=== PATIENT | male | born 1945 | race Caucasian/White ===

== ENCOUNTER 2018-01-07 17:10 | Emergency (ER) | payer MEDICARE, OTHER ==
--- NOTE | 2018-01-07 17:50 | ED ---
General Adult HPI - General Chief complaint: Recheck/Abnormal Lab/Rx Stated complaint: WANTS BP CHECKED Time Seen by Provider: 01/07/18 17:21 Source: patient, RN notes reviewed, old records reviewed Mode of arrival: ambulatory Limitations: no limitations - History of Present Illness Initial comments: 72-year-old male presents for evaluation of low blood pressure. Patient does have history of high blood pressure and is on medication. He was evaluated for shoulder osteoarthritis at outside clinic where he receives injections. They did note his blood pressure was low and told him to present to the emergency department for evaluation. Patient has no complaints. No chest pain or shortness of breath. No abdominal pain. No vomiting or diarrhea. No recent change in his medications. No fever or chills. Patient previously had significant lower extremity edema and was treated with diuretics he states is currently significantly improved. - Related Data Home Medications Medication Instructions Recorded Confirmed Aspirin EC [Ecotrin Low Dose] 81 mg PO DAILY 01/07/18 01/07/18 Atorvastatin [Lipitor] 40 mg PO HS 01/07/18 01/07/18 Budesonide/Formoterol Fumarate 2 puff INHALATION RT-BID 01/07/18 01/07/18 [Symbicort 160-4.5 Mcg Inhaler] Bumetanide [Bumex] 1 mg PO BID 01/07/18 01/07/18 Ferrous Sulfate [Feosol] 325 mg PO BID 01/07/18 01/07/18 Furosemide [Lasix] 30 mg PO BID 01/07/18 01/07/18 HYDROcodone/APAP 10-325MG [[place] 1 tab PO Q4HR PRN 01/07/18 01/07/18 10-325] Lisinopril [Zestril] 10 mg PO DAILY 01/07/18 01/07/18 Metoprolol Succinate (ER) [Toprol 25 mg PO DAILY 01/07/18 01/07/18 Xl] Multivitamins, Thera [Multivitamin 1 tab PO DAILY 01/07/18 01/07/18 (formulary)] Nitroglycerin Sl Tabs [Nitrostat] 0.4 mg SUBLINGUAL Q5M PRN 01/07/18 01/07/18 Potassium Chloride ER [K-Dur 10] 10 meq PO BID 01/07/18 01/07/18 Terazosin [Hytrin] 5 mg PO DAILY 01/07/18 01/07/18 tiZANidine [Zanaflex] 4 mg PO Q8HR PRN 01/07/18 01/07/18 Allergies Allergy/AdvReac Type Severity Reaction Status Date / Time No Known Allergies Allergy Verified 01/07/18 17:17 Review of Systems ROS Statement: Those systems with pertinent positive or pertinent negative responses have been documented in the HPI. ROS Other: All systems not noted in ROS Statement are negative. Past Medical History Past Medical History: Heart Failure, COPD, Hyperlipidemia, Hypertension, Myocardial Infarction ([place]) Additional Past Medical History / Comment(s): 2 stents cardiac History of Any Multi-Drug Resistant Organisms: None Reported Past Surgical History: Appendectomy, Heart Catheterization With Stent, Joint Replacement Additional Past Surgical History / Comment(s): hip replacement Past Psychological History: No Psychological Hx Reported Smoking Status: Never smoker Past Alcohol Use History: None Reported Past Drug Use History: None Reported General Exam Limitations: no limitations General appearance: alert, in no apparent distress Head exam: Present: atraumatic, normocephalic Eye exam: Present: normal appearance, PERRL, EOMI ENT exam: Present: normal exam Neck exam: Present: normal inspection. Absent: tenderness, meningismus Respiratory exam: Present: normal lung sounds bilaterally. Absent: respiratory distress, wheezes, rales Cardiovascular Exam: Present: regular rate, normal rhythm GI/Abdominal exam: Present: soft. Absent: distended, tenderness, guarding Extremities exam: Present: pedal edema Back exam: Present: normal inspection, full ROM Neurological exam: Present: alert, oriented X3, CN II-XII intact. Absent: motor sensory deficit Psychiatric exam: Present: normal affect, normal mood Skin exam: Present: warm, dry, intact. Absent: cyanosis, diaphoretic Course Vital Signs 01/07/18 01/07/18 01/07/18 17:12 18:25 18:52 Temperature 73 F L 98.2 F Pulse Rate 70 78 Pulse Rate [ 73 Sitting] Pulse Rate [ 85 Standing] Pulse Rate [ 62 Supine] Respiratory 18 16 Rate Blood Pressure 111/56 Blood Pressure 133/63 [Sitting] Blood Pressure 117/57 [Standing] Blood Pressure 122/58 [Supine] O2 Sat by Pulse 95 Oximetry EKG Findings - EKG Comments: EKG Findings:: EKG: Sinus rhythm with first-degree AV block and occasional PVC low-voltage prolonged QT at 481, ventricular rate is 78, NM interval 260, QRS duration 96. Medical Decision Making - Medical Decision Making 72 year old male presenting with hypotension found at outside clinic. Patient is asymptomatic. Vital signs are stable orthostatic pressures are unremarkable and patient is asymptomatic. EKG is nonischemic. Workup including CBC, CMP troponin and UA was unremarkable. Chest x-ray is negative for acute findings. Patient is reassessed, he is resting comfortably. He is asymptomatic. Blood pressure is stable. He will be discharged home with outpatient follow-up. He will monitor his blood pressure at home. - Lab Data Result diagrams: 01/07/18 17:43 01/07/18 17:43 Lab Results 01/07/18 01/07/18 01/07/18 Range/Units 17:43 17:43 17:43 WBC 6.4 (3.8-10.6) k/uL RBC 4.16 L (4.30-5.90) m/uL Hgb 13.5 (13.0-17.5) gm/dL Hct 40.4 (39.0-53.0) % MCV 97.1 (80.0-100.0) fL MCH 32.4 (25.0-35.0) pg MCHC 33.4 (31.0-37.0) g/dL RDW 14.8 (11.5-15.5) % Plt Count 222 (150-450) k/uL Neutrophils % 62 % Lymphocytes % 24 % Monocytes % 8 % Eosinophils % 3 % Basophils % 1 % Neutrophils # 3.9 (1.3-7.7) k/uL Lymphocytes # 1.5 (1.0-4.8) k/uL Monocytes # 0.5 (0-1.0) k/uL Eosinophils # 0.2 (0-0.7) k/uL Basophils # 0.0 (0-0.2) k/uL PT (9.0-12.0) sec INR (<1.2) APTT (22.0-30.0) sec Sodium 143 (137-145) mmol/L Potassium 3.9 (3.5-5.1) mmol/L Chloride 106 (98-107) mmol/L Carbon Dioxide 24 (22-30) mmol/L Anion Gap 13 mmol/L BUN 19 (9-20) mg/dL Creatinine 0.90 (0.66-1.25) mg/dL Est GFR (CKD-EPI)AfAm >90 (>60 ml/min/1.73 sqM) Est GFR (CKD-EPI)NonAf 86 (>60 ml/min/1.73 sqM) Glucose 96 (74-99) mg/dL Plasma Lactic Acid Mario (0.7-2.0) mmol/L Calcium 9.3 (8.4-10.2) mg/dL Total Bilirubin 0.6 (0.2-1.3) mg/dL AST 22 (17-59) U/L ALT 38 (21-72) U/L Alkaline Phosphatase 105 (38-126) U/L Total Creatine Kinase 58 (55-170) U/L CK-MB (CK-2) 1.5 (0.0-2.4) ng/mL CK-MB (CK-2) Rel Index 2.6 Troponin I <0.012 (0.000-0.034) ng/mL Total Protein 6.1 L (6.3-8.2) g/dL Albumin 3.8 (3.5-5.0) g/dL Urine Color Urine Appearance (Clear) Urine pH (5.0-8.0) Ur Specific [place] (1.001-1.035) Urine Protein (Negative) Urine Glucose (UA) (Negative) Urine Ketones (Negative) Urine Blood (Negative) Urine Nitrite (Negative) Urine Bilirubin (Negative) Urine Urobilinogen (<2.0) mg/dL Ur Leukocyte Esterase (Negative) 01/07/18 01/07/18 01/07/18 Range/Units 17:43 17:43 17:45 WBC (3.8-10.6) k/uL RBC (4.30-5.90) m/uL Hgb (13.0-17.5) gm/dL Hct (39.0-53.0) % MCV (80.0-100.0) fL MCH (25.0-35.0) pg MCHC (31.0-37.0) g/dL RDW (11.5-15.5) % Plt Count (150-450) k/uL Neutrophils % % Lymphocytes % % Monocytes % % Eosinophils % % Basophils % % Neutrophils # (1.3-7.7) k/uL Lymphocytes # (1.0-4.8) k/uL Monocytes # (0-1.0) k/uL Eosinophils # (0-0.7) k/uL Basophils # (0-0.2) k/uL PT 10.9 (9.0-12.0) sec INR 1.1 (<1.2) APTT 37.3 H (22.0-30.0) sec Sodium (137-145) mmol/L Potassium (3.5-5.1) mmol/L Chloride (98-107) mmol/L Carbon Dioxide (22-30) mmol/L Anion Gap mmol/L BUN (9-20) mg/dL Creatinine (0.66-1.25) mg/dL Est GFR (CKD-EPI)AfAm (>60 ml/min/1.73 sqM) Est GFR (CKD-EPI)NonAf (>60 ml/min/1.73 sqM) Glucose (74-99) mg/dL Plasma Lactic Acid Mario 0.8 (0.7-2.0) mmol/L Calcium (8.4-10.2) mg/dL Total Bilirubin (0.2-1.3) mg/dL AST (17-59) U/L ALT (21-72) U/L Alkaline Phosphatase (38-126) U/L Total Creatine Kinase (55-170) U/L CK-MB (CK-2) (0.0-2.4) ng/mL CK-MB (CK-2) Rel Index Troponin I (0.000-0.034) ng/mL Total Protein (6.3-8.2) g/dL Albumin (3.5-5.0) g/dL Urine Color Yellow Urine Appearance Clear (Clear) Urine pH 5.0 (5.0-8.0) Ur Specific [place] 1.014 (1.001-1.035) Urine Protein Negative (Negative) Urine Glucose (UA) Negative (Negative) Urine Ketones Negative (Negative) Urine Blood Negative (Negative) Urine Nitrite Negative (Negative) Urine Bilirubin Negative (Negative) Urine Urobilinogen <2.0 (<2.0) mg/dL Ur Leukocyte Esterase Negative (Negative) Disposition Clinical Impression: Hypotension Disposition: HOME SELF-CARE Condition: Good Instructions: Hypotension (ED) Is patient prescribed a controlled substance at d/c from ED?: No Referrals: Ever Marquis MD [Primary Care Provider] - 1-2 days Time of Disposition: 18:54
[2018-01-07 17:55] LABS: Appearance,Urine Clear (Clear); Bilirubin,Urine Negative (Negative); Blood,Urine Negative (Negative); Color,Urine Yellow; Glucose,Urine (UA) Negative (Negative); Ketones,Urine Negative (Negative); Leukocyte Esterase,Urine Negative (Negative); Nitrite,Urine Negative (Negative); Protein,Urine Negative (Negative); Specific Gravity,Urine 1.014 (1.001-1.035); Urobilinogen,Urine <2.0 mg/dL (<2.0)
[2018-01-07 17:56] LABS: Basophils % (A) 1 %; Eosinophils # (A) 0.2 k/uL (0-0.7); Eosinophils % (A) 3 %; HCT 40.4 % (39.0-53.0); HGB 13.5 gm/dL (13.0-17.5); Lymphocytes # (A) 1.5 k/uL (1.0-4.8); Lymphocytes % (A) 24 %; MCH 32.4 pg (25.0-35.0); MCHC 33.4 g/dL (31.0-37.0); MCV 97.1 fL (80.0-100.0); Mean Platelet Volume 7.4; Monocytes # (A) 0.5 k/uL (0-1.0); Monocytes % (A) 8 %; Neutrophils # (A) 3.9 k/uL (1.3-7.7); Neutrophils % (A) 62 %; Platelet Count 222 k/uL (150-450); RBC 4.16 m/uL (4.30-5.90); RDW 14.8 % (11.5-15.5); WBC 6.4 k/uL (3.8-10.6)
[2018-01-07 18:04] LABS: INR 1.1 (<1.2); Partial Thromboplastin Time 37.3 sec (22.0-30.0); Prothrombin Time 10.9 sec (9.0-12.0)
[2018-01-07 18:10] LABS: ALT 38 U/L (21-72); AST 22 U/L (17-59); Albumin 3.8 g/dL (3.5-5.0); Alkaline Phosphatase 105 U/L (38-126); Anion Gap 13 mmol/L; Blood Urea Nitrogen 19 mg/dL (9-20); Calcium 9.3 mg/dL (8.4-10.2); Carbon Dioxide 24 mmol/L (22-30); Chloride 106 mmol/L (98-107); Glucose 96 mg/dL (74-99); Potassium 3.9 mmol/L (3.5-5.1); Sodium 143 mmol/L (137-145); Total Bilirubin 0.6 mg/dL (0.2-1.3); Total Protein 6.1 g/dL (6.3-8.2)
--- NOTE | 2018-01-07 18:13 | XR ---
EXAMINATION TYPE: XR chest 2V DATE OF EXAM: 01/07/2018 COMPARISON: 05/10/2012 HISTORY: Syncope TECHNIQUE: Frontal and lateral views of the chest are obtained. FINDINGS: There is no heart failure nor confluent pneumonic infiltrate. Costophrenic angles are desire r. There are chest leads. IMPRESSION: No active cardiopulmonary disease. Normal heart. Calcified granuloma noted at the left p ulmonary hilum. No change.
[2018-01-07 18:19] LABS: Creatine Kinase 58 U/L (55-170)
[2018-01-07 18:31] LABS: Creatine Kinase MB 1.5 ng/mL (0.0-2.4); Troponin I <0.012 ng/mL (0.000-0.034)
[2018-01-07 18:52] VITALS: RESP 16; TEMP 98.2
[2018-01-07 19:03] VITALS: BP 105/62; PULSE 70
== END 2018-01-07 19:02 | disposition home or self-care (01) ==
LOC: EC 17:10
DX: I95.9 Hypotension, unspecified (principal); I11.0 Hypertensive heart disease with heart failure; I50.9 Heart failure, unspecified; I25.2 Old myocardial infarction; E78.5 Hyperlipidemia, unspecified; J44.9 Chronic obstructive pulmonary disease, unspecified; Z95.5 Presence of coronary angioplasty implant and graft; Z96.649 Presence of unspecified artificial hip joint; Z98.890 Other specified postprocedural states; Z79.51 Long term (current) use of inhaled steroids; Z79.82 Long term (current) use of aspirin; Z79.899 Other long term (current) drug therapy
CPT/HCPCS: 36415; 71046; 80053; 81003; 82550; 82553; 83605; 84484; 85025; 85610; 85730; 93005; 99284

== ENCOUNTER 2018-03-26 21:21 | Observation (INO) | payer MEDICARE, OTHER ==
--- NOTE | 2018-03-26 23:59 | XR ---
EXAM: XR Chest, 2 Views CLINICAL HISTORY: Difficulty breathing TECHNIQUE: Frontal and lateral views of the chest. COMPARISON: Chest x-ray dated 01/08/2008 FINDINGS: Lungs: Diffuse airspace opacities which may represent mild pulmonary vascular congestion versus inflammatory or infectious process. Pleural space: Unremarkable. No pneumothorax. Heart: Enlargement of the cardiomediastinal silhouette. Mediastinum: See above. Bones/joints: Unremarkable. IMPRESSION: Diffuse airspace opacities which may represent mild pulmonary vascular congestion versus inflammatory or infectious process.
[2018-03-27 01:03] LABS: Basophils % (A) 1 %; Eosinophils # (A) 0.1 k/uL (0-0.7); Eosinophils % (A) 2 %; HCT 42.2 % (39.0-53.0); HGB 13.4 gm/dL (13.0-17.5); Lymphocytes # (A) 1.8 k/uL (1.0-4.8); Lymphocytes % (A) 28 %; MCH 32.3 pg (25.0-35.0); MCHC 31.8 g/dL (31.0-37.0); MCV 101.6 fL (80.0-100.0); Macrocytosis Slight; Mean Platelet Volume 7.1; Monocytes # (A) 0.6 k/uL (0-1.0); Monocytes % (A) 8 %; Neutrophils # (A) 3.9 k/uL (1.3-7.7); Neutrophils % (A) 59 %; Platelet Count 236 k/uL (150-450); RBC 4.15 m/uL (4.30-5.90); WBC 6.6 k/uL (3.8-10.6)
[2018-03-27 01:09] LABS: INR 1.2 (<1.2); Partial Thromboplastin Time 38.7 sec (22.0-30.0); Prothrombin Time 11.4 sec (9.0-12.0)
[2018-03-27 01:12] LABS: Calcium 9.2 mg/dL (8.4-10.2); Potassium 4.1 mmol/L (3.5-5.1); Total Bilirubin 1.1 mg/dL (0.2-1.3); Total Protein 6.5 g/dL (6.3-8.2)
[2018-03-27 01:24] LABS: Creatine Kinase 113 U/L (55-170)
[2018-03-27 01:37] LABS: Troponin I <0.012 ng/mL (0.000-0.034)
[2018-03-27] MEDS ORDERED: NALOXONE 0.4 MG/ML 1 ML VIAL IV PRN (01:53)
[2018-03-27] MEDS ORDERED: FUROSEMIDE 10 MG/ML 4 ML VIAL IV STA (01:54)
[2018-03-27] MEDS ORDERED: BACLOFEN 10 MG TAB PO PRN (01:54)
--- NOTE | 2018-03-27 02:16 | ED ---
Extremity Problem HPI - General Chief complaint: Extremity Problem,Nontraumatic Stated complaint: water retention Time Seen by Provider: 03/26/18 22:03 Source: patient Mode of arrival: wheelchair Limitations: no limitations - History of Present Illness Initial comments: 73-year-old male patient presents to the emergency department today for evaluation of generalized swelling, shortness of breath, and dizziness. Patient states that over the last few days he has had an increase in swelling in his arms and legs. Patient states he becomes short of breath with any type of activity. Patient denies any cough or congestion. States he does feel some mild chest tightness. Patient states he did see his primary care physician yesterday and was started on Bumex 2 mg twice daily, states that he has not had an increase in his urinary output and has not helped the swelling at all. Patient denies any recent rash, fever, chills, abdominal pain, nausea, vomiting , diarrhea, constipation, numbness, tingling, dizziness, weakness, hematuria, dysuria, urinary urgency, urinary frequency, headache, visual changes, or any other complaints. - Related Data Home Medications Medication Instructions Recorded Confirmed Aspirin EC [Ecotrin Low Dose] 81 mg PO DAILY 01/07/18 03/26/18 Atorvastatin [Lipitor] 40 mg PO HS 01/07/18 03/26/18 Budesonide/Formoterol Fumarate 2 puff INHALATION RT-BID 01/07/18 03/26/18 [Symbicort 160-4.5 Mcg Inhaler] Bumetanide [Bumex] 1 mg PO BID 01/07/18 03/26/18 Ferrous Sulfate [Feosol] 325 mg PO BID 01/07/18 03/26/18 Lisinopril [Zestril] 10 mg PO DAILY 01/07/18 03/26/18 Metoprolol Succinate (ER) [Toprol 25 mg PO DAILY 01/07/18 03/26/18 Xl] Potassium Chloride ER [K-Dur 10] 10 meq PO BID 01/07/18 03/26/18 Terazosin [Hytrin] 5 mg PO DAILY 01/07/18 03/26/18 Baclofen [Lioresal] 20 mg PO TID PRN 03/26/18 03/26/18 Cholecalciferol (Vitamin D3) 2,000 unit PO DAILY 03/26/18 03/26/18 [Vitamin D3] Finasteride [Proscar] 5 mg PO DAILY 03/26/18 03/26/18 Allergies Allergy/AdvReac Type Severity Reaction Status Date / Time No Known Allergies Allergy Verified 03/26/18 22:30 Review of Systems ROS Statement: Those systems with pertinent positive or pertinent negative responses have been documented in the HPI. ROS Other: All systems not noted in ROS Statement are negative. Past Medical History Past Medical History: Heart Failure, COPD, Hyperlipidemia, Hypertension, Myocardial Infarction ([place]) Additional Past Medical History / Comment(s): 2 stents cardiac History of Any Multi-Drug Resistant Organisms: None Reported Past Surgical History: Appendectomy, Heart Catheterization With Stent, Joint Replacement Additional Past Surgical History / Comment(s): hip replacement Past Psychological History: No Psychological Hx Reported Smoking Status: Never smoker Past Alcohol Use History: None Reported Past Drug Use History: None Reported General Exam Limitations: no limitations General appearance: alert, in no apparent distress, other (This is a well- developed, well-nourished adult male patient in no acute distress. Vital signs upon presentation are temperature 98.2F, pulse 90, respirations 18, blood pressure 97/58, pulse ox 98% on room air.) Eye exam: Present: normal appearance, PERRL, EOMI. Absent: scleral icterus, conjunctival injection, periorbital swelling ENT exam: Present: normal exam, normal oropharynx, mucous membranes moist Respiratory exam: Present: normal lung sounds bilaterally. Absent: respiratory distress, wheezes, rales, rhonchi, stridor Cardiovascular Exam: Present: regular rate, normal rhythm, normal heart sounds. Absent: systolic murmur, diastolic murmur, rubs, gallop, clicks GI/Abdominal exam: Present: soft, normal bowel sounds. Absent: distended, tenderness, guarding, rebound, rigid Extremities exam: Present: full ROM, normal capillary refill, other (Patient has 2+ pitting edema to bilateral arms, lower legs, and feet.). Absent: normal inspection, tenderness, pedal edema, joint swelling, calf tenderness Neurological exam: Present: alert, oriented X3, CN II-XII intact Psychiatric exam: Present: normal affect, normal mood Skin exam: Present: warm, dry, intact, normal color. Absent: rash Course Vital Signs 03/26/18 03/26/18 21:39 23:41 Temperature 98.2 F Pulse Rate 90 71 Respiratory 18 16 Rate Blood Pressure 97/58 125/55 O2 Sat by Pulse 98 99 Oximetry Medical Decision Making - Medical Decision Making 73-year-old male patient presented to the emergency department today for evaluation of swelling to his bilateral arms and legs. Patient does have history of CHF and states that his primary care physician did start him on 2 mg of Bumex twice daily but has not been helping. Patient is also reporting shortness breath with activity. Physical examination did reveal 2+ pitting edema to both arms and legs. Labs reviewed and are relatively unremarkable, BNP was 300. Chest x-ray did show some mild pulmonary vascular congestion. Did discuss findings and results with the patient, patient will be admitted for diuresis. Return parameters were discussed in detail. He verbalizes understanding and agrees with this plan. - Lab Data Result diagrams: 03/27/18 00:35 03/27/18 00:35 Lab Results 03/27/18 03/27/18 03/27/18 Range/Units 00:35 00:35 00:35 WBC 6.6 (3.8-10.6) k/uL RBC 4.15 L (4.30-5.90) m/uL Hgb 13.4 (13.0-17.5) gm/dL Hct 42.2 (39.0-53.0) % MCV 101.6 H (80.0-100.0) fL MCH 32.3 (25.0-35.0) pg MCHC 31.8 (31.0-37.0) g/dL RDW 15.0 (11.5-15.5) % Plt Count 236 (150-450) k/uL Neutrophils % 59 % Lymphocytes % 28 % Monocytes % 8 % Eosinophils % 2 % Basophils % 1 % Neutrophils # 3.9 (1.3-7.7) k/uL Lymphocytes # 1.8 (1.0-4.8) k/uL Monocytes # 0.6 (0-1.0) k/uL Eosinophils # 0.1 (0-0.7) k/uL Basophils # 0.0 (0-0.2) k/uL Macrocytosis Slight PT 11.4 (9.0-12.0) sec INR 1.2 H (<1.2) APTT 38.7 H (22.0-30.0) sec Sodium 140 (137-145) mmol/L Potassium 4.1 (3.5-5.1) mmol/L Chloride 104 (98-107) mmol/L Carbon Dioxide 24 (22-30) mmol/L Anion Gap 12 mmol/L BUN 19 (9-20) mg/dL Creatinine 1.10 (0.66-1.25) mg/dL Est GFR (CKD-EPI)AfAm 78 (>60 ml/min/1.73 sqM) Est GFR (CKD-EPI)NonAf 67 (>60 ml/min/1.73 sqM) Glucose 86 (74-99) mg/dL Calcium 9.2 (8.4-10.2) mg/dL Total Bilirubin 1.1 (0.2-1.3) mg/dL AST 30 (17-59) U/L ALT 45 (21-72) U/L Alkaline Phosphatase 106 (38-126) U/L Total Creatine Kinase (55-170) U/L CK-MB (CK-2) (0.0-2.4) ng/mL CK-MB (CK-2) Rel Index Troponin I (0.000-0.034) ng/mL NT-Pro-B Natriuret Pep pg/mL Total Protein 6.5 (6.3-8.2) g/dL Albumin 4.0 (3.5-5.0) g/dL 03/27/18 03/27/18 Range/Units 00:35 00:35 WBC (3.8-10.6) k/uL RBC (4.30-5.90) m/uL Hgb (13.0-17.5) gm/dL Hct (39.0-53.0) % MCV (80.0-100.0) fL MCH (25.0-35.0) pg MCHC (31.0-37.0) g/dL RDW (11.5-15.5) % Plt Count (150-450) k/uL Neutrophils % % Lymphocytes % % Monocytes % % Eosinophils % % Basophils % % Neutrophils # (1.3-7.7) k/uL Lymphocytes # (1.0-4.8) k/uL Monocytes # (0-1.0) k/uL Eosinophils # (0-0.7) k/uL Basophils # (0-0.2) k/uL Macrocytosis PT (9.0-12.0) sec INR (<1.2) APTT (22.0-30.0) sec Sodium (137-145) mmol/L Potassium (3.5-5.1) mmol/L Chloride (98-107) mmol/L Carbon Dioxide (22-30) mmol/L Anion Gap mmol/L BUN (9-20) mg/dL Creatinine (0.66-1.25) mg/dL Est GFR (CKD-EPI)AfAm (>60 ml/min/1.73 sqM) Est GFR (CKD-EPI)NonAf (>60 ml/min/1.73 sqM) Glucose (74-99) mg/dL Calcium (8.4-10.2) mg/dL Total Bilirubin (0.2-1.3) mg/dL AST (17-59) U/L ALT (21-72) U/L Alkaline Phosphatase (38-126) U/L Total Creatine Kinase 113 (55-170) U/L CK-MB (CK-2) 2.0 (0.0-2.4) ng/mL CK-MB (CK-2) Rel Index 1.8 Troponin I <0.012 (0.000-0.034) ng/mL NT-Pro-B Natriuret Pep 310 pg/mL Total Protein (6.3-8.2) g/dL Albumin (3.5-5.0) g/dL - EKG Data -: EKG Interpreted by Mt EKG Comments: EKG obtained at 2231 shows sinus rhythm with first-degree AV block. Ventricular rate is 65, MI interval 244, QRS duration 92, QT 442, QTc 459. No evidence of ST elevation or depression. - Radiology Data Radiology results: report reviewed, image reviewed 2 views of the chest are obtained. Report was reviewed in its entirety. Impression by Dr. Carrillo shows diffuse airspace opacities which may represent mild pulmonary vascular congestion versus inflammatory infectious process. Disposition Clinical Impression: Edema, Dyspnea Disposition: ADMITTED IP TO THIS [facility] Condition: Serious Referrals: Ever Marquis MD [Primary Care Provider] - 1-2 days Decision to Admit Reason: Admit from EC Decision Date: 03/27/18 Decision Time: 02:16
[2018-03-27 04:35] VITALS: BMI 32.1
[2018-03-27 07:23] LABS: Creatine Kinase 96 U/L (55-170)
[2018-03-27 07:36] LABS: Creatine Kinase MB 1.9 ng/mL (0.0-2.4); Troponin I <0.012 ng/mL (0.000-0.034)
[2018-03-27] MEDS: SYMBICORT 160-4.5 MCG INHALER INHALATION SCH ×2 (08:09→21:00)
[2018-03-27] MEDS: FERROUS SULFATE 325 MG TAB PO SCH ×2 (08:37→19:48)
[2018-03-27] MEDS: LISINOPRIL 10 MG TAB PO SCH (08:37)
[2018-03-27] MEDS: CHOLECALCIFEROL 1,000 UNIT TAB PO SCH (08:37)
[2018-03-27] MEDS: DOXAZOSIN 4 MG TAB PO SCH (08:37)
[2018-03-27] MEDS: ASPIRIN 81 MG PO SCH (08:37)
[2018-03-27] MEDS: METOPROLOL SUCCINATE (ER) 25 MG TAB.ER.24H PO SCH (08:37)
[2018-03-27] MEDS: FUROSEMIDE 10 MG/ML 4 ML VIAL IV SCH ×2 (08:38→19:48)
[2018-03-27] MEDS: BUMETANIDE 1 MG TAB PO SCH ×2 (08:38→20:09)
[2018-03-27] MEDS: FINASTERIDE 5 MG TAB PO SCH (08:38)
[2018-03-27] MEDS: POTASSIUM CHLORIDE ER 10 MEQ TAB.ER.PRT PO SCH ×2 (08:39→19:48)
[2018-03-27] MEDS: HYDROcodone/APAP 10-325MG 1 EACH TAB PO PRN ×3 (11:25→19:47)
[2018-03-27 12:27] LABS: Creatine Kinase 90 U/L (55-170)
[2018-03-27 12:39] LABS: Creatine Kinase MB 1.5 ng/mL (0.0-2.4); Troponin I <0.012 ng/mL (0.000-0.034)
[2018-03-27] MEDS ORDERED: ATORVASTATIN 40 MG TAB PO SCH (21:00)
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
[2018-03-28] MEDS: HYDROcodone/APAP 10-325MG 1 EACH TAB PO PRN ×2 (05:04→09:49)
[2018-03-28] MEDS: SYMBICORT 160-4.5 MCG INHALER INHALATION SCH (07:18)
[2018-03-28 07:22] LABS: Anion Gap 7 mmol/L; Blood Urea Nitrogen 19 mg/dL (9-20); Carbon Dioxide 27 mmol/L (22-30); Chloride 106 mmol/L (98-107); Glucose 86 mg/dL (74-99); Potassium 3.9 mmol/L (3.5-5.1); Sodium 140 mmol/L (137-145)
--- NOTE | 2018-03-28 07:45 | XR ---
EXAMINATION TYPE: XR chest 2V DATE OF EXAM: 03/28/2018 COMPARISON: March 26, 2018 HISTORY: Shortness of breath TECHNIQUE: Frontal and lateral views of the chest are obtained. FINDINGS: Scattered senescent parenchymal changes noted. Hyperinflation compatible with COPD. No evidence for infiltrate. No evidence for atelectasis. Heart size is stable. Mediastinal structures are stable and grossly unremarkable. No evidence for hilar prominence. Degenerative changes dorsal spine. IMPRESSION: 1. No evidence for acute pulmonary disease.
[2018-03-28] MEDS ORDERED: BUMETANIDE 0.25 MG/ML 10 ML VIAL IV SCH (08:00)
[2018-03-28] MEDS ORDERED: ENOXAPARIN 40 MG/0.4 ML SYRINGE SQ SCH (09:00)
[2018-03-28] MEDS: FINASTERIDE 5 MG TAB PO SCH (09:49)
[2018-03-28] MEDS: POTASSIUM CHLORIDE ER 10 MEQ TAB.ER.PRT PO SCH (09:50)
[2018-03-28] MEDS: METOPROLOL SUCCINATE (ER) 25 MG TAB.ER.24H PO SCH (09:50)
[2018-03-28] MEDS: DOXAZOSIN 4 MG TAB PO SCH (09:51)
[2018-03-28] MEDS: CHOLECALCIFEROL 1,000 UNIT TAB PO SCH (09:51)
[2018-03-28] MEDS: FERROUS SULFATE 325 MG TAB PO SCH (09:51)
[2018-03-28] MEDS: ASPIRIN 81 MG PO SCH (09:51)
[2018-03-28] MEDS: LISINOPRIL 10 MG TAB PO SCH (10:02)
--- NOTE | 2018-03-28 11:59 | ECHOF ---
Referral Reason:chf MEASUREMENTS -------- HEIGHT: 188.0 cm WEIGHT: 113.4 kg BP: 104/66 RVIDd: 3.5 cm (< 3.3) IVSd: 1.5 cm (0.6 - 1.1) LVIDd: 4.4 cm (3.9 - 5.3) LVPWd: 1.4 cm (0.6 - 1.1) IVSs: 2.1 cm LVIDs: 3.4 cm LVPWs: 1.9 cm LA Diam: 3.0 cm (2.7 - 3.8) Ao Diam: 3.5 cm (2.0 - 3.7) AV Cusp: 2.4 cm (1.5 - 2.6) MV EXCURSION: 17.332 mm (> 18.000) MV EF SLOPE: 162 mm/s (70 - 150) EPSS: 0.6 cm MV E Dimitris: 0.54 m/s MV DecT: 143 ms MV A Dimitris: 0.68 m/s MV E/A Ratio: 0.79 RAP: 5.00 mmHg RVSP: 20.18 mmHg FINDINGS -------- Sinus rhythm. This was a technically difficult study with suboptimal views. The left ventricular size is normal. There is moderate concentric left ventricular hypertrophy. O verall left ventricular systolic function is normal with, an EF between 55 - 60 %. The right ventricle is mildly enlarged. The left atrial size is normal. The right atrium is normal in size. 3 ml of Lumason was utilized for enhancement of images. There is mild aortic valve sclerosis. Mild mitral annular calcification present. Mild mitral regurgitation is present. Mild tricuspid regurgitation present. Right ventricular systolic pressure is normal at < 35 mmHg. There is no evidence of pulmonary hypertension. The pulmonic valve was not well visualized. There is no pulmonic regurgitation present. The aortic root size is normal. IVC Not well visulized. There is no pericardial effusion. CONCLUSIONS -------- 1. Sinus rhythm. 2. This was a technically difficult study with suboptimal views. 3. The left ventricular size is normal. 4. There is moderate concentric left ventricular hypertrophy. 5. Overall left ventricular systolic function is normal with, an EF between 55 - 60 %. 6. The right ventricle is mildly enlarged. 7. The left atrial size is normal. 8. 3 ml of Lumason was utilized for enhancement of images. 9. There is mild aortic valve sclerosis. 10. Mild mitral annular calcification present. 11. Mild mitral regurgitation is present. 12. Mild tricuspid regurgitation present. 13. Right ventricular systolic pressure is normal at < 35 mmHg. 14. The pulmonic valve was not well visualized. 15. There is no pulmonic regurgitation present. 16. The aortic root size is normal. 17. IVC Not well visulized. 18. There is no pericardial effusion. REDUCTION FURNACE OPERATOR HELPER: Clau Hendrickson RDCS
--- NOTE | 2018-03-28 13:08 | P.CRDCN ---
History of Present Illness History of present illness: Mr. Thompson is a pleasant 73-year-old male past medical history significant for hypertension, dyslipidemia, coronary artery disease angioplasty of RCA 2009 with ischemic cardiomyopathy EF 45% and COPD. He follows with Dr. Boss in the office. We have been asked to see him in consultation for lower extremity swelling. He states this has been going on since Sunday and getting progressively worse. The swelling in his legs started first and then he started noticing swelling in his hands as well. His breathing has also been getting progressively worse with exertion. He saw his PCP yesterday and was told to increase his bumex to 2 mg BID and did that for 24s without any change in his breathing, swelling or urination frequency so he came to ED for evaluation. He denies chest pain, dizziness, palpitations, nausea, vomiting or diaphoresis. He received one dose of IV lasix in the ED and then has been getting IV bumex thereafter. He states he has been urinating frequently and is starting to feel much better since when he first came in. He denies PND or orthopnea. EKG reveals first-degree AV block with heart rate is 65. No acute ST or T wave abnormalities noted. Chest x-ray performed on admission reveals mild pulmonary vascular congestion, repeat today is normal. Laboratory data reviewed, proBNP 310, creatinine 0.95, cardiac enzymes negative 3, hemoglobin 13.4, platelets 236, sodium 140, potassium 3.9. Current cardiac medications include aspirin 81 mg daily, atorvastatin 40 mg daily, Bumex 1.5 mg twice a day, lisinopril 10 mg daily and Toprol 25 mg daily. He also takes Terazol 7, [place], Proscar, ferrous sulfate, Symbicort and baclofen. Recent stress test in the office 01/2018 negative for reversible ischemia. Review of Systems At the time of my exam: CONSTITUTIONAL: Denies fever. Denies chills. EYES: Denies blurred vision. Denies vision changes. Denies eye pain. EARS, NOSE, MOUTH & THROAT: Denies headache. Denies sore throat. Denies ear pain. CARDIOVASCULAR: Denies chest pain. Denies shortness of breath. Denies orthopnea. Denies PND. Denies palpitations. Complains of lower extremity edema , improving. RESPIRATORY: Denies cough. GASTROINTESTINAL: Denies abdominal pain. Denies diarrhea. Denies constipation. Denies nausea. Denies vomiting. MUSCULOSKELETAL: Denies myalgias. INTEGUMENTARY: Denies pruitis. Denies rash. NEUROLOGIC: Denies numbness. Denies tingling. Denies weakness. PSYCHIATRIC: Denies anxiety. Denies depression. ENDOCRINE: Denies fatigue. Denies weight change. Denies polydipsia. Denies polyurina. GENITOURINARY: Denies burning, hematuria or urgency with micturation. HEMATOLOGIC: Denies history of anemia. Denies bleeding. Past Medical History Past Medical History: Heart Failure, COPD, Hyperlipidemia, Hypertension, Myocardial Infarction ([place]) Additional Past Medical History / Comment(s): 2 stents cardiac Last Myocardial Infarction Date:: 2010 History of Any Multi-Drug Resistant Organisms: None Reported Past Surgical History: Appendectomy, Heart Catheterization With Stent, Joint Replacement Additional Past Surgical History / Comment(s): hip replacement Date of Last Stent Placement:: 2010 Past Psychological History: No Psychological Hx Reported Smoking Status: Never smoker Past Alcohol Use History: None Reported Past Drug Use History: None Reported Medications and Allergies Home Medications Medication Instructions Recorded Confirmed Type Aspirin EC [Ecotrin Low Dose] 81 mg PO DAILY 01/07/18 03/26/18 History Atorvastatin [Lipitor] 40 mg PO HS 01/07/18 03/26/18 History Budesonide/Formoterol Fumarate 2 puff INHALATION RT-BID 01/07/18 03/26/18 History [Symbicort 160-4.5 Mcg Inhaler] Bumetanide [Bumex] 1 mg PO BID 01/07/18 03/26/18 History Ferrous Sulfate [Feosol] 325 mg PO BID 01/07/18 03/26/18 History Lisinopril [Zestril] 10 mg PO DAILY 01/07/18 03/26/18 History Metoprolol Succinate (ER) [Toprol 25 mg PO DAILY 01/07/18 03/26/18 History Xl] Potassium Chloride ER [K-Dur 10] 10 meq PO BID 01/07/18 03/26/18 History Terazosin [Hytrin] 5 mg PO DAILY 01/07/18 03/26/18 History Baclofen [Lioresal] 20 mg PO TID PRN 03/26/18 03/26/18 History Cholecalciferol (Vitamin D3) 2,000 unit PO DAILY 03/26/18 03/26/18 History [Vitamin D3] Finasteride [Proscar] 5 mg PO DAILY 03/26/18 03/26/18 History HYDROcodone/APAP 10-325MG [[place] 1 tab PO Q4HR PRN 03/27/18 03/27/18 History 10-325] Allergies Allergy/AdvReac Type Severity Reaction Status Date / Time No Known Allergies Allergy Verified 03/26/18 22:30 Physical Exam Vitals: Vital Signs Temp Pulse Resp BP Pulse Ox 03/28/18 03:20 63 16 03/28/18 03:19 98.2 F 63 16 104/66 93 L 03/27/18 23:49 98.3 F 70 18 85/52 93 L 03/27/18 23:47 70 18 03/27/18 20:00 83 18 03/27/18 19:50 98.5 F 72 18 94/55 94 L 03/27/18 15:49 99.0 F 75 18 90/52 94 L Intake and Output 03/27/18 03/28/18 03/28/18 22:59 06:59 14:59 Intake Total 200 Output Total 150 200 Balance 50 -200 Intake: Oral 200 Output: Urine 200 Urine/Stool Mix 150 Other: Voiding Method Urinal Urinal # Voids 1 1 Blood pressure 121/68 heart rate 88 afebrile GENERAL: This is a 73-year-old male in no apparent distress at the time of my examination. HEENT: Head is atraumatic, normocephalic. Pupils are equal, round. Sclerae anicteric. Conjunctivae are clear. Mucous membranes of the mouth are moist. Neck is supple. There is no jugular venous distention. No carotid bruit is heard. LUNGS: Clear to auscultation no wheezes, rales or rhonchi. No chest wall tenderness is noted on palpation or with deep breathing. HEART: Regular rate and rhythm without murmurs, rubs or gallops. S1 and S2 heard. ABDOMEN: Soft, nontender. Bowel sounds are heard. No organomegaly noted. EXTREMITIES: 1+ b/l lower extremity pitting edema with eriythma and discoloration and no calf tenderness noted. VASCULAR: Radial and dorsalis pedis pulses palpated, no evidence of clubbing. NEUROLOGIC: Patient is awake, alert and oriented x3. Results 03/27/18 00:35 03/28/18 06:07 Cardiac Enzymes 03/27/18 Range/Units 11:46 CK-MB (CK-2) 1.5 (0.0-2.4) ng/mL Troponin I <0.012 (0.000-0.034) ng/mL Comprehensive Metabolic Panel 03/28/18 Range/Units 06:07 Sodium 140 (137-145) mmol/L Potassium 3.9 (3.5-5.1) mmol/L Chloride 106 (98-107) mmol/L Carbon Dioxide 27 (22-30) mmol/L BUN 19 (9-20) mg/dL Creatinine 0.95 (0.66-1.25) mg/dL Glucose 86 (74-99) mg/dL Calcium 9.0 (8.4-10.2) mg/dL Current Medications Generic Name Dose Route Start Last Admin Trade Name Freq PRN Reason Stop Dose Admin Hydrocodone Bitart/Acetaminophen 1 each 03/27/18 10:49 03/28/18 05:04 [place] 10 PO 1 each Q4HR PRN Administration Pain Aspirin 81 mg 03/27/18 09:00 03/27/18 08:37 Aspirin PO 81 mg DAILY EM Administration Atorvastatin Calcium 40 mg 03/27/18 21:00 03/27/18 19:48 Lipitor PO 40 mg HS EM Administration Baclofen 20 mg 03/27/18 01:54 03/27/18 08:37 Lioresal PO 20 mg TID PRN Administration Muscle Spasm Budesonide/Formoterol Fumarate 2 puff 03/27/18 08:00 03/28/18 07:18 Symbicort 160-4.5 Mcg Inhaler INHALATION 2 puff RT-BID EM Administration Bumetanide 0.5 mg 03/28/18 08:00 Bumex IV Q12H [facility] Cholecalciferol 2,000 unit 03/27/18 09:00 03/27/18 08:37 Vitamin D3 PO 2,000 unit DAILY EM Administration Doxazosin Mesylate 4 mg 03/27/18 09:00 03/27/18 08:37 Cardura PO 4 mg DAILY EM Administration Enoxaparin Sodium 40 mg 03/28/18 09:00 Lovenox SQ DAILY [facility] Ferrous Sulfate 325 mg 03/27/18 09:00 03/27/18 19:48 Feosol PO 325 mg BID EM Administration Finasteride 5 mg 03/27/18 09:00 03/27/18 08:38 Proscar PO 5 mg DAILY EM Administration Lisinopril 10 mg 03/27/18 09:00 03/27/18 08:37 Zestril PO 10 mg DAILY EM Administration Metoprolol Succinate 25 mg 03/27/18 09:00 03/27/18 08:37 Toprol Xl PO 25 mg DAILY EM Administration Naloxone HCl 0.2 mg 03/27/18 01:53 Narcan IV Q2M PRN Opioid Reversal Potassium Chloride 10 meq 03/27/18 09:00 03/27/18 19:48 K-Dur 10 PO 10 meq BID EM Administration Intake and Output 03/27/18 03/28/18 03/28/18 22:59 06:59 14:59 Intake Total 200 Output Total 150 200 Balance 50 -200 Intake: Oral 200 Output: Urine 200 Urine/Stool Mix 150 Other: Voiding Method Urinal Urinal # Voids 1 1 03/27/18 00:35 03/28/18 06:07 Assessment and Plan Assessment: ASSESSMENT Acute exacerbation of chronic systolic dysfunction, improved EF on recent echo obtained. EF 45% COPD Hypertension Dyslipidemia History of coronary artery disease s/p angioplasty of RCA 2009 PLAN Continue with diuresis with IV bumex and po lasix. Check electrolytes and kidney function in the morning. Document intake and output accurately qshift and obtain daily weights. Suspect he can go home in the next 24 hours as he is already feeling much better. Thank you kindly for this consultation. Nurse Practitioner note has been reviewed, I agree with a documented findings and plan of care. Patient was seen and examined.
[2018-03-28 16:51] VITALS: BP 98/66; PULSE 82; RESP 18; TEMP 98.6
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
== END 2018-03-28 17:35 | disposition home or self-care (01) ==
LOC: EC 21:21 → 3OBS 03-27 02:10
PROVIDERS: ADMIT Hospitalist; ATTEND Hospitalist
DX: I11.0 Hypertensive heart disease with heart failure (principal); I50.33 Acute on chronic diastolic (congestive) heart failure; I25.10 Atherosclerotic heart disease of native coronary artery without angina pectoris; Z95.5 Presence of coronary angioplasty implant and graft; E66.9 Obesity, unspecified; Z68.32 Body mass index [BMI] 32.0-32.9, adult; J44.9 Chronic obstructive pulmonary disease, unspecified; E78.5 Hyperlipidemia, unspecified; N40.0 Benign prostatic hyperplasia without lower urinary tract symptoms; M16.0 Bilateral primary osteoarthritis of hip; M62.838 Other muscle spasm; G89.29 Other chronic pain; M54.2 Cervicalgia; Z96.649 Presence of unspecified artificial hip joint; Z79.899 Other long term (current) drug therapy; Z79.82 Long term (current) use of aspirin; Z79.51 Long term (current) use of inhaled steroids; I25.2 Old myocardial infarction
CPT/HCPCS: 36415; 71046; 80048; 80053; 82550; 82553; 83880; 84484; 85025; 85610; 85730; 93005; 93306; 94640; 96372; 96374; 96375; 96376; 99284

== ENCOUNTER 2018-04-07 09:32 | Observation (INO) | payer MEDICARE, OTHER ==
[2018-04-07] MEDS ORDERED: MORPHINE SULFATE 2 MG/ML SYRINGE IVP STA (10:00)
[2018-04-07] MEDS ORDERED: KETOROLAC 60 MG/2 ML VIAL IVP STA (10:00)
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
[2018-04-07 10:47] LABS: Basophils % (A) 0 %; Eosinophils # (A) 0.2 k/uL (0-0.7); Eosinophils % (A) 3 %; HCT 37.2 % (39.0-53.0); HGB 12.3 gm/dL (13.0-17.5); Lymphocytes # (A) 1.4 k/uL (1.0-4.8); Lymphocytes % (A) 23 %; MCH 32.6 pg (25.0-35.0); MCHC 33.2 g/dL (31.0-37.0); MCV 98.3 fL (80.0-100.0); Mean Platelet Volume 7.6; Monocytes # (A) 0.5 k/uL (0-1.0); Monocytes % (A) 9 %; Neutrophils # (A) 3.7 k/uL (1.3-7.7); Neutrophils % (A) 62 %; Platelet Count 218 k/uL (150-450); RBC 3.78 m/uL (4.30-5.90); RDW 14.8 % (11.5-15.5)
[2018-04-07 10:54] LABS: ALT 33 U/L (21-72); AST 21 U/L (17-59); Albumin 3.4 g/dL (3.5-5.0); Alkaline Phosphatase 85 U/L (38-126); Anion Gap 7 mmol/L; Blood Urea Nitrogen 17 mg/dL (9-20); Calcium 9.2 mg/dL (8.4-10.2); Carbon Dioxide 27 mmol/L (22-30); Chloride 110 mmol/L (98-107); Glucose 105 mg/dL (74-99); Potassium 3.5 mmol/L (3.5-5.1); Sodium 144 mmol/L (137-145); Total Bilirubin 0.5 mg/dL (0.2-1.3); Total Protein 5.7 g/dL (6.3-8.2)
[2018-04-07 11:09] LABS: Creatine Kinase 60 U/L (55-170)
--- NOTE | 2018-04-07 11:12 | XR ---
EXAMINATION TYPE: XR chest 2V DATE OF EXAM: 04/07/2018 HISTORY: difficulty breathing. REFERENCE: Previous study dated 03/28/2018. FINDINGS: The lungs are overinflated. The heart is mildly enlarged. The lungs are clear. Pleural spac es are clear. IMPRESSION: 1. COPD. 2. MILD CARDIOMEGALY.
[2018-04-07 11:22] LABS: Creatine Kinase MB 1.4 ng/mL (0.0-2.4); Troponin I <0.012 ng/mL (0.000-0.034)
[2018-04-07 11:23] LABS: INR 1.1 (<1.2)
[2018-04-07 11:38] LABS: D-Dimer 3.74 mg/L FEU (<0.60)
--- NOTE | 2018-04-07 12:27 | CT ---
EXAMINATION TYPE: CT chest angio for PE DATE OF EXAM: 04/07/2018 COMPARISON: None HISTORY: pain CT DLP: 682 mGycm Automated exposure control for dose reduction was used. CONTRAST: CT Chest for pulmonary embolism performed with with IV Contrast, patient injected with 100 mL of Isov ue 370. FINDINGS: There is a calcified granuloma in the posterior basal segment of the left lower lobe. There is dependent atelectasis within the dependent portions of the lungs. There is a mild groundglass op[place] throughout the lungs. This may be due to ongoing alveolitis. Chest x-ray from earlier today did not demonstrate congestive heart failure. There is no significant axillary, mediastinal or hilar adenopathy. There is no evidence of pulmonary embolus. The aorta is normal in caliber without evidence of dissection. The heart is mildly enlarged. There is no pleural or pericardial fluid. Visualized portions of the upper abdomen are unremarkable. There is minor hypertrophic spondylosis within the spine.. IMPRESSION: 1. THIS EXAMINATION IS NEGATIVE FOR PULMONARY EMBOLUS. 2. CARDIOMEGALY. 3. MILD, DIFFUSE GROUNDGLASS OPACITY MAY REPRESENT ONGOING ALVEOLITIS. LESS LIKELY WOULD BE CONGESTIV E HEART FAILURE.
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
--- NOTE | 2018-04-07 15:55 | CT ---
EXAMINATION TYPE: CT cervical spine wo con DATE OF EXAM: 04/07/2018 COMPARISON: NONE HISTORY: pain CT DLP: 546.7 mGycm. Automated Exposure Control for Dose Reduction was Utilized. TECHNIQUE: CT scan of the cervical spine is obtained without contrast, axial images are obtained, sa gittal and coronal reformatted images are also reviewed. FINDINGS: Cervical spine is visualized in its entirety from C1 through upper thoracic levels, demonst rates straightened alignment without evidence of acute fracture or dislocation. Prevertebral soft ti ssue appears within normal limits. The C1-C2 articulation shows moderately advanced asymmetric left- sided narrowing seen best on coronal images with moderate spurring. Vertebral body heights are maintained. Moderate to advanced disc space narrowing C3-C4, C6-C7, and C7 -T1 levels is present. There is moderate to advanced spurring C6-C7 level seen. No large posterior di sc herniations are seen on sagittal images. Review of axial images shows multilevel uncovertebral facet degenerative changes bilaterally contribu ting to multilevel neural foraminal narrowing most prominent right C2-C3, and left C4-C5 levels. There is a small sized thyroid with large 3.0 cm right thyroid nodule axial image 76. Small blebs pos terior right lung apex are identified. IMPRESSION: 1. Straightening of cervical spine with multilevel degenerative changes seen as detailed above. 2. Suspicious 3.0 cm right thyroid nodule, dedicated thyroid ultrasound is advised to further evaluat e and characterize.
[2018-04-07] MEDS ORDERED: HYDROcodone/APAP 10-325MG 1 EACH TAB PO PRN (16:24)
[2018-04-07] MEDS ORDERED: BACLOFEN 10 MG TAB PO PRN (16:24)
[2018-04-07 17:13] VITALS: BMI 31.8
[2018-04-07] MEDS: SYMBICORT 160-4.5 MCG INHALER INHALATION SCH (20:17)
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
[2018-04-07] MEDS: KETOROLAC 30 MG/ML 1 ML VIAL IVP SCH (21:05)
[2018-04-07] MEDS: ATORVASTATIN 40 MG TAB PO SCH (21:06)
[2018-04-07] MEDS: FERROUS SULFATE 325 MG TAB PO SCH (21:06)
[2018-04-07] MEDS: traZODone HCL 50 MG TAB PO SCH (21:06)
[2018-04-07] MEDS: POTASSIUM CHLORIDE ER 10 MEQ TAB.ER.PRT PO SCH (21:06)
[2018-04-07] MEDS: BUMETANIDE 1 MG TAB PO SCH (21:15)
[2018-04-08] MEDS: KETOROLAC 30 MG/ML 1 ML VIAL IVP SCH ×4 (04:35→17:56)
[2018-04-08] MEDS: SYMBICORT 160-4.5 MCG INHALER INHALATION SCH ×2 (08:53→19:24)
[2018-04-08] MEDS: CHOLECALCIFEROL 1,000 UNIT TAB PO SCH (09:07)
[2018-04-08] MEDS: LISINOPRIL 10 MG TAB PO SCH (09:07)
[2018-04-08] MEDS: POTASSIUM CHLORIDE ER 10 MEQ TAB.ER.PRT PO SCH ×2 (09:07→21:33)
[2018-04-08] MEDS: ASPIRIN 81 MG PO SCH (09:08)
[2018-04-08] MEDS: FERROUS SULFATE 325 MG TAB PO SCH ×2 (09:08→21:33)
--- NOTE | 2018-04-08 11:50 | US ---
EXAMINATION TYPE: US carotid duplex BILAT DATE OF EXAM: 04/08/2018 COMPARISON: NONE CLINICAL HISTORY: Patient with TIA symptoms.. left neck swelling EXAM MEASUREMENTS: RIGHT: Peak Systolic Velocity (PSV) cm/sec ----- Right CCA: 52.9 ----- Right ICA: 84.9 ----- Right ECA: 50.3 ICA/CCA ratio: 1.6 RIGHT: End Diastole cm/sec ----- Right CCA: 18.8 ----- Right ICA: 28.4 ----- Right ECA: 14.0 LEFT: Peak Systolic Velocity (PSV) cm/sec ----- Left CCA: 71.1 ----- Left ICA: 82.8 ----- Left ECA: 75.4 ICA/CCA ratio: 1.2 LEFT: End Diastole cm/sec ----- Left CCA: 18.8 ----- Left ICA: 26.2 ----- Left ECA: 13.8 VERTEBRALS (direction of flow): Right Vertebral: Antegrade Left Vertebral: Antegrade Rhythm: Normal IMPRESSION: Mild homogeneous plaque seen with no significant stenosis Criteria for Assigning % of Stenosis / Diameter reduction (Estimation based on the indirect measurements of the internal carotid artery velocities (ICA PSV). 1. Normal (no stenosis)=ICA PSV < 125 cm/s: ratio < 2.0: ICA EDV<40 cm/s. 2. Less than 50% stenosis=ICA PSV < 125 cm/s: ratio < 2.0: ICA EDV<40 cm/s. 3. 50 to 69% stenosis=ICA PSV of 125 to 230 cm/s: ration 2.0 ? 4.0: ICA EDV 40-100 cm/s. 4. Greater than 70% stenosis to near occlusion= ICA PSV > 230 cm/s: ratio > 4.0: ICA EDV > 100 cm/s. 5. Near occlusion= ICA PSV velocities may be low or undetectable: variable ratio and ICA EDV. 6. Total occlusion=unable to detect flow.
[2018-04-08] MEDS: FINASTERIDE 5 MG TAB PO SCH (12:47)
[2018-04-08] MEDS: METOPROLOL SUCCINATE (ER) 25 MG TAB.ER.24H PO SCH (12:47)
[2018-04-08] MEDS: BUMETANIDE 1 MG TAB PO SCH ×2 (12:47→22:09)
[2018-04-08] MEDS: DOXAZOSIN 4 MG TAB PO SCH (12:47)
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
--- NOTE | 2018-04-08 20:02 | MR ---
EXAMINATION TYPE: MR brain wo con DATE OF EXAM: 04/08/2018 COMPARISON: None HISTORY: Facial numbness Standard multiplanar, multisequence MRI departmental protocol Multiplanar, multisequence images of the brain were acquired. Diffusion weighted imaging was performe d. FINDINGS: There is some cerebral cortical atrophy. There is no mass effect nor midline shift. There i s no sign of intracranial hemorrhage. Brainstem is intact. There is thinning of the corpus callosum. There are numerous foci of abnormal increased signal in the periventricular white matter and more not iceable in the occipital lobes. These measure up to 8 mm. Total number is approximately 20. There is no evidence of a cortical infarct. IMPRESSION: Cerebral atrophy. Periventricular white matter signal changes are nonspecific. I would consider both demyelinating disease and chronic small vessel ischemia.
[2018-04-08] MEDS: ATORVASTATIN 40 MG TAB PO SCH (21:33)
[2018-04-08] MEDS: traZODone HCL 50 MG TAB PO SCH (21:33)
[2018-04-08 23:57] VITALS: RESP 16
[2018-04-09] MEDS: KETOROLAC 30 MG/ML 1 ML VIAL IVP SCH ×3 (03:36→12:18)
--- NOTE | 2018-04-09 06:24 | PN ---
PROGRESS NOTE DATE OF SERVICE: 04/08/18. PRESENTING COMPLAINT: Neck pain. INTERVAL HISTORY: This patient was seen by me yesterday afternoon on 04/08/18 with multitude of symptoms. The patient's CT scan of the cervical spine is showing arthritis. Seen by Orthopedics. Neurological workup is in place. Otherwise, patient tolerating a diet. Comfortable, lying in bed. REVIEW OF SYSTEMS: Done for constitutional, cardiovascular, GI, pulmonary, musculoskeletal; relevant findings as above. CURRENT MEDICATIONS: Reviewed. PHYSICAL EXAMINATION: On examination: Temperature 98.4, pulse 54, respiration 16, blood pressure 101/64, pulse ox 95 percent on room air. GENERAL APPEARANCE: Lying in bed, awake. EYES: Pupils equal. Conjunctivae normal. HEENT: External appearance of nose and ears normal. Oral cavity normal. NECK: JVD not raised. Mass not palpable. RESPIRATORY: Effort normal. Lungs, decreased breath sounds. CARDIOVASCULAR: 1st and 2nd sounds normal. No edema. ABDOMEN: Soft, nontender. Liver and spleen not palpable. PSYCHIATRY: Alert and oriented x3. Mood and affect slightly anxious. INVESTIGATIONS: No blood work from today. MRI of the brain showing some atrophic changes. Carotid Doppler did not show any significant stenosis. ASSESSMENT: 1. Acute on chronic cervical spine, pain from cervical spine osteoarthritis, from radiculopathy, being followed by Orthopedics. 2. Benign prostatic hypertrophy. 3. Essential hypertension. 4. Hyperlipidemia. 5. Chronic obstructive pulmonary disease in a nonsmoker. 6. Primary osteoarthritis of the hips. 7. Obesity; BMI 32.1. 8. Coronary artery disease with stent in 2010. 9. Hypertensive heart disease. 10.Chronic congestive heart failure from diastolic dysfunction. Ejection fraction 55- 60 percent from underlying coronary artery disease. PLAN: Continue medication and treatment plan. Await further input from Neurology. Orthopedics will follow the patient as an outpatient. Otherwise, patient appears to be rather stable. MMODL / IJN: [id number] /
[2018-04-09] MEDS: SYMBICORT 160-4.5 MCG INHALER INHALATION SCH (07:52)
[2018-04-09] MEDS: CHOLECALCIFEROL 1,000 UNIT TAB PO SCH (08:05)
[2018-04-09] MEDS: FERROUS SULFATE 325 MG TAB PO SCH (08:05)
[2018-04-09] MEDS: BUMETANIDE 1 MG TAB PO SCH (08:05)
[2018-04-09] MEDS: ASPIRIN 81 MG PO SCH (08:05)
[2018-04-09] MEDS: POTASSIUM CHLORIDE ER 10 MEQ TAB.ER.PRT PO SCH (08:05)
[2018-04-09] MEDS: LISINOPRIL 10 MG TAB PO SCH (08:05)
[2018-04-09] MEDS: METOPROLOL SUCCINATE (ER) 25 MG TAB.ER.24H PO SCH (08:05)
[2018-04-09] MEDS: DOXAZOSIN 4 MG TAB PO SCH (08:05)
[2018-04-09] MEDS: FINASTERIDE 5 MG TAB PO SCH (08:06)
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
[2018-04-09 12:07] VITALS: BP 123/65; PULSE 78; TEMP 98.2
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
--- NOTE | 2018-04-09 16:18 | PCN ---
PROCEDURE NOTE PREOP DIAGNOSIS: Abscess with cellulitis left lower extremity. OPERATION: I and D of the abscess left lower extremity. The patient has history of bee sting a week ago. He developed marked swelling and redness with fluctuation of the anterior aspect of the lower leg. Left leg was prepped and draped usual sterile manner. 1% lidocaine plain infiltrated. About 2 cm incision was made at the anterior aspect of the left lower leg and deep into skin and fat. There was a large amount of pus was drained. We took the deep culture wound was irrigated with saline. Dressing applied with Silvadene cream on the lower leg because of cellulitis and the patient tolerated the procedure well. MMODL / IJN: [id number] /
--- NOTE | 2018-04-10 08:25 | DS ---
DISCHARGE SUMMARY DATE OF ADMISSION: April 07, 2018. DATE OF DISCHARGE: April 09, 2018 FINAL DIAGNOSES: 1. Acute on chronic cervical spine pain from osteoarthritis and radiculopathy, POA. 2. Possible transient ischemic attack. 3. Benign prostatic hypertrophy. 4. Essential hypertension. 5. Hyperlipidemia. 6. Chronic obstructive pulmonary disease in a nonsmoker. 7. Primary osteoarthritis of the hips. 8. Obesity; BMI 32.1. 9. Coronary artery disease with stent in 2010. 10.Hypertensive heart disease. 11.Chronic congestive heart failure from diastolic dysfunction. Ejection fraction 55- 60 percent, underlying coronary artery disease. HOSPITAL COURSE: This patient presented with multitude of symptoms including pain in the neck, which is acute on chronic, following accident earlier in the year. The patient did have a cervical spine CT. Seen by Dr. Leonard Wadsworth who follows the patient as an outpatient. The patient also had a chest CT negative for PE. Carotid Doppler did not show any critical stenosis. MRI of the brain showed some chronic changes including atrophy. The patient was seen by Dr. Rosa Elena Lora from neurology who felt the patient may have had some TIA as patient had some numbness on the left side of the face. The patient also has some swelling in lower extremity, which probably venous insufficient that was settled down. Care was discussed in detail with the patient. The patient renal function is normal. ProBNP is only 666. Chest CTA otherwise unremarkable. CONSULTATION: Dr. Rosa Elena Lora from neurology, Dr. Makenna Aguirre from vascular, Dr. Wadsworth from Orthopedics and Dr. Haider from Pulmonary. EXAMINATION: Temperature 98.2, pulse 78, respirations 16, blood pressure 120/65, lungs are clear. Mild edema. Psych AO x3. DISCHARGE MEDICATIONS: 1. Lipitor 40 mg q.h.s. 2. Symbicort 160/4.5, 2 puffs b.i.d. 3. Bumex 1 mg p.o. b.i.d. 4. Iron 325 p.o. b.i.d. 5. Zestril 10 mg p.o. daily. 6. Toprol-XL 25 mg a day. 7. Potassium 10 mEq p.o. b.i.d. 8. Terazosin 5 mg p.o. daily. 9. Baclofen 20 mg p.o. t.i.d. p.r.n. 10.Vitamin D3 2000 units p.o. daily. 11.Proscar 5 mg p.o. daily. 12.Grassflat 10 1 tab q.4h p.r.n. 13.Trazodone 50 mg q.h.s. 14.Aspirin 81 mg p.o. b.i.d. FOLLOW UP: Dr. Brijesh Marquis in [facility] in 3 days, Dr. Dong Dillon on April 23, 2018. The patient already has an appointment to follow up with his vaccinator. Care was discussed with him. MMODL / IJN: [id number] /
== END 2018-04-09 15:25 | disposition home or self-care (01) ==
LOC: EC 09:32 → 3OBS 13:02
PROVIDERS: ADMIT Hospitalist; ATTEND Hospitalist
DX: M47.22 Other spondylosis with radiculopathy, cervical region (principal); N40.0 Benign prostatic hyperplasia without lower urinary tract symptoms; E78.5 Hyperlipidemia, unspecified; J44.9 Chronic obstructive pulmonary disease, unspecified; M16.0 Bilateral primary osteoarthritis of hip; Z68.32 Body mass index [BMI] 32.0-32.9, adult; E66.9 Obesity, unspecified; I25.10 Atherosclerotic heart disease of native coronary artery without angina pectoris; Z95.5 Presence of coronary angioplasty implant and graft; I50.32 Chronic diastolic (congestive) heart failure; I11.0 Hypertensive heart disease with heart failure; R20.0 Anesthesia of skin; M79.89 Other specified soft tissue disorders; G89.29 Other chronic pain; Z79.82 Long term (current) use of aspirin; Z79.51 Long term (current) use of inhaled steroids; Z79.899 Other long term (current) drug therapy; I25.2 Old myocardial infarction; Z96.641 Presence of right artificial hip joint; Z87.891 Personal history of nicotine dependence; M50.10 Cervical disc disorder with radiculopathy, unspecified cervical region; M46.92 Unspecified inflammatory spondylopathy, cervical region; Z87.828 Personal history of other (healed) physical injury and trauma; I73.9 Peripheral vascular disease, unspecified; I89.0 Lymphedema, not elsewhere classified
CPT/HCPCS: 99285 ×2; 96374 ×2; 96375 ×2; 96376 ×3; 36415; 94640 ×3; 95819; 93005; 85379; 83880; 80053; 82550; 82553; 83735; 84484; 85025; 85610; 85730; 87040; 71046; 93880; 72125; 71275; 70551; G0378 ×3; S0138 ×2; J1885 ×4; J2270; Q9967

== ENCOUNTER 2018-05-10 09:52 | Day surgery (SDC) | payer MEDICARE, OTHER ==
[2018-05-10 10:28] VITALS: TEMP 98.2
--- NOTE | 2018-05-10 11:14 | US ---
ULTRASOUND GUIDED FNA THYROID BIOPSY: CLINICAL HISTORY: Right thyroid nodule FINDINGS: The procedure was explained to the patient. The risks, complications, benefits and alternatives were discussed and any questions were answered. Informed consent was obtained. Patient was placed supin e on the ultrasound table and prepped and draped in the usual sterile fashion. Utilizing a 25 gauge needle, five passes were made into the requested right thyroid nodule. Patient was stable throughout the procedure. Pathology is pending. All elements of maximal barrier technique were utilized. IMPRESSION: 1. Successful ultrasound guided FNA thyroid biopsy.
[2018-05-10 11:44] VITALS: BP 134/69; PULSE 68; RESP 16
== END 2018-05-10 11:20 | disposition home or self-care (01) ==
LOC: RADPROMAIN 09:52
PROVIDERS: ATTEND Family Medicine
DX: E04.1 Nontoxic single thyroid nodule (principal)
CPT/HCPCS: 10022; 36415; 76942; 84443; 88173; 88305

== ENCOUNTER → 2018-05-10 | Outpatient (CLI) | payer MEDICARE, OTHER | LOC: RADFLMAIN 11:19 | PROVIDERS: ATTEND Otolaryngology Plastic Surgery within the Head & Neck | DX: E04.1 Nontoxic single thyroid nodule (principal); R13.12 Dysphagia, oropharyngeal phase | CPT/HCPCS: 36415; 84443 ==

== ENCOUNTER 2019-03-13 12:58 | Observation (INO) | payer MEDICARE, OTHER ==
--- NOTE | 2019-03-13 13:53 | ED ---
General Adult HPI - General Chief complaint: Shortness of Breath Stated complaint: SOB Time Seen by Provider: 03/13/19 13:28 Source: patient Mode of arrival: ambulatory Limitations: no limitations - History of Present Illness Initial comments: Dictation was produced using Fleksy dictation software. please excuse any grammatical, word or spelling errors. Chief Complaint: 74-year-old male past but quit history of heart regular, COPD and dyslipidemia and myocardial infarction presents with shortness of breath 3 weeks. History of Present Illness: 74-year-old male who presents today with shortness of breath 3 weeks. He reports that his symptoms have been persistent. He states that today he was tired of being short of breath prompted him to come to the emergency department. Patient denies any cough. He has been trying to use his breathing treatments to try to help his symptoms however feels like it's not helping. Patient does complain of some orthopnea and has been requiring multiple pillows behind his back in order to sleep comfortably at night. Denies any chest pain. He states that his symptoms are especially worse with exertion. The ROS documented in this emergency department record has been reviewed and confirmed by me. Those systems with pertinent positive or negative responses have been documented in the HPI. All other systems are other negative and/or noncontributory. PHYSICAL EXAM: General Impression: Alert and oriented x3, mild respiratory distress HEENT: Normocephalic atraumatic, extra-ocular movements intact, pupils equal and reactive to light bilaterally, mucous membranes moist. Cardiovascular: Heart regular rate and rhythm, S1&S2 audible, no murmurs, rubs or gallops Chest: Faint bilateral lower posterior lung crackles Abdomen: Bowel sounds present, abdomen soft, non-tender, non-distended, no organomegaly Musculoskeletal: Pulses present and equal in all extremities, no peripheral edema Motor: no focal deficits noted Neurological: CN II-XII grossly intact, no focal motor or sensory deficits noted Skin: Intact with no visualized rashes Psych: Normal affect and mood ED course: 74-year-old male presents with chief complaint shortness of breath. It is a little comorbidities that could be a possible etiology for his shortness of breath. Vital signs upon arrival shows respiratory 26, rest of vital signs within acceptable limits. Laboratory evaluation obtained. CBC unremarkable. D-dimer is 1.10. Metabolic panel is otherwise unremarkable. Enzymes negative. Prematurity peptide is negative. Chest x-ray shows increased peribronchial cuffing which may represent reactive airway disease or COPD. Given elevated d-dimer CT angios the chest was obtained showing his of pulmonary embolus. Furthermore there is all just chronic findings. No acute processes noted. Patient given breathing treatment with slight improvement of the symptoms. Patient lives at home alone and does not feel comfortable being discharged given his degree of shortness of breath. Patient ambulated at bedside and became very short winded. Believe patient would benefit from inpatient observation admission with auscultation to pulmonology. EKG interpretation: Ventricular rate 75, sinus rhythm,. Interval to 70, QS 90, QTC 473. No MA prolongation, no QTC prolongation, no ST or T-wave changes noted. EKG compared to a 04/18/2018 showing no changes. Overall, this EKG is unremarkable - Related Data Home Medications Medication Instructions Recorded Confirmed Atorvastatin [Lipitor] 40 mg PO HS 01/07/18 03/13/19 Bumetanide [BUMEX] 2 mg PO BID 01/07/18 03/13/19 Ferrous Sulfate [Iron (65 MG 325 mg PO BID 01/07/18 03/13/19 Elemental)] Lisinopril [Zestril] 10 mg PO DAILY 01/07/18 03/13/19 Metoprolol Succinate (ER) [Toprol 25 mg PO DAILY 01/07/18 03/13/19 XL] Potassium Chloride ER [K-Dur 10] 10 meq PO BID 01/07/18 03/13/19 Terazosin [Hytrin] 5 mg PO DAILY 01/07/18 03/13/19 Cholecalciferol (Vitamin D3) 2,000 unit PO DAILY 03/26/18 03/13/19 [Vitamin D3] Finasteride [Proscar] 5 mg PO DAILY 03/26/18 03/13/19 HYDROcodone/APAP 10-325MG [[place] 1 tab PO Q4HR PRN 03/27/18 03/13/19 10-325] Aspirin EC [Ecotrin Low Dose] 81 mg PO DAILY 05/03/18 03/13/19 Menthol [Biofreeze] 1 applic TOPICAL DAILY PRN 03/13/19 03/13/19 Allergies Allergy/AdvReac Type Severity Reaction Status Date / Time No Known Allergies Allergy Verified 03/13/19 13:24 Review of Systems ROS Statement: Those systems with pertinent positive or pertinent negative responses have been documented in the HPI. ROS Other: All systems not noted in ROS Statement are negative. Past Medical History Past Medical History: Heart Failure, COPD, Hyperlipidemia, Hypertension, Myocardial Infarction ([place]) Additional Past Medical History / Comment(s): 2 stents cardiac Last Myocardial Infarction Date:: 2010 History of Any Multi-Drug Resistant Organisms: None Reported Past Surgical History: Appendectomy, Heart Catheterization With Stent, Joint Replacement Additional Past Surgical History / Comment(s): hip replacement Date of Last Stent Placement:: 2010 Past Psychological History: No Psychological Hx Reported Smoking Status: Never smoker Past Alcohol Use History: None Reported Past Drug Use History: None Reported General Exam Limitations: no limitations Course Vital Signs 03/13/19 03/13/19 03/13/19 13:16 14:13 15:44 Temperature 97.9 F Pulse Rate 85 61 Respiratory 26 H 14 13 Rate Blood Pressure 116/69 120/65 O2 Sat by Pulse 97 98 Oximetry 03/13/19 16:27 Temperature Pulse Rate 62 Respiratory Rate Blood Pressure O2 Sat by Pulse Oximetry Medical Decision Making - Lab Data Result diagrams: 03/13/19 13:50 03/13/19 13:50 Lab Results 03/13/19 03/13/19 03/13/19 Range/Units 13:50 13:50 13:50 WBC 8.1 (3.8-10.6) k/uL RBC 4.11 L (4.30-5.90) m/uL Hgb 14.0 (13.0-17.5) gm/dL Hct 40.9 (39.0-53.0) % MCV 99.7 (80.0-100.0) fL MCH 34.1 (25.0-35.0) pg MCHC 34.2 (31.0-37.0) g/dL RDW 16.4 H (11.5-15.5) % Plt Count 264 (150-450) k/uL Neutrophils % 67 % Lymphocytes % 21 % Monocytes % 8 % Eosinophils % 2 % Basophils % 0 % Neutrophils # 5.4 (1.3-7.7) k/uL Lymphocytes # 1.7 (1.0-4.8) k/uL Monocytes # 0.6 (0-1.0) k/uL Eosinophils # 0.1 (0-0.7) k/uL Basophils # 0.0 (0-0.2) k/uL Anisocytosis Slight Macrocytosis Slight PT 10.9 (9.0-12.0) sec INR 1.0 (<1.2) APTT 40.4 H (22.0-30.0) sec D-Dimer 1.10 H (<0.60) mg/L FEU Sodium 138 (137-145) mmol/L Potassium 4.0 (3.5-5.1) mmol/L Chloride 103 (98-107) mmol/L Carbon Dioxide 27 (22-30) mmol/L Anion Gap 8 mmol/L BUN 14 (9-20) mg/dL Creatinine 0.90 (0.66-1.25) mg/dL Est GFR (CKD-EPI)AfAm >90 (>60 ml/min/1.73 sqM) Est GFR (CKD-EPI)NonAf 85 (>60 ml/min/1.73 sqM) Glucose 90 (74-99) mg/dL Calcium 9.6 (8.4-10.2) mg/dL Magnesium 2.2 (1.6-2.3) mg/dL Total Bilirubin 1.0 (0.2-1.3) mg/dL AST 29 (17-59) U/L ALT 32 (21-72) U/L Alkaline Phosphatase 132 H (38-126) U/L Troponin I (0.000-0.034) ng/mL NT-Pro-B Natriuret Pep pg/mL Total Protein 6.8 (6.3-8.2) g/dL Albumin 4.1 (3.5-5.0) g/dL 03/13/19 03/13/19 Range/Units 13:50 13:50 WBC (3.8-10.6) k/uL RBC (4.30-5.90) m/uL Hgb (13.0-17.5) gm/dL Hct (39.0-53.0) % MCV (80.0-100.0) fL MCH (25.0-35.0) pg MCHC (31.0-37.0) g/dL RDW (11.5-15.5) % Plt Count (150-450) k/uL Neutrophils % % Lymphocytes % % Monocytes % % Eosinophils % % Basophils % % Neutrophils # (1.3-7.7) k/uL Lymphocytes # (1.0-4.8) k/uL Monocytes # (0-1.0) k/uL Eosinophils # (0-0.7) k/uL Basophils # (0-0.2) k/uL Anisocytosis Macrocytosis PT (9.0-12.0) sec INR (<1.2) APTT (22.0-30.0) sec D-Dimer (<0.60) mg/L FEU Sodium (137-145) mmol/L Potassium (3.5-5.1) mmol/L Chloride (98-107) mmol/L Carbon Dioxide (22-30) mmol/L Anion Gap mmol/L BUN (9-20) mg/dL Creatinine (0.66-1.25) mg/dL Est GFR (CKD-EPI)AfAm (>60 ml/min/1.73 sqM) Est GFR (CKD-EPI)NonAf (>60 ml/min/1.73 sqM) Glucose (74-99) mg/dL Calcium (8.4-10.2) mg/dL Magnesium (1.6-2.3) mg/dL Total Bilirubin (0.2-1.3) mg/dL AST (17-59) U/L ALT (21-72) U/L Alkaline Phosphatase (38-126) U/L Troponin I <0.012 (0.000-0.034) ng/mL NT-Pro-B Natriuret Pep 804 pg/mL Total Protein (6.3-8.2) g/dL Albumin (3.5-5.0) g/dL Disposition Clinical Impression: Dyspnea Disposition: ADMITTED IP TO THIS HOSP Condition: Fair Referrals: Ever Marquis MD [Primary Care Provider] - 1-2 days Decision Time: 16:41
[2019-03-13 14:08] LABS: Anisocytosis Slight; Basophils % (A) 0 %; Eosinophils # (A) 0.1 k/uL (0-0.7); Eosinophils % (A) 2 %; HCT 40.9 % (39.0-53.0); Lymphocytes # (A) 1.7 k/uL (1.0-4.8); Lymphocytes % (A) 21 %; MCH 34.1 pg (25.0-35.0); MCHC 34.2 g/dL (31.0-37.0); MCV 99.7 fL (80.0-100.0); Macrocytosis Slight; Mean Platelet Volume 7.6; Monocytes # (A) 0.6 k/uL (0-1.0); Monocytes % (A) 8 %; Neutrophils # (A) 5.4 k/uL (1.3-7.7); Neutrophils % (A) 67 %; Platelet Count 264 k/uL (150-450); RBC 4.11 m/uL (4.30-5.90); RDW 16.4 % (11.5-15.5); WBC 8.1 k/uL (3.8-10.6)
--- NOTE | 2019-03-13 14:12 | XR ---
EXAMINATION TYPE: XR chest 2V DATE OF EXAM: 03/13/2019 COMPARISON: 04/07/2018 HISTORY: Shortness of breath for 3 weeks. History of COPD and hypertension. TECHNIQUE: Frontal and lateral views of the chest are obtained. FINDINGS: There is an enlarged cardiomediastinal silhouette. Slightly increased peribronchial cuffin g which appear somewhat chronic. Underlying COPD is seen with pulmonary hyperinflation and biapical l ucency with flattening of diaphragms on the lateral view. Cardiomediastinal silhouette is enlarged bu t stable. Diffuse osseous demineralization and mild degenerative changes of the spine. Calcified gran ulomas on the hilum. IMPRESSION: Increased peribronchial cuffing, acute on chronic. This may represent reactive or infect ious airway disease in this patient with COPD.
[2019-03-13 14:17] LABS: ALT 32 U/L (21-72); AST 29 U/L (17-59); African American GFR (CKD) >90 (>60 ml/min/1.73 sqM); Albumin 4.1 g/dL (3.5-5.0); Alkaline Phosphatase 132 U/L (38-126); Anion Gap 8 mmol/L; Blood Urea Nitrogen 14 mg/dL (9-20); Calcium 9.6 mg/dL (8.4-10.2); Carbon Dioxide 27 mmol/L (22-30); Chloride 103 mmol/L (98-107); Glucose 90 mg/dL (74-99); Magnesium 2.2 mg/dL (1.6-2.3); Sodium 138 mmol/L (137-145); Total Protein 6.8 g/dL (6.3-8.2)
[2019-03-13] MEDS ORDERED: DEXAMETHASONE 4 MG TAB PO STA (14:17)
[2019-03-13] MEDS ORDERED: IPRATROPIUM 0.5 MG/2.5 ML NEBU INHALATION STA (14:17)
[2019-03-13] MEDS ORDERED: ALBUTEROL NEBULIZED 2.5 MG/3 ML INHALATION STA ×2 (14:17)
[2019-03-13 14:18] LABS: Partial Thromboplastin Time 40.4 sec (22.0-30.0); Prothrombin Time 10.9 sec (9.0-12.0)
[2019-03-13 14:27] LABS: D-Dimer 1.1 mg/L FEU (<0.60)
--- NOTE | 2019-03-13 16:33 | CT ---
EXAMINATION TYPE: CT angio chest DATE OF EXAM: 03/13/2019 4:21 PM COMPARISON: 04/07/2018 HISTORY: Difficulty breathing CT DLP: 548.7 mGycm Automated exposure control for dose reduction was used. CONTRAST: CTA scan of the thorax is performed with IV Contrast, patient injected with 100 mL of Isovue 370, pul monary embolism protocol. . FINDINGS: LUNGS: Redemonstration of small noncalcified nodule in the posterior lateral left lower lobe measurin g 0.7 cm on image 112 additional calcified granuloma is seen inferiorly. Lungs are grossly clear, the re is no concerning parenchymal mass or nodule identified. There is no pleural effusion or pneumoth orax seen. The tracheobronchial tree is patent. MEDIASTINUM: There is satisfactory enhancement of the pulmonary artery and its branches, there is no CT evidence for pulmonary embolism. There are no greater than 1 cm hilar or mediastinal lymph nodes. No pericardial effusion is seen. OTHER: Heterogeneous right thyroid lobe appearing similar when compared to 04/07/2018. If further eval uation is required, dedicated thyroid ultrasound may be obtained. Visualized upper abdomen appears gr ossly unremarkable. Osseous structures are grossly intact. IMPRESSION: NO EVIDENCE OF PULMONARY EMBOLISM.
[2019-03-13] MEDS ORDERED: IPRATROPIUM-ALBUTEROL 3 ML NEB INHALATION PRN (16:53)
[2019-03-13] MEDS ORDERED: HYDROcodone/APAP 10-325MG 1 EACH TAB PO ONE (16:55)
[2019-03-13] MEDS ORDERED: NALOXONE 0.4 MG/ML 1 ML VIAL IV PRN (17:51)
[2019-03-13] MEDS ORDERED: predniSONE 20 MG TAB PO SCH (18:00)
--- NOTE | 2019-03-13 18:02 | P.HPIM ---
History of Present Illness H&P Date: 03/13/19 Chief Complaint: sob 74 y/o male presenting to the ER because of worsening sob that has been ongoing for the past 1 week. He states that he has to sleep on 5 pillows in order to get comfortable. No chest pain. He has minimal cough. He tried some nebulizer treatment at home but it didn't work for him. He denied any fevers or chills, no sick contacts. No phlegm production. He denied having similar issues in the past. He is an ex-smoker, quit 30 years ago. He has history of [place] in 2010 and had 2 stents placed at that time. Review of Systems Complete review of system performed, pertinent positives and negatives as listed in HPI Past Medical History Past Medical History: Heart Failure, COPD, Hyperlipidemia, Hypertension, Myocardial Infarction ([place]) Additional Past Medical History / Comment(s): 2 stents cardiac Last Myocardial Infarction Date:: 2010 History of Any Multi-Drug Resistant Organisms: None Reported Past Surgical History: Appendectomy, Heart Catheterization With Stent, Joint Replacement Additional Past Surgical History / Comment(s): hip replacement Date of Last Stent Placement:: 2010 Past Psychological History: No Psychological Hx Reported Smoking Status: Never smoker Past Alcohol Use History: None Reported Past Drug Use History: None Reported Medications and Allergies Home Medications Medication Instructions Recorded Confirmed Type Atorvastatin [Lipitor] 40 mg PO HS 01/07/18 03/13/19 History Bumetanide [BUMEX] 2 mg PO BID 01/07/18 03/13/19 History Ferrous Sulfate [Iron (65 MG 325 mg PO BID 01/07/18 03/13/19 History Elemental)] Lisinopril [Zestril] 10 mg PO DAILY 01/07/18 03/13/19 History Metoprolol Succinate (ER) [Toprol 25 mg PO DAILY 01/07/18 03/13/19 History XL] Potassium Chloride ER [K-Dur 10] 10 meq PO BID 01/07/18 03/13/19 History Terazosin [Hytrin] 5 mg PO DAILY 01/07/18 03/13/19 History Cholecalciferol (Vitamin D3) 2,000 unit PO DAILY 03/26/18 03/13/19 History [Vitamin D3] Finasteride [Proscar] 5 mg PO DAILY 03/26/18 03/13/19 History HYDROcodone/APAP 10-325MG [[place] 1 tab PO Q4HR PRN 03/27/18 03/13/19 History 10-325] Aspirin EC [Ecotrin Low Dose] 81 mg PO DAILY 05/03/18 03/13/19 History Menthol [Biofreeze] 1 applic TOPICAL DAILY PRN 03/13/19 03/13/19 History Allergies Allergy/AdvReac Type Severity Reaction Status Date / Time No Known Allergies Allergy Verified 03/13/19 13:24 Physical Exam Vitals: Vital Signs Temp Pulse Resp BP Pulse Ox 03/13/19 17:00 62 15 130/63 98 03/13/19 16:59 62 03/13/19 16:47 62 03/13/19 16:27 62 03/13/19 16:00 64 14 120/65 98 03/13/19 15:44 61 13 120/65 98 03/13/19 15:06 61 19 98 03/13/19 14:13 14 03/13/19 13:16 97.9 F 85 26 H 116/69 97 Intake and Output 03/13/19 03/13/19 03/13/19 06:59 14:59 22:59 Other: Weight 116.12 kg Constitutional: No acute distress, conversant, pleasant Eyes:Anicteric sclerae, moist conjunctiva, no lid-lag, PERRLA, ENMT: Oropharynx clear, no erythema, exudates Neck: Supple, FROM, no masses, or JVD, No carotid bruits, No thyromegaly Lungs: Clear to auscultation, Clear to percussion, Normal respiratory effort, no accessory muscle use Cardiovascular: Heart regular in rate and rhythm, No murmurs, gallops, or rubs, 2+ peripheral edema Abdominal: Soft, Nontender, no guarding, rebound or rigidity, Normoactive bowel sounds, No hepatomegaly, No splenomegaly, No palpable mass Skin: Normal temperature, tone, texture, turgor, no induration, No subcutaneous nodules, No rash, lesions, No ulcers Extremities: No digital cyanosis, No clubbing, Pedal pulses intact and symmetrical, Radial pulses intact and symmetrical, No calf tenderness Psychiatric: Alert and oriented to person, place and time, appropriate affect, intact judgement Neuro: Muscles Strength 5/5 in all 4 extremities, Sensation to light touch grossly present throughout, Cranial nerves II-XII grossly intact, no focal sensory deficits Results CBC & Chem 7: 03/13/19 13:50 03/13/19 13:50 Labs: Abnormal Lab Results - Last 24 Hours (Table) 03/13/19 03/13/19 03/13/19 Range/Units 13:50 13:50 13:50 RBC 4.11 L (4.30-5.90) m/uL RDW 16.4 H (11.5-15.5) % APTT 40.4 H (22.0-30.0) sec D-Dimer 1.10 H (<0.60) mg/L FEU Alkaline Phosphatase 132 H (38-126) U/L Assessment and Plan Plan: Shortness of breath Rule out congestive heart failure, patient is not aware of any history of such Check pro BNP Check echo Bumex 1 mg IV twice a day Follow I's and O's Follow daily weights Chronic COPD Hyperlipidemia, Hypertension CAD status post stenting All stable Resume meds Patient is admitted to observation Full code Disposition likely home
[2019-03-13 18:18] VITALS: RESP 18
[2019-03-13 18:27] VITALS: BMI 32.3
[2019-03-13] MEDS: POTASSIUM CHLORIDE ER 10 MEQ TAB.ER.PRT PO SCH (20:26)
[2019-03-13] MEDS: HYDROcodone/APAP 10-325MG 1 EACH TAB PO PRN (20:27)
[2019-03-13] MEDS: BUMETANIDE 0.25 MG/ML 4 ML VIAL IVP SCH (20:27)
[2019-03-13] MEDS: FERROUS SULFATE 325 MG TAB PO SCH ×2 (20:27→20:32)
[2019-03-13] MEDS ORDERED: BUMETANIDE 1 MG TAB PO SCH (21:00)
[2019-03-13] MEDS ORDERED: ATORVASTATIN 40 MG TAB PO SCH (21:00)
[2019-03-14] MEDS: HYDROcodone/APAP 10-325MG 1 EACH TAB PO PRN (06:06)
[2019-03-14 07:39] VITALS: BP 110/55; PULSE 67; TEMP 97.7
[2019-03-14 07:58] LABS: Basophils % (A) 0 %; Eosinophils # (A) 0.1 k/uL (0-0.7); Eosinophils % (A) 1 %; HGB 13.6 gm/dL (13.0-17.5); Lymphocytes # (A) 1.1 k/uL (1.0-4.8); Lymphocytes % (A) 11 %; MCH 33.4 pg (25.0-35.0); Macrocytosis Slight; Mean Platelet Volume 7.4; Monocytes # (A) 0.6 k/uL (0-1.0); Monocytes % (A) 6 %; Neutrophils # (A) 7.9 k/uL (1.3-7.7); Neutrophils % (A) 82 %; Platelet Count 268 k/uL (150-450); RBC 4.06 m/uL (4.30-5.90); RDW 14.8 % (11.5-15.5); WBC 9.7 k/uL (3.8-10.6)
[2019-03-14 08:12] LABS: Albumin 3.9 g/dL (3.5-5.0); Calcium 9.6 mg/dL (8.4-10.2); Magnesium 2.3 mg/dL (1.6-2.3); Phosphorus 4.3 mg/dL (2.5-4.5); Potassium 4.5 mmol/L (3.5-5.1); Total Bilirubin 0.7 mg/dL (0.2-1.3); Total Protein 6.7 g/dL (6.3-8.2)
[2019-03-14] MEDS: FERROUS SULFATE 325 MG TAB PO SCH (09:00)
[2019-03-14] MEDS ORDERED: DOXAZOSIN 4 MG TAB PO SCH (09:00)
[2019-03-14] MEDS: POTASSIUM CHLORIDE ER 10 MEQ TAB.ER.PRT PO SCH (09:00)
[2019-03-14] MEDS ORDERED: LISINOPRIL 10 MG TAB PO SCH (09:00)
[2019-03-14] MEDS ORDERED: FINASTERIDE 5 MG TAB PO SCH (09:00)
[2019-03-14] MEDS ORDERED: METOPROLOL SUCCINATE (ER) 25 MG TAB.ER.24H PO SCH (09:00)
[2019-03-14] MEDS ORDERED: ASPIRIN 81 MG PO SCH (09:00)
[2019-03-14] MEDS: BUMETANIDE 0.25 MG/ML 4 ML VIAL IVP SCH (09:01)
--- NOTE | 2019-03-14 10:54 | ECHOF ---
Referral Reason:sob r/o chf MEASUREMENTS -------- HEIGHT: 188.0 cm WEIGHT: 108.4 kg BP: 120/60 RVIDd: 3.8 cm (< 3.3) IVSd: 1.4 cm (0.6 - 1.1) LVIDd: 5.2 cm (3.9 - 5.3) LVPWd: 1.4 cm (0.6 - 1.1) IVSs: 1.9 cm LVIDs: 4.1 cm LVPWs: 1.9 cm LAESV Index (A-L): 25.93 ml/m Ao Diam: 3.4 cm (2.0 - 3.7) AV Cusp: 1.8 cm (1.5 - 2.6) LA Diam: 3.3 cm (2.7 - 3.8) EPSS: 0.6 cm MV E Dimitris: 0.77 m/s MV DecT: 231 ms MV A Dimitris: 0.99 m/s MV E/A Ratio: 0.78 MV EF SLOPE: 110.39 mm/s (70 - 150) MV EXCURSION: 2.37 cm (> 18.000) FINDINGS -------- Sinus rhythm with extra systolic beats. This was a technically difficult study with suboptimal views. The left ventricular size is normal. There is moderate concentric left ventricular hypertrophy. O verall left ventricular systolic function is low-normal with, an EF between 50 - 55 %. The diastoli c filling pattern is normal for the age of the patient. The right ventricle is moderately enlarged. Left atrium is normal size by volume. The right atrial size is normal. Lumason used Interatrial and interventricular septum intact. The aortic valve was not well visualized. There is no evidence of aortic regurgitation. There is no evidence of aortic stenosis. Mild mitral regurgitation is present. Trace tricuspid regurgitation present. There is no evidence of pulmonary hypertension. The pulmonic valve was not well visualized. There is no pulmonic regurgitation present. The aortic root size is normal. IVC not well visualized Echo free space may represent effusion or a pericardial fat pad. There is no pericardial effusion. CONCLUSIONS -------- 1. Sinus rhythm with extra systolic beats. 2. This was a technically difficult study with suboptimal views. 3. The left ventricular size is normal. 4. There is moderate concentric left ventricular hypertrophy. 5. Overall left ventricular systolic function is low-normal with, an EF between 50 - 55 %. 6. The diastolic filling pattern is normal for the age of the patient. 7. The right ventricle is moderately enlarged. 8. Left atrium is normal size by volume. 9. The right atrial size is normal. 10. Lumason used 11. Interatrial and interventricular septum intact. 12. The aortic valve was not well visualized. 13. There is no evidence of aortic regurgitation. 14. There is no evidence of aortic stenosis. 15. Mild mitral regurgitation is present. 16. Trace tricuspid regurgitation present. 17. There is no evidence of pulmonary hypertension. 18. The pulmonic valve was not well visualized. 19. There is no pulmonic regurgitation present. 20. The aortic root size is normal. 21. IVC not well visualized 22. Echo free space may represent effusion or a pericardial fat pad. 23. There is no pericardial effusion. AIRPORT CLERK: Magdalene Machuca RDCS
--- NOTE | 2019-03-14 11:18 | P.DS ---
Providers Date of admission: 03/13/19 16:53 Expected date of discharge: 03/14/19 Attending physician: Consuelo Kwon DO Consults: 03/13/19 16:53 Consult Physician Routine Consulting Provider: Aicha Haider Consult Reason/Comments: dyspnea Do you want consulting provider notified?: Yes Primary care physician: Ever [facility] Course: 74 y/o male presenting to the ER because of worsening sob that has been ongoing for the past 1 week. He states that he has to sleep on 5 pillows in order to get comfortable. No chest pain. He has minimal cough. He tried some nebulizer treatment at home but it didn't work for him. He denied any fevers or chills, no sick contacts. No phlegm production. He denied having similar issues in the past. He is an ex-smoker, quit 30 years ago. He has history of [place] in 2010 and had 2 stents placed at that time. patient was admitted to the hospital. Fluid overload suspected. He had 2+ pitting edema in his legs which according to him is chronic. BNP was not significantly elevated. Troponin was negative. On admission he had computed tomography scan of the chest which ruled out PE. Patient was essentially diuresed with Bumex and successfully lost a total of 8 Kgs during the hospitalization. He feels significantly better today, sob resolved. He had an echocardiogram which showed low normal EF at 50-55%. Diastolic function was normal. Upon discharge lisinopril will be increased from 10 mg to 40 mg daily. Diuretics will be switched to Lasix 40 mg twice a day with instructions to increase to 80 mg twice a day if there wasn't a good response to the 40. He'll be discharged home in stable condition. Discharge diagnoses: Acute systolic CHF Shortness of breath secondary to above Mild COPD, stable CAD stable Hypertension, Patient Condition at Discharge: Fair Plan - Discharge Summary Discharge Rx Participant: No New Discharge Prescriptions: New Furosemide [Lasix] 40 mg PO BID 60 Days #120 tablet Lisinopril 40 mg PO DAILY 30 Days #30 tab Continue Terazosin [Hytrin] 5 mg PO DAILY Potassium Chloride ER [K-Dur 10] 10 meq PO BID Metoprolol Succinate (ER) [Toprol XL] 25 mg PO DAILY Ferrous Sulfate [Iron (65 MG Elemental)] 325 mg PO BID Atorvastatin [Lipitor] 40 mg PO HS Finasteride [Proscar] 5 mg PO DAILY Cholecalciferol (Vitamin D3) [Vitamin D3] 2,000 unit PO DAILY HYDROcodone/APAP 10-325MG [[place] 10-325] 1 tab PO Q4HR PRN PRN Reason: Pain Aspirin EC [Ecotrin Low Dose] 81 mg PO DAILY Menthol [Biofreeze] 1 applic TOPICAL DAILY PRN PRN Reason: Pain Discontinued Lisinopril [Zestril] 10 mg PO DAILY Bumetanide [BUMEX] 2 mg PO BID Discharge Medication List Atorvastatin [Lipitor] 40 mg PO HS 01/07/18 [History] Ferrous Sulfate [Iron (65 MG Elemental)] 325 mg PO BID 01/07/18 [History] Metoprolol Succinate (ER) [Toprol XL] 25 mg PO DAILY 01/07/18 [History] Potassium Chloride ER [K-Dur 10] 10 meq PO BID 01/07/18 [History] Terazosin [Hytrin] 5 mg PO DAILY 01/07/18 [History] Cholecalciferol (Vitamin D3) [Vitamin D3] 2,000 unit PO DAILY 03/26/18 [History] Finasteride [Proscar] 5 mg PO DAILY 03/26/18 [History] HYDROcodone/APAP 10-325MG [[place] 10-325] 1 tab PO Q4HR PRN 03/27/18 [History] Aspirin EC [Ecotrin Low Dose] 81 mg PO DAILY 05/03/18 [History] Menthol [Biofreeze] 1 applic TOPICAL DAILY PRN 03/13/19 [History] Furosemide [Lasix] 40 mg PO BID 60 Days #120 tablet 03/14/19 [Rx] Lisinopril 40 mg PO DAILY 30 Days #30 tab 03/14/19 [Rx] Follow up Appointment(s)/Referral(s): Ever Marquis MD [Primary Care Provider] - 1-2 days
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
== END 2019-03-14 12:15 | disposition home or self-care (01) ==
LOC: EC 12:58 → 1SOBS 16:53
PROVIDERS: ADMIT Internal Medicine; ATTEND Internal Medicine
DX: I11.0 Hypertensive heart disease with heart failure (principal); I50.23 Acute on chronic systolic (congestive) heart failure; I44.0 Atrioventricular block, first degree; E78.5 Hyperlipidemia, unspecified; I25.10 Atherosclerotic heart disease of native coronary artery without angina pectoris; J44.9 Chronic obstructive pulmonary disease, unspecified; N40.0 Benign prostatic hyperplasia without lower urinary tract symptoms; E66.9 Obesity, unspecified; Z68.30 Body mass index [BMI] 30.0-30.9, adult; I25.2 Old myocardial infarction; Z87.891 Personal history of nicotine dependence; Z96.649 Presence of unspecified artificial hip joint; Z95.5 Presence of coronary angioplasty implant and graft; Z90.49 Acquired absence of other specified parts of digestive tract; Z79.82 Long term (current) use of aspirin; Z79.899 Other long term (current) drug therapy
CPT/HCPCS: 96376; 96374; 99285; 36415; 94640 ×2; 93005; 85379; 83880; 80053 ×2; 83735 ×2; 84100; 84484; 85025 ×2; 85610; 85730; 71046; 71275; G0378 ×2; C8929; J8540; S0138; Q9950; Q9967; 93306

== ENCOUNTER 2019-03-29 22:49 | Inpatient (IN) | payer MEDICARE, OTHER ==
[2019-03-29] MEDS ORDERED: IPRATROPIUM-ALBUTEROL 3 ML NEB INHALATION STA (23:35)
[2019-03-29] MEDS ORDERED: FUROSEMIDE 10 MG/ML 4 ML VIAL IV STA (23:35)
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
[2019-03-30 00:29] LABS: Anisocytosis Slight; Appearance,Urine Clear (Clear); Basophils # (A) 0.1 k/uL (0-0.2); Basophils % (A) 0 %; Bilirubin,Urine Negative (Negative); Blood,Urine Negative (Negative); Color,Urine Yellow; Eosinophils # (A) 0.4 k/uL (0-0.7); Eosinophils % (A) 2 %; Glucose,Urine (UA) Negative (Negative); HCT 41.8 % (39.0-53.0); Ketones,Urine Negative (Negative); Leukocyte Esterase,Urine Negative (Negative); Lymphocytes # (A) 1.7 k/uL (1.0-4.8); Lymphocytes % (A) 10 %; MCH 33.7 pg (25.0-35.0); MCHC 33.5 g/dL (31.0-37.0); MCV 100.5 fL (80.0-100.0); Macrocytosis Slight; Mean Platelet Volume 7.3; Monocytes # (A) 0.9 k/uL (0-1.0); Monocytes % (A) 5 %; Neutrophils # (A) 13.9 k/uL (1.3-7.7); Neutrophils % (A) 81 %; Nitrite,Urine Negative (Negative); PH, Urine 6.5 (5.0-8.0); Platelet Count 236 k/uL (150-450); Protein,Urine Negative (Negative); RBC 4.16 m/uL (4.30-5.90); RDW 16.3 % (11.5-15.5); Specific Gravity,Urine 1.015 (1.001-1.035); WBC 17.1 k/uL (3.8-10.6)
[2019-03-30] MEDS ORDERED: HYDROcodone/APAP 10-325MG 1 EACH TAB PO ONE (00:30)
[2019-03-30 00:37] LABS: Albumin 3.7 g/dL (3.5-5.0); Calcium 9.3 mg/dL (8.4-10.2); INR 0.9 (<1.2); Magnesium 2.2 mg/dL (1.6-2.3); Potassium 4.4 mmol/L (3.5-5.1); Prothrombin Time 10.1 sec (9.0-12.0); Total Bilirubin 0.5 mg/dL (0.2-1.3); Total Protein 6.2 g/dL (6.3-8.2)
--- NOTE | 2019-03-30 00:43 | XR ---
EXAM: XR Chest, 2 Views CLINICAL HISTORY: ITS.REASON XR Reason: difficulty breathing TECHNIQUE: Frontal and lateral views of the chest. COMPARISON: Chest radiographs dated 03/13/2019. FINDINGS: Lungs: Hyperexpanded lungs compatible with COPD. Pleural space: Unremarkable. No pneumothorax. Heart: Cardiomegaly. Mediastinum: Unremarkable. Bones/joints: Unremarkable. IMPRESSION: 1. No acute cardiopulmonary abnormality. 2. Hyperexpanded lungs compatible with COPD.
[2019-03-30] MEDS ORDERED: HYDROmorphone 1 MG/ML 1 ML SYRINGE IVP STA (00:44)
[2019-03-30] MEDS ORDERED: cefTRIAXone IN SWFI 1,000 MG/10 ML SYRINGE IVP STA (00:55)
[2019-03-30] MEDS ORDERED: NON FORMULARY DRUG (Menthol [Biofreeze] 1 APPLIC) TOPICAL PRN (01:03)
[2019-03-30] MEDS ORDERED: VANCOMYCIN IV PER PHARMACY 1 EACH MISC MISCELLANE PRN (01:04)
[2019-03-30] MEDS ORDERED: HYDROmorphone 1 MG/ML 1 ML SYRINGE IVP PRN (01:05)
[2019-03-30] MEDS: FUROSEMIDE 10 MG/ML 4 ML VIAL IV SCH ×3 (03:13→16:26)
[2019-03-30] MEDS: VANCOMYCIN 1,750 MG in SODIUM CHLORIDE 0.9% 500 ML 500 ML IVPB SCH ×2 (03:40→16:26)
[2019-03-30] MEDS: ATORVASTATIN 40 MG TAB PO SCH (07:41)
[2019-03-30] MEDS: DOXAZOSIN 4 MG TAB PO SCH (07:41)
[2019-03-30] MEDS: METOPROLOL SUCCINATE (ER) 25 MG TAB.ER.24H PO SCH (07:41)
[2019-03-30] MEDS: ASPIRIN 81 MG PO SCH (07:41)
[2019-03-30] MEDS: HEPARIN SODIUM,PORCINE 5,000 UNIT/ML 1 ML VIAL SQ SCH ×2 (07:42→16:26)
[2019-03-30] MEDS: HYDROcodone/APAP 10-325MG 1 EACH TAB PO PRN ×4 (07:42→19:57)
[2019-03-30] MEDS: MULTIVITAMINS, THERA 1 EACH TAB PO SCH (07:42)
[2019-03-30] MEDS: LISINOPRIL 20 MG TAB PO SCH (07:42)
[2019-03-30] MEDS: FERROUS SULFATE 325 MG TAB PO SCH ×2 (07:42→19:54)
[2019-03-30] MEDS: POTASSIUM CHLORIDE ER 10 MEQ TAB.ER.PRT PO SCH ×2 (07:46→19:54)
[2019-03-30] MEDS: FINASTERIDE 5 MG TAB PO SCH (07:47)
[2019-03-30] MEDS: PIPERACILLIN-TAZOBACTAM 3.375 GM in SODIUM CHLORIDE 0.9% 100 ML IVPB SCH ×2 (07:48→19:16)
[2019-03-30] MEDS ORDERED: FUROSEMIDE 40 MG TAB PO SCH (09:00)
[2019-03-30 13:56] VITALS: BMI 31.4
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
[2019-03-31] MEDS: CLINDAMYCIN 300 MG in DEXTROSE 5% IN WATER 50 ML IVPB SCH ×10 (00:07→23:26)
[2019-03-31] MEDS: HEPARIN SODIUM,PORCINE 5,000 UNIT/ML 1 ML VIAL SQ SCH ×3 (00:08→15:57)
[2019-03-31] MEDS: BACITRACIN 500 UNIT/GM OINT 28.4 GM TUBE TOPICAL SCH ×2 (00:08→08:36)
[2019-03-31] MEDS: HYDROcodone/APAP 10-325MG 1 EACH TAB PO PRN ×5 (00:37→19:01)
[2019-03-31] MEDS: PIPERACILLIN-TAZOBACTAM 3.375 GM in SODIUM CHLORIDE 0.9% 100 ML IVPB SCH ×4 (00:38→23:26)
[2019-03-31] MEDS: VANCOMYCIN 1,750 MG in SODIUM CHLORIDE 0.9% 500 ML 500 ML IVPB SCH ×2 (06:08→15:57)
[2019-03-31 08:32] LABS: Calcium 8.6 mg/dL (8.4-10.2)
[2019-03-31 08:33] LABS: Potassium 4.4 mmol/L (3.5-5.1)
[2019-03-31] MEDS: ASPIRIN 81 MG PO SCH (08:34)
[2019-03-31] MEDS: MULTIVITAMINS, THERA 1 EACH TAB PO SCH (08:34)
[2019-03-31] MEDS: FINASTERIDE 5 MG TAB PO SCH (08:35)
[2019-03-31] MEDS: LISINOPRIL 20 MG TAB PO SCH (08:35)
[2019-03-31] MEDS: FERROUS SULFATE 325 MG TAB PO SCH ×2 (08:35→20:32)
[2019-03-31] MEDS: DOXAZOSIN 4 MG TAB PO SCH (08:35)
[2019-03-31] MEDS: POTASSIUM CHLORIDE ER 10 MEQ TAB.ER.PRT PO SCH ×2 (08:35→20:32)
[2019-03-31] MEDS: METOPROLOL SUCCINATE (ER) 25 MG TAB.ER.24H PO SCH (08:35)
[2019-03-31] MEDS: ATORVASTATIN 40 MG TAB PO SCH (08:35)
--- NOTE | 2019-03-31 08:45 | US ---
EXAMINATION TYPE: US venous doppler duplex UE DATE OF EXAM: 03/31/2019 COMPARISON: NONE CLINICAL HISTORY: Rule out DVT. SIDE PERFORMED: Bilateral Grayscale, color doppler, spectral doppler imaging performed of the deep veins of the upper extremiti es. There is normal flow, compressibility and vascular waveforms. Right Arm: Negative for DVT Left Arm: Negative for DVT Unable to scan radial and ulnar v's bilaterally due to bandaging. IMPRESSION: No sonographic evidence of deep venous thrombosis within the visualized upper extremities however the radial and ulnar veins bilaterally were unable to be scanned due to overlying dressings and are therefore not evaluated.
[2019-03-31] MEDS: IPRATROPIUM-ALBUTEROL 3 ML NEB INHALATION SCH ×3 (11:38→20:03)
--- NOTE | 2019-03-31 16:08 | P.PN ---
Progress Note - Text Progress Note Date: 03/31/19 Chief Complaint: Swelling of the legs Interval history: This is a pleasant 74-year-old patient follows with Dr. Piedad Marquis. Chronic stable medical conditions include BPH, hypertension, hyperlipidemia, COPD, primary osteoarthritis of the hips, coronary artery disease with stent, hypertensive heart disease and congestive heart failure from gastric dysfunction EF 55-60%. Patient presents with some swelling of the right arm. He also case bumping ears arm and has developed redness in the right arm going on for about 2 days. No fever no chills. Patient also gets short of breath on lying down he has to sit up and sleep. Otherwise appetite is fair. Denies any chest pain or palpitation. Patient admitted with cellulitis of the upper extremity from local trauma and CHF exacerbation Today-has dressing over the upper extremities. Breathing a bit better. Did receive IV Lasix previously. Review of systems: Was done for constitutional, cardiovascular, GI, pulmonary. relevant finding as above Active Medications Hydrocodone Bitart/Acetaminophen ([place] 10) 1 each PO Q4HR PRN PRN Reason: Pain Last Admin: 03/31/19 13:37 Dose: 1 each Documented by: Albuterol/Ipratropium (Duoneb 0.5 Mg-3 Mg/3 Ml Soln) 3 ml INHALATION RT-QID [facility] Last Admin: 03/31/19 15:39 Dose: 3 ml Documented by: Aspirin (Aspirin) 81 mg PO DAILY [facility] Last Admin: 03/31/19 08:34 Dose: 81 mg Documented by: Atorvastatin Calcium (Lipitor) 40 mg PO DAILY [facility] Last Admin: 03/31/19 08:35 Dose: 40 mg Documented by: Bacitracin (Bacitracin Oint) 1 applic TOPICAL BID [facility] Last Admin: 03/31/19 08:36 Dose: 1 applic Documented by: Doxazosin Mesylate (Cardura) 4 mg PO DAILY [facility] Last Admin: 03/31/19 08:35 Dose: 4 mg Documented by: Ferrous Sulfate (Feosol) 325 mg PO BID [facility] Last Admin: 03/31/19 08:35 Dose: Not Given Documented by: Finasteride (Proscar) 5 mg PO DAILY [facility] Last Admin: 03/31/19 08:35 Dose: 5 mg Documented by: Heparin Sodium (Porcine) (Heparin) 5,000 unit SQ Q8HR [facility] Last Admin: 03/31/19 08:35 Dose: 5,000 unit Documented by: Hydromorphone HCl (Dilaudid) 1 mg IVP Q3HR PRN PRN Reason: Pain Last Admin: 03/30/19 03:40 Dose: 1 mg Documented by: Piperacillin Sod/Tazobactam (Sod 3.375 gm/ Sodium Chloride) 100 mls @ 200 mls/hr IVPB Q8HR [facility] Last Admin: 03/31/19 08:36 Dose: 200 mls/hr Documented by: Vancomycin HCl 1,750 mg/ (Sodium Chloride) 500 mls @ 167 mls/hr IVPB Q12H [facility] Last Admin: 03/31/19 06:08 Dose: 167 mls/hr Documented by: Clindamycin Phosphate 300 mg/ (Dextrose/Water) 52 mls @ 50 mls/hr IVPB Q6H [facility] Last Admin: 03/31/19 11:38 Dose: 50 mls/hr Documented by: Lisinopril (Zestril) 40 mg PO DAILY [facility] Last Admin: 03/31/19 08:35 Dose: 40 mg Documented by: Metoprolol Succinate (Toprol Xl) 25 mg PO DAILY [facility] Last Admin: 03/31/19 08:35 Dose: 25 mg Documented by: Miscellaneous Information (Vancomycin Trough Due) 0 each MISCELLANE DIRECTED ONE Stop: 04/01/19 15:01 Multivitamins (Theragran) 1 each PO DAILY [facility] Last Admin: 03/31/19 08:34 Dose: 1 each Documented by: Potassium Chloride (K-Dur 10) 10 meq PO BID [facility] Last Admin: 03/31/19 08:35 Dose: 10 meq Documented by: Physical examination: VITAL SIGNS: 98.1, 86, 20, 133/78, 96% room air GENERAL: Sitting up in the bed, comfortable EYES: Pupils equal. Conjunctiva normal. HEENT: External appearance of nose and ears normal, oral cavity grossly normal. NECK: JVD unable to assess, mass not palpable. HEART: First and second heart sounds are normal; edema present. LUNGS: Respiratory rate increased, diminished breath sounds. ABDOMEN: Soft, nontender, liver spleen not palpable, no masses palpable. PSYCH: Alert and oriented x3; mood and affect normal. NEUROLOGICAL: Cranial nerves grossly intact; no facial asymmetry, power and sensation grossly intact. LYMPHATICS: No lymph nodes palpable in the axilla and neck DERMATOLOGICAL: Right dominant dressing with Kerlix INVESTIGATIONS, reviewed in the clinical context: Bun 25 creatinine 1.0 Admitting testing: White count 17.1, hemoglobin 14, potassium 4.4, creatinine 1.13 Chest x-ray film personally reviewed by me-no obvious evidence of pulmonary edema EKG tracing personally reviewed by me shows-sinus rhythm some PVCs first degree AV block Assessment: -Acute cellulitis of both upper extremities. More so on right upper extremity secondary to local bruising in a patient whose skin is very fragile leading to cellulitis -Possible acute on chronic congestive heart exacerbation from diastolic dysfunction EF 55-60% -Suspect bilateral lower extremity venous insufficiency -Family osteoarthritis -BPH -Essential hypertension -Hyperlipidemia -COPD in a nonsmoker -Coronary artery disease with stent in 2010 -Hypertensive heart disease Plan: Continue with IV clindamycin and topical treatment. We'll switch to Silvadene cream. Other medications to continue. Care was discussed with the patient.
[2019-03-31] MEDS: FUROSEMIDE 40 MG TAB PO SCH (16:29)
[2019-04-01] MEDS: PIPERACILLIN-TAZOBACTAM 3.375 GM in SODIUM CHLORIDE 0.9% 100 ML IVPB SCH ×4 (00:55→23:33)
[2019-04-01] MEDS: CLINDAMYCIN 300 MG in DEXTROSE 5% IN WATER 50 ML IVPB SCH ×8 (04:57→22:48)
[2019-04-01 08:30] LABS: African American GFR (CKD) >90 (>60 ml/min/1.73 sqM)
[2019-04-01] MEDS: IPRATROPIUM-ALBUTEROL 3 ML NEB INHALATION SCH ×4 (08:40→20:37)
[2019-04-01] MEDS: MULTIVITAMINS, THERA 1 EACH TAB PO SCH (09:00)
[2019-04-01] MEDS: FINASTERIDE 5 MG TAB PO SCH (09:00)
[2019-04-01] MEDS: FUROSEMIDE 40 MG TAB PO SCH ×2 (09:00→15:15)
[2019-04-01] MEDS: LISINOPRIL 20 MG TAB PO SCH (09:00)
[2019-04-01] MEDS: POTASSIUM CHLORIDE ER 10 MEQ TAB.ER.PRT PO SCH ×2 (09:00→19:39)
[2019-04-01] MEDS: ATORVASTATIN 40 MG TAB PO SCH (09:00)
[2019-04-01] MEDS: HYDROcodone/APAP 10-325MG 1 EACH TAB PO PRN ×2 (09:01→15:13)
[2019-04-01] MEDS: METOPROLOL SUCCINATE (ER) 25 MG TAB.ER.24H PO SCH (09:01)
[2019-04-01] MEDS: FERROUS SULFATE 325 MG TAB PO SCH ×2 (09:01→19:40)
[2019-04-01] MEDS: DOXAZOSIN 4 MG TAB PO SCH (09:01)
[2019-04-01] MEDS: ENOXAPARIN 40 MG/0.4 ML SYRINGE SQ SCH (09:02)
[2019-04-01] MEDS: ASPIRIN 81 MG PO SCH (09:02)
[2019-04-01] MEDS ORDERED: VANCOMYCIN TROUGH DUE 1 EACH MISC MISCELLANE ONE (15:00)
--- NOTE | 2019-04-01 23:30 | P.PN ---
Progress Note - Text Progress Note Date: 04/01/19 Chief Complaint: Swelling of the legs Interval history: This is a pleasant 74-year-old patient follows with Dr. Piedad Marquis. Chronic stable medical conditions include BPH, hypertension, hyperlipidemia, COPD, primary osteoarthritis of the hips, coronary artery disease with stent, hypertensive heart disease and congestive heart failure from gastric dysfunction EF 55-60%. Patient presents with some swelling of the right arm. He also case bumping ears arm and has developed redness in the right arm going on for about 2 days. No fever no chills. Patient also gets short of breath on lying down he has to sit up and sleep. Otherwise appetite is fair. Denies any chest pain or palpitation. Patient admitted with cellulitis of the upper extremity from local trauma and CHF exacerbation Today-continues to get topical treatment of the upper extremity. Also got a strep is lower extremity. Breathing is bit better. Still redness in the office. Swelling present. Patient has not been keeping his arm elevated. Review of systems: Was done for constitutional, cardiovascular, GI, pulmonary. relevant finding as above Active Medications Hydrocodone Bitart/Acetaminophen ([place] 10) 1 each PO Q4HR PRN PRN Reason: Pain Last Admin: 04/01/19 15:13 Dose: 1 each Documented by: Albuterol/Ipratropium (Duoneb 0.5 Mg-3 Mg/3 Ml Soln) 3 ml INHALATION RT-QID [facility] Last Admin: 04/01/19 20:37 Dose: 3 ml Documented by: Aspirin (Aspirin) 81 mg PO DAILY [facility] Last Admin: 04/01/19 09:02 Dose: 81 mg Documented by: Atorvastatin Calcium (Lipitor) 40 mg PO DAILY [facility] Last Admin: 04/01/19 09:00 Dose: 40 mg Documented by: Doxazosin Mesylate (Cardura) 4 mg PO DAILY [facility] Last Admin: 04/01/19 09:01 Dose: 4 mg Documented by: Enoxaparin Sodium (Lovenox) 40 mg SQ DAILY [facility] Last Admin: 04/01/19 09:02 Dose: 40 mg Documented by: Ferrous Sulfate (Feosol) 325 mg PO BID [facility] Last Admin: 04/01/19 19:40 Dose: Not Given Documented by: Finasteride (Proscar) 5 mg PO DAILY [facility] Last Admin: 04/01/19 09:00 Dose: 5 mg Documented by: Furosemide (Lasix) 40 mg PO BID@0900,1600 [facility] Last Admin: 04/01/19 15:15 Dose: 40 mg Documented by: Piperacillin Sod/Tazobactam (Sod 3.375 gm/ Sodium Chloride) 100 mls @ 200 mls/hr IVPB Q8HR [facility] Last Admin: 04/01/19 15:14 Dose: 200 mls/hr Documented by: Clindamycin Phosphate 300 mg/ (Dextrose/Water) 52 mls @ 50 mls/hr IVPB Q6H [facility] Last Admin: 04/01/19 22:48 Dose: 50 mls/hr Documented by: Lisinopril (Zestril) 40 mg PO DAILY [facility] Last Admin: 04/01/19 09:00 Dose: 40 mg Documented by: Metoprolol Succinate (Toprol Xl) 25 mg PO DAILY [facility] Last Admin: 04/01/19 09:01 Dose: 25 mg Documented by: Multivitamins (Theragran) 1 each PO DAILY [facility] Last Admin: 04/01/19 09:00 Dose: 1 each Documented by: Potassium Chloride (K-Dur 10) 10 meq PO BID [facility] Last Admin: 04/01/19 19:39 Dose: 10 meq Documented by: Silver Sulfadiazine (Silvadene Cream) 1 applic TOPICAL BID [facility] Last Admin: 04/01/19 22:48 Dose: 1 applic Documented by: Physical examination: VITAL SIGNS: 98, 81, 16, 118 by a 73, 96% room air GENERAL: Sitting up in the bed, comfortable EYES: Pupils equal. Conjunctiva normal. HEENT: External appearance of nose and ears normal, oral cavity grossly normal. NECK: JVD unable to assess, mass not palpable. HEART: First and second heart sounds are normal; edema present. LUNGS: Respiratory rate increased, diminished breath sounds. ABDOMEN: Soft, nontender, liver spleen not palpable, no masses palpable. PSYCH: Alert and oriented x3; mood and affect normal. NEUROLOGICAL: Cranial nerves grossly intact; no facial asymmetry, power and sensation grossly intact. LYMPHATICS: No lymph nodes palpable in the axilla and neck DERMATOLOGICAL: Right arm dressing with Kerlix, swelling still present INVESTIGATIONS, reviewed in the clinical context: Creatinine 0.82 Admitting testing: White count 17.1, hemoglobin 14, potassium 4.4, creatinine 1.13 Chest x-ray film personally reviewed by me-no obvious evidence of pulmonary edema EKG tracing personally reviewed by me shows-sinus rhythm some PVCs first degree AV block Assessment: -Acute cellulitis of both upper extremities. More so on right upper extremity secondary to local bruising in a patient whose skin is very fragile leading to cellulitis -Possible acute on chronic congestive heart exacerbation from diastolic dysfunction EF 55-60% -Suspect bilateral lower extremity venous insufficiency -Family osteoarthritis -BPH -Essential hypertension -Hyperlipidemia -COPD in a nonsmoker -Coronary artery disease with stent in 2010 -Hypertensive heart disease Plan: Reinforced to the nurse about using a wedge and try to keep both arms above the level of the heart. Continue with antibiotics topical cream.
[2019-04-02] MEDS: HYDROcodone/APAP 10-325MG 1 EACH TAB PO PRN ×4 (00:35→14:31)
[2019-04-02] MEDS: CLINDAMYCIN 300 MG in DEXTROSE 5% IN WATER 50 ML IVPB SCH ×8 (04:40→22:57)
[2019-04-02] MEDS: IPRATROPIUM-ALBUTEROL 3 ML NEB INHALATION SCH ×4 (07:31→20:32)
[2019-04-02] MEDS: PIPERACILLIN-TAZOBACTAM 3.375 GM in SODIUM CHLORIDE 0.9% 100 ML IVPB SCH ×2 (08:10→17:11)
[2019-04-02] MEDS: FINASTERIDE 5 MG TAB PO SCH (08:13)
[2019-04-02] MEDS: LISINOPRIL 20 MG TAB PO SCH (08:13)
[2019-04-02] MEDS: ENOXAPARIN 40 MG/0.4 ML SYRINGE SQ SCH (08:13)
[2019-04-02] MEDS: MULTIVITAMINS, THERA 1 EACH TAB PO SCH (08:13)
[2019-04-02] MEDS: POTASSIUM CHLORIDE ER 10 MEQ TAB.ER.PRT PO SCH ×2 (08:14→20:53)
[2019-04-02] MEDS: DOXAZOSIN 4 MG TAB PO SCH (08:14)
[2019-04-02] MEDS: ASPIRIN 81 MG PO SCH (08:14)
[2019-04-02] MEDS: FUROSEMIDE 40 MG TAB PO SCH ×2 (08:14→17:11)
[2019-04-02] MEDS: ATORVASTATIN 40 MG TAB PO SCH (08:14)
[2019-04-02] MEDS: FERROUS SULFATE 325 MG TAB PO SCH ×2 (08:14→20:53)
[2019-04-02] MEDS: METOPROLOL SUCCINATE (ER) 25 MG TAB.ER.24H PO SCH (08:14)
[2019-04-02 08:31] LABS: African American GFR (CKD) >90 (>60 ml/min/1.73 sqM)
[2019-04-02 14:05] VITALS: RESP 16
--- NOTE | 2019-04-02 20:46 | P.PN ---
Progress Note - Text Progress Note Date: 04/02/19 Chief Complaint: Swelling of the legs Interval history: This is a pleasant 74-year-old patient follows with Dr. Piedad Marquis. Chronic stable medical conditions include BPH, hypertension, hyperlipidemia, COPD, primary osteoarthritis of the hips, coronary artery disease with stent, hypertensive heart disease and congestive heart failure from gastric dysfunction EF 55-60%. Patient presents with some swelling of the right arm. He also case bumping ears arm and has developed redness in the right arm going on for about 2 days. No fever no chills. Patient also gets short of breath on lying down he has to sit up and sleep. Otherwise appetite is fair. Denies any chest pain or palpitation. Patient admitted with cellulitis of the upper extremity from local trauma and CHF exacerbation Today-redness swelling of the upper extremity much improved. Getting Silvadene with Kerlix and Norman wrap. Lower extremity edema is also going down. Overall feeling much better Review of systems: Was done for constitutional, cardiovascular, GI, pulmonary. relevant finding as above Active Medications Hydrocodone Bitart/Acetaminophen ([place] 10) 1 each PO Q4HR PRN PRN Reason: Pain Last Admin: 04/02/19 14:31 Dose: 1 each Documented by: Albuterol/Ipratropium (Duoneb 0.5 Mg-3 Mg/3 Ml Soln) 3 ml INHALATION RT-QID [facility] Last Admin: 04/02/19 20:32 Dose: Not Given Documented by: Aspirin (Aspirin) 81 mg PO DAILY [facility] Last Admin: 04/02/19 08:14 Dose: 81 mg Documented by: Atorvastatin Calcium (Lipitor) 40 mg PO DAILY [facility] Last Admin: 04/02/19 08:14 Dose: 40 mg Documented by: Doxazosin Mesylate (Cardura) 4 mg PO DAILY [facility] Last Admin: 04/02/19 08:14 Dose: 4 mg Documented by: Enoxaparin Sodium (Lovenox) 40 mg SQ DAILY [facility] Last Admin: 04/02/19 08:13 Dose: 40 mg Documented by: Ferrous Sulfate (Feosol) 325 mg PO BID [facility] Last Admin: 04/02/19 08:14 Dose: 325 mg Documented by: Finasteride (Proscar) 5 mg PO DAILY [facility] Last Admin: 04/02/19 08:13 Dose: 5 mg Documented by: Furosemide (Lasix) 40 mg PO BID@0900,1600 [facility] Last Admin: 04/02/19 17:11 Dose: 40 mg Documented by: Piperacillin Sod/Tazobactam (Sod 3.375 gm/ Sodium Chloride) 100 mls @ 200 mls/hr IVPB Q8HR [facility] Last Admin: 04/02/19 17:11 Dose: 200 mls/hr Documented by: Clindamycin Phosphate 300 mg/ (Dextrose/Water) 52 mls @ 50 mls/hr IVPB Q6H [facility] Last Admin: 04/02/19 17:30 Dose: 50 mls/hr Documented by: Lisinopril (Zestril) 40 mg PO DAILY [facility] Last Admin: 04/02/19 08:13 Dose: 40 mg Documented by: Metoprolol Succinate (Toprol Xl) 25 mg PO DAILY [facility] Last Admin: 04/02/19 08:14 Dose: 25 mg Documented by: Multivitamins (Theragran) 1 each PO DAILY [facility] Last Admin: 04/02/19 08:13 Dose: 1 each Documented by: Potassium Chloride (K-Dur 10) 10 meq PO BID [facility] Last Admin: 04/02/19 08:14 Dose: 10 meq Documented by: Silver Sulfadiazine (Silvadene Cream) 1 applic TOPICAL BID [facility] Physical examination: VITAL SIGNS: 97.5, 83, 16, 108/62, 97% room air GENERAL: Propped up in bed, comfortable EYES: Pupils equal. Conjunctiva normal. HEENT: External appearance of nose and ears normal, oral cavity grossly normal. NECK: JVD unable to assess, mass not palpable. HEART: First and second heart sounds are normal; edema present. LUNGS: Respiratory rate increased, diminished breath sounds. ABDOMEN: Soft, nontender, liver spleen not palpable, no masses palpable. PSYCH: Alert and oriented x3; mood and affect normal. DERMATOLOGICAL: Swelling and redness of the right upper extremity, much improved, dressing over the left arm INVESTIGATIONS, reviewed in the clinical context: Creatinine 0.82 Admitting testing: White count 17.1, hemoglobin 14, potassium 4.4, creatinine 1.13 Chest x-ray film personally reviewed by me-no obvious evidence of pulmonary edema EKG tracing personally reviewed by me shows-sinus rhythm some PVCs first degree AV block Assessment: -Acute cellulitis of both upper extremities. More so on right upper extremity secondary to local bruising in a patient whose skin is very fragile leading to cellulitis, improving -Possible acute on chronic congestive heart exacerbation from diastolic dysfunction EF 55-60% -Suspect bilateral lower extremity venous insufficiency -Family osteoarthritis -BPH -Essential hypertension -Hyperlipidemia -COPD in a nonsmoker -Coronary artery disease with stent in 2010 -Hypertensive heart disease Plan: ID was consulted. Await their input. Clinically patient looking much better. Care was discussed with the patient. Hopefully DC'd 24 hours
[2019-04-02] MEDS ORDERED: SILVER sulfADIAZINE Cream 400 GM 1 APPLIC APPLIC TOPICAL SCH (21:00)
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
[2019-04-03 05:51] VITALS: BP 120/71; TEMP 96.9
[2019-04-03 08:14] LABS: African American GFR (CKD) >90 (>60 ml/min/1.73 sqM)
[2019-04-03] MEDS ORDERED: AMOXIC-POT CLAV 875-125MG 1 EACH TAB PO SCH (09:00)
[2019-04-03] MEDS: IPRATROPIUM-ALBUTEROL 3 ML NEB INHALATION SCH ×2 (09:28→12:43)
[2019-04-03] MEDS: FINASTERIDE 5 MG TAB PO SCH (09:33)
[2019-04-03] MEDS: DOXAZOSIN 4 MG TAB PO SCH (09:33)
[2019-04-03] MEDS: LISINOPRIL 20 MG TAB PO SCH (09:33)
[2019-04-03] MEDS: MULTIVITAMINS, THERA 1 EACH TAB PO SCH (09:33)
[2019-04-03] MEDS: ATORVASTATIN 40 MG TAB PO SCH (09:33)
[2019-04-03] MEDS: FUROSEMIDE 40 MG TAB PO SCH (09:33)
[2019-04-03] MEDS: ASPIRIN 81 MG PO SCH (09:33)
[2019-04-03] MEDS: METOPROLOL SUCCINATE (ER) 25 MG TAB.ER.24H PO SCH (09:33)
[2019-04-03] MEDS: POTASSIUM CHLORIDE ER 10 MEQ TAB.ER.PRT PO SCH (09:33)
[2019-04-03] MEDS: FERROUS SULFATE 325 MG TAB PO SCH (09:33)
[2019-04-03] MEDS: ENOXAPARIN 40 MG/0.4 ML SYRINGE SQ SCH (09:34)
[2019-04-03 09:38] VITALS: PULSE 78
--- NOTE | 2019-04-05 22:38 | P.DS ---
Providers Date of admission: 03/30/19 01:05 Expected date of discharge: 04/03/19 Attending physician: Alan Bahena Consults: 04/01/19 23:30 Consult Physician Routine Consulting Provider: Jony Rivera Consult Reason/Comments: Cellulitis Do you want consulting provider notified?: Yes Primary care physician: Ever Marquis [place] [facility] Course: Hospital course: This is a pleasant 74-year-old patient follows with Dr. Piedad Marquis. Chronic stable medical conditions include BPH, hypertension, hyperlipidemia, COPD, primary osteoarthritis of the hips, coronary artery disease with stent, hypertensive heart disease and congestive heart failure from gastric dysfunction EF 55-60%. Patient presents with some swelling of the right arm. He also case bumping ears arm and has developed redness in the right arm going on for about 2 days. No fever no chills. Patient also gets short of breath on lying down he has to sit up and sleep. Otherwise appetite is fair. Denies any chest pain or palpitation. Patient admitted with cellulitis of the upper extremity from local trauma and CHF exacerbation Patient responded well to IV Lasix. Also was given IV Zosyn and Silvadene cream with Kerlix and Norman wrap. Responded really well. Swelling and redness greatly improved. Seen with Dr. Rivera. Care was discussed with patient and questions answered. Consultation: Dr. Rivera from [place] Physical examination: VITAL SIGNS: 96.9, 87, 16, 120 was 71, 94% room air GENERAL: Sitting up in bed, comfortable EYES: Pupils equal. Conjunctiva normal. HEENT: External appearance of nose and ears normal, oral cavity grossly normal. NECK: JVD unable to assess, mass not palpable. HEART: First and second heart sounds are normal; edema decreased LUNGS: Respiratory rate increased, diminished breath sounds. ABDOMEN: Soft, nontender, liver spleen not palpable, no masses palpable. PSYCH: Alert and oriented x3; mood and affect normal. DERMATOLOGICAL: Swelling and redness of the right upper extremity, nearly resolved, dressing over the left arm INVESTIGATIONS, reviewed in the clinical context: Creatinine 0.82 Admitting testing: White count 17.1, hemoglobin 14, potassium 4.4, creatinine 1.13 Chest x-ray film personally reviewed by me-no obvious evidence of pulmonary edema EKG tracing personally reviewed by me shows-sinus rhythm some PVCs first degree AV block Assessment: -Acute severe cellulitis of both upper extremities. More so on right upper extremity secondary to local bruising in a patient whose skin is very fragile leading to cellulitis, improving -Possible acute on chronic congestive heart exacerbation from diastolic dysfunction EF 55-60% -Suspect bilateral lower extremity venous insufficiency -Family osteoarthritis -BPH -Essential hypertension -Hyperlipidemia -COPD in a nonsmoker -Coronary artery disease with stent in 2010 -Hypertensive heart disease Disposition: Home Patient Condition at Discharge: Stable Plan - Discharge Summary Discharge Rx Participant: No New Discharge Prescriptions: New Amoxic-Pot Clav 875-125Mg [Augmentin 875-125] 1 tab PO Q12HR #14 tablet Continue Terazosin [Hytrin] 5 mg PO DAILY Potassium Chloride ER [K-Dur 10] 10 meq PO BID Metoprolol Succinate (ER) [Toprol XL] 25 mg PO DAILY Ferrous Sulfate [Iron (65 MG Elemental)] 325 mg PO BID Atorvastatin [Lipitor] 40 mg PO DAILY Finasteride [Proscar] 5 mg PO DAILY HYDROcodone/APAP 10-325MG [[place] 10-325] 1 tab PO Q4HR PRN PRN Reason: Pain Aspirin EC [Ecotrin Low Dose] 81 mg PO DAILY Menthol [Biofreeze] 1 applic TOPICAL DAILY PRN PRN Reason: Pain Furosemide [Lasix] 40 mg PO BID 60 Days #120 tablet Lisinopril 40 mg PO DAILY 30 Days #30 tab Multivitamins, Thera [Multivitamin (formulary)] 1 tab PO DAILY Discharge Medication List Atorvastatin [Lipitor] 40 mg PO DAILY 01/07/18 [History] Ferrous Sulfate [Iron (65 MG Elemental)] 325 mg PO BID 01/07/18 [History] Metoprolol Succinate (ER) [Toprol XL] 25 mg PO DAILY 01/07/18 [History] Potassium Chloride ER [K-Dur 10] 10 meq PO BID 01/07/18 [History] Terazosin [Hytrin] 5 mg PO DAILY 01/07/18 [History] Finasteride [Proscar] 5 mg PO DAILY 03/26/18 [History] HYDROcodone/APAP 10-325MG [[place] 10-325] 1 tab PO Q4HR PRN 03/27/18 [History] Aspirin EC [Ecotrin Low Dose] 81 mg PO DAILY 05/03/18 [History] Menthol [Biofreeze] 1 applic TOPICAL DAILY PRN 03/13/19 [History] Furosemide [Lasix] 40 mg PO BID 60 Days #120 tablet 03/14/19 [Rx] Lisinopril 40 mg PO DAILY 30 Days #30 tab 03/14/19 [Rx] Multivitamins, Thera [Multivitamin (formulary)] 1 tab PO DAILY 03/29/19 [History] Amoxic-Pot Clav 875-125Mg [Augmentin 875-125] 1 tab PO Q12HR #14 tablet 04/02/19 [Rx] Follow up Appointment(s)/Referral(s): Jony Marquis MD [STAFF PHYSICIAN] - 04/07/19 1:30 pm [facility], [NON-STAFF] - Discharge Disposition: HOME WITH HOME HEALTH SERVICES
== END 2019-04-03 13:29 | disposition home health service (06) | DRG 602 ==
LOC: EC 22:49 → 4MS4W 03-30 01:05
PROVIDERS: ADMIT Hospitalist; ATTEND Hospitalist
PROC: 05HC33Z Insertion of Infusion Device into Left Basilic Vein, Percutaneous Approach (ICD-10-PCS; principal; 2019-04-01 08:30)
DX: L03.113 Cellulitis of right upper limb (principal); I50.33 Acute on chronic diastolic (congestive) heart failure; J44.1 Chronic obstructive pulmonary disease with (acute) exacerbation; L97.919 Non-pressure chronic ulcer of unspecified part of right lower leg with unspecified severity; L97.929 Non-pressure chronic ulcer of unspecified part of left lower leg with unspecified severity; L03.114 Cellulitis of left upper limb; I11.0 Hypertensive heart disease with heart failure; I87.2 Venous insufficiency (chronic) (peripheral); E66.9 Obesity, unspecified; E78.5 Hyperlipidemia, unspecified; I25.10 Atherosclerotic heart disease of native coronary artery without angina pectoris; I25.2 Old myocardial infarction; M16.0 Bilateral primary osteoarthritis of hip; N40.0 Benign prostatic hyperplasia without lower urinary tract symptoms; M54.10 Radiculopathy, site unspecified; Z79.82 Long term (current) use of aspirin; Z79.899 Other long term (current) drug therapy; Z96.649 Presence of unspecified artificial hip joint; Z95.5 Presence of coronary angioplasty implant and graft; Z87.891 Personal history of nicotine dependence; Z90.49 Acquired absence of other specified parts of digestive tract; Z68.31 Body mass index [BMI] 31.0-31.9, adult; Z82.49 Family history of ischemic heart disease and other diseases of the circulatory system
CPT/HCPCS: 36410; 36415; 71046; 76937; 80048; 80053; 81003; 82550; 82565; 83735; 83880; 84484; 85025; 85610; 85730; 87040; 93005; 93970; 94640; 96374; 96375; 99285

== ENCOUNTER 2019-06-26 15:43 | Emergency (ER) | payer MEDICARE, OTHER ==
[2019-06-26] MEDS ORDERED: CEPHALEXIN 500MG STARTER PACK 4 CAP BTL PO STA (16:46)
[2019-06-26] MEDS ORDERED: CEPHALEXIN 500 MG CAP PO STA (16:46)
--- NOTE | 2019-06-26 17:04 | XR ---
EXAMINATION TYPE: XR ribs LT w pa chest xray DATE OF EXAM: 06/26/2019 COMPARISON: Chest x-ray 03/30/2019 HISTORY: Pain TECHNIQUE: 5 views FINDINGS: There is no heart failure nor confluent pneumonic infiltrate. Costophrenic angles are clear . There is no sign of pneumothorax. There is fracture left lateral seventh rib that is probably old. There is apparent old fracture posterior left fourth rib at the costovertebral junction. IMPRESSION: Old left-sided rib fractures. No acute fracture seen. No active cardiopulmonary disease. Old granulomatous disease.
--- NOTE | 2019-06-26 17:05 | XR ---
EXAMINATION TYPE: XR humerus LT DATE OF EXAM: 06/26/2019 COMPARISON: None HISTORY: Pain after fall TECHNIQUE: 5 views FINDINGS: There is some spurring at the radiohumeral joint. The glenohumeral joint is intact. I see n o fracture nor dislocation. IMPRESSION: No acute abnormality of the left humerus. No fracture seen.
--- NOTE | 2019-06-26 17:07 | XR ---
EXAMINATION TYPE: XR hand complete LT DATE OF EXAM: 06/26/2019 COMPARISON: NONE HISTORY: Pain TECHNIQUE: 3 views FINDINGS: There is some narrowing at the third MP joint. There is narrowing and spurring at the first carpometacarpal joint. There is some spurring at the DIP joints. I see no fracture nor dislocation. There is spurring at the IP joint of the thumb. IMPRESSION: Hypertrophic osteoarthritis. No fracture seen.
--- NOTE | 2019-06-26 17:08 | XR ---
EXAMINATION TYPE: XR wrist complete LT DATE OF EXAM: 06/26/2019 COMPARISON: NONE HISTORY: Pain TECHNIQUE: 4 views FINDINGS: There is narrowing and spurring at the first carpometacarpal joint. The scaphoid appears in tact on the scaphoid view. The radiocarpal joint is intact. IMPRESSION: No acute abnormality of the left wrist.
--- NOTE | 2019-06-26 17:10 | XR ---
EXAMINATION TYPE: XR forearm LT DATE OF EXAM: 06/26/2019 COMPARISON: NONE HISTORY: Pain TECHNIQUE: 2 views FINDINGS: Elbow joint and wrist joint appear intact. I see no fracture nor dislocation. There is kelsea r osteoarthritis at the elbow joint. IMPRESSION: No acute abnormality of the left forearm. No fracture seen.
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
[2019-06-26 18:18] VITALS: BP 94/62; PULSE 72; RESP 16; TEMP 97.8
== END 2019-06-26 18:10 | disposition home or self-care (01) ==
LOC: EC 15:43
DX: S51.812A Laceration without foreign body of left forearm, initial encounter (principal); I11.0 Hypertensive heart disease with heart failure; I50.30 Unspecified diastolic (congestive) heart failure; E78.5 Hyperlipidemia, unspecified; I25.2 Old myocardial infarction; J44.9 Chronic obstructive pulmonary disease, unspecified; E66.9 Obesity, unspecified; Z68.32 Body mass index [BMI] 32.0-32.9, adult; Z79.82 Long term (current) use of aspirin; Z79.899 Other long term (current) drug therapy; Z87.891 Personal history of nicotine dependence; Z95.5 Presence of coronary angioplasty implant and graft; Z96.649 Presence of unspecified artificial hip joint; W01.0XXA Fall on same level from slipping, tripping and stumbling without subsequent striking against object, initial encounter; Y93.01 Activity, walking, marching and hiking
CPT/HCPCS: 99284

== ENCOUNTER → 2019-07-16 | Outpatient (CLI) | payer MEDICARE, OTHER ==
--- NOTE | 2019-07-16 17:42 | CT ---
EXAMINATION TYPE: CT chest wo con DATE OF EXAM: 07/16/2019 COMPARISON: 03/13/2019 HISTORY: COPD, pain from prior left rib injury CT DLP: 843.3 mGycm, Automated exposure control for dose reduction was used. CONTRAST: Performed injected with 0 mL of Isovue 300. TECHNIQUE: Axial images were obtained at 5 mm thick sections. Reconstructed images are reviewed on [employer] computer in the coronal plane. FINDINGS: Thyroid is heterogenous. Additional evaluation with ultrasound is recommended. There are 2 small nodules within the posterior lateral left lung base. First measures 0.5 cm, series 4 image 45 cm 0.6 cm, series 4 image 47. These were present previously and appears stable. No enlarged mediastinal or hilar adenopathy is evident. The ascending aorta diameter at the level o f the main pulmonary artery is 3.7 cm. The main pulmonary artery diameter at the bifurcation is 2.7 cm. Left infrahilar calcified lymphadenopathy is present. Limited CT sections are obtained through the upper abdomen. Abdomen is essentially unremarkable. IMPRESSIONS: 1. Enlarged heterogenous thyroid. Additional evaluation with ultrasound can be performed. 2. Stable small nodules posterior lateral left lung base. Follow-up CT chest in 6 months is recommend ed. 3. No suspicious acute changes within the thorax.
== END | disposition home or self-care (01) ==
LOC: RADCTMAIN 15:01
PROVIDERS: ATTEND Family Medicine
DX: R91.8 Other nonspecific abnormal finding of lung field (principal); J44.1 Chronic obstructive pulmonary disease with (acute) exacerbation
CPT/HCPCS: 71250

== ENCOUNTER → 2020-03-12 | Outpatient (CLI) | payer MEDICARE ==
--- NOTE | 2020-03-12 16:05 | FL ---
EXAMINATION TYPE: FL barium swallow DATE OF EXAM: 03/12/2020 CLINICAL HISTORY: Sensation of food getting stuck in back of throat. TECHNIQUE: A double contrast esophagram is performed utilizing air and barium. A total of 1 minutes 32 seconds of fluoroscopic time was utilized during procedure. COMPARISON: None FINDINGS: There is a small midline posterior Zenker's diverticulum which fills with and retained oral contrast. The esophagus shows dysmotility with tertiary and retropulsive peristalsis. Overall normal esophageal emptying into the stomach. No evidence of hiatal hernia. There is narrowing at the GE ju nction. No significant gastroesophageal reflux was seen during real time performance of this study. IMPRESSION: 1. Small Zenker's diverticulum. 2. Esophageal dysmotility. 3. Narrowed GE junction.
== END | disposition home or self-care (01) ==
LOC: RADFLMAIN 12:55
PROVIDERS: ATTEND Otolaryngology Plastic Surgery within the Head & Neck
DX: K22.5 Diverticulum of esophagus, acquired (principal); K22.4 Dyskinesia of esophagus; K22.8 Other specified diseases of esophagus
CPT/HCPCS: 74220

== ENCOUNTER 2020-04-25 23:38 | Inpatient (IN) | payer MEDICARE ==
[2020-04-26] MEDS ORDERED: MORPHINE SULFATE 4 MG/ML SYRINGE IVP STA (00:17)
[2020-04-26] MEDS ORDERED: LIDOCAINE 5% PATCH TOPICAL STA (00:17)
[2020-04-26] MEDS ORDERED: KETOROLAC 15 MG/ML 1 ML VIAL IM STA (00:17)
[2020-04-26] MEDS ORDERED: MORPHINE SULFATE 4 MG/ML SYRINGE IM STA (00:23)
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
--- NOTE | 2020-04-26 01:10 | XR ---
EXAMINATION TYPE: XR ribs RT w pa chest xray DATE OF EXAM: 04/26/2020 COMPARISON: 06/26/2019 HISTORY: Right-sided rib pain TECHNIQUE: 5 views FINDINGS: Heart is enlarged. There is fractures of the posterior lateral right fourth and fifth and s ixth and seventh ribs. There is minimal pleural thickening on the right lateral chest wall. I see no pneumothorax. There is no pleural effusion. There are no hilar masses. IMPRESSION: Numerous right lateral rib fractures are new compared to old exam. Cardiomegaly.
[2020-04-26] MEDS ORDERED: BACITRACIN OINT 1 EACH PACKET TOPICAL ONE (01:24)
[2020-04-26] MEDS ORDERED: NALOXONE 0.4 MG/ML 1 ML VIAL IV PRN (01:50)
[2020-04-26 02:13] LABS: Basophils % (A) 0 %; Eosinophils # (A) 0.2 k/uL (0-0.7); Eosinophils % (A) 1 %; HCT 37.6 % (39.0-53.0); HGB 12.6 gm/dL (13.0-17.5); Lymphocytes % (A) 7 %; MCH 33.7 pg (25.0-35.0); MCHC 33.6 g/dL (31.0-37.0); MCV 100.4 fL (80.0-100.0); Macrocytosis Slight; Mean Platelet Volume 7.1; Monocytes # (A) 1.1 k/uL (0-1.0); Monocytes % (A) 8 %; Neutrophils # (A) 11.5 k/uL (1.3-7.7); Neutrophils % (A) 83 %; Platelet Count 203 k/uL (150-450); RBC 3.75 m/uL (4.30-5.90); WBC 13.9 k/uL (3.8-10.6)
[2020-04-26 02:22] LABS: Partial Thromboplastin Time 26.8 sec (22.0-30.0); Prothrombin Time 10.1 sec (9.0-12.0)
[2020-04-26 02:24] LABS: Albumin 3.6 g/dL (3.5-5.0); Calcium 8.9 mg/dL (8.4-10.2); Potassium 4.4 mmol/L (3.5-5.1); Total Bilirubin 0.6 mg/dL (0.2-1.3); Total Protein 6.1 g/dL (6.3-8.2)
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
[2020-04-26] MEDS: MORPHINE SULFATE 4 MG/ML SYRINGE IV PRN ×5 (03:39→22:01)
[2020-04-26 04:18] LABS: Glucose,Whole Blood 121 mg/dL (75-99)
[2020-04-26] MEDS ORDERED: IPRATROPIUM-ALBUTEROL 3 ML NEB INHALATION PRN (09:20)
[2020-04-26] MEDS ORDERED: oxyCODONE-APAP 7.5-325MG 1 EACH TAB PO PRN (10:20)
[2020-04-26] MEDS: HEPARIN SODIUM,PORCINE 5,000 UNIT/ML 1 ML VIAL SQ SCH ×2 (10:23→17:56)
[2020-04-26 11:03] LABS: HCT 36.3 % (39.0-53.0); HGB 11.9 gm/dL (13.0-17.5); MCH 32.7 pg (25.0-35.0); MCHC 32.7 g/dL (31.0-37.0); MCV 99.9 fL (80.0-100.0); Macrocytosis Slight; Mean Platelet Volume 7.3; Platelet Count 197 k/uL (150-450); RBC 3.63 m/uL (4.30-5.90); RDW 14.5 % (11.5-15.5); WBC 9.1 k/uL (3.8-10.6)
[2020-04-26 11:10] LABS: Calcium 8.8 mg/dL (8.4-10.2); Potassium 5.3 mmol/L (3.5-5.1)
[2020-04-26] MEDS ORDERED: ALBUTEROL HFA INHALER INHALATION PRN (13:14)
[2020-04-26] MEDS: LIDOCAINE 5% PATCH TOPICAL SCH (13:24)
[2020-04-26] MEDS: IPRATROPIUM-ALBUTEROL 3 ML NEB INHALATION SCH ×3 (13:45→19:58)
--- NOTE | 2020-04-26 14:08 | P.PN ---
Subjective Progress Note Date: 04/26/20 Principal diagnosis: fall Patient is a 75-year-old male with coronary artery disease status post multiple stents, COPD, diastolic CHF, hypertension, and dyslipidemia who presented to the emergency department after a fall with right sided chest discomfort. The ER he underwent an extensive evaluation. Rib x-rays demonstrated posterior lateral ribs 4, 5, 6, 7 fracture on the right without associated pneumothorax. He was satting 98% on room air. Initial laboratory analysis showed a white blood cell count of 13.9, hemoglobin 12.6, sodium 135, BUN 38, creatinine 1.32, ALT 53. Surgery was contacted who recommended admission to the ICU secondary to need for high dose opiate medications for rib fractures. She was subsequently admitted to our service to the ICU. Patient seen and examined at bedside. He continues to complain of right sided mid axial pain and scapular pain worse with movement and deep breathing. He denies any true shortness of breath. No nausea or vomiting. He denies any other areas of pain. General: Ill appearing, distress secondary to pain, appears at stated age Derm: warm, dry Head: atraumatic, normocephalic, symmetric Eyes: EOMI, no lid lag, anicteric sclera Mouth: no lip lesion, mucus membranes dry Cardiovascular: S1S2 reg, no murmur, positive posterior tibial pulse bilateral, Lungs: Decreased breath sounds bilateral, no rhonchi, no rales , no accessory muscle use Abdominal: soft, nontender to palpation, no guarding, no appreciable organomegaly Ext: no gross muscle atrophy, no edema, no contractures Neuro: CN II-XI grossly intact, no focal neuro deficits Psych: Alert, oriented, appropriate affect Rib fracture right ribs 4 through 5 and -Pain control morphine -Adequate oral medications of [place] and Percocet for breakthrough pain -Await trauma recommendations -Incentive spirometer -Up and out of bed today Hyperkalemia -Suspect secondary to spironolactone, potassium, and lisinopril -Resume Lasix -Recheck in a.m. COPD without exacerbation -Continue with short and long-acting bronchodilators -When necessary albuterol Hypertension -Spironolactone and lisinopril on hold secondary to hyperkalemia -Resume Hytrin, metoprolol, Lasix -Follow blood pressures Dyslipidemia -Lipitor Coronary artery disease -History of multiple stents Chronic diastolic congestive heart failure -Spironolactone and lisinopril on hold secondary to hyperkalemia -Resume her Lasix, metoprolol -Strict Is and O's, daily weight SOPHIA, resolved Leukocytosis, reactive, resolved DVT prophylaxis: SCDs Discussed with: Patient, nursing Anticipated discharge: in AM Anticipated discharge place: home A total of 35 minutes was spent on the care of this complex patient more than 50% of the time was spent in counseling and care coordination. Objective - Vital Signs Vital signs: Vital Signs Temp 97.9 F 04/26/20 08:00 Pulse 56 L 04/26/20 12:00 Resp 17 04/26/20 12:00 BP 127/67 04/26/20 12:00 Pulse Ox 98 04/26/20 09:00 Intake & Output 04/25/20 04/26/20 04/26/20 18:59 06:59 18:59 Intake Total 20 240 Output Total 0 450 Balance 20 -210 Weight 90 kg Intake: Amount of Fluid Infused ( 20 ml) Oral 240 Output: Urine 0 450 Other: Voiding Method Urinal Urinal - Labs CBC & Chem 7: 04/26/20 10:40 04/26/20 10:40 Labs: Abnormal Lab Results - Last 24 Hours (Table) 04/26/20 04/26/20 04/26/20 Range/Units 01:32 01:32 03:58 WBC 13.9 H (3.8-10.6) k/uL RBC 3.75 L (4.30-5.90) m/uL Hgb 12.6 L (13.0-17.5) gm/dL Hct 37.6 L (39.0-53.0) % MCV 100.4 H (80.0-100.0) fL Neutrophils # 11.5 H (1.3-7.7) k/uL Monocytes # 1.1 H (0-1.0) k/uL Sodium 135 L (137-145) mmol/L Potassium (3.5-5.1) mmol/L BUN 38 H (9-20) mg/dL Creatinine 1.32 H (0.66-1.25) mg/dL Glucose 118 H (74-99) mg/dL POC Glucose (mg/dL) 121 H (75-99) mg/dL ALT 53 H (4-49) U/L Total Protein 6.1 L (6.3-8.2) g/dL 04/26/20 04/26/20 Range/Units 10:40 10:40 WBC (3.8-10.6) k/uL RBC 3.63 L (4.30-5.90) m/uL Hgb 11.9 L (13.0-17.5) gm/dL Hct 36.3 L (39.0-53.0) % MCV (80.0-100.0) fL Neutrophils # (1.3-7.7) k/uL Monocytes # (0-1.0) k/uL Sodium 136 L (137-145) mmol/L Potassium 5.3 H (3.5-5.1) mmol/L BUN 39 H (9-20) mg/dL Creatinine (0.66-1.25) mg/dL Glucose 100 H (74-99) mg/dL POC Glucose (mg/dL) (75-99) mg/dL ALT (4-49) U/L Total Protein (6.3-8.2) g/dL
[2020-04-26] MEDS: HYDROcodone/APAP 7.5-325MG 1 EACH TAB PO PRN ×2 (14:39→20:39)
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
--- NOTE | 2020-04-26 16:07 | CONS ---
CONSULTATION PULMONARY/CRITICAL CARE CONSULTATION: DATE OF SERVICE: 04/26/2020 This is a 75-year-old male who presented to the emergency department with right-sided chest pain. The patient apparently fell on some wet grass prior to him coming to the emergency room, and injured his right chest. He was found to have multiple rib fractures on the right side, including ribs 4, 5, 6 and 7. Apparently he did not lose consciousness or hit his head. He did feel a crunching sensation in his right chest when he fell and he also feels a crunching sensation and an abnormal sensation when he inhales deeply or exhales rapidly. He does have pain in the right chest area. Again, he denies any injury to the head or loss of consciousness. He denies any neck or back pain. The patient currently is doing reasonably well. He was admitted on 04/26 and evaluated in the emergency room. He is currently on 2 L. He is not receiving any IV fluids. I do recommend updrafts, deep breathing, coughing, clearing of secretions and incentive spirometer. The patient is stable enough to be transferred to the general medical floor without telemetry. He does have a history of multiple medical problems, including hypertension, hyperlipidemia, CAD, BPH, myocardial infarction, multiple stent placements and COPD from previous tobacco use. CURRENT MEDICATIONS: Current medications are reviewed. He is on Lipitor, iron, metoprolol, potassium, Hytrin, Proscar, [place], aspirin, Biofreeze, multivitamins, Lasix, lisinopril, Augmentin and Keflex. ALLERGIES: DENIED. MEDICAL HISTORY: Medical history includes CHF, COPD, hyperlipidemia, hypertension, myocardial infarction, CAD, obesity and BPH. He had a previous myocardial infarction in 2010. SURGICAL HISTORY: Surgical history includes appendectomy, heart catheterization and hip replacement, among other minor procedures. SOCIAL HISTORY: Positive for previous tobacco use. He does not smoke currently. He denies any alcohol use or illicit drug use. FAMILY HISTORY: Positive for father with heart disease. REVIEW OF SYSTEMS: CONSTITUTIONAL: Negative. NEUROLOGIC: Negative. HEENT: Negative. CARDIOVASCULAR: Negative. PULMONARY: Difficulty breathing and taking a deep breath because of multiple right rib fractures. GI: Negative. : Negative. RHEUMATOLOGIC: Negative. IMMUNOLOGIC: Negative. ENDOCRINOLOGIC: Negative. DERMATOLOGIC: Negative. PHYSICAL EXAMINATION: VITAL SIGNS: Current vital signs are reviewed. His temperature is 97.9, heart rate 60, respiratory rate 18, blood pressure 148/68, mean 94, and 2-liter saturation 98%. GENERAL APPEARANCE: Appears in no acute distress. HEENT: Examination is grossly unremarkable. NECK: Supple. Full range of motion. No adenopathy. Neck veins are flat. CARDIOVASCULAR: Examination reveals regular rhythm and rate. S1, S2 normal. No S3, S4 or murmur. MMODL / IJN: [id number] /
--- NOTE | 2020-04-26 17:16 | CONS ---
CONSULTATION PULMONARY/CRITICAL CARE CONSULTATION: ADDENDUM/CONTINUATION: PHYSICAL EXAMINATION: GENERAL APPEARANCE: Appears in no acute distress. Oriented x3. HEENT EXAMINATION: Grossly unremarkable. NECK: Supple. Full range of motion. No adenopathy or thyromegaly. Neck veins are flat. CARDIOVASCULAR EXAMINATION: Regular rate and rhythm. Heart rate 60 beats per minute. S1, S2 normal. LUNGS: Lungs reveal diminished breath sounds, particularly on the right side. He has tenderness on palpation to the right chest. No crepitations are noted. No wheezes. ABDOMEN: Soft. Bowel sounds are heard. EXTREMITIES: Intact. No edema. SKIN: Without rash. NEUROLOGIC: Neurologic examination is brief but nonfocal. LABS/IMAGING: Labs are reviewed. White count 9.1, hemoglobin 11.9, hematocrit 36.3, platelet count normal. Sodium 136, potassium 5.3, chloride 104, CO2 28. Anion gap is 4. BUN and creatinine were 39 and 1.18. Chest x-ray and rib series reveal numerous right lateral rib fractures. CURRENT MEDICATIONS: Reviewed. The patient is on heparin, [place], DuoNeb, lidocaine patch, morphine sulfate, Narcan and Percocet. ASSESSMENT: 1. Status post recent fall with numerous right-sided rib fractures, including ribs 4, 5, 6 and 7. 2. History of hypertension. 3. History of hyperlipidemia. 4. History of coronary artery disease. 5. Benign prostatic hypertrophy. 6. Previous myocardial infarction. 7. Status post stent placement. 8. Chronic obstructive pulmonary disease from previous tobacco use. PLAN: The patient is relatively stable. He could be transferred to a general medical floor without telemetry. We do recommend deep breathing, coughing, clearing of secretions, adequate pain control, incentive spirometer and updrafts. Both the IS and the updrafts were added by me. Will continue to follow. Prognosis is guarded. MMODL / IJN: [id number] /
[2020-04-26] MEDS: FUROSEMIDE 80 MG TAB PO SCH ×2 (17:53→20:39)
[2020-04-26] MEDS: FINASTERIDE 5 MG TAB PO SCH (17:55)
[2020-04-26] MEDS: ATORVASTATIN 40 MG TAB PO SCH (17:55)
[2020-04-26] MEDS: BUDESONIDE 0.5 MG/2 ML NEBU INHALATION SCH (19:58)
[2020-04-26] MEDS: FORMOTEROL FUMARATE 20 MCG/2 ML NEBU INHALATION SCH (19:58)
[2020-04-26] MEDS ORDERED: FLUTICASONE 110 MCG INHALER INHALATION SCH (20:00)
[2020-04-26 20:18] LABS: Calcium 8.9 mg/dL (8.4-10.2); Potassium 4.8 mmol/L (3.5-5.1)
[2020-04-27] MEDS: HEPARIN SODIUM,PORCINE 5,000 UNIT/ML 1 ML VIAL SQ SCH ×3 (01:56→18:02)
[2020-04-27] MEDS: MORPHINE SULFATE 4 MG/ML SYRINGE IV PRN ×2 (02:43→06:18)
[2020-04-27] MEDS: IPRATROPIUM-ALBUTEROL 3 ML NEB INHALATION SCH ×4 (07:36→19:55)
[2020-04-27] MEDS: FORMOTEROL FUMARATE 20 MCG/2 ML NEBU INHALATION SCH ×2 (07:36→19:55)
[2020-04-27] MEDS: BUDESONIDE 0.5 MG/2 ML NEBU INHALATION SCH ×2 (07:36→19:55)
[2020-04-27] MEDS: HYDROcodone/APAP 7.5-325MG 1 EACH TAB PO PRN ×2 (08:07→08:09)
[2020-04-27] MEDS: METOPROLOL SUCCINATE (ER) 25 MG TAB.ER.24H PO SCH (08:07)
[2020-04-27] MEDS: FINASTERIDE 5 MG TAB PO SCH (08:07)
[2020-04-27] MEDS: ATORVASTATIN 40 MG TAB PO SCH (08:07)
[2020-04-27 08:15] LABS: African American GFR (CKD) >90 (>60 ml/min/1.73 sqM); Anion Gap 9 mmol/L; Blood Urea Nitrogen 27 mg/dL (9-20); Calcium 8.6 mg/dL (8.4-10.2); Carbon Dioxide 28 mmol/L (22-30); Chloride 100 mmol/L (98-107); Glucose 103 mg/dL (74-99); Non-African American GFR(CKD) 85 (>60 ml/min/1.73 sqM); Potassium 4.5 mmol/L (3.5-5.1); Sodium 137 mmol/L (137-145)
[2020-04-27] MEDS: DOXAZOSIN 4 MG TAB PO SCH (09:39)
[2020-04-27] MEDS: FUROSEMIDE 80 MG TAB PO SCH ×2 (09:39→20:15)
[2020-04-27] MEDS: oxyCODONE-APAP 10-325MG 1 EACH TAB PO PRN ×3 (12:08→20:15)
[2020-04-27] MEDS: LIDOCAINE 5% PATCH TOPICAL SCH (15:33)
--- NOTE | 2020-04-27 16:41 | PN ---
PROGRESS NOTE This is a patient whom I saw yesterday in consultation. The patient fell and injured his right chest and had multiple right-sided rib fractures, including ribs 4, 5, 6 and 7. The patient is complaining today primarily of pain. Other than that he is doing reasonably well. He does have a history of hypertension, hyperlipidemia, CAD, BPH, myocardial infarction, status post stent placement for CAD, and a previous history of tobacco use with underlying COPD. The patient is complaining currently of pain. I told him to tell the nurse about the pain. Apparently his pain medications have been cut back. We do recommend deep breathing, coughing, clearing of secretions and hourly use of the incentive spirometer. PHYSICAL EXAMINATION: VITAL SIGNS: Currently vital signs are stable. Temperature is 98.7, heart rate 64, respiratory rate 16, blood pressure 119/66 with a mean of 83, 2-liter saturation 94%. GENERAL APPEARANCE: Appears in no acute distress. HEENT: Examination is grossly unremarkable. NECK: Supple. Full range of motion. No adenopathy. Neck veins are flat. CARDIOVASCULAR: Examination reveals regular rhythm and rate. S1, S2 normal. Heart rate 65 beats per minute. No murmur. LUNGS: Lungs reveal mostly clear breath sounds. A few scattered rhonchi, particularly on the right side. He does not take deep breaths. There is tenderness on palpation over the right lateral and posterior chest area. ABDOMEN: Soft. Bowel sounds are heard. EXTREMITIES: Intact. No cyanosis, clubbing or edema. SKIN: Without rash. NEUROLOGIC: Neurologic examination is brief but nonfocal. LABS: Labs today include sodium 137, potassium 4.5, chloride 100, CO2 28. Anion gap is 9. BUN and creatinine were 27 and 0.88. Microbiology is all negative. No additional x-rays to review. Medications are reviewed. ASSESSMENT: 1. Status post recent fall with numerous right-sided rib fractures, including ribs 4, 5, 6 and 7. 2. History of hypertension. 3. History of hyperlipidemia. 4. History of coronary artery disease. 5. History of benign prostatic hypertrophy. 6. Previous myocardial infarction with stent placement. 7. Chronic obstructive pulmonary disease from previous tobacco use. PLAN: Continue with pain control. Encourage deep breathing, coughing, clearing of secretions and hourly use of incentive spirometer. No additional recommendations are made. Prognosis is guarded. MMODL / IJN: [id number] /
--- NOTE | 2020-04-27 18:44 | P.PN ---
Subjective Progress Note Date: 04/27/20 (delayed charting seen at 1230) Principal diagnosis: fall Patient is a 75-year-old male with coronary artery disease status post multiple stents, COPD, diastolic CHF, hypertension, and dyslipidemia who presented to the emergency department after a fall with right sided chest discomfort. The ER he underwent an extensive evaluation. Rib x-rays demonstrated posterior lateral ribs 4, 5, 6, 7 fracture on the right without associated pneumothorax. He was satting 98% on room air. Initial laboratory analysis showed a white blood cell count of 13.9, hemoglobin 12.6, sodium 135, BUN 38, creatinine 1.32, ALT 53. Surgery was contacted who recommended admission to the ICU secondary to need for high dose opiate medications for rib fractures. She was subsequently admitted to our service to the ICU. Patient seen and examined at bedside. I asked him how he is doing he states " fine". He then complains of pain with breathing and a clicking in his right chest sensation. He then insist on answering phone and states that he wasn't his chest and he'll have his conversation. Discussed with nursing and physical therapy. Patient had been refusing to get up and walk today secondary to pain and feeling as though the physical therapist would not be able to stop his fall is he is bigger than them. CM and socail work aware, may need rehab General: Nontoxic, no distress, talking on following, appears at stated age Derm: warm, dry Head: atraumatic, normocephalic, symmetric Eyes: EOMI, no lid lag, anicteric sclera Mouth: no lip lesion, mucus membranes dry Cardiovascular: S1S2 reg, no murmur, positive posterior tibial pulse bilateral, Lungs: Decreased breath sounds bilateral, no rhonchi, no rales , no accessory muscle use Abdominal: soft, nontender to palpation, no guarding, no appreciable organomegaly Ext: no gross muscle atrophy, no edema, no contractures Neuro: CN II-XI grossly intact, no focal neuro deficits Psych: Alert, oriented, appropriate affect Rib fracture right ribs 4 through 7 due to fall from standing -Pain control- percocet and norco doses increased - PT/OT recs -Trauma recs appreciated -Incentive spirometer -Up and out of bed today COPD without exacerbation -Continue with short and long-acting bronchodilators -When necessary albuterol Hypertension -Spironolactone and lisinopril resumed -Hytrin, metoprolol, Lasix -Follow blood pressures Dyslipidemia -Lipitor Coronary artery disease -History of multiple stents Chronic diastolic congestive heart failure -Spironolactone, lisinopril, Lasix, metoprolol -Strict Is and O's, daily weight Hyperkalemia, resolved -Resume spironolactone and lisinopril -Resume Lasix -Recheck in a.m. SOPHIA, resolved Leukocytosis, reactive, resolved DVT prophylaxis: SCDs Discussed with: Patient, nursing Anticipated discharge: in AM Anticipated discharge place: SNF A total of 35 minutes was spent on the care of this complex patient more than 50% of the time was spent in counseling and care coordination. Objective - Vital Signs Vital signs: Vital Signs Temp 98.2 F 04/27/20 15:00 Pulse 86 04/27/20 16:00 Resp 20 04/27/20 16:00 BP 130/82 04/27/20 15:00 Pulse Ox 92 L 04/27/20 15:00 Intake & Output 04/26/20 04/27/20 04/27/20 18:59 06:59 18:59 Intake Total 240 320 Output Total 431 995 1825 Balance -304 -844 -305 Intake: Oral 240 320 Output: Urine 945 816 7534 Other: Voiding Method Urinal Urinal Urinal - Labs CBC & Chem 7: 04/26/20 10:40 04/27/20 07:26 Labs: Abnormal Lab Results - Last 24 Hours (Table) 04/26/20 04/27/20 Range/Units 19:40 07:26 BUN 36 H 27 H (9-20) mg/dL Glucose 108 H 103 H (74-99) mg/dL
[2020-04-27] MEDS: lisinopriL 10 MG TAB PO SCH (20:15)
--- NOTE | 2020-04-27 23:52 | P.PN ---
Subjective Progress Note Date: 04/27/20 Patient doing well with no complaints. He walked in [place] today, using IS. Pain is improved today Objective - Vital Signs Vital signs: Vital Signs Temp 98.7 F 04/27/20 19:00 Pulse 70 04/27/20 20:11 Resp 20 04/27/20 16:00 BP 110/66 04/27/20 19:00 Pulse Ox 93 L 04/27/20 19:00 Intake & Output 04/27/20 04/27/20 04/28/20 06:59 18:59 06:59 Intake Total 320 Output Total 575 1000 Balance -575 680 Intake: Oral 320 Output: Urine 575 1000 Other: Voiding Method Urinal Urinal Urinal # Voids 2 - Constitutional General appearance: Present: cooperative - Respiratory Details: nonlabored - Cardiovascular Rhythm: regular - Labs CBC & Chem 7: 04/26/20 10:40 04/27/20 07:26 Labs: Abnormal Lab Results - Last 24 Hours (Table) 04/27/20 Range/Units 07:26 BUN 27 H (9-20) mg/dL Glucose 103 H (74-99) mg/dL Assessment and Plan Assessment: Multiple right sided rib fractures Plan: Continue pain management, pain is well controlled at this time. I discussed IS with patient and importance of deep breathing and coughing. No trauma surgical intervention planned at this time.
[2020-04-28] MEDS: oxyCODONE-APAP 10-325MG 1 EACH TAB PO PRN ×6 (01:00→22:46)
[2020-04-28] MEDS: HEPARIN SODIUM,PORCINE 5,000 UNIT/ML 1 ML VIAL SQ SCH ×3 (01:04→14:41)
[2020-04-28] MEDS: IPRATROPIUM-ALBUTEROL 3 ML NEB INHALATION SCH ×4 (08:13→19:34)
[2020-04-28] MEDS: FORMOTEROL FUMARATE 20 MCG/2 ML NEBU INHALATION SCH ×2 (08:13→19:34)
[2020-04-28] MEDS: BUDESONIDE 0.5 MG/2 ML NEBU INHALATION SCH ×2 (08:13→19:34)
[2020-04-28] MEDS: FUROSEMIDE 80 MG TAB PO SCH ×2 (09:09→22:43)
[2020-04-28] MEDS: SPIRONOLACTONE 25 MG TAB PO SCH (09:09)
[2020-04-28] MEDS: METOPROLOL SUCCINATE (ER) 25 MG TAB.ER.24H PO SCH (09:09)
[2020-04-28] MEDS: FINASTERIDE 5 MG TAB PO SCH (09:10)
[2020-04-28] MEDS: ATORVASTATIN 40 MG TAB PO SCH (09:10)
[2020-04-28] MEDS: DOXAZOSIN 4 MG TAB PO SCH (09:10)
[2020-04-28] MEDS: lisinopriL 10 MG TAB PO SCH (09:10)
[2020-04-28] MEDS: LIDOCAINE 5% PATCH TOPICAL SCH (09:10)
[2020-04-28 10:34] LABS: African American GFR (CKD) 86.2 (60.0-200.0); Anion Gap 10.7 mmol/L (4.00-12.00); Calcium 9.3 mg/dL (8.7-10.3); Carbon Dioxide 26.3 mmol/L (21.6-31.8); Non-African American GFR(CKD) 74.3 (60.0-200.0); Potassium 4.5 mmol/L (3.5-5.5)
[2020-04-28 10:51] LABS: Appearance,Urine Clear (Clear); Bilirubin,Urine Negative (Negative); Blood,Urine Negative (Negative); Color,Urine Yellow; Glucose,Urine (UA) Negative (Negative); Ketones,Urine Negative (Negative); Leukocyte Esterase,Urine Negative (Negative); Nitrite,Urine Negative (Negative); Protein,Urine Negative (Negative); Specific Gravity,Urine 1.018 (1.001-1.035); Urobilinogen,Urine <2.0 mg/dL (<2.0)
--- NOTE | 2020-04-28 11:11 | P.DS ---
Providers Date of admission: 04/26/20 02:34 Expected date of discharge: 04/28/20 Attending physician: Rk Lundberg MD Consults: 04/26/20 01:50 Consult Physician Stat Consulting Provider: Dalton Holland Consult Reason/Comments: Critical care management Do you want consulting provider notified?: Already Contacted Consult Physician Stat Consulting Provider: Pete Willoughby Consult Reason/Comments: Traumatic rib fractures Do you want consulting provider notified?: Already Contacted Primary care physician: Ever Marquis Hospital Course: Discharge Diagnosis: Rib fractures 4-7 on the right due to fall from standing COPD without exacerbation Hypertension Dyslipidemia Chronic diastolic congestive heart failure Coronary artery disease with history of multiple stents Hyperkalemia Acute kidney injury Leukocytosis, resolved Hospital Course: Patient is a 75-year-old male with coronary artery disease status post multiple stents, COPD, diastolic CHF, hypertension, and dyslipidemia who presented to the emergency department after a fall with right sided chest discomfort. The ER he underwent an extensive evaluation. Rib x-rays demonstrated posterior lateral ribs 4, 5, 6, and 7 fracture on the right without associated pneumothorax. He was satting 98% on room air. Initial laboratory analysis showed a white blood cell count of 13.9, hemoglobin 12.6, sodium 135, BUN 38, creatinine 1.32, ALT 53. Surgery was contacted who recommended admission to the ICU secondary to need for high dose opiate medications for rib fractures. He was subsequently admitted to our service to the ICU. He did well and was not requiring Oxygen. Platelet cell count normalized. He wants to have some hyperkalemia which was resolved with holding his potassium, spironolactone, and ALVARADO inhibitor. Hemoglobin remained relatively stable. He continued to have some pain control issues and ultimately required Percocet for appropriate pain control. He was determined stable for discharge. The morning of 04/28 he was complaining of some difficulty with bladder emptying and burning. Urinalysis was performed which was negative, post void residual is also within acceptable range. He was determined stable for discharge. I recommended a repeat CBC and basic metabolic profile in 2-3 days. He will stay off of his potassium supplementation. Due to gait instability he will require [facility] facility on discharge and has elected to go to [facility]. Patient seen and examined at bedside. Still having some pain with deep inspiration. Complains of difficulty with bladder emptying. Vital signs reviewed and stable. General: non toxic, no distress, appears at stated age Derm: warm, dry Head: atraumatic, normocephalic, symmetric Eyes: EOMI, no lid lag, anicteric sclera Mouth: no lip lesion, mucus membranes moist Cardiovascular: S1S2 reg, no murmur, positive posterior tibial pulse bilateral, Lungs: Decreased breath sounds bilateral , no accessory muscle use Abdominal: soft, nontender to palpation, no guarding, no appreciable organomegaly Ext: no gross muscle atrophy, no edema, no contractures Neuro: CN II-XI grossly intact, no focal neuro deficits Psych: Alert, oriented, appropriate affect A total of 40 minutes of time were spent preparing this complex discharge summary . Patient Condition at Discharge: Stable Plan - Discharge Summary Discharge Rx Participant: No New Discharge Prescriptions: New oxyCODONE-APAP 10-325MG [Percocet 10-325 mg] 1 each PO Q4H PRN #21 tab PRN Reason: Pain Lidocaine 5% Patch [Lidoderm 5% Patch] 1 patch TOPICAL DAILY patch Continue Terazosin [Hytrin] 5 mg PO DAILY Metoprolol Succinate (ER) [Toprol XL] 25 mg PO DAILY Atorvastatin [Lipitor] 40 mg PO DAILY Finasteride [Proscar] 5 mg PO DAILY Aspirin EC [Ecotrin Low Dose] 81 mg PO DAILY Multivitamins, Thera [Multivitamin (formulary)] 1 tab PO DAILY Furosemide [Lasix] 80 mg PO BID lisinopriL [Zestril] 10 mg PO DAILY Glycopyrrolate/Formoterol Fum [Bevespi Aerosphere Inhaler] 2 puff INHALATION RT-BID Fluticasone Propionate 110 Mcg [Flovent 110 Mcg Inhaler (Mhu)] 2 puff INHALATION RT-BID Albuterol Inhaler [Ventolin Hfa Inhaler] 2 puff INHALATION RT-Q4H PRN PRN Reason: Shortness Of Breath Vitamin D (Unknown Strength) 1 tab PO DAILY Spironolactone 50 mg PO DAILY Discontinued Potassium Chloride ER [K-Dur 10] 10 meq PO BID HYDROcodone/APAP 10-325MG [[place] 10-325] 1 tab PO Q3H PRN PRN Reason: Pain Discharge Medication List Atorvastatin [Lipitor] 40 mg PO DAILY 01/07/18 [History] Metoprolol Succinate (ER) [Toprol XL] 25 mg PO DAILY 01/07/18 [History] Terazosin [Hytrin] 5 mg PO DAILY 01/07/18 [History] Finasteride [Proscar] 5 mg PO DAILY 03/26/18 [History] Aspirin EC [Ecotrin Low Dose] 81 mg PO DAILY 05/03/18 [History] Multivitamins, Thera [Multivitamin (formulary)] 1 tab PO DAILY 03/29/19 [History] Albuterol Inhaler [Ventolin Hfa Inhaler] 2 puff INHALATION RT-Q4H PRN 04/26/20 [History] Fluticasone Propionate 110 Mcg [Flovent 110 Mcg Inhaler (Mhu)] 2 puff INHALATION RT-BID 04/26/20 [History] Furosemide [Lasix] 80 mg PO BID 04/26/20 [History] Glycopyrrolate/Formoterol Fum [Bevespi Aerosphere Inhaler] 2 puff INHALATION RT- BID 04/26/20 [History] Spironolactone 50 mg PO DAILY 04/26/20 [History] Vitamin D (Unknown Strength) 1 tab PO DAILY 04/26/20 [History] lisinopriL [Zestril] 10 mg PO DAILY 04/26/20 [History] Lidocaine 5% Patch [Lidoderm 5% Patch] 1 patch TOPICAL DAILY patch 04/28/20 [Rx] oxyCODONE-APAP 10-325MG [Percocet 10-325 mg] 1 each PO Q4H PRN #21 tab 04/28/20 [Rx] Follow up Appointment(s)/Referral(s): Ever Marquis MD [Primary Care Provider] - 1-2 days Activity/Diet/Wound Care/Special Instructions: Activity: as tolerated Diet: carb consistent Special Instructions: CBC and BMP in 2-3 days DX: Hyperkalemia, and anemia Discharge Disposition: TRANSFER TO SNF/ECF
--- NOTE | 2020-04-28 11:53 | XR ---
EXAMINATION TYPE: XR chest 1V portable DATE OF EXAM: 04/28/2020 COMPARISON: 04/26/2020 HISTORY: Pain TECHNIQUE: Single frontal view of the chest is obtained. FINDINGS: Bilateral consolidation and pleural effusion. Bilateral pleural thickening. No pneumothora x. Chronic rib deformities are seen. Arthropathy of the shoulders with diffuse osteopenia. Scoliosis with degenerative change of the spine. Calcified lymph nodes in the hilum. IMPRESSION: Bilateral lower lobe infiltrate and small effusion with no sizable pneumothorax.
[2020-04-28] MEDS: polyethylene glycoL 3350 17 GM POWD.PACK PO SCH (12:53)
--- NOTE | 2020-04-28 13:44 | P.PN ---
Subjective Progress Note Date: 04/28/20 Principal diagnosis: Status post recent fall, numerous right-sided rib fractures This 75-year-old white male patient who was admitted to the hospital on 04/26/2020 after sustaining a fall on the wet grass a comminuted to the hospital for evaluation of itching sensation in his ribs and pain in the right side of the chest with deep breathing, and coughing. Chest x-ray showed fractures of the right fourth, fifth, sixth and seventh ribs. No evidence of pneumothorax, no complaints of shortness of breath, patient was admitted mostly for pain management. It any injury to his head. No loss of consciousness. Patient was admitted to the intensive care unit overnight for pain management and observation, has remained stable. This morning she seen in follow-up on the [facility] medical surgical floor, he remains on supplemental oxygen currently at 3 L, his pulse ox is 92-96%, hemodynamically patient is stable, he has had no acute events overnight, follow-up chest x-ray shows bilateral lower lobe infiltrates and small effusion with no sizable pneumothorax. Vital signs have been stable overnight, no acute events. Follow blood work today shows BMP is within normal limits, no CBC was done today, urinalysis was negative. Currently patient is on oxycodone, hydrocodone. Patient is getting nebulized bronchodilators. Doing well. Patient is stable for discharge. Objective - Vital Signs Vital signs: Vital Signs Temp 98.2 F 04/28/20 07:00 Pulse 77 04/28/20 07:23 Resp 20 04/28/20 07:23 BP 109/67 04/28/20 07:00 Pulse Ox 92 L 04/28/20 07:00 Intake & Output 04/27/20 04/28/20 04/28/20 18:59 06:59 18:59 Intake Total 320 Output Total 1000 400 400 Balance -680 -400 -400 Intake: Oral 320 Output: Urine 1000 400 400 Other: Voiding Method Urinal Urinal Urinal # Voids 2 2 - Exam GENERAL EXAM: Alert, pleasant, 75-year-old white male, on 3 L of oxygen with pulse ox of 92-96% comfortable in no apparent distress. HEAD: Normocephalic/atraumatic. EYES: Normal reaction of pupils, equal size. Conjunctiva pink, sclera white. NOSE: Clear with pink turbinates. THROAT: No erythema or exudates. NECK: No masses, no JVD, no thyroid enlargement, no adenopathy. CHEST: No chest wall deformity. Symmetrical expansion. There is a right-sided chest discomfort related to recent history of rib fractures LUNGS: Equal air entry with no crackles, wheeze, rhonchi or dullness. CVS: Regular rate and rhythm, normal S1 and S2, no gallops, no murmurs, no rubs ABDOMEN: Soft, nontender. No hepatosplenomegaly, normal bowel sounds, no guarding or rigidity. EXTREMITIES: No clubbing, no edema, no cyanosis, 2+ pulses and upper and lower extremities. MUSCULOSKELETAL: Muscle strength and tone normal. SPINE: No scoliosis or deformity SKIN: No rashes CENTRAL NERVOUS SYSTEM: Alert and oriented -3. No focal deficits, tone is normal in all 4 extremities. PSYCHIATRIC: Alert and oriented -3. Appropriate affect. Intact judgment and insight. - Labs CBC & Chem 7: 04/26/20 10:40 04/28/20 06:23 Labs: Abnormal Lab Results - Last 24 Hours (Table) 04/28/20 Range/Units 06:23 BUN/Creatinine Ratio 27.00 H (12.00-20.00) Ratio Assessment and Plan Plan: Assessment: #1. Multiple right-sided rib fractures related to recent history of fall on the wet grass, with secondary right chest pain. No evidence of pneumothorax on the chest x-ray. Rib x-ray demonstrated posterior lateral ribs for, 5, 6, 7 without associated pneumothorax. #2. History of COPD, which is stable at this point #3. History of chronic CHF with diastolic dysfunction #4. Dyslipidemia #5. History of coronary artery disease with history of multiple stents #6. Acute kidney injury, improved #7. Hyperkalemia, improved #8. Benign prostatic hypertrophy #9. Previous history of myocardial infarction #10. Previous history of tobacco use Plan: No acute events overnight, no worsening dyspnea, follow-up chest x-ray has been reviewed, showing bibasilar infiltrates and small pleural effusions, patient is working on the incentive spirometer, his pain is reasonably well controlled. Vital signs have been stable, breathing is fairly comfortable. Increase activity as tolerated, encourage incentive spirometry use, stable for discharge from pulmonary perspective I performed a history & physical examination of the patient and discussed their management with my nurse practitioner, Anneliese Miller. I reviewed the nurse practitioner's note and agree with the documented findings and plan of care. Lung sounds are positive for diminished breath sounds. The findings and the impression was discussed with the patient. I attest to the documentation by the nurse practitioner. Time with Patient: Less than 30
[2020-04-29] MEDS: HEPARIN SODIUM,PORCINE 5,000 UNIT/ML 1 ML VIAL SQ SCH ×3 (00:41→16:06)
[2020-04-29] MEDS: HYDROcodone/APAP 7.5-325MG 1 EACH TAB PO PRN (01:08)
[2020-04-29] MEDS: oxyCODONE-APAP 10-325MG 1 EACH TAB PO PRN (05:15)
[2020-04-29] MEDS: DOXAZOSIN 4 MG TAB PO SCH (08:10)
[2020-04-29] MEDS: lisinopriL 10 MG TAB PO SCH (08:11)
[2020-04-29] MEDS: IPRATROPIUM-ALBUTEROL 3 ML NEB INHALATION SCH ×4 (08:12→19:09)
[2020-04-29] MEDS: BUDESONIDE 0.5 MG/2 ML NEBU INHALATION SCH ×2 (08:12→19:09)
[2020-04-29] MEDS: FORMOTEROL FUMARATE 20 MCG/2 ML NEBU INHALATION SCH ×2 (08:12→19:09)
[2020-04-29] MEDS: polyethylene glycoL 3350 17 GM POWD.PACK PO SCH (08:16)
[2020-04-29] MEDS: FUROSEMIDE 80 MG TAB PO SCH ×2 (08:16→20:26)
[2020-04-29] MEDS: FINASTERIDE 5 MG TAB PO SCH (08:16)
[2020-04-29] MEDS: METOPROLOL SUCCINATE (ER) 25 MG TAB.ER.24H PO SCH (08:16)
[2020-04-29] MEDS: SPIRONOLACTONE 25 MG TAB PO SCH (08:16)
[2020-04-29] MEDS: ATORVASTATIN 40 MG TAB PO SCH (08:17)
[2020-04-29] MEDS: LIDOCAINE 5% PATCH TOPICAL SCH (08:17)
[2020-04-29] MEDS: oxyCODONE-APAP 7.5-325MG 1 EACH TAB PO PRN ×4 (09:39→23:59)
[2020-04-29] MEDS: HYDROCORTISONE 2.5% RECTAL CREAM 30 GM TUBE RECTAL SCH ×2 (09:40→20:27)
--- NOTE | 2020-04-29 10:53 | P.PN ---
Subjective Progress Note Date: 04/29/20 Principal diagnosis: fall Patient is a 75-year-old male with coronary artery disease status post multiple stents, COPD, diastolic CHF, hypertension, and dyslipidemia who presented to the emergency department after a fall with right sided chest discomfort. The ER he underwent an extensive evaluation. Rib x-rays demonstrated posterior lateral ribs 4, 5, 6, 7 fracture on the right without associated pneumothorax. He was satting 98% on room air. Initial laboratory analysis showed a white blood cell count of 13.9, hemoglobin 12.6, sodium 135, BUN 38, creatinine 1.32, ALT 53. Surgery was contacted who recommended admission to the ICU secondary to need for high dose opiate medications for rib fractures. He was subsequently admitted to our service to the ICU. He did well and was not requiring Oxygen. Platelet cell count normalized. He wants to have some hyperkalemia which was resolved with holding his potassium, spironolactone, and ALVARADO inhibitor. Hemoglobin remained relatively stable. He continued to have some pain control issues and ultimately required Percocet for appropriate pain control. He was determined stable for discharge. The morning of 04/28 he was complaining of some difficulty with bladder emptying and burning. Urinalysis was performed which was negative, post void residual is also within acceptable range. He was determined stable for discharge. He contested his discharge and currently awaiting review. Patient seen and examined at bedside. States that he is still having pain, did not have a bowel movement yesterday- offer an enema but refused. He wants to concentrate on how he was unhappy wiht his breakfast and that his toast was so ggy. He is not having shortness of breath, but states that the medications are not helping enough (though he is awake and eating and walking to the bathroom. He is demanding that his aid come back in the room right now to address his breakfast issue, after I informed him that as his doctor I will not be calling the kitchen for him. Discussed with nursing and physical therapy. Patient had been refusing to get up and walk today secondary to pain and feeling as though the physical therapist would not be able to stop his fall is he is bigger than them. CM and socail work aware, may need rehab General: Nontoxic, no distress, appears at stated age Derm: warm, dry Head: atraumatic, normocephalic, symmetric Eyes: EOMI, no lid lag, anicteric sclera Mouth: no lip lesion, mucus membranes dry Cardiovascular: S1S2 reg, no murmur, positive posterior tibial pulse bilateral, Lungs: clear to auscultation bilateral, no rhonchi, no rales , no accessory muscle use Abdominal: soft, nontender to palpation, no guarding, no appreciable organomegaly Ext: no gross muscle atrophy, no edema, no contractures Neuro: CN II-XI grossly intact, no focal neuro deficits Psych: Alert, oriented, appropriate affect Rib fracture right ribs 4 through 7 due to fall from standing -Pain control- percocet dose increased - PT/OT recs -Trauma recs appreciated -Incentive spirometer - out of bed three times daily Constipation - miralax, prune juice - enema added if patient will take COPD without exacerbation -Continue with short and long-acting bronchodilators -When necessary albuterol Hypertension -Spironolactone, Lisinopril, Hytrin, metoprolol, Lasix -Follow blood pressures Dyslipidemia -Lipitor Coronary artery disease -History of multiple stents Chronic diastolic congestive heart failure -Spironolactone, lisinopril, Lasix, metoprolol -Strict Is and O's, daily weight Hyperkalemia, resolved SOPHIA, resolved Leukocytosis, reactive, resolved DVT prophylaxis: SCDs Discussed with: Patient, nursing Anticipated discharge: pending review Anticipated discharge place: [facility] A total of 35 minutes was spent on the care of this complex patient more than 50% of the time was spent in counseling and care coordination. Objective - Vital Signs Vital signs: Vital Signs Temp 98.2 F 04/29/20 07:00 Pulse 83 04/29/20 07:00 Resp 20 04/28/20 16:00 BP 94/56 04/29/20 07:00 Pulse Ox 95 04/29/20 07:00 Intake & Output 04/28/20 04/29/20 04/29/20 18:59 06:59 18:59 Intake Total 400 300 Output Total 400 200 Balance 0 100 Intake: Oral 400 300 Output: Urine 400 200 Other: Voiding Method Urinal # Voids 2 1 - Labs CBC & Chem 7: 04/26/20 10:40 04/28/20 06:23
--- NOTE | 2020-04-29 14:16 | P.PN ---
Subjective Progress Note Date: 04/29/20 Principal diagnosis: Status post recent fall, numerous right-sided rib fractures This 75-year-old white male patient who was admitted to the hospital on 04/26/2020 after sustaining a fall on the wet grass a comminuted to the hospital for evaluation of itching sensation in his ribs and pain in the right side of the chest with deep breathing, and coughing. Chest x-ray showed fractures of the right fourth, fifth, sixth and seventh ribs. No evidence of pneumothorax, no complaints of shortness of breath, patient was admitted mostly for pain management. It any injury to his head. No loss of consciousness. Patient was admitted to the intensive care unit overnight for pain management and observation, has remained stable. This morning she seen in follow-up on the [facility] medical surgical floor, he remains on supplemental oxygen currently at 3 L, his pulse ox is 92-96%, hemodynamically patient is stable, he has had no acute events overnight, follow-up chest x-ray shows bilateral lower lobe infiltrates and small effusion with no sizable pneumothorax. Vital signs have been stable overnight, no acute events. Follow blood work today shows BMP is within normal limits, no CBC was done today, urinalysis was negative. Currently patient is on oxycodone, hydrocodone. Patient is getting nebulized bronchodilators. Doing well. Patient is stable for discharge. On 04/29/2020 patient seen in follow-up on medical surgical floor. He is awake and alert, in no acute distress, is on 2 L of oxygen with pulse ox of 95%, hemodynamically stable, no fever or chills, really seems comfortable, his pain is fairly well controlled. Last chest x-ray was done yesterday showing bilateral lower lobe infiltrates and small pleural effusions with no sizable pneumothorax, lung sounds are clear, diminished at the bases, patient is working on incentive spirometer, patient has been working with physical therapy, his been walking to the commode with assistance, tolerating it fairly well. No acute events overnight, no significant cough or congestion or chest pain. He continues on nebulized bronchodilators,, he is on maintenance dose of oral Lasix. He is receiving Percocet for pain control Objective - Vital Signs Vital signs: Vital Signs Temp 98.2 F 04/29/20 07:00 Pulse 88 04/29/20 12:23 Resp 20 04/28/20 16:00 BP 94/56 04/29/20 07:00 Pulse Ox 95 04/29/20 07:00 Intake & Output 04/28/20 04/29/20 04/29/20 18:59 06:59 18:59 Intake Total 400 300 300 Output Total 400 200 Balance 0 100 300 Intake: Oral 400 300 300 Output: Urine 400 200 Other: Voiding Method Urinal # Voids 2 1 3 # Bowel Movements 1 - Exam GENERAL EXAM: Alert, pleasant, 75-year-old white male, on 3 L of oxygen with pulse ox of 92-96% comfortable in no apparent distress. HEAD: Normocephalic/atraumatic. EYES: Normal reaction of pupils, equal size. Conjunctiva pink, sclera white. NOSE: Clear with pink turbinates. THROAT: No erythema or exudates. NECK: No masses, no JVD, no thyroid enlargement, no adenopathy. CHEST: No chest wall deformity. Symmetrical expansion. There is a right-sided chest discomfort related to recent history of rib fractures LUNGS: Equal air entry with no crackles, wheeze, rhonchi or dullness. CVS: Regular rate and rhythm, normal S1 and S2, no gallops, no murmurs, no rubs ABDOMEN: Soft, nontender. No hepatosplenomegaly, normal bowel sounds, no guarding or rigidity. EXTREMITIES: No clubbing, no edema, no cyanosis, 2+ pulses and upper and lower extremities. MUSCULOSKELETAL: Muscle strength and tone normal. SPINE: No scoliosis or deformity SKIN: No rashes CENTRAL NERVOUS SYSTEM: Alert and oriented -3. No focal deficits, tone is normal in all 4 extremities. PSYCHIATRIC: Alert and oriented -3. Appropriate affect. Intact judgment and insight. - Labs CBC & Chem 7: 04/26/20 10:40 04/28/20 06:23 Assessment and Plan Plan: Assessment: #1. Multiple right-sided rib fractures related to recent history of fall on the wet grass, with secondary right chest pain. No evidence of pneumothorax on the chest x-ray. Rib x-ray demonstrated posterior lateral ribs for, 5, 6, 7 without associated pneumothorax. #2. History of COPD, which is stable at this point #3. History of chronic CHF with diastolic dysfunction #4. Dyslipidemia #5. History of coronary artery disease with history of multiple stents #6. Acute kidney injury, improved #7. Hyperkalemia, improved #8. Benign prostatic hypertrophy #9. Previous history of myocardial infarction #10. Previous history of tobacco use Plan: Patient is stable from pulmonary perspective, encourage deep breathing and coughing, incentive spirometry use, last chest x-ray from yesterday showed no evidence of pneumothorax, bibasilar atelectasis and small pleural effusions, wean FiO2, physical therapy is working with the patient, increase activity as tolerated, possible discharge home in the next 24 hours I performed a history & physical examination of the patient and discussed their management with my nurse practitioner, Anneliese Miller. I reviewed the nurse practitioner's note and agree with the documented findings and plan of care. Lung sounds are positive for diminished breath sounds. The findings and the impression was discussed with the patient. I attest to the documentation by the nurse practitioner. Time with Patient: Less than 30
[2020-04-30] MEDS: oxyCODONE-APAP 7.5-325MG 1 EACH TAB PO PRN ×5 (04:35→22:08)
[2020-04-30] MEDS ORDERED: TAMSULOSIN 0.4 MG CAP.ER.24H PO STA (07:12)
[2020-04-30 07:43] LABS: HCT 36.6 % (39.0-53.0); HGB 12.1 gm/dL (13.0-17.5); MCH 32.9 pg (25.0-35.0); MCHC 33.1 g/dL (31.0-37.0); MCV 99.4 fL (80.0-100.0); Macrocytosis Slight; Mean Platelet Volume 7.5; Platelet Count 260 k/uL (150-450); RBC 3.68 m/uL (4.30-5.90); RDW 14.7 % (11.5-15.5); WBC 11.4 k/uL (3.8-10.6)
[2020-04-30 07:50] LABS: African American GFR (CKD) 31 (>60 ml/min/1.73 sqM); Anion Gap 9 mmol/L; Blood Urea Nitrogen 80 mg/dL (9-20); Carbon Dioxide 26 mmol/L (22-30); Chloride 95 mmol/L (98-107); Glucose 106 mg/dL (74-99); Non-African American GFR(CKD) 27 (>60 ml/min/1.73 sqM); Potassium 4.9 mmol/L (3.5-5.1); Sodium 130 mmol/L (137-145)
[2020-04-30] MEDS: BUDESONIDE 0.5 MG/2 ML NEBU INHALATION SCH ×2 (08:14→20:12)
[2020-04-30] MEDS: FORMOTEROL FUMARATE 20 MCG/2 ML NEBU INHALATION SCH ×2 (08:15→20:12)
[2020-04-30] MEDS: IPRATROPIUM-ALBUTEROL 3 ML NEB INHALATION SCH ×4 (08:15→20:16)
[2020-04-30] MEDS: SPIRONOLACTONE 25 MG TAB PO SCH (08:18)
[2020-04-30] MEDS: FINASTERIDE 5 MG TAB PO SCH (08:19)
[2020-04-30] MEDS: METOPROLOL SUCCINATE (ER) 25 MG TAB.ER.24H PO SCH (08:19)
[2020-04-30] MEDS: polyethylene glycoL 3350 17 GM POWD.PACK PO SCH (08:19)
[2020-04-30] MEDS: FUROSEMIDE 80 MG TAB PO SCH (08:19)
[2020-04-30] MEDS: HEPARIN SODIUM,PORCINE 5,000 UNIT/ML 1 ML VIAL SQ SCH ×3 (08:19→17:45)
[2020-04-30] MEDS: DOXAZOSIN 4 MG TAB PO SCH (08:19)
[2020-04-30] MEDS: ATORVASTATIN 40 MG TAB PO SCH (08:19)
[2020-04-30] MEDS: LIDOCAINE 5% PATCH TOPICAL SCH (08:20)
[2020-04-30] MEDS: HYDROCORTISONE 2.5% RECTAL CREAM 30 GM TUBE RECTAL SCH (08:20)
[2020-04-30] MEDS ORDERED: SODIUM CHLORIDE 0.9% 500 ML 500 ML IV ONE (08:33)
[2020-04-30] MEDS ORDERED: SODIUM CHLORIDE 0.9% 1,000 ML IV SCH (08:45)
--- NOTE | 2020-04-30 09:43 | P.PN ---
Subjective Progress Note Date: 04/30/20 Principal diagnosis: fall Patient is a 75-year-old male with coronary artery disease status post multiple stents, COPD, diastolic CHF, hypertension, and dyslipidemia who presented to the emergency department after a fall with right sided chest discomfort. The ER he underwent an extensive evaluation. Rib x-rays demonstrated posterior lateral ribs 4, 5, 6, 7 fracture on the right without associated pneumothorax. He was satting 98% on room air. Initial laboratory analysis showed a white blood cell count of 13.9, hemoglobin 12.6, sodium 135, BUN 38, creatinine 1.32, ALT 53. Surgery was contacted who recommended admission to the ICU secondary to need for high dose opiate medications for rib fractures. He was subsequently admitted to our service to the ICU. He did well and was not requiring Oxygen. Platelet cell count normalized. He wants to have some hyperkalemia which was resolved with holding his potassium, spironolactone, and ALVARADO inhibitor. Hemoglobin remained relatively stable. He continued to have some pain control issues and ultimately required Percocet for appropriate pain control. He was determined stable for discharge. The morning of 04/28 he was complaining of some difficulty with bladder emptying and burning. Urinalysis was performed which was negative, post void residual is also within acceptable range. He was determined stable for discharge. He contested his discharge and currently awaiting review. Over night on 04/29 he was not having any urine output. He nurse bladder scanned for greater than 600, she first attempted a traditional cath and then a caude and did not have any return of urine. Patient seen and examined at bedside. He complains of feeling full and not being able to urinate. he continued to have pain. He did have a bowel movement yesterday. He has no other complaints at this time. General: Nontoxic, no distress, appears at stated age Derm: warm, dry Head: atraumatic, normocephalic, symmetric Eyes: EOMI, no lid lag, anicteric sclera Mouth: no lip lesion, mucus membranes dry Cardiovascular: S1S2 reg, no murmur, positive posterior tibial pulse bilateral, Lungs: clear to auscultation bilateral, no rhonchi, no rales , no accessory muscle use Abdominal: soft, nontender to palpation, no guarding, no appreciable organomegaly Ext: no gross muscle atrophy, no edema, no contractures Neuro: CN II-XI grossly intact, no focal neuro deficits Psych: Alert, oriented, appropriate affect SOPHIA with urinary retention - consult urology, flomax added to his doxazosin, and proscar - consult nephro - hold lisinopril, lasix, and aldactone - IVF - Avoid additional nephrotoxic agents - repeat BMP in AM - Cancel discharge. - optimize BP Rib fracture right ribs 4 through 7 due to fall from standing -Pain control- percocet - PT/OT recs -Trauma recs appreciated -Incentive spirometer - out of bed three times daily Constipation, improving - miralax, prune juice COPD without exacerbation -Continue with short and long-acting bronchodilators -When necessary albuterol Hypertension -metoprolol -Follow blood pressures Dyslipidemia -Lipitor Coronary artery disease -History of multiple stents Chronic diastolic congestive heart failure -Spironolactone, lisinopril, Lasix- on hold due to SOPHIA - metoprolol -Strict Is and O's, daily weight Hyperkalemia, resolved SOPHIA, resolved Leukocytosis, reactive, resolved DVT prophylaxis: SCDs Discussed with: Patient, nursing Anticipated discharge: in 2-[address]: SNF A total of 35 minutes was spent on the care of this complex patient more than 50% of the time was spent in counseling and care coordination. Objective - Vital Signs Vital signs: Vital Signs Temp 98.8 F 04/30/20 07:00 Pulse 83 04/30/20 07:00 Resp 20 04/30/20 01:00 BP 106/65 04/30/20 07:00 Pulse Ox 96 04/30/20 07:00 Intake & Output 04/29/20 04/30/20 04/30/20 18:59 06:59 18:59 Intake Total 300 900 Output Total 100 Balance 300 800 Intake: Oral 300 900 Output: Urine 100 Other: # Voids 3 1 # Bowel Movements 1 - Labs CBC & Chem 7: 04/30/20 07:22 04/30/20 07:22 Labs: Abnormal Lab Results - Last 24 Hours (Table) 04/30/20 04/30/20 Range/Units 07:22 07:22 WBC 11.4 H (3.8-10.6) k/uL RBC 3.68 L (4.30-5.90) m/uL Hgb 12.1 L (13.0-17.5) gm/dL Hct 36.6 L (39.0-53.0) % Sodium 130 L (137-145) mmol/L Chloride 95 L (98-107) mmol/L BUN 80 H (9-20) mg/dL Creatinine 2.33 H (0.66-1.25) mg/dL Glucose 106 H (74-99) mg/dL
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
--- NOTE | 2020-04-30 12:09 | P.PCN ---
Date of Procedure: 04/30/20 Preoperative Diagnosis: inability of nursing staff to place catheter in urinary retention Postoperative Diagnosis: same Procedure(s) Performed: placement of 14-Sinhala coud-tip catheter Anesthesia: none Surgeon: Dov Wynne Pathology: none sent Condition: stable Disposition: PACU Indications for Procedure: the patient is 75. He sustained rib fractures a few days ago. He is gone in urine retention with greater than 6-700 mL of urine in his bladder. The nursing staff unable pass a catheter. Description of Procedure: the patient is in bed. I finally calmed him down. He has morbid obesity with an umbilical hernia. I get him in about a 45 angle. He is prepped and draped sterilely. Slowly I passed a 14-Sinhala coud-tip catheter. He is anxious and trying to spasm his external sphincter but I get him to relax. I'm able to manipulate by that into the bladder. A large volume of clear urine is obtained. The balloon is insufflated with 10 mL of water. The prostate is obviously enlarged based on the monitor catheter in the bladder. Impression urine retention post-rib fracture recommendations when the patient is up and moving around more freely the catheter can be removed. He should remain on the tamsulosin.
--- NOTE | 2020-04-30 12:37 | XR ---
EXAMINATION TYPE: XR chest 1V portable DATE OF EXAM: 04/30/2020 HISTORY: Shortness of breath. COMPARISON: 04/28/2020 TECHNIQUE: Single view of the chest is submitted. FINDINGS: Demonstrated are scattered senescent parenchymal change. Basilar infiltrates persist without significant interval change. The heart is stable. Hilar and mediastinal structures are within normal limits. Degenerative changes are seen of the dorsal spine. IMPRESSION: 1. Basilar infiltrates persist without significant interval change.
[2020-04-30] MEDS: MIDODRINE 5 MG TAB PO SCH ×2 (12:46→17:45)
--- NOTE | 2020-04-30 13:16 | P.PN ---
Subjective Progress Note Date: 04/30/20 Principal diagnosis: Status post recent fall, numerous right-sided rib fractures This 75-year-old white male patient who was admitted to the hospital on 04/26/2020 after sustaining a fall on the wet grass a comminuted to the hospital for evaluation of itching sensation in his ribs and pain in the right side of the chest with deep breathing, and coughing. Chest x-ray showed fractures of the right fourth, fifth, sixth and seventh ribs. No evidence of pneumothorax, no complaints of shortness of breath, patient was admitted mostly for pain management. It any injury to his head. No loss of consciousness. Patient was admitted to the intensive care unit overnight for pain management and observation, has remained stable. This morning she seen in follow-up on the [facility] medical surgical floor, he remains on supplemental oxygen currently at 3 L, his pulse ox is 92-96%, hemodynamically patient is stable, he has had no acute events overnight, follow-up chest x-ray shows bilateral lower lobe infiltrates and small effusion with no sizable pneumothorax. Vital signs have been stable overnight, no acute events. Follow blood work today shows BMP is within normal limits, no CBC was done today, urinalysis was negative. Currently patient is on oxycodone, hydrocodone. Patient is getting nebulized bronchodilators. Doing well. Patient is stable for discharge. On 04/29/2020 patient seen in follow-up on medical surgical floor. He is awake and alert, in no acute distress, is on 2 L of oxygen with pulse ox of 95%, hemodynamically stable, no fever or chills, really seems comfortable, his pain is fairly well controlled. Last chest x-ray was done yesterday showing bilateral lower lobe infiltrates and small pleural effusions with no sizable pneumothorax, lung sounds are clear, diminished at the bases, patient is working on incentive spirometer, patient has been working with physical therapy, his been walking to the commode with assistance, tolerating it fairly well. No acute events overnight, no significant cough or congestion or chest pain. He continues on nebulized bronchodilators,, he is on maintenance dose of oral Lasix. He is receiving Percocet for pain control On 04/30/2020 patient seen in follow-up on general medical surgical floor. He is awake and alert, in no acute distress, vital signs remain stable, he remains on 2 L of oxygen pulse ox of 96%, hemodynamically stable, afebrile. His pain is reasonably controlled, lung sounds are clear, diminished at the bases, patient is receiving nebulized bronchodilators. Today's labs have been reviewed, and patient's renal profile has significantly worsening over last 48 hours, with B1 up to 80, and creatinine of 2.33, patient was started on IV fluids by attending physician. Patient developed urinary retention, and urology consultation was obtained and Dr. Campos had to place a urinary catheter Today's chest x-ray has been reviewed showing basilar infiltrates likely related to atelectasis, without significant interval change. Today's white count is 11.4, hemoglobin is 12.1. Patient is working with physical therapy does require extensive assistance with ambulation and transferring to the commode and back. Objective - Vital Signs Vital signs: Vital Signs Temp 98.8 F 04/30/20 07:00 Pulse 83 04/30/20 07:00 Resp 20 04/30/20 01:00 BP 106/65 04/30/20 07:00 Pulse Ox 96 04/30/20 07:00 Intake & Output 04/29/20 04/30/20 04/30/20 18:59 06:59 18:59 Intake Total 300 900 300 Output Total 100 Balance 300 800 300 Intake: Oral 300 900 300 Output: Urine 100 Other: # Voids 3 1 # Bowel Movements 1 - Exam GENERAL EXAM: Alert, pleasant, 75-year-old white male, on 2 L of oxygen with pulse ox of 96% comfortable in no apparent distress. HEAD: Normocephalic/atraumatic. EYES: Normal reaction of pupils, equal size. Conjunctiva pink, sclera white. NOSE: Clear with pink turbinates. THROAT: No erythema or exudates. NECK: No masses, no JVD, no thyroid enlargement, no adenopathy. CHEST: No chest wall deformity. Symmetrical expansion. There is a right-sided chest discomfort related to recent history of rib fractures LUNGS: Equal air entry with no crackles, wheeze, rhonchi or dullness. CVS: Regular rate and rhythm, normal S1 and S2, no gallops, no murmurs, no rubs ABDOMEN: Soft, nontender. No hepatosplenomegaly, normal bowel sounds, no guarding or rigidity. EXTREMITIES: No clubbing, no edema, no cyanosis, 2+ pulses and upper and lower extremities. MUSCULOSKELETAL: Muscle strength and tone normal. SPINE: No scoliosis or deformity SKIN: No rashes CENTRAL NERVOUS SYSTEM: Alert and oriented -3. No focal deficits, tone is normal in all 4 extremities. PSYCHIATRIC: Alert and oriented -3. Appropriate affect. Intact judgment and insight. - Labs CBC & Chem 7: 04/30/20 07:22 04/30/20 07:22 Labs: Abnormal Lab Results - Last 24 Hours (Table) 04/30/20 04/30/20 Range/Units 07:22 07:22 WBC 11.4 H (3.8-10.6) k/uL RBC 3.68 L (4.30-5.90) m/uL Hgb 12.1 L (13.0-17.5) gm/dL Hct 36.6 L (39.0-53.0) % Sodium 130 L (137-145) mmol/L Chloride 95 L (98-107) mmol/L BUN 80 H (9-20) mg/dL Creatinine 2.33 H (0.66-1.25) mg/dL Glucose 106 H (74-99) mg/dL Assessment and Plan Plan: Assessment: #1. Multiple right-sided rib fractures related to recent history of fall on the wet grass, with secondary right chest pain. No evidence of pneumothorax on the chest x-ray. Rib x-ray demonstrated posterior lateral ribs for, 5, 6, 7 without associated pneumothorax. #2. Acute kidney injury likely related to urinary retention #3. Hyponatremia #4. History of COPD, which is stable at this point #5. History of chronic CHF with diastolic dysfunction #6. Dyslipidemia #7. History of coronary artery disease with history of multiple stents #8. Acute kidney injury, improved #9. Hyperkalemia, improved #10. Benign prostatic hypertrophy #11. Previous history of myocardial infarction #12. Previous history of tobacco use Plan: Today's chest x-ray has been reviewed, showing stable findings of bibasilar atelectasis, no evidence of pneumothorax, continue encouraging deep breathing and coughing. Patient has developed acute kidney injury in view of urinary retention, urology consultation was noted. From pulmonary perspective no wo rsening dyspnea, no chest pain, no cough or congestion, continue nebulized bronchodilators, we'll continue to follow. I performed a history & physical examination of the patient and discussed their management with my nurse practitioner, Anneliese Miller. I reviewed the nurse practitioner's note and agree with the documented findings and plan of care. Lung sounds are positive for diminished breath sounds. The findings and the impression was discussed with the patient. I attest to the documentation by the nurse practitioner. Time with Patient: Less than 30
--- NOTE | 2020-04-30 19:59 | CONS ---
CONSULTATION REASON FOR CONSULT: Renal failure. HISTORY OF PRESENT ILLNESS: The patient is a 75-year-old male with history of coronary artery disease, COPD, diastolic CHF, hypertension, who was admitted to the hospital with a fall and right- sided chest pain. The patient was found to have fracture of the lateral ribs on the right side with no pneumothorax. On admission, serum creatinine was 1.32 and decreased to 0.8 mg/dL on 04/27/2020. However, subsequently patient's creatinine was elevated to 2.3 today. He has had difficulty in voiding and was noticed to have urine retention. A Roque catheter was attempted but could not be placed and therefore urology was consulted and a catheter was placed this morning. Initially, patient was noted to be in CHF and he was diuresed. Blood pressure was noted to be significantly low with systolic in the 80s on 04/29/2020. I do not see any nonsteroidal anti-inflammatory medications on his med list. The patient was on Zestril which is currently on hold. PAST MEDICAL HISTORY: CHF, COPD, diastolic heart failure, history of BPH, hyperlipidemia, history of MD, obesity. PAST SURGICAL HISTORY: Cardiac catheterization, coronary stent placement, appendectomy, hip arthroplasty. SOCIAL HISTORY: Patient is a former smoker. No history of drug abuse or alcohol abuse. MEDICATIONS: Medications prior to admission included aspirin, [place], Proscar, Hytrin, potassium, Toprol, iron, Lipitor, lisinopril, Lasix, Keflex. ALLERGIES: None. REVIEW OF SYSTEMS: As per HPI. Other systems negative. EXAMINATION: Patient is comfortable, awake, alert, oriented x3, not in any acute distress. Blood pressure 106/65, heart rate 83 per minute. He is afebrile. Examination of the heart S1, S2. Examination of the lungs, bilateral breath sounds are heard. ABDOMEN: Soft with some tenderness noted in the lower abdomen. Exam of lower extremities shows edema 1+ bilaterally. [employer]IL [employer] exam grossly intact. LAB: Show sodium 130, potassium 4.9, chloride 95, BUN 80, creatinine 2.3. UA is completely benign. Hemoglobin 12.1 g/dL. ASSESSMENT: 1. Acute kidney injury secondary to hypotension as well as urine retention. Urology has been consulted for Roque catheter placement as it could not be inserted by nursing staff. I will hold off on IV fluids as patient does appear to be mildly hypervolemic. Instead we can add midodrine for the low blood pressure. The patient is also on a large dose of Cardura, which we will add to orthostatic hypotension. Decrease IV fluids and continue to hold off on ALVRAADO inhibitors for now. Repeat labs in a.m. and avoid any nephrotoxic medications. 2. Hyponatremia, associated with renal failure and hypervolemia. 3. History of fall and rib fractures with no evidence of pneumothorax. 4. History of chronic obstructive pulmonary disease, currently stable. 5. History of diastolic heart failure. PLAN: Hold off on IV fluids. Add midodrine. Hold off on ALVARADO inhibitors. Repeat labs in a.m. Expect improvement with Roque catheter placement and improvement in blood pressure and hopefully we do not have to give fluids. May hold off on the Lasix for now. Thank you for this consultation. We will continue to follow the patient with you during his hospitalization. MMODL / IJN: [id number] /
[2020-05-01] MEDS: oxyCODONE-APAP 7.5-325MG 1 EACH TAB PO PRN ×5 (02:01→21:28)
[2020-05-01] MEDS: HYDROCORTISONE 2.5% RECTAL CREAM 30 GM TUBE RECTAL SCH ×3 (04:20→21:28)
[2020-05-01] MEDS: HEPARIN SODIUM,PORCINE 5,000 UNIT/ML 1 ML VIAL SQ SCH ×4 (05:51→23:56)
[2020-05-01] MEDS: FORMOTEROL FUMARATE 20 MCG/2 ML NEBU INHALATION SCH ×2 (08:49→20:40)
[2020-05-01] MEDS: BUDESONIDE 0.5 MG/2 ML NEBU INHALATION SCH ×2 (08:49→20:40)
[2020-05-01] MEDS: IPRATROPIUM-ALBUTEROL 3 ML NEB INHALATION SCH ×4 (08:50→20:40)
[2020-05-01] MEDS: FINASTERIDE 5 MG TAB PO SCH (09:10)
[2020-05-01] MEDS: LIDOCAINE 5% PATCH TOPICAL SCH (09:10)
[2020-05-01] MEDS: polyethylene glycoL 3350 17 GM POWD.PACK PO SCH (09:10)
[2020-05-01] MEDS: MIDODRINE 5 MG TAB PO SCH ×3 (09:10→17:19)
[2020-05-01] MEDS: ATORVASTATIN 40 MG TAB PO SCH (09:10)
[2020-05-01] MEDS: METOPROLOL SUCCINATE (ER) 25 MG TAB.ER.24H PO SCH (09:11)
[2020-05-01] MEDS: DOXAZOSIN 4 MG TAB PO SCH (09:11)
[2020-05-01 09:50] LABS: African American GFR (CKD) 50 (>60 ml/min/1.73 sqM); Anion Gap 9 mmol/L; Blood Urea Nitrogen 77 mg/dL (9-20); Calcium 9.3 mg/dL (8.4-10.2); Carbon Dioxide 26 mmol/L (22-30); Chloride 97 mmol/L (98-107); Glucose 133 mg/dL (74-99); Magnesium 2.7 mg/dL (1.6-2.3); Non-African American GFR(CKD) 44 (>60 ml/min/1.73 sqM); Potassium 5.3 mmol/L (3.5-5.1); Sodium 132 mmol/L (137-145)
--- NOTE | 2020-05-01 10:14 | P.PN ---
Subjective patient is seen in follow for acute kidney injury. Patient had a Roque catheter placed yesterday for urinary retention. Renal function improving. Nonoliguric. Oral intake fair. No vomiting or diarrhea. Vital signs are stable. General: The patient appeared well nourished and normally developed. HEENT: Head exam is unremarkable. Neck is without jugular venous distension. LUNGS: Breath sounds decreased. HEART: Rate and Rhythm are regular. ABDOMEN: soft, nontender. EXTREMITITES: No clubbing, cyanosis, or edema. Objective - Vital Signs Vital signs: Vital Signs Temp 98.0 F 05/01/20 07:00 Pulse 85 05/01/20 09:08 Resp 18 05/01/20 07:00 BP 121/66 05/01/20 07:00 Pulse Ox 95 05/01/20 07:00 Intake & Output 04/30/20 05/01/20 05/01/20 18:59 06:59 18:59 Intake Total 600 Output Total 800 1600 Balance -200 -1600 Intake: Oral 600 Output: Urine 800 1600 Other: Voiding Method Indwelling Catheter Indwelling Catheter # Voids 3 - Labs CBC & Chem 7: 04/30/20 07:22 05/01/20 09:00 Labs: Abnormal Lab Results - Last 24 Hours (Table) 05/01/20 Range/Units 09:00 Sodium 132 L (137-145) mmol/L Potassium 5.3 H (3.5-5.1) mmol/L Chloride 97 L (98-107) mmol/L BUN 77 H (9-20) mg/dL Creatinine 1.56 H (0.66-1.25) mg/dL Glucose 133 H (74-99) mg/dL Magnesium 2.7 H (1.6-2.3) mg/dL Assessment and Plan Plan: assessment: 1. Acute kidney injury secondary to urinary retention. Creatinine peaked at 2.33 this admission and is 1.56 today. UA benign. 2. Hyponatremia secondary to urinary retention. Better. 3. Chronic diastolic CHF. 4. History of falls and rib fractures. Plan: Maintain Roque catheter. Encourage oral intake. Avoid nephrotoxins. Continue to monitor renal function and urine output.
--- NOTE | 2020-05-01 10:15 | P.PN ---
Subjective Progress Note Date: 05/01/20 The patient had difficult placement of urethral catheter for urine retention during his rib fracture hospital stay. Urine is clearing his feeling well. When the patient is ambulating and feeling better the catheter can be removed for spontaneous voiding. Hopefully he will have no difficulties but he does have a big prostate. Objective - Vital Signs Vital signs: Vital Signs Temp 98.0 F 05/01/20 07:00 Pulse 85 05/01/20 09:08 Resp 18 05/01/20 07:00 BP 121/66 05/01/20 07:00 Pulse Ox 95 05/01/20 07:00 Intake & Output 04/30/20 05/01/20 05/01/20 18:59 06:59 18:59 Intake Total 600 Output Total 800 1600 Balance -200 -1600 Intake: Oral 600 Output: Urine 800 1600 Other: Voiding Method Indwelling Catheter Indwelling Catheter # Voids 3 - Labs CBC & Chem 7: 04/30/20 07:22 05/01/20 09:00 Labs: Abnormal Lab Results - Last 24 Hours (Table) 05/01/20 Range/Units 09:00 Sodium 132 L (137-145) mmol/L Potassium 5.3 H (3.5-5.1) mmol/L Chloride 97 L (98-107) mmol/L BUN 77 H (9-20) mg/dL Creatinine 1.56 H (0.66-1.25) mg/dL Glucose 133 H (74-99) mg/dL Magnesium 2.7 H (1.6-2.3) mg/dL
--- NOTE | 2020-05-01 10:35 | P.PN ---
Subjective Progress Note Date: 05/01/20 Patient was seen and examined. No acute events overnight. Patient continues to report right-sided rib pain with deep inspiration. States that he is not getting adequate pain medication, upset that nursing is late on medication administration (10 minutes). He denies any shortness of breath or palpitations. Reports cough with yellow sputum for the past 2 days. No chest pain. No fever or chills. Objective - Vital Signs Vital signs: Vital Signs Temp 98.0 F 05/01/20 07:00 Pulse 85 05/01/20 09:08 Resp 18 05/01/20 07:00 BP 121/66 05/01/20 07:00 Pulse Ox 95 05/01/20 07:00 Intake & Output 04/30/20 05/01/20 05/01/20 18:59 06:59 18:59 Intake Total 600 Output Total 800 1600 Balance -200 -1600 Intake: Oral 600 Output: Urine 800 1600 Other: Voiding Method Indwelling Catheter Indwelling Catheter # Voids 3 - Exam General: [non toxic], [no distress], [appears at stated age] Derm: [warm], [dry] Head: [atraumatic], [normocephalic], [symmetric] Eyes: [EOMI], [no lid lag], [anicteric sclera] Mouth: [no lip lesion], [mucus membranes moist] Cardiovascular: [S1S2 reg], [no murmur], [positive posterior tibial pulse bilateral], Lungs: [CTA bilateral], [no rhonchi, no rales] , [no accessory muscle use] Abdominal: [soft], [ nontender to palpation], [no guarding], [no appreciable organomegaly] Ext: [no gross muscle atrophy], [no edema], [no contractures] Neuro: [ CN II-XI grossly intact], [no focal neuro deficits] Psych: [Alert], [oriented], [appropriate affect] - Labs CBC & Chem 7: 04/30/20 07:22 05/01/20 09:00 Labs: Abnormal Lab Results - Last 24 Hours (Table) 05/01/20 Range/Units 09:00 Sodium 132 L (137-145) mmol/L Potassium 5.3 H (3.5-5.1) mmol/L Chloride 97 L (98-107) mmol/L BUN 77 H (9-20) mg/dL Creatinine 1.56 H (0.66-1.25) mg/dL Glucose 133 H (74-99) mg/dL Magnesium 2.7 H (1.6-2.3) mg/dL Assessment and Plan Assessment: SOPHIA with urinary retention, hyponatremia and Hyperkalemia - Urology consulted - flomax added to his doxazosin, and proscar - Roque inserted 04/30 - Consult nephro - Cr improved from 2.33 to 1.56 - hold lisinopril, lasix, and aldactone - Continue Roque - K 5.3, likely related to acute kidney injury - Repeat BMP at 12PM - Na improved from 130-132 - Avoid additional nephrotoxic agents - repeat BMP in AM Rib fracture right ribs 4 through 7 due to fall from standing - Pain control - percocet - PT/OT recs - Trauma recs appreciated - Incentive spirometer - out of bed three times daily Leukocytosis - WBC count of 11.4 - Likely reactive - No signs of active infection Constipation, improving - miralax, prune juice COPD without exacerbation - Continue with short and long-acting bronchodilators - When necessary albuterol Hypertension - metoprolol - Follow blood pressures Dyslipidemia - Lipitor Coronary artery disease - History of multiple stents Chronic diastolic congestive heart failure - Spironolactone, lisinopril, Lasix- on hold due to SOPHIA and hyperkalemia - metoprolol - Strict Is and O's, daily weight DVT prophylaxis: Heparin Discussed with: Patient, nursing Anticipated discharge: in 2-[address]: SNF A total of 35 minutes was spent on the care of this complex patient more than 50% of the time was spent in counseling and care coordination.
--- NOTE | 2020-05-01 14:01 | P.PN ---
Subjective Progress Note Date: 05/01/20 Principal diagnosis: Status post recent fall, numerous right-sided rib fractures This 75-year-old white male patient who was admitted to the hospital on 04/26/2020 after sustaining a fall on the wet grass a comminuted to the hospital for evaluation of itching sensation in his ribs and pain in the right side of the chest with deep breathing, and coughing. Chest x-ray showed fractures of the right fourth, fifth, sixth and seventh ribs. No evidence of pneumothorax, no complaints of shortness of breath, patient was admitted mostly for pain management. It any injury to his head. No loss of consciousness. Patient was admitted to the intensive care unit overnight for pain management and observation, has remained stable. This morning she seen in follow-up on the [facility] medical surgical floor, he remains on supplemental oxygen currently at 3 L, his pulse ox is 92-96%, hemodynamically patient is stable, he has had no acute events overnight, follow-up chest x-ray shows bilateral lower lobe infiltrates and small effusion with no sizable pneumothorax. Vital signs have been stable overnight, no acute events. Follow blood work today shows BMP is within normal limits, no CBC was done today, urinalysis was negative. Currently patient is on oxycodone, hydrocodone. Patient is getting nebulized bronchodilators. Doing well. Patient is stable for discharge. On 04/29/2020 patient seen in follow-up on medical surgical floor. He is awake and alert, in no acute distress, is on 2 L of oxygen with pulse ox of 95%, hemodynamically stable, no fever or chills, really seems comfortable, his pain is fairly well controlled. Last chest x-ray was done yesterday showing bilateral lower lobe infiltrates and small pleural effusions with no sizable pneumothorax, lung sounds are clear, diminished at the bases, patient is working on incentive spirometer, patient has been working with physical therapy, his been walking to the commode with assistance, tolerating it fairly well. No acute events overnight, no significant cough or congestion or chest pain. He continues on nebulized bronchodilators,, he is on maintenance dose of oral Lasix. He is receiving Percocet for pain control On 04/30/2020 patient seen in follow-up on general medical surgical floor. He is awake and alert, in no acute distress, vital signs remain stable, he remains on 2 L of oxygen pulse ox of 96%, hemodynamically stable, afebrile. His pain is reasonably controlled, lung sounds are clear, diminished at the bases, patient is receiving nebulized bronchodilators. Today's labs have been reviewed, and patient's renal profile has significantly worsening over last 48 hours, with B1 up to 80, and creatinine of 2.33, patient was started on IV fluids by attending physician. Patient developed urinary retention, and urology consultation was obtained and Dr. Campos had to place a urinary catheter Today's chest x-ray has been reviewed showing basilar infiltrates likely related to atelectasis, without significant interval change. Today's white count is 11.4, hemoglobin is 12.1. Patient is working with physical therapy does require extensive assistance with ambulation and transferring to the commode and back. The patient is seen today 05/01/2020 in follow-up on the regular medical floor. He is currently resting comfortably in bed. Awake and alert in no acute distress. He is maintaining O2 saturations in the mid 90s on 2 L/m per nasal cannula. He's been afebrile. Hemodynamically stable. Sodium 132. Potassium 5.3. Creatinine 1.56. He needs increased encouragement currently seen incentive spirometer. He remains on bronchodilators, heparin for DVT prophylaxis. Objective - Vital Signs Vital signs: Vital Signs Temp 98.0 F 05/01/20 07:00 Pulse 85 05/01/20 09:08 Resp 18 05/01/20 07:00 BP 121/66 05/01/20 07:00 Pulse Ox 95 05/01/20 07:00 Intake & Output 04/30/20 05/01/20 05/01/20 18:59 06:59 18:59 Intake Total 600 Output Total 800 1600 Balance -200 -1600 Intake: Oral 600 Output: Urine 800 1600 Other: Voiding Method Indwelling Catheter Indwelling Catheter # Voids 3 - Exam GENERAL EXAM: Alert, pleasant, 75-year-old white male, on 2 L of oxygen with pulse ox of 95% comfortable in no apparent distress. HEAD: Normocephalic/atraumatic. EYES: Normal reaction of pupils, equal size. Conjunctiva pink, sclera white. NOSE: Clear with pink turbinates. THROAT: No erythema or exudates. NECK: No masses, no JVD, no thyroid enlargement, no adenopathy. CHEST: No chest wall deformity. Symmetrical expansion. There is a right-sided chest discomfort related to recent history of rib fractures LUNGS: Equal air entry with no crackles, wheeze, rhonchi or dullness. CVS: Regular rate and rhythm, normal S1 and S2, no gallops, no murmurs, no rubs ABDOMEN: Soft, nontender. No hepatosplenomegaly, normal bowel sounds, no guarding or rigidity. EXTREMITIES: No clubbing, no edema, no cyanosis, 2+ pulses and upper and lower extremities. MUSCULOSKELETAL: Muscle strength and tone normal. SPINE: No scoliosis or deformity SKIN: No rashes CENTRAL NERVOUS SYSTEM: Alert and oriented -3. No focal deficits, tone is normal in all 4 extremities. PSYCHIATRIC: Alert and oriented -3. Appropriate affect. Intact judgment and insight. - Labs CBC & Chem 7: 04/30/20 07:22 05/01/20 11:38 Labs: Abnormal Lab Results - Last 24 Hours (Table) 05/01/20 05/01/20 Range/Units 09:00 11:38 Sodium 132 L (137-145) mmol/L Potassium 5.3 H 5.3 H (3.5-5.1) mmol/L Chloride 97 L (98-107) mmol/L BUN 77 H (9-20) mg/dL Creatinine 1.56 H (0.66-1.25) mg/dL Glucose 133 H (74-99) mg/dL Magnesium 2.7 H (1.6-2.3) mg/dL Assessment and Plan Assessment: 1 Multiple right-sided rib fractures related to recent history of fall on the wet grass, with secondary right chest pain. No evidence of pneumothorax on the chest x-ray. Rib x-ray demonstrated posterior lateral ribs for, 5, 6, 7 without associated pneumothorax. 2 Acute kidney injury likely related to urinary retention 3 Hyponatremia 4 History of COPD, which is stable at this point 5 History of chronic CHF with diastolic dysfunction 6 Dyslipidemia 7 History of coronary artery disease with history of multiple stents 8 Acute kidney injury, improved 9 Hyperkalemia, improved 10 Benign prostatic hypertrophy 11 Previous history of myocardial infarction 12 Previous history of tobacco use Plan: The patient was seen and evaluated by Dr. Rowe The patient needs increased encouragement regarding incentive spirometer and cough and deep breathing exercises Continue physical therapy May need subacute rehabilitation Continue to follow I, the cosigning physician, performed a history & physical examination of the patient. Lungs sounds are clear. Maintaining good O2 saturations in the 90s on 2 L/m per nasal. I discussed the assessment and plan of care with my nurse practitioner, Lou Loza. I attest to the above note as dictated by her.
[2020-05-02] MEDS: oxyCODONE-APAP 7.5-325MG 1 EACH TAB PO PRN ×2 (01:24→06:07)
[2020-05-02] MEDS: polyethylene glycoL 3350 17 GM POWD.PACK PO SCH (08:35)
[2020-05-02] MEDS: METOPROLOL SUCCINATE (ER) 25 MG TAB.ER.24H PO SCH (08:35)
[2020-05-02] MEDS: MIDODRINE 5 MG TAB PO SCH ×3 (08:35→17:18)
[2020-05-02] MEDS: DOXAZOSIN 4 MG TAB PO SCH (08:36)
[2020-05-02] MEDS: ATORVASTATIN 40 MG TAB PO SCH (08:36)
[2020-05-02] MEDS: LIDOCAINE 5% PATCH TOPICAL SCH (08:36)
[2020-05-02] MEDS: FINASTERIDE 5 MG TAB PO SCH (08:36)
[2020-05-02] MEDS: HYDROCORTISONE 2.5% RECTAL CREAM 30 GM TUBE RECTAL SCH ×2 (08:37→21:13)
[2020-05-02] MEDS: HEPARIN SODIUM,PORCINE 5,000 UNIT/ML 1 ML VIAL SQ SCH ×2 (08:37→17:18)
[2020-05-02] MEDS: BUDESONIDE 0.5 MG/2 ML NEBU INHALATION SCH ×2 (08:55→21:32)
[2020-05-02] MEDS: IPRATROPIUM-ALBUTEROL 3 ML NEB INHALATION SCH ×4 (08:55→21:33)
[2020-05-02] MEDS: FORMOTEROL FUMARATE 20 MCG/2 ML NEBU INHALATION SCH ×2 (08:55→21:32)
--- NOTE | 2020-05-02 11:09 | P.PN ---
Subjective patient is seen in follow for acute kidney injury. Patient had a Roque catheter placed April 30 for urinary retention. Renal function improving. Nonoliguric. Oral intake fair. No vomiting or diarrhea. Vital signs are stable. General: The patient appeared well nourished and normally developed. HEENT: Head exam is unremarkable. Neck is without jugular venous distension. LUNGS: Breath sounds decreased. HEART: Rate and Rhythm are regular. ABDOMEN: soft, nontender. EXTREMITITES: No clubbing, cyanosis, or edema. Objective - Vital Signs Vital signs: Vital Signs Temp 97.8 F 05/02/20 07:46 Pulse 98 05/02/20 09:14 Resp 18 05/02/20 07:46 BP 108/56 05/02/20 07:46 Pulse Ox 96 05/02/20 07:46 Intake & Output 05/01/20 05/02/20 05/02/20 18:59 06:59 18:59 Output Total 650 1800 Balance -650 -1800 Output: Urine 650 1800 Other: Voiding Method Indwelling Catheter Indwelling Catheter Indwelling Catheter # Voids 1 # Bowel Movements 1 - Labs CBC & Chem 7: 04/30/20 07:22 05/01/20 11:38 Labs: Abnormal Lab Results - Last 24 Hours (Table) 05/01/20 Range/Units 11:38 Potassium 5.3 H (3.5-5.1) mmol/L Assessment and Plan Plan: assessment: 1. Acute kidney injury secondary to urinary retention. Creatinine peaked at 2.33 this admission and is 1.56 as of yesterday. UA benign. 2. Hyponatremia secondary to urinary retention. Better. 3. Chronic diastolic CHF. 4. History of falls and rib fractures. Plan: Maintain Roque catheter. Encouraged oral intake. Avoid nephrotoxins. Continue to monitor renal function and urine output.
--- NOTE | 2020-05-02 11:29 | P.PN ---
Subjective Progress Note Date: 05/02/20 Patient was seen and examined. No acute events overnight. Patient continues to report right-sided rib pain with deep inspiration. Pain slightly improved from yesterday. He denies any shortness of breath or palpitations. No nausea or vomiting. No fever or chills. Objective - Vital Signs Vital signs: Vital Signs Temp 97.8 F 05/02/20 07:46 Pulse 98 05/02/20 09:14 Resp 18 05/02/20 07:46 BP 108/56 05/02/20 07:46 Pulse Ox 96 05/02/20 07:46 Intake & Output 05/01/20 05/02/20 05/02/20 18:59 06:59 18:59 Output Total 650 1800 Balance -650 -1800 Output: Urine 650 1800 Other: Voiding Method Indwelling Catheter Indwelling Catheter Indwelling Catheter # Voids 1 # Bowel Movements 1 - Exam General: [non toxic], [no distress], [appears at stated age] Derm: [warm], [dry] Head: [atraumatic], [normocephalic], [symmetric] Eyes: [EOMI], [no lid lag], [anicteric sclera] Mouth: [no lip lesion], [mucus membranes moist] Cardiovascular: [S1S2 reg], [no murmur], [positive posterior tibial pulse bilateral], Lungs: [CTA bilateral], [no rhonchi, no rales] , [no accessory muscle use] Abdominal: [soft], [ nontender to palpation], [no guarding], [no appreciable organomegaly] Ext: [no gross muscle atrophy], [no edema], [no contractures] Neuro: [ CN II-XI grossly intact], [no focal neuro deficits] Psych: [Alert], [oriented], [appropriate affect] - Labs CBC & Chem 7: 04/30/20 07:22 05/01/20 11:38 Labs: Abnormal Lab Results - Last 24 Hours (Table) 05/01/20 Range/Units 11:38 Potassium 5.3 H (3.5-5.1) mmol/L Assessment and Plan Assessment: SOPHIA with urinary retention, hyponatremia and Hyperkalemia - Urology consulted - flomax added to his doxazosin, and proscar - Roque inserted 10/2 - Consult nephro - Cr improved from 2.33 to 1.56 - hold lisinopril, lasix, and aldactone - Continue Roque - K 5.3, likely related to acute kidney injury - Repeat BMP pending from this morning - Na improved from 130-132 - Avoid additional nephrotoxic agents - repeat BMP in AM Rib fracture right ribs 4 through 7 due to fall from standing - Pain control - percocet (increase from 7.5 to 10 mg) - PT/OT recs - Trauma recs appreciated - Incentive spirometer Leukocytosis - WBC count of 11.4 - Likely reactive - No signs of active infection Constipation, improving - miralax, prune juice COPD without exacerbation - Continue with short and long-acting bronchodilators - When necessary albuterol Hypertension - metoprolol - Follow blood pressures Dyslipidemia - Lipitor Coronary artery disease - History of multiple stents Chronic diastolic congestive heart failure - Spironolactone, lisinopril, Lasix- on hold due to SOPHIA and hyperkalemia - metoprolol - Strict Is and O's, daily weight DVT prophylaxis: Heparin Discussed with: Patient, nursing Anticipated discharge: in 2-[address]: SNF A total of 35 minutes was spent on the care of this complex patient more than 50% of the time was spent in counseling and care coordination.
[2020-05-02 11:36] LABS: African American GFR (CKD) 76.8 (60.0-200.0); Anion Gap 9.9 mmol/L (4.00-12.00); BUN/Creat Ratio 53.64 Ratio (12.00-20.00); Calcium 9.4 mg/dL (8.7-10.3); Carbon Dioxide 25.1 mmol/L (21.6-31.8); Magnesium 2.7 mg/dL (1.5-2.4); Non-African American GFR(CKD) 66.2 (60.0-200.0); Potassium 5.5 mmol/L (3.5-5.5)
[2020-05-02] MEDS: oxyCODONE-APAP 10-325MG 1 EACH TAB PO PRN ×3 (13:33→21:17)
--- NOTE | 2020-05-02 14:00 | P.PN ---
Subjective Progress Note Date: 05/02/20 Principal diagnosis: Status post recent fall, numerous right-sided rib fractures This 75-year-old white male patient who was admitted to the hospital on 04/26/2020 after sustaining a fall on the wet grass a comminuted to the hospital for evaluation of itching sensation in his ribs and pain in the right side of the chest with deep breathing, and coughing. Chest x-ray showed fractures of the right fourth, fifth, sixth and seventh ribs. No evidence of pneumothorax, no complaints of shortness of breath, patient was admitted mostly for pain management. It any injury to his head. No loss of consciousness. Patient was admitted to the intensive care unit overnight for pain management and observation, has remained stable. This morning she seen in follow-up on the [facility] medical surgical floor, he remains on supplemental oxygen currently at 3 L, his pulse ox is 92-96%, hemodynamically patient is stable, he has had no acute events overnight, follow-up chest x-ray shows bilateral lower lobe infiltrates and small effusion with no sizable pneumothorax. Vital signs have been stable overnight, no acute events. Follow blood work today shows BMP is within normal limits, no CBC was done today, urinalysis was negative. Currently patient is on oxycodone, hydrocodone. Patient is getting nebulized bronchodilators. Doing well. Patient is stable for discharge. On 04/29/2020 patient seen in follow-up on medical surgical floor. He is awake and alert, in no acute distress, is on 2 L of oxygen with pulse ox of 95%, hemodynamically stable, no fever or chills, really seems comfortable, his pain is fairly well controlled. Last chest x-ray was done yesterday showing bilateral lower lobe infiltrates and small pleural effusions with no sizable pneumothorax, lung sounds are clear, diminished at the bases, patient is working on incentive spirometer, patient has been working with physical therapy, his been walking to the commode with assistance, tolerating it fairly well. No acute events overnight, no significant cough or congestion or chest pain. He continues on nebulized bronchodilators,, he is on maintenance dose of oral Lasix. He is receiving Percocet for pain control On 04/30/2020 patient seen in follow-up on general medical surgical floor. He is awake and alert, in no acute distress, vital signs remain stable, he remains on 2 L of oxygen pulse ox of 96%, hemodynamically stable, afebrile. His pain is reasonably controlled, lung sounds are clear, diminished at the bases, patient is receiving nebulized bronchodilators. Today's labs have been reviewed, and patient's renal profile has significantly worsening over last 48 hours, with B1 up to 80, and creatinine of 2.33, patient was started on IV fluids by attending physician. Patient developed urinary retention, and urology consultation was obtained and Dr. Campos had to place a urinary catheter Today's chest x-ray has been reviewed showing basilar infiltrates likely related to atelectasis, without significant interval change. Today's white count is 11.4, hemoglobin is 12.1. Patient is working with physical therapy does require extensive assistance with ambulation and transferring to the commode and back. The patient is seen today 05/01/2020 in follow-up on the regular medical floor. He is currently resting comfortably in bed. Awake and alert in no acute distress. He is maintaining O2 saturations in the mid 90s on 2 L/m per nasal cannula. He's been afebrile. Hemodynamically stable. Sodium 132. Potassium 5.3. Creatinine 1.56. He needs increased encouragement currently seen incentive spirometer. He remains on bronchodilators, heparin for DVT prophylaxis. The patient is seen today 05/02/2020 in follow-up on the regular medical floor. He is currently sitting up at the bedside. Awake and alert in no acute distress. No worsening shortness of breath, cough or congestion. Still having some right-sided chest wall discomfort from right sided rib fractures. Lidoderm patch is in place. Continues to need increased encouragement regarding the use of the incentive spirometer. Needs encouragement regarding increase his activity level. Sodium 135. Potassium 5.5. Creatinine 1.1. Objective - Vital Signs Vital signs: Vital Signs Temp 97.8 F 05/02/20 07:46 Pulse 97 05/02/20 12:46 Resp 18 05/02/20 07:46 BP 108/56 05/02/20 07:46 Pulse Ox 96 05/02/20 07:46 Intake & Output 05/01/20 05/02/20 05/02/20 18:59 06:59 18:59 Output Total 650 1800 Balance -650 -1800 Output: Urine 650 1800 Other: Voiding Method Indwelling Catheter Indwelling Catheter Indwelling Catheter # Voids 1 # Bowel Movements 1 - Exam GENERAL EXAM: Alert, morbidly obese 75-year-old white male, on 2 L of oxygen with pulse ox of 96% comfortable in no apparent distress. HEAD: Normocephalic/atraumatic. EYES: Normal reaction of pupils, equal size. Conjunctiva pink, sclera white. NOSE: Clear with pink turbinates. THROAT: No erythema or exudates. NECK: No masses, no JVD, no thyroid enlargement, no adenopathy. CHEST: No chest wall deformity. Symmetrical expansion. There is a right-sided chest discomfort related to recent history of rib fractures LUNGS: Equal air entry with faint crackles in the posterior bases. CVS: Regular rate and rhythm, normal S1 and S2, no gallops, no murmurs, no rubs ABDOMEN: Soft, nontender. No hepatosplenomegaly, normal bowel sounds, no guarding or rigidity. EXTREMITIES: No clubbing, no edema, no cyanosis, 2+ pulses and upper and lower extremities. MUSCULOSKELETAL: Muscle strength and tone normal. SPINE: No scoliosis or deformity SKIN: No rashes CENTRAL NERVOUS SYSTEM: No focal deficits, tone is normal in all 4 extremities. PSYCHIATRIC: Alert and oriented -3. Appropriate affect. Intact judgment and insight. - Labs CBC & Chem 7: 04/30/20 07:22 05/02/20 05:59 Labs: Abnormal Lab Results - Last 24 Hours (Table) 05/02/20 Range/Units 05:59 BUN 59.0 H (9.0-27.0) mg/dL BUN/Creatinine Ratio 53.64 H (12.00-20.00) Ratio Magnesium 2.7 H (1.5-2.4) mg/dL Assessment and Plan Assessment: 1 Multiple right-sided rib fractures related to recent history of fall on the wet grass, with secondary right chest pain. No evidence of pneumothorax on the chest x-ray. Rib x-ray demonstrated posterior lateral ribs for, 5, 6, 7 without associated pneumothorax. 2 Acute kidney injury likely related to urinary retention 3 Hyponatremia 4 History of COPD, which is stable at this point 5 History of chronic CHF with diastolic dysfunction 6 Dyslipidemia 7 History of coronary artery disease with history of multiple stents 8 Acute kidney injury, improved 9 Hyperkalemia, improved 10 Benign prostatic hypertrophy 11 Previous history of myocardial infarction 12 Previous history of tobacco use Plan: The patient was seen and evaluated by Dr. Rowe The patient continues to need increased encouragement regarding incentive spirometer and cough and deep breathing exercises Needs encouragement to increase his activity tolerance May need subacute rehabilitation Continue to follow I, the cosigning physician, performed a history & physical examination of the patient. Lungs sounds faint crackles in the posterior bases. Maintaining good O2 saturations in the 90s on 2 L/m per nasal. I discussed the assessment and plan of care with my nurse practitioner, Lou Loza. I attest to the above note as dictated by her.
[2020-05-03] MEDS: HEPARIN SODIUM,PORCINE 5,000 UNIT/ML 1 ML VIAL SQ SCH ×4 (00:04→23:59)
[2020-05-03] MEDS: oxyCODONE-APAP 10-325MG 1 EACH TAB PO PRN ×5 (01:16→21:10)
[2020-05-03] MEDS: FINASTERIDE 5 MG TAB PO SCH (08:11)
[2020-05-03] MEDS: METOPROLOL SUCCINATE (ER) 25 MG TAB.ER.24H PO SCH (08:11)
[2020-05-03] MEDS: LIDOCAINE 5% PATCH TOPICAL SCH (08:11)
[2020-05-03] MEDS: DOXAZOSIN 4 MG TAB PO SCH (08:12)
[2020-05-03] MEDS: polyethylene glycoL 3350 17 GM POWD.PACK PO SCH (08:12)
[2020-05-03] MEDS: MIDODRINE 5 MG TAB PO SCH ×3 (08:12→17:19)
[2020-05-03] MEDS: ATORVASTATIN 40 MG TAB PO SCH (08:12)
[2020-05-03] MEDS: HYDROCORTISONE 2.5% RECTAL CREAM 30 GM TUBE RECTAL SCH ×2 (08:13→21:13)
[2020-05-03] MEDS: IPRATROPIUM-ALBUTEROL 3 ML NEB INHALATION SCH ×4 (08:19→20:26)
[2020-05-03] MEDS: BUDESONIDE 0.5 MG/2 ML NEBU INHALATION SCH ×2 (08:20→20:26)
[2020-05-03] MEDS: FORMOTEROL FUMARATE 20 MCG/2 ML NEBU INHALATION SCH ×2 (08:20→20:26)
--- NOTE | 2020-05-03 10:33 | P.PN ---
Subjective patient is seen in follow for acute kidney injury. Patient had a Roque catheter placed April 30 for urinary retention. Renal function improving. Nonoliguric. Oral intake fair. No vomiting or diarrhea. Vital signs are stable. General: The patient appeared well nourished and normally developed. HEENT: Head exam is unremarkable. Neck is without jugular venous distension. LUNGS: Breath sounds decreased. HEART: Rate and Rhythm are regular. ABDOMEN: soft, nontender. EXTREMITITES: No clubbing, cyanosis, or edema. Objective - Vital Signs Vital signs: Vital Signs Temp 97.6 F 05/03/20 07:00 Pulse 100 05/03/20 08:36 Resp 20 05/03/20 07:00 BP 109/67 05/03/20 07:00 Pulse Ox 96 05/03/20 07:00 Intake & Output 05/02/20 05/03/20 05/03/20 18:59 06:59 18:59 Intake Total 500 240 Output Total 1300 1400 Balance -800 -1400 240 Intake: Oral 500 240 Output: Urine 1300 1400 Other: Voiding Method Indwelling Catheter Indwelling Catheter Indwelling Catheter - Labs CBC & Chem 7: 04/30/20 07:22 05/02/20 05:59 Labs: Abnormal Lab Results - Last 24 Hours (Table) 05/02/20 Range/Units 05:59 BUN 59.0 H (9.0-27.0) mg/dL BUN/Creatinine Ratio 53.64 H (12.00-20.00) Ratio Magnesium 2.7 H (1.5-2.4) mg/dL Assessment and Plan Plan: assessment: 1. Acute kidney injury secondary to urinary retention. Creatinine peaked at 2.33 this admission and is 1.1 as of yesterday. UA benign. 2. Hyponatremia secondary to urinary retention. Better. 3. Chronic diastolic CHF. 4. History of falls and rib fractures. Plan: Maintain Roque catheter. Encouraged oral intake. Avoid nephrotoxins. Continue to monitor renal function and urine output.
[2020-05-03 11:00] LABS: African American GFR (CKD) 86.2 (60.0-200.0); Anion Gap 5.1 mmol/L (4.00-12.00); Calcium 9.3 mg/dL (8.7-10.3); Carbon Dioxide 27.9 mmol/L (21.6-31.8); Magnesium 2.6 mg/dL (1.5-2.4); Non-African American GFR(CKD) 74.3 (60.0-200.0); Potassium 5.9 mmol/L (3.5-5.5)
[2020-05-03] MEDS ORDERED: INSULIN REGULAR 100 UNIT/ML VIAL IV ONE (11:27)
[2020-05-03] MEDS ORDERED: SODIUM POLYSTYRENE SULFONATE 15 GM/60 ML BOTTLE PO STA (11:27)
[2020-05-03] MEDS ORDERED: DEXTROSE 50% SYRINGE 50 ML IVP STA (11:27)
--- NOTE | 2020-05-03 11:34 | P.PN ---
Subjective Progress Note Date: 05/03/20 Patient was seen and examined. No acute events overnight. Patient continues to report right-sided rib pain with deep inspiration. Pain unchanged. He denies any shortness of breath or palpitations. No nausea or vomiting. No fever or chills. When discussing discharge options including home with home PT versus subacute rehab, patient states that he would like to stay here for 1 week to figure it out. Would like to dispute his discharge. Objective - Vital Signs Vital signs: Vital Signs Temp 97.6 F 05/03/20 07:00 Pulse 100 05/03/20 08:36 Resp 20 05/03/20 07:00 BP 109/67 05/03/20 07:00 Pulse Ox 96 05/03/20 07:00 Intake & Output 05/02/20 05/03/20 05/03/20 18:59 06:59 18:59 Intake Total 500 240 Output Total 1300 1400 Balance -800 -1400 240 Intake: Oral 500 240 Output: Urine 1300 1400 Other: Voiding Method Indwelling Catheter Indwelling Catheter Indwelling Catheter - Exam General: [non toxic], [no distress], [appears at stated age] Derm: [warm], [dry] Head: [atraumatic], [normocephalic], [symmetric] Eyes: [EOMI], [no lid lag], [anicteric sclera] Mouth: [no lip lesion], [mucus membranes moist] Cardiovascular: [S1S2 reg], [no murmur], [positive posterior tibial pulse bilateral], Lungs: [CTA bilateral], [no rhonchi, no rales] , [no accessory muscle use] Abdominal: [soft], [ nontender to palpation], [no guarding], [no appreciable organomegaly] Ext: [no gross muscle atrophy], [no edema], [no contractures] Neuro: [ CN II-XI grossly intact], [no focal neuro deficits] Psych: [Alert], [oriented], [appropriate affect] - Labs CBC & Chem 7: 04/30/20 07:22 05/03/20 05:19 Labs: Abnormal Lab Results - Last 24 Hours (Table) 05/02/20 05/03/20 Range/Units 05:59 05:19 Potassium 5.9 H (3.5-5.5) mmol/L BUN 59.0 H 45.0 H (9.0-27.0) mg/dL BUN/Creatinine Ratio 53.64 H 45.00 H (12.00-20.00) Ratio Magnesium 2.7 H 2.6 H (1.5-2.4) mg/dL Assessment and Plan Assessment: SOPHIA with urinary retention, Hyperkalemia - Urology consulted - flomax added to his doxazosin, and proscar - Roque inserted 04/30 - Consult nephro - Cr improved from 2.33 to 1 post Roque - hold lisinopril, lasix, and aldactone - Continue Roque - K 5.9, likely related to acute kidney injury - Kayexalete 30g, IV insulin 10 units with D50, repeat K at 1PM - Avoid additional nephrotoxic agents Rib fracture right ribs 4 through 7 due to fall from standing - Pain control - percocet (increase from 7.5 to 10 mg) - PT/OT recs - Trauma recs appreciated - Incentive spirometer Leukocytosis - WBC count of 11.4 - Likely reactive - No signs of active infection Constipation, improving - miralax, prune juice COPD without exacerbation - Continue with short and long-acting bronchodilators - When necessary albuterol Hypertension - metoprolol - Follow blood pressures Dyslipidemia - Lipitor Coronary artery disease - History of multiple stents Chronic diastolic congestive heart failure - Spironolactone, lisinopril, Lasix- on hold due to SOPHIA and hyperkalemia - metoprolol - Strict Is and O's, daily weight [Anticipate DC home today if K normalizes. He would like to dispute his discharge. Discussed with SW and case management.]
--- NOTE | 2020-05-03 13:34 | P.PN ---
Subjective Progress Note Date: 05/03/20 Principal diagnosis: Status post recent fall, numerous right-sided rib fractures This 75-year-old white male patient who was admitted to the hospital on 04/26/2020 after sustaining a fall on the wet grass a comminuted to the hospital for evaluation of itching sensation in his ribs and pain in the right side of the chest with deep breathing, and coughing. Chest x-ray showed fractures of the right fourth, fifth, sixth and seventh ribs. No evidence of pneumothorax, no complaints of shortness of breath, patient was admitted mostly for pain management. It any injury to his head. No loss of consciousness. Patient was admitted to the intensive care unit overnight for pain management and observation, has remained stable. This morning she seen in follow-up on the [facility] medical surgical floor, he remains on supplemental oxygen currently at 3 L, his pulse ox is 92-96%, hemodynamically patient is stable, he has had no acute events overnight, follow-up chest x-ray shows bilateral lower lobe infiltrates and small effusion with no sizable pneumothorax. Vital signs have been stable overnight, no acute events. Follow blood work today shows BMP is within normal limits, no CBC was done today, urinalysis was negative. Currently patient is on oxycodone, hydrocodone. Patient is getting nebulized bronchodilators. Doing well. Patient is stable for discharge. On 04/29/2020 patient seen in follow-up on medical surgical floor. He is awake and alert, in no acute distress, is on 2 L of oxygen with pulse ox of 95%, hemodynamically stable, no fever or chills, really seems comfortable, his pain is fairly well controlled. Last chest x-ray was done yesterday showing bilateral lower lobe infiltrates and small pleural effusions with no sizable pneumothorax, lung sounds are clear, diminished at the bases, patient is working on incentive spirometer, patient has been working with physical therapy, his been walking to the commode with assistance, tolerating it fairly well. No acute events overnight, no significant cough or congestion or chest pain. He continues on nebulized bronchodilators,, he is on maintenance dose of oral Lasix. He is receiving Percocet for pain control On 04/30/2020 patient seen in follow-up on general medical surgical floor. He is awake and alert, in no acute distress, vital signs remain stable, he remains on 2 L of oxygen pulse ox of 96%, hemodynamically stable, afebrile. His pain is reasonably controlled, lung sounds are clear, diminished at the bases, patient is receiving nebulized bronchodilators. Today's labs have been reviewed, and patient's renal profile has significantly worsening over last 48 hours, with B1 up to 80, and creatinine of 2.33, patient was started on IV fluids by attending physician. Patient developed urinary retention, and urology consultation was obtained and Dr. Campos had to place a urinary catheter Today's chest x-ray has been reviewed showing basilar infiltrates likely related to atelectasis, without significant interval change. Today's white count is 11.4, hemoglobin is 12.1. Patient is working with physical therapy does require extensive assistance with ambulation and transferring to the commode and back. On 05/03/2020 patient seen in follow-up on general medical surgical floor, he is awake and alert, in no acute distress, he is on 3 L of oxygen with pulse ox of 97%, we will wean the FiO2 off, and obtaining home oxygen assessment, lung sounds are clear, no rhonchi or wheezing, no complaints of cough or chest congestion, no acute events overnight. Today's labs have been reviewed, showing potassium of 5.9, the rest of electrolytes were within normal limits. Patient remains on nebulized bronchodilators, she is on Percocet for pain control, pain is reasonably controlled, he is working incentive spirometer. He hasn't had any other acute events. Objective - Vital Signs Vital signs: Vital Signs Temp 97.6 F 05/03/20 07:00 Pulse 100 05/03/20 08:36 Resp 20 05/03/20 07:00 BP 109/67 05/03/20 07:00 Pulse Ox 96 05/03/20 07:00 Intake & Output 05/02/20 05/03/20 05/03/20 18:59 06:59 18:59 Intake Total 500 240 Output Total 1300 1400 Balance -800 -1400 240 Intake: Oral 500 240 Output: Urine 1300 1400 Other: Voiding Method Indwelling Catheter Indwelling Catheter Indwelling Catheter - Exam GENERAL EXAM: Alert, pleasant, 75-year-old white male, on 3 L of oxygen with pulse ox of 97% comfortable in no apparent distress. HEAD: Normocephalic/atraumatic. EYES: Normal reaction of pupils, equal size. Conjunctiva pink, sclera white. NOSE: Clear with pink turbinates. THROAT: No erythema or exudates. NECK: No masses, no JVD, no thyroid enlargement, no adenopathy. CHEST: No chest wall deformity. Symmetrical expansion. He says chest discomfort has significantly improved LUNGS: Equal air entry with no crackles, wheeze, rhonchi or dullness. CVS: Regular rate and rhythm, normal S1 and S2, no gallops, no murmurs, no rubs ABDOMEN: Soft, nontender. No hepatosplenomegaly, normal bowel sounds, no guarding or rigidity. EXTREMITIES: No clubbing, no edema, no cyanosis, 2+ pulses and upper and lower extremities. MUSCULOSKELETAL: Muscle strength and tone normal. SPINE: No scoliosis or deformity SKIN: No rashes CENTRAL NERVOUS SYSTEM: Alert and oriented -3. No focal deficits, tone is normal in all 4 extremities. PSYCHIATRIC: Alert and oriented -3. Appropriate affect. Intact judgment and insight. - Labs CBC & Chem 7: 04/30/20 07:22 05/03/20 05:19 Labs: Abnormal Lab Results - Last 24 Hours (Table) 05/03/20 Range/Units 05:19 Potassium 5.9 H (3.5-5.5) mmol/L BUN 45.0 H (9.0-27.0) mg/dL BUN/Creatinine Ratio 45.00 H (12.00-20.00) Ratio Magnesium 2.6 H (1.5-2.4) mg/dL Assessment and Plan Plan: Assessment: #1. Multiple right-sided rib fractures related to recent history of fall on the wet grass, with secondary right chest pain. No evidence of pneumothorax on the chest x-ray. Rib x-ray demonstrated posterior lateral ribs for, 5, 6, 7 without associated pneumothorax. #2. Acute kidney injury likely related to urinary retention, significantly improved #3. Hyponatremia, improved #4. History of COPD, which is stable at this point #5. History of chronic CHF with diastolic dysfunction #6. Dyslipidemia #7. History of coronary artery disease with history of multiple stents #8. Acute kidney injury, improved #9. Hyperkalemia, improved #10. Benign prostatic hypertrophy #11. Previous history of myocardial infarction #12. Previous history of tobacco use Plan: Patient is doing well, his renal profile has recovered, potassium 5.9 was treated. No worsening dyspnea, obtain home oxygen assessment, increase activity as tolerated, his pain is under reasonable control. Vital signs are stable. Possible discharge in next 24 hours. I performed a history & physical examination of the patient and discussed their management with my nurse practitioner, Anneliese Miller. I reviewed the nurse practitioner's note and agree with the documented findings and plan of care. Lung sounds are positive for diminished breath sounds. The findings and the impression was discussed with the patient. I attest to the documentation by the nurse practitioner. Time with Patient: Less than 30
[2020-05-03 14:29] VITALS: BMI 26.2
[2020-05-04] MEDS: oxyCODONE-APAP 10-325MG 1 EACH TAB PO PRN ×5 (01:48→21:17)
[2020-05-04 06:33] LABS: HCT 33.6 % (39.0-53.0); HGB 11.3 gm/dL (13.0-17.5); MCH 33.2 pg (25.0-35.0); MCHC 33.6 g/dL (31.0-37.0); MCV 98.8 fL (80.0-100.0); Macrocytosis Slight; Mean Platelet Volume 8.5; Platelet Count 306 k/uL (150-450); WBC 8.9 k/uL (3.8-10.6)
[2020-05-04] MEDS: FORMOTEROL FUMARATE 20 MCG/2 ML NEBU INHALATION SCH ×2 (07:22→20:35)
[2020-05-04] MEDS: BUDESONIDE 0.5 MG/2 ML NEBU INHALATION SCH ×2 (07:22→20:35)
[2020-05-04] MEDS: IPRATROPIUM-ALBUTEROL 3 ML NEB INHALATION SCH ×4 (07:22→20:35)
[2020-05-04] MEDS: LIDOCAINE 5% PATCH TOPICAL SCH (07:54)
[2020-05-04] MEDS: METOPROLOL SUCCINATE (ER) 25 MG TAB.ER.24H PO SCH (07:55)
[2020-05-04] MEDS: polyethylene glycoL 3350 17 GM POWD.PACK PO SCH (07:55)
[2020-05-04] MEDS: HEPARIN SODIUM,PORCINE 5,000 UNIT/ML 1 ML VIAL SQ SCH ×2 (07:55→18:25)
[2020-05-04] MEDS: FINASTERIDE 5 MG TAB PO SCH (07:56)
[2020-05-04] MEDS: MIDODRINE 5 MG TAB PO SCH ×3 (07:56→18:25)
[2020-05-04] MEDS: ATORVASTATIN 40 MG TAB PO SCH (07:56)
[2020-05-04] MEDS: DOXAZOSIN 4 MG TAB PO SCH (07:56)
[2020-05-04] MEDS: HYDROCORTISONE 2.5% RECTAL CREAM 30 GM TUBE RECTAL SCH ×3 (07:57→21:23)
[2020-05-04 09:24] LABS: African American GFR (CKD) 97.9 (60.0-200.0); BUN/Creat Ratio 43.33 Ratio (12.00-20.00); Non-African American GFR(CKD) 84.4 (60.0-200.0); Potassium 5.3 mmol/L (3.5-5.5)
--- NOTE | 2020-05-04 10:54 | P.PN ---
Subjective patient is seen in follow for acute kidney injury. Patient had a Roque catheter placed April 30 for urinary retention. Renal function back to baseline. Nonoliguric. Oral intake fair. No vomiting or diarrhea. Vital signs are stable. General: The patient appeared well nourished and normally developed. HEENT: Head exam is unremarkable. Neck is without jugular venous distension. LUNGS: Breath sounds decreased. HEART: Rate and Rhythm are regular. ABDOMEN: soft, nontender. EXTREMITITES: No clubbing, cyanosis, or edema. Objective - Vital Signs Vital signs: Vital Signs Temp 97.9 F 05/04/20 07:00 Pulse 96 05/04/20 07:39 Resp 18 05/04/20 01:19 BP 135/67 05/04/20 07:00 Pulse Ox 93 L 05/04/20 07:00 Intake & Output 05/03/20 05/04/20 05/04/20 18:59 06:59 18:59 Intake Total 240 540 Output Total 700 1025 Balance -460 -1025 540 Weight 90 kg Intake: Oral 240 540 Output: Urine 700 1025 Other: Voiding Method Indwelling Catheter Indwelling Catheter - Labs CBC & Chem 7: 05/04/20 05:41 05/04/20 05:41 Labs: Abnormal Lab Results - Last 24 Hours (Table) 05/03/20 05/03/20 05/04/20 Range/Units 05:19 14:15 05:41 RBC (4.30-5.90) m/uL Hgb (13.0-17.5) gm/dL Hct (39.0-53.0) % Potassium 5.9 H 5.2 H (3.5-5.5) mmol/L BUN 45.0 H 39.0 H (9.0-27.0) mg/dL BUN/Creatinine Ratio 45.00 H 43.33 H (12.00-20.00) Ratio Magnesium 2.6 H (1.5-2.4) mg/dL 05/04/20 Range/Units 05:41 RBC 3.40 L (4.30-5.90) m/uL Hgb 11.3 L (13.0-17.5) gm/dL Hct 33.6 L (39.0-53.0) % Potassium (3.5-5.5) mmol/L BUN (9.0-27.0) mg/dL BUN/Creatinine Ratio (12.00-20.00) Ratio Magnesium (1.5-2.4) mg/dL Assessment and Plan Plan: assessment: 1. Acute kidney injury secondary to urinary retention. Creatinine peaked at 2.33 this admission and is down to 1.0 today. UA benign. 2. Hyponatremia secondary to urinary retention. Better. 3. Chronic diastolic CHF. 4. History of falls and rib fractures. Plan: Maintain Roque catheter. Encouraged oral intake. Avoid nephrotoxins. Continue to monitor renal function and urine output. Stable to be discharged home from nephrology standpoint. Follow-up with urology and our office outpatient
--- NOTE | 2020-05-04 11:27 | P.PN ---
Subjective Progress Note Date: 05/04/20 Principal diagnosis: Status post recent fall, numerous right-sided rib fractures This 75-year-old white male patient who was admitted to the hospital on 04/26/2020 after sustaining a fall on the wet grass a comminuted to the hospital for evaluation of itching sensation in his ribs and pain in the right side of the chest with deep breathing, and coughing. Chest x-ray showed fractures of the right fourth, fifth, sixth and seventh ribs. No evidence of pneumothorax, no complaints of shortness of breath, patient was admitted mostly for pain management. It any injury to his head. No loss of consciousness. Patient was admitted to the intensive care unit overnight for pain management and observation, has remained stable. This morning she seen in follow-up on the [facility] medical surgical floor, he remains on supplemental oxygen currently at 3 L, his pulse ox is 92-96%, hemodynamically patient is stable, he has had no acute events overnight, follow-up chest x-ray shows bilateral lower lobe infiltrates and small effusion with no sizable pneumothorax. Vital signs have been stable overnight, no acute events. Follow blood work today shows BMP is within normal limits, no CBC was done today, urinalysis was negative. Currently patient is on oxycodone, hydrocodone. Patient is getting nebulized bronchodilators. Doing well. Patient is stable for discharge. On 04/29/2020 patient seen in follow-up on medical surgical floor. He is awake and alert, in no acute distress, is on 2 L of oxygen with pulse ox of 95%, hemodynamically stable, no fever or chills, really seems comfortable, his pain is fairly well controlled. Last chest x-ray was done yesterday showing bilateral lower lobe infiltrates and small pleural effusions with no sizable pneumothorax, lung sounds are clear, diminished at the bases, patient is working on incentive spirometer, patient has been working with physical therapy, his been walking to the commode with assistance, tolerating it fairly well. No acute events overnight, no significant cough or congestion or chest pain. He continues on nebulized bronchodilators,, he is on maintenance dose of oral Lasix. He is receiving Percocet for pain control On 04/30/2020 patient seen in follow-up on general medical surgical floor. He is awake and alert, in no acute distress, vital signs remain stable, he remains on 2 L of oxygen pulse ox of 96%, hemodynamically stable, afebrile. His pain is reasonably controlled, lung sounds are clear, diminished at the bases, patient is receiving nebulized bronchodilators. Today's labs have been reviewed, and patient's renal profile has significantly worsening over last 48 hours, with B1 up to 80, and creatinine of 2.33, patient was started on IV fluids by attending physician. Patient developed urinary retention, and urology consultation was obtained and Dr. Campos had to place a urinary catheter Today's chest x-ray has been reviewed showing basilar infiltrates likely related to atelectasis, without significant interval change. Today's white count is 11.4, hemoglobin is 12.1. Patient is working with physical therapy does require extensive assistance with ambulation and transferring to the commode and back. On 05/03/2020 patient seen in follow-up on general medical surgical floor, he is awake and alert, in no acute distress, he is on 3 L of oxygen with pulse ox of 97%, we will wean the FiO2 off, and obtaining home oxygen assessment, lung sounds are clear, no rhonchi or wheezing, no complaints of cough or chest congestion, no acute events overnight. Today's labs have been reviewed, showing potassium of 5.9, the rest of electrolytes were within normal limits. Patient remains on nebulized bronchodilators, she is on Percocet for pain control, pain is reasonably controlled, he is working incentive spirometer. He hasn't had any other acute events. On 05/04/2020 patient seen in follow-up on medical surgical floor, is on 2 L of oxygen with pulse ox of 93-96%, lung sounds reveal diffuse rhonchi, patient states he still has pain in the right chest with deep breathing and coughing, his incentive spirometer effort is 1200 today. Appears comfortable at rest, his current and control is with Percocet. Today's labs have been reviewed, electrolytes are within normal limits, yesterday potassium is 5.9, was treated, is down to 5.3 on today's labs. Patient continues on nebulized bronchodilators, no other acute events overnight Objective - Vital Signs Vital signs: Vital Signs Temp 97.9 F 05/04/20 07:00 Pulse 96 05/04/20 07:39 Resp 18 05/04/20 01:19 BP 135/67 05/04/20 07:00 Pulse Ox 93 L 05/04/20 07:00 Intake & Output 05/03/20 05/04/20 05/04/20 18:59 06:59 18:59 Intake Total 240 540 Output Total 700 1025 Balance -460 -1025 540 Weight 90 kg Intake: Oral 240 540 Output: Urine 700 1025 Other: Voiding Method Indwelling Catheter Indwelling Catheter - Exam GENERAL EXAM: Alert, pleasant, 75-year-old white male, on 3 L of oxygen with pulse ox of 93-96% comfortable in no apparent distress. HEAD: Normocephalic/atraumatic. EYES: Normal reaction of pupils, equal size. Conjunctiva pink, sclera white. NOSE: Clear with pink turbinates. THROAT: No erythema or exudates. NECK: No masses, no JVD, no thyroid enlargement, no adenopathy. CHEST: No chest wall deformity. Symmetrical expansion. He says chest discomfort has significantly improved LUNGS: Equal air entry with no crackles, wheeze, rhonchi or dullness. CVS: Regular rate and rhythm, normal S1 and S2, no gallops, no murmurs, no rubs ABDOMEN: Soft, nontender. No hepatosplenomegaly, normal bowel sounds, no guarding or rigidity. EXTREMITIES: No clubbing, no edema, no cyanosis, 2+ pulses and upper and lower extremities. MUSCULOSKELETAL: Muscle strength and tone normal. SPINE: No scoliosis or deformity SKIN: No rashes CENTRAL NERVOUS SYSTEM: Alert and oriented -3. No focal deficits, tone is normal in all 4 extremities. PSYCHIATRIC: Alert and oriented -3. Appropriate affect. Intact judgment and insight. - Labs CBC & Chem 7: 05/04/20 05:41 05/04/20 05:41 Labs: Abnormal Lab Results - Last 24 Hours (Table) 05/03/20 05/04/20 05/04/20 Range/Units 14:15 05:41 05:41 RBC 3.40 L (4.30-5.90) m/uL Hgb 11.3 L (13.0-17.5) gm/dL Hct 33.6 L (39.0-53.0) % Potassium 5.2 H (3.5-5.1) mmol/L BUN 39.0 H (9.0-27.0) mg/dL BUN/Creatinine Ratio 43.33 H (12.00-20.00) Ratio Assessment and Plan Plan: Assessment: #1. Multiple right-sided rib fractures related to recent history of fall on the wet grass, with secondary right chest pain. No evidence of pneumothorax on the chest x-ray. Rib x-ray demonstrated posterior lateral ribs for, 5, 6, 7 without associated pneumothorax. #2. Acute kidney injury likely related to urinary retention, significantly improved #3. Hyponatremia, improved #4. History of COPD, which is stable at this point #5. History of chronic CHF with diastolic dysfunction #6. Dyslipidemia #7. History of coronary artery disease with history of multiple stents #8. Acute kidney injury, improved #9. Hyperkalemia, improved #10. Benign prostatic hypertrophy #11. Previous history of myocardial infarction #12. Previous history of tobacco use Plan: Continue encouraging deep breathing and coughing, maintain pain control, encourage ambulation, encouraged the patient to sit up in the chair. Vital signs are stable, continue with nebulized bronchodilators encourage deep breathing and coughing. Discharge planning is in progress for possible ECF placement. From pulmonary perspective patient is stable for discharge once those arrangements are completed I performed a history & physical examination of the patient and discussed their management with my nurse practitioner, Anneliese Miller. I reviewed the nurse practitioner's note and agree with the documented findings and plan of care. Lung sounds are positive for diminished breath sounds. The findings and the impression was discussed with the patient. I attest to the documentation by the nurse practitioner. Time with Patient: Less than 30
--- NOTE | 2020-05-04 11:46 | P.DS ---
Providers Date of admission: 04/26/20 02:34 Expected date of discharge: 05/04/20 Attending physician: Rk Lundberg MD Consults: 04/26/20 01:50 Consult Physician Stat Consulting Provider: Dalton Holland Consult Reason/Comments: Critical care management Do you want consulting provider notified?: Already Contacted Consult Physician Stat Consulting Provider: Pete Willoughby Consult Reason/Comments: Traumatic rib fractures Do you want consulting provider notified?: Already Contacted 04/30/20 08:26 Consult Physician Routine Consulting Provider: Tyesha Alicia Consult Reason/Comments: burt Do you want consulting provider notified?: Yes 04/30/20 09:15 Consult Physician Routine Consulting Provider: Dov Wynne Consult Reason/Comments: urinary retention, unable to place schultz Do you want consulting provider notified?: Yes Primary care physician: Ever Marquis [facility] Hospital Course: Patient is a 75-year-old male with coronary artery disease status post multiple stents, COPD, diastolic CHF, hypertension, and dyslipidemia who presented to the emergency department after a fall with right sided chest discomfort. The ER he underwent an extensive evaluation. Rib x-rays demonstrated posterior lateral ribs 4, 5, 6, and 7 fracture on the right without associated pneumothorax. He was satting 98% on room air. Initial laboratory analysis showed a white blood cell count of 13.9, hemoglobin 12.6, sodium 135, BUN 38, creatinine 1.32, ALT 53. Surgery was contacted who recommended admission to the ICU secondary to need for high dose opiate medications for rib fractures. He was subsequently admitted to our service to the ICU. He did well and was not requiring Oxygen. Platelet cell count normalized. He wants to have some hyperkalemia which was resolved with holding his potassium, spironolactone, and ALVARADO inhibitor. Hemoglobin remained relatively stable. He continued to have some pain control issues and ultimately required Percocet for appropriate pain control. The morning of 04/28 he was complaining of some difficulty with bladder emptying and burning. Urinalysis was performed which was negative, post void residual is also within acceptable range. His creatinine is acutely jossue to 2.33. Urology was consulted and inserted Schultz catheter. Creatinine normalized over the following days. He did have elevated potassium of 5.3 on May 01 which normalized by May 02. His potassium on May 03 was 5.9 which was treated aggressively with Kayexalate and insulin. His potassium on May 04 was 5.3. Patient was seen and examined. No acute events overnight. Patient continues to report right-sided rib pain with deep inspiration. Contesting his discharge. States that he would get better care here instead of rehab. General: [non toxic], [no distress], [appears at stated age] Derm: [warm], [dry] Head: [atraumatic], [normocephalic], [symmetric] Eyes: [EOMI], [no lid lag], [anicteric sclera] Mouth: [no lip lesion], [mucus membranes moist] Cardiovascular: [S1S2 reg], [no murmur], [positive posterior tibial pulse bilateral], Lungs: [CTA bilateral], [no rhonchi, no rales] , [no accessory muscle use] Abdominal: [soft], [ nontender to palpation], [no guarding], [no appreciable organomegaly] Ext: [no gross muscle atrophy], [no edema], [no contractures] Neuro: [no focal neuro deficits] Psych: [Alert], [oriented], [appropriate affect] BURT with urinary retention - Urology consulted - flomax added to his doxazosin, and proscar - Schultz inserted 04/30 - Consult nephro - Cr improved from 2.33 to within normal limits post Schultz - hold lisinopril, lasix, and aldactone - Continue Schultz - Avoid additional nephrotoxic agents Rib fracture right ribs 4 through 7 due to fall from standing - Pain control - percocet (increase from 7.5 to 10 mg) - PT/OT recs - Trauma recs appreciated - Incentive spirometer Constipation, improving - miralax, prune juice COPD without exacerbation - Continue with short and long-acting bronchodilators - When necessary albuterol Hypertension - metoprolol - Follow blood pressures Dyslipidemia - Lipitor Coronary artery disease - History of multiple stents Chronic diastolic congestive heart failure - Spironolactone, lisinopril, Lasix- on hold due to BRUT and hyperkalemia - metoprolol - Strict Is and O's, daily weight [Patient contesting discharge. Discussed with social work and case management extensively.] Pertinent Studies: Rib x-ray, chest x-ray Procedures: Schultz insertion Patient Condition at Discharge: Stable Plan - Discharge Summary Discharge Rx Participant: No New Discharge Prescriptions: New oxyCODONE-APAP 10-325MG [Percocet 10-325 mg] 1 each PO Q4H PRN #21 tab PRN Reason: Pain Lidocaine 5% Patch [Lidoderm 5% Patch] 1 patch TOPICAL DAILY patch polyethylene glycoL 3350 [Miralax] 17 gm PO DAILY powd.pack Continue Terazosin [Hytrin] 5 mg PO DAILY Metoprolol Succinate (ER) [Toprol XL] 25 mg PO DAILY Atorvastatin [Lipitor] 40 mg PO DAILY Finasteride [Proscar] 5 mg PO DAILY Aspirin EC [Ecotrin Low Dose] 81 mg PO DAILY Multivitamins, Thera [Multivitamin (formulary)] 1 tab PO DAILY Furosemide [Lasix] 80 mg PO BID lisinopriL [Zestril] 10 mg PO DAILY Glycopyrrolate/Formoterol Fum [Bevespi Aerosphere Inhaler] 2 puff INHALATION RT-BID Fluticasone Propionate 110 Mcg [Flovent 110 Mcg Inhaler (Mhu)] 2 puff INHALATION RT-BID Albuterol Inhaler [Ventolin Hfa Inhaler] 2 puff INHALATION RT-Q4H PRN PRN Reason: Shortness Of Breath Vitamin D (Unknown Strength) 1 tab PO DAILY Spironolactone 50 mg PO DAILY Discontinued Potassium Chloride ER [K-Dur 10] 10 meq PO BID HYDROcodone/APAP 10-325MG [[place] 10-325] 1 tab PO Q3H PRN PRN Reason: Pain Discharge Medication List Atorvastatin [Lipitor] 40 mg PO DAILY 01/07/18 [History] Metoprolol Succinate (ER) [Toprol XL] 25 mg PO DAILY 01/07/18 [History] Terazosin [Hytrin] 5 mg PO DAILY 01/07/18 [History] Finasteride [Proscar] 5 mg PO DAILY 03/26/18 [History] Aspirin EC [Ecotrin Low Dose] 81 mg PO DAILY 05/03/18 [History] Multivitamins, Thera [Multivitamin (formulary)] 1 tab PO DAILY 03/29/19 [History] Albuterol Inhaler [Ventolin Hfa Inhaler] 2 puff INHALATION RT-Q4H PRN 04/26/20 [History] Fluticasone Propionate 110 Mcg [Flovent 110 Mcg Inhaler (Mhu)] 2 puff INHALATION RT-BID 04/26/20 [History] Furosemide [Lasix] 80 mg PO BID 04/26/20 [History] Glycopyrrolate/Formoterol Fum [Bevespi Aerosphere Inhaler] 2 puff INHALATION RT- BID 04/26/20 [History] Spironolactone 50 mg PO DAILY 04/26/20 [History] Vitamin D (Unknown Strength) 1 tab PO DAILY 04/26/20 [History] lisinopriL [Zestril] 10 mg PO DAILY 04/26/20 [History] Lidocaine 5% Patch [Lidoderm 5% Patch] 1 patch TOPICAL DAILY patch 04/28/20 [Rx] oxyCODONE-APAP 10-325MG [Percocet 10-325 mg] 1 each PO Q4H PRN #21 tab 04/28/20 [Rx] polyethylene glycoL 3350 [Miralax] 17 gm PO DAILY powd.pack 04/28/20 [Rx] Follow up Appointment(s)/Referral(s): Ever Marquis MD [Primary Care Provider] - 1 Week Dov Wynne MD [STAFF PHYSICIAN] - 1 Week Activity/Diet/Wound Care/Special Instructions: Activity: as tolerated Diet: carb consistent Special Instructions: CBC and BMP in 2-3 days DX: Hyperkalemia, and anemia Discharge Disposition: TRANSFER TO SNF/ECF
[2020-05-04] MEDS: MORPHINE SULFATE 2 MG/ML SYRINGE IVP PRN (12:11)
[2020-05-04] MEDS: FUROSEMIDE 40 MG TAB PO SCH (16:47)
[2020-05-05] MEDS: oxyCODONE-APAP 10-325MG 1 EACH TAB PO PRN ×5 (00:47→14:51)
[2020-05-05] MEDS: HEPARIN SODIUM,PORCINE 5,000 UNIT/ML 1 ML VIAL SQ SCH ×2 (01:18→07:35)
[2020-05-05] MEDS: MORPHINE SULFATE 2 MG/ML SYRINGE IVP PRN (04:22)
[2020-05-05] MEDS: FINASTERIDE 5 MG TAB PO SCH (07:32)
[2020-05-05] MEDS: FUROSEMIDE 40 MG TAB PO SCH (07:32)
[2020-05-05] MEDS: METOPROLOL SUCCINATE (ER) 25 MG TAB.ER.24H PO SCH (07:33)
[2020-05-05] MEDS: MIDODRINE 5 MG TAB PO SCH ×2 (07:33→11:38)
[2020-05-05] MEDS: ATORVASTATIN 40 MG TAB PO SCH (07:33)
[2020-05-05] MEDS: DOXAZOSIN 4 MG TAB PO SCH (07:34)
[2020-05-05] MEDS: polyethylene glycoL 3350 17 GM POWD.PACK PO SCH (07:35)
[2020-05-05] MEDS: LIDOCAINE 5% PATCH TOPICAL SCH (07:35)
[2020-05-05] MEDS: BUDESONIDE 0.5 MG/2 ML NEBU INHALATION SCH (08:51)
[2020-05-05] MEDS: IPRATROPIUM-ALBUTEROL 3 ML NEB INHALATION SCH ×3 (08:51→15:58)
[2020-05-05] MEDS: FORMOTEROL FUMARATE 20 MCG/2 ML NEBU INHALATION SCH (08:51)
[2020-05-05] MEDS: HYDROCORTISONE 2.5% RECTAL CREAM 30 GM TUBE RECTAL SCH (09:17)
--- NOTE | 2020-05-05 10:42 | P.PN ---
Subjective patient is seen in follow for acute kidney injury. Patient had a Roque catheter placed April 30 for urinary retention. Renal function back to baseline. Nonoliguric. Oral intake fair. No vomiting or diarrhea. pain better. Vital signs are stable. General: The patient appeared well nourished and normally developed. HEENT: Head exam is unremarkable. Neck is without jugular venous distension. LUNGS: Breath sounds decreased. HEART: Rate and Rhythm are regular. ABDOMEN: soft, nontender. EXTREMITITES: No clubbing, cyanosis, or edema. Objective - Vital Signs Vital signs: Vital Signs Temp 97.8 F 05/05/20 07:00 Pulse 92 05/05/20 07:00 Resp 18 05/05/20 07:30 BP 144/71 05/05/20 07:00 Pulse Ox 93 L 05/05/20 07:00 Intake & Output 05/04/20 05/05/20 05/05/20 18:59 06:59 18:59 Intake Total 540 480 Output Total 800 1900 Balance -260 -1420 Intake: Oral 540 480 Output: Urine 800 1900 Other: Voiding Method Indwelling Catheter # Voids 1 - Labs CBC & Chem 7: 05/04/20 05:41 05/04/20 05:41 Assessment and Plan Plan: assessment: 1. Acute kidney injury secondary to urinary retention. Creatinine peaked at 2.33 this admission and is down to 1.0 as of yesterday. UA benign. 2. Hyponatremia secondary to urinary retention. Better. 3. Chronic diastolic CHF. 4. History of falls and rib fractures. 5. Hyperkalemia secondary to urinary retention. Better. Plan: Maintain Roque catheter. Encouraged oral intake. Avoid nephrotoxins. Continue to monitor renal function and urine output. Stable to be discharged home from nephrology standpoint. Follow-up with urology and our office outpatient
--- NOTE | 2020-05-05 11:55 | P.PN ---
Subjective Progress Note Date: 05/05/20 Principal diagnosis: Status post recent fall, numerous right-sided rib fractures This 75-year-old white male patient who was admitted to the hospital on 04/26/2020 after sustaining a fall on the wet grass a comminuted to the hospital for evaluation of itching sensation in his ribs and pain in the right side of the chest with deep breathing, and coughing. Chest x-ray showed fractures of the right fourth, fifth, sixth and seventh ribs. No evidence of pneumothorax, no complaints of shortness of breath, patient was admitted mostly for pain management. It any injury to his head. No loss of consciousness. Patient was admitted to the intensive care unit overnight for pain management and observation, has remained stable. This morning she seen in follow-up on the [facility] medical surgical floor, he remains on supplemental oxygen currently at 3 L, his pulse ox is 92-96%, hemodynamically patient is stable, he has had no acute events overnight, follow-up chest x-ray shows bilateral lower lobe infiltrates and small effusion with no sizable pneumothorax. Vital signs have been stable overnight, no acute events. Follow blood work today shows BMP is within normal limits, no CBC was done today, urinalysis was negative. Currently patient is on oxycodone, hydrocodone. Patient is getting nebulized bronchodilators. Doing well. Patient is stable for discharge. On 04/29/2020 patient seen in follow-up on medical surgical floor. He is awake and alert, in no acute distress, is on 2 L of oxygen with pulse ox of 95%, hemodynamically stable, no fever or chills, really seems comfortable, his pain is fairly well controlled. Last chest x-ray was done yesterday showing bilateral lower lobe infiltrates and small pleural effusions with no sizable pneumothorax, lung sounds are clear, diminished at the bases, patient is working on incentive spirometer, patient has been working with physical therapy, his been walking to the commode with assistance, tolerating it fairly well. No acute events overnight, no significant cough or congestion or chest pain. He continues on nebulized bronchodilators,, he is on maintenance dose of oral Lasix. He is receiving Percocet for pain control On 04/30/2020 patient seen in follow-up on general medical surgical floor. He is awake and alert, in no acute distress, vital signs remain stable, he remains on 2 L of oxygen pulse ox of 96%, hemodynamically stable, afebrile. His pain is reasonably controlled, lung sounds are clear, diminished at the bases, patient is receiving nebulized bronchodilators. Today's labs have been reviewed, and patient's renal profile has significantly worsening over last 48 hours, with B1 up to 80, and creatinine of 2.33, patient was started on IV fluids by attending physician. Patient developed urinary retention, and urology consultation was obtained and Dr. Campos had to place a urinary catheter Today's chest x-ray has been reviewed showing basilar infiltrates likely related to atelectasis, without significant interval change. Today's white count is 11.4, hemoglobin is 12.1. Patient is working with physical therapy does require extensive assistance with ambulation and transferring to the commode and back. On 05/03/2020 patient seen in follow-up on general medical surgical floor, he is awake and alert, in no acute distress, he is on 3 L of oxygen with pulse ox of 97%, we will wean the FiO2 off, and obtaining home oxygen assessment, lung sounds are clear, no rhonchi or wheezing, no complaints of cough or chest congestion, no acute events overnight. Today's labs have been reviewed, showing potassium of 5.9, the rest of electrolytes were within normal limits. Patient remains on nebulized bronchodilators, she is on Percocet for pain control, pain is reasonably controlled, he is working incentive spirometer. He hasn't had any other acute events. On 05/04/2020 patient seen in follow-up on medical surgical floor, is on 2 L of oxygen with pulse ox of 93-96%, lung sounds reveal diffuse rhonchi, patient states he still has pain in the right chest with deep breathing and coughing, his incentive spirometer effort is 1200 today. Appears comfortable at rest, his current and control is with Percocet. Today's labs have been reviewed, electrolytes are within normal limits, yesterday potassium is 5.9, was treated, is down to 5.3 on today's labs. Patient continues on nebulized bronchodilators, no other acute events overnight On 05/05/2020 patient seen in follow-up on medical surgical floor, he is up on the commode right now, appears to be in no acute distress, he is quite irritable, states his right chest still hurts with deep breathing and coughing, denies any worsening shortness of breath, he is on 2 L of oxygen pulse ox of 93%, hemodynamically stable, lung sounds are clear, diminished at the bases, no rhonchi or wheezing, patient has been get not to the bedside commode, has had no acute events overnight. No new chest x-rays, today's labs have been noted. His kidney function has recovered, no nausea vomiting or diarrhea, he is on breathing treatments. Patient has been contesting his discharge, his had no acute events in the last 24 hours. Clinically stable Objective - Vital Signs Vital signs: Vital Signs Temp 97.8 F 05/05/20 07:00 Pulse 92 05/05/20 07:00 Resp 18 05/05/20 07:30 BP 144/71 05/05/20 07:00 Pulse Ox 93 L 05/05/20 07:00 Intake & Output 05/04/20 05/05/20 05/05/20 18:59 06:59 18:59 Intake Total 540 480 Output Total 800 1900 Balance -260 -1420 Intake: Oral 540 480 Output: Urine 800 1900 Other: Voiding Method Indwelling Catheter # Voids 1 - Exam GENERAL EXAM: Alert, pleasant, 75-year-old white male, on 3 L of oxygen with pulse ox of 93-96% comfortable in no apparent distress. HEAD: Normocephalic/atraumatic. EYES: Normal reaction of pupils, equal size. Conjunctiva pink, sclera white. NOSE: Clear with pink turbinates. THROAT: No erythema or exudates. NECK: No masses, no JVD, no thyroid enlargement, no adenopathy. CHEST: No chest wall deformity. Symmetrical expansion. He says chest discomfort has significantly improved LUNGS: Equal air entry with no crackles, wheeze, rhonchi or dullness. CVS: Regular rate and rhythm, normal S1 and S2, no gallops, no murmurs, no rubs ABDOMEN: Soft, nontender. No hepatosplenomegaly, normal bowel sounds, no g uarding or rigidity. EXTREMITIES: No clubbing, no edema, no cyanosis, 2+ pulses and upper and lower extremities. MUSCULOSKELETAL: Muscle strength and tone normal. SPINE: No scoliosis or deformity SKIN: No rashes CENTRAL NERVOUS SYSTEM: Alert and oriented -3. No focal deficits, tone is normal in all 4 extremities. PSYCHIATRIC: Alert and oriented -3. Appropriate affect. Intact judgment and insight. - Labs CBC & Chem 7: 05/04/20 05:41 05/04/20 05:41 Assessment and Plan Plan: Assessment: #1. Multiple right-sided rib fractures related to recent history of fall on the wet grass, with secondary right chest pain. No evidence of pneumothorax on the chest x-ray. Rib x-ray demonstrated posterior lateral ribs for, 5, 6, 7 without associated pneumothorax. #2. Acute kidney injury likely related to urinary retention, significantly improved #3. Hyponatremia, improved #4. History of COPD, which is stable at this point #5. History of chronic CHF with diastolic dysfunction #6. Dyslipidemia #7. History of coronary artery disease with history of multiple stents #8. Acute kidney injury, improved #9. Hyperkalemia, improved #10. Benign prostatic hypertrophy #11. Previous history of myocardial infarction #12. Previous history of tobacco use Plan: Continue encouraging deep breathing and coughing, incentive spirometry use, wean FiO2, no acute events overnight, continue nebulized bronchodilators. No acute events overnight, let us signs have been stable, encourage ambulation, from pu lmonary perspective stable for discharge home or rehab facility if deemed appropriate by the primary care team I performed a history & physical examination of the patient and discussed their management with my nurse practitioner, Anneliese Miller. I reviewed the nurse practitioner's note and agree with the documented findings and plan of care. Lung sounds are positive for diminished breath sounds. The findings and the impression was discussed with the patient. I attest to the documentation by the nurse practitioner. Time with Patient: Less than 30
[2020-05-05 15:15] VITALS: BP 135/74; PULSE 106; RESP 20; TEMP 97.9
--- NOTE | 2020-05-05 16:48 | P.PN ---
Subjective Progress Note Date: 05/05/20 Patient was seen and examined. No acute events overnight. Patient continues to report right-sided rib pain with deep inspiration. Pain unchanged. He denies any shortness of breath or palpitations. No nausea or vomiting. No fever or chills. Objective - Vital Signs Vital signs: Vital Signs Temp 97.8 F 05/05/20 07:00 Pulse 88 05/05/20 12:01 Resp 18 05/05/20 07:30 BP 144/71 05/05/20 07:00 Pulse Ox 93 L 05/05/20 07:00 Intake & Output 05/04/20 05/05/20 05/05/20 18:59 06:59 18:59 Intake Total 540 480 Output Total 800 1900 Balance -260 -1420 Intake: Oral 540 480 Output: Urine 800 1900 Other: Voiding Method Indwelling Catheter # Voids 1 - Exam General: [non toxic], [no distress], [appears at stated age] Derm: [warm], [dry] Head: [atraumatic], [normocephalic], [symmetric] Eyes: [EOMI], [no lid lag], [anicteric sclera] Mouth: [no lip lesion], [mucus membranes moist] Cardiovascular: [S1S2 reg], [no murmur], [positive posterior tibial pulse bilateral], Lungs: [CTA bilateral], [no rhonchi, no rales] , [no accessory muscle use] Abdominal: [soft], [ nontender to palpation], [no guarding], [no appreciable organomegaly] Ext: [no gross muscle atrophy], [no edema], [no contractures] Neuro: [no focal neuro deficits] Psych: [Alert], [oriented], [appropriate affect] - Labs CBC & Chem 7: 05/04/20 05:41 05/04/20 05:41 Assessment and Plan Assessment: SOPHIA with urinary retention - Urology consulted - flomax added to his doxazosin, and proscar - Roque inserted 04/30 - Consult nephro - Cr improved from 2.33 to within normal limits post Roque - hold lisinopril, lasix, and aldactone - Continue Roque - Avoid additional nephrotoxic agents Rib fracture right ribs 4 through 7 due to fall from standing - Pain control - percocet - PT/OT recs - Trauma recs appreciated - Incentive spirometer Constipation, improving - miralax, prune juice COPD without exacerbation - Continue with short and long-acting bronchodilators - When necessary albuterol Hypertension - metoprolol - Follow blood pressures Dyslipidemia - Lipitor Coronary artery disease - History of multiple stents Chronic diastolic congestive heart failure - Spironolactone, lisinopril, Lasix- on hold due to SOPHIA and hyperkalemia - metoprolol - Strict Is and O's, daily weight [Patient contesting discharge. Discussed with social work and case management extensively.]
== END 2020-05-05 16:45 | DRG 184 ==
LOC: EC 23:38 → 2SICU 04-26 02:34 → 4SSUR 04-26 22:16
PROVIDERS: ADMIT Internal Medicine; ATTEND Internal Medicine
PROC: 0T9B70Z Drainage of Bladder with Drainage Device, Via Natural or Artificial Opening (ICD-10-PCS; principal; 2020-04-30)
DX: S22.41XA Multiple fractures of ribs, right side, initial encounter for closed fracture (principal); E87.1 Hypo-osmolality and hyponatremia; I50.32 Chronic diastolic (congestive) heart failure; J98.11 Atelectasis; N17.9 Acute kidney failure, unspecified; W01.0XXA Fall on same level from slipping, tripping and stumbling without subsequent striking against object, initial encounter; Y92.007 Garden or yard of unspecified non-institutional (private) residence as the place of occurrence of the external cause; E66.01 Morbid (severe) obesity due to excess calories; Z68.26 Body mass index [BMI] 26.0-26.9, adult; E78.5 Hyperlipidemia, unspecified; E87.5 Hyperkalemia; I11.0 Hypertensive heart disease with heart failure; I25.10 Atherosclerotic heart disease of native coronary artery without angina pectoris; I25.2 Old myocardial infarction; I95.1 Orthostatic hypotension; J44.9 Chronic obstructive pulmonary disease, unspecified; K59.00 Constipation, unspecified; N40.1 Benign prostatic hyperplasia with lower urinary tract symptoms; R33.8 Other retention of urine; Z60.2 Problems related to living alone; Z79.82 Long term (current) use of aspirin; Z79.899 Other long term (current) drug therapy; Z80.1 Family history of malignant neoplasm of trachea, bronchus and lung; Z82.49 Family history of ischemic heart disease and other diseases of the circulatory system; Z82.5 Family history of asthma and other chronic lower respiratory diseases; Z82.3 Family history of stroke; Z80.8 Family history of malignant neoplasm of other organs or systems; Z86.73 Personal history of transient ischemic attack (TIA), and cerebral infarction without residual deficits; Z87.891 Personal history of nicotine dependence; Z90.49 Acquired absence of other specified parts of digestive tract; Z95.5 Presence of coronary angioplasty implant and graft; Z96.641 Presence of right artificial hip joint; E86.1 Hypovolemia; D72.829 Elevated white blood cell count, unspecified
CPT/HCPCS: 36415; 71045; 80048; 80053; 81003; 83735; 84132; 85025; 85027; 85610; 85730; 94640; 94760; 96372; 96374; 99284

== ENCOUNTER → 2020-06-18 | Outpatient (CLI) | payer MEDICARE ==
--- NOTE | 2020-06-18 16:30 | CT ---
EXAMINATION TYPE: CT chest wo con DATE OF EXAM: 06/18/2020 COMPARISON: 07/16/2019 HISTORY: Difficulty breathing. CT DLP: 615.[address] of the chest was performed with lung and mediastinal window settings submitted. The la ck of contrast limits evaluation of the vascular, mediastinal and parenchymal structures including th e upper abdomen. LUNGS: Hyperinflation is compatible with COPD. There is pleural thickening at the lung bases without pleural effusion. The lungs are clear and free of infiltrate. No atelectasis. No pulmonary nodule or mass is detected. No pleural effusion. No CT evidence of interstitial lung disease. MEDIASTINUM/VICENTE: Calcified hilar lymph nodes compatible with remote granulomatous disease. Thoracic aorta is of normal caliber with limited evaluation given lack of contrast. The heart is not enlarged . No evidence for mediastinal mass. No lymph nodes greater than 1cm. UPPER ABDOMEN: No significant abnormality is seen. OTHER: Multiple healed right-sided rib fractures noted. IMPRESSION: 1. No evidence for pleural effusions. Basilar pleural thickening. Healed right-sided rib fractures.
== END | disposition home or self-care (01) ==
LOC: RADCTMAIN 16:06
PROVIDERS: ATTEND Family Medicine
DX: R91.8 Other nonspecific abnormal finding of lung field (principal)
CPT/HCPCS: 71250

== ENCOUNTER 2020-12-15 15:47 | Inpatient (IN) | payer MEDICARE, OTHER ==
[2020-12-15 17:21] LABS: Basophils % (A) 0 %; Eosinophils # (A) 0.1 k/uL (0-0.7); Eosinophils % (A) 1 %; HCT 31.6 % (39.0-53.0); HGB 10.7 gm/dL (13.0-17.5); Lymphocytes # (A) 1.7 k/uL (1.0-4.8); Lymphocytes % (A) 14 %; MCH 33.7 pg (25.0-35.0); MCHC 33.8 g/dL (31.0-37.0); MCV 99.7 fL (80.0-100.0); Macrocytosis Slight; Mean Platelet Volume 7.9; Monocytes # (A) 0.9 k/uL (0-1.0); Monocytes % (A) 7 %; Neutrophils # (A) 9.2 k/uL (1.3-7.7); Neutrophils % (A) 76 %; Platelet Count 180 k/uL (150-450); RBC 3.17 m/uL (4.30-5.90); RDW 15.3 % (11.5-15.5); WBC 12.1 k/uL (3.8-10.6)
[2020-12-15 17:27] LABS: Albumin 3.1 g/dL (3.5-5.0); Magnesium 2.5 mg/dL (1.6-2.3); Potassium 4.1 mmol/L (3.5-5.1); Total Bilirubin 0.5 mg/dL (0.2-1.3); Total Protein 5.4 g/dL (6.3-8.2)
--- NOTE | 2020-12-15 17:59 | XR ---
EXAMINATION TYPE: XR chest 2V DATE OF EXAM: 12/15/2020 COMPARISON: 04/30/2020. HISTORY: Shortness of breath. TECHNIQUE: Frontal and lateral views of the chest are obtained. FINDINGS: There is more interstitial edema with associated hazy and streaky opacities. No pleural ef fusion, or pneumothorax seen. The cardiac silhouette size is enlarged. The osseous structures are intact. IMPRESSION: Moderate congestive changes.
[2020-12-15] MEDS ORDERED: PIPERACILLIN-TAZOBACTAM 3.375 GM in SODIUM CHLORIDE 0.9% 100 ML IVPB STA (18:04)
[2020-12-15] MEDS ORDERED: VANCOMYCIN IV PER PHARMACY 1 EACH MISC MISCELLANE PRN (18:04)
[2020-12-15] MEDS ORDERED: VANCOMYCIN 1,750 MG in SODIUM CHLORIDE 0.9% 500 ML 500 ML IVPB STA (18:07)
[2020-12-15] MEDS ORDERED: SODIUM CHLORIDE 0.9% 500 ML 500 ML IV ONE (18:12)
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
[2020-12-15] MEDS ORDERED: NALOXONE 0.4 MG/ML 1 ML VIAL IV PRN (18:23)
[2020-12-15] MEDS ORDERED: ONDANSETRON 4 MG/2 ML VIAL IVP PRN (18:23)
--- NOTE | 2020-12-15 20:37 | ED ---
Medical Decision Making - Lab Data Result diagrams: 12/15/20 16:57 12/15/20 16:57 Lab Results 12/15/20 12/15/20 12/15/20 Range/Units 16:57 16:57 16:57 WBC 12.1 H (3.8-10.6) k/uL RBC 3.17 L (4.30-5.90) m/uL Hgb 10.7 L (13.0-17.5) gm/dL Hct 31.6 L (39.0-53.0) % MCV 99.7 (80.0-100.0) fL MCH 33.7 (25.0-35.0) pg MCHC 33.8 (31.0-37.0) g/dL RDW 15.3 (11.5-15.5) % Plt Count 180 (150-450) k/uL MPV 7.9 Neutrophils % 76 % Lymphocytes % 14 % Monocytes % 7 % Eosinophils % 1 % Basophils % 0 % Neutrophils # 9.2 H (1.3-7.7) k/uL Lymphocytes # 1.7 (1.0-4.8) k/uL Monocytes # 0.9 (0-1.0) k/uL Eosinophils # 0.1 (0-0.7) k/uL Basophils # 0.0 (0-0.2) k/uL Macrocytosis Slight Sodium 135 L (137-145) mmol/L Potassium 4.1 (3.5-5.1) mmol/L Chloride 100 (98-107) mmol/L Carbon Dioxide 26 (22-30) mmol/L Anion Gap 9 mmol/L BUN 84 H (9-20) mg/dL Creatinine 3.03 H (0.66-1.25) mg/dL Est GFR (CKD-EPI)AfAm 23 (>60 ml/min/1.73 sqM) Est GFR (CKD-EPI)NonAf 20 (>60 ml/min/1.73 sqM) Glucose 95 (74-99) mg/dL Plasma Lactic Acid Mario 1.4 (0.7-2.0) mmol/L Calcium 9.0 (8.4-10.2) mg/dL Magnesium 2.5 H (1.6-2.3) mg/dL Total Bilirubin 0.5 (0.2-1.3) mg/dL AST 26 (17-59) U/L ALT 20 (4-49) U/L Alkaline Phosphatase 92 (38-126) U/L Troponin I (0.000-0.034) ng/mL NT-Pro-B Natriuret Pep pg/mL Total Protein 5.4 L (6.3-8.2) g/dL Albumin 3.1 L (3.5-5.0) g/dL 12/15/20 12/15/20 Range/Units 16:57 16:57 WBC (3.8-10.6) k/uL RBC (4.30-5.90) m/uL Hgb (13.0-17.5) gm/dL Hct (39.0-53.0) % MCV (80.0-100.0) fL MCH (25.0-35.0) pg MCHC (31.0-37.0) g/dL RDW (11.5-15.5) % Plt Count (150-450) k/uL MPV Neutrophils % % Lymphocytes % % Monocytes % % Eosinophils % % Basophils % % Neutrophils # (1.3-7.7) k/uL Lymphocytes # (1.0-4.8) k/uL Monocytes # (0-1.0) k/uL Eosinophils # (0-0.7) k/uL Basophils # (0-0.2) k/uL Macrocytosis Sodium (137-145) mmol/L Potassium (3.5-5.1) mmol/L Chloride (98-107) mmol/L Carbon Dioxide (22-30) mmol/L Anion Gap mmol/L BUN (9-20) mg/dL Creatinine (0.66-1.25) mg/dL Est GFR (CKD-EPI)AfAm (>60 ml/min/1.73 sqM) Est GFR (CKD-EPI)NonAf (>60 ml/min/1.73 sqM) Glucose (74-99) mg/dL Plasma Lactic Acid Mario (0.7-2.0) mmol/L Calcium (8.4-10.2) mg/dL Magnesium (1.6-2.3) mg/dL Total Bilirubin (0.2-1.3) mg/dL AST (17-59) U/L ALT (4-49) U/L Alkaline Phosphatase (38-126) U/L Troponin I <0.012 (0.000-0.034) ng/mL NT-Pro-B Natriuret Pep 1270 pg/mL Total Protein (6.3-8.2) g/dL Albumin (3.5-5.0) g/dL Disposition Clinical Impression: Acute renal failure, Pulmonary edema, Weakness, Cellulitis, leg Disposition: ADMITTED IP TO THIS HOSP Condition: Fair Procedures - EJ/Peripheral Line No standard instances Consent Obtained: verbal consent Indications: nurses unable to establish peripheral IV Skin Cleansed in Sterile Fashion: Yes Size: 20 Dressing Placed: Tegaderm, tape Patient Tolerated Procedure: well, no complications Additional Comments: 1 attempt with ultrasound guidance.
[2020-12-15] MEDS ORDERED: LIDOCAINE URO-JET JELLY 2% 5 ML KIT URETHRAL ONE (21:00)
[2020-12-15] MEDS ORDERED: ALBUTEROL NEBULIZED 2.5 MG/3 ML INHALATION PRN (22:46)
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
[2020-12-15] MEDS: HEPARIN SODIUM,PORCINE/PF 5,000 UNIT/0.5 ML SYRINGE SQ SCH (23:03)
[2020-12-15] MEDS: oxyCODONE-APAP 10-325MG 1 EACH TAB PO PRN (23:03)
[2020-12-15] MEDS: TAMSULOSIN 0.4 MG CAP.ER.24H PO SCH (23:03)
[2020-12-15] MEDS: PREGABALIN 100 MG CAP PO SCH (23:03)
[2020-12-15] MEDS: ATORVASTATIN 40 MG TAB PO SCH (23:03)
[2020-12-16] MEDS: FLUTICASONE 110 MCG INHALER INHALATION SCH ×3 (00:26→20:14)
[2020-12-16] MEDS: oxyCODONE-APAP 10-325MG 1 EACH TAB PO PRN ×4 (03:17→17:22)
[2020-12-16] MEDS ORDERED: MORPHINE SULFATE 4 MG/ML SYRINGE IVP STA (03:31)
[2020-12-16 07:23] LABS: Basophils % (A) 0 %; Eosinophils # (A) 0.1 k/uL (0-0.7); Eosinophils % (A) 1 %; HCT 29.7 % (39.0-53.0); HGB 10.1 gm/dL (13.0-17.5); Lymphocytes # (A) 1.5 k/uL (1.0-4.8); Lymphocytes % (A) 16 %; MCH 34.7 pg (25.0-35.0); MCHC 34.1 g/dL (31.0-37.0); MCV 101.6 fL (80.0-100.0); Macrocytosis Slight; Mean Platelet Volume 8.5; Monocytes # (A) 0.9 k/uL (0-1.0); Monocytes % (A) 9 %; Neutrophils # (A) 6.8 k/uL (1.3-7.7); Neutrophils % (A) 72 %; Platelet Count 166 k/uL (150-450); RBC 2.93 m/uL (4.30-5.90); RDW 15.3 % (11.5-15.5); WBC 9.4 k/uL (3.8-10.6)
[2020-12-16 07:35] LABS: ALT 18 U/L (4-49); AST 27 U/L (17-59); African American GFR (CKD) 28 (>60 ml/min/1.73 sqM); Albumin 2.7 g/dL (3.5-5.0); Albumin/Globulin Ratio 1.4; Alkaline Phosphatase 76 U/L (38-126); Anion Gap 8 mmol/L; Blood Urea Nitrogen 82 mg/dL (9-20); Calcium 8.2 mg/dL (8.4-10.2); Carbon Dioxide 27 mmol/L (22-30); Chloride 103 mmol/L (98-107); Glucose 102 mg/dL (74-99); Non-African American GFR(CKD) 24 (>60 ml/min/1.73 sqM); Potassium 4.3 mmol/L (3.5-5.1); Sodium 138 mmol/L (137-145); Total Bilirubin 0.5 mg/dL (0.2-1.3); Total Protein 4.7 g/dL (6.3-8.2)
[2020-12-16] MEDS: IPRATROPIUM 0.5 MG/2.5 ML NEBU INHALATION SCH ×4 (08:01→20:14)
[2020-12-16] MEDS: FORMOTEROL FUMARATE 20 MCG/2 ML NEBU INHALATION SCH ×2 (08:01→20:14)
[2020-12-16] MEDS: METOPROLOL SUCCINATE (ER) 25 MG TAB.ER.24H PO SCH (09:06)
[2020-12-16] MEDS: PREGABALIN 100 MG CAP PO SCH ×2 (09:14→19:24)
[2020-12-16] MEDS: HEPARIN SODIUM,PORCINE/PF 5,000 UNIT/0.5 ML SYRINGE SQ SCH ×2 (09:14→15:56)
[2020-12-16] MEDS: FINASTERIDE 5 MG TAB PO SCH (09:14)
[2020-12-16] MEDS: ASPIRIN 81 MG PO SCH (09:14)
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
--- NOTE | 2020-12-16 15:35 | P.PN ---
<Toney Linares - Last Filed: 12/16/20 15:11> Subjective Progress Note Date: 12/16/20 Hospital course: Patient is a 75-year-old male with a past medical history including CAD with p revious TX and stent placement, chronic diastolic heart failure, hypertension, hyperlipidemia, and COPD not home oxygen dependent. Patient presented to the hospital on 12/15/20 after being sent from his PCPs office for reports of hypoxemia. Patient had recent hospitalization at [facility] home for cellulitis and was not happy with hospital stay and was reportedly discharged per his request. He was seen and fully evaluated in the emergency department. Patient was found to have leukocytosis with a WBC count of 12.1 with a left shift, normocytic normochromic anemia with hemoglobin of 10.7, and acute kidney injury with BUN 84, creatinine 3.03, and GFR of 21 baseline creatinine is 0.9. He was also found to have significant urinary retention in ED and a Roque catheter was placed. Patient was then admitted under our services for acute on chronic diastolic heart failure, suspected bilateral lower extremity cellulitis, and acute kidney injury with obstructive uropathy. Consults placed to urology, nephrology, infectious disease, and vascular medicine. Physical exam: General: non toxic, no distress, appears at stated age Derm: warm, dry. Patient with significant bruising over his right forearm and hand, has moderate skin sloughing over left forearm and bilateral lower extremity erythema, edema, and open weeping wounds and blisters with sloughing skin to lower extremities. Patient with large open weeping wound to right foot dorsal surface. Head: atraumatic, normocephalic, symmetric Eyes: EOMI, no lid lag, anicteric sclera Mouth: no lip lesion, mucus membranes moist Cardiovascular: S1S2 reg, no murmur, positive posterior tibial pulse bilateral, Lungs: CTA bilateral, no rhonchi, no rales , no accessory muscle use GI/: Obese abdomen soft, nontender to palpation. Roque catheter in place. Ext: no gross muscle atrophy, no edema, no contractures Neuro: CN II-XI grossly intact, no focal neuro deficits Psych: Alert, oriented, appropriate affect Plan of care: Acute kidney injury with obstructive uropathy -Acute kidney injury with BUN 84, creatinine 3.03, and GFR of 21 baseline creatinine is 0.9. -Continue Roque care with scheduled flushes every 8 hours -Abdominal/bladder/kidney ultrasound -Strict I's and O's. -Caution with hepatotoxic medications -Continued close monitoring with repeat a.m. labs. -Continuation of Flomax and Proscar. -Consult to urology. -Consult to nephrology. Acute on chronic diastolic congestive heart failure. -Chest x-ray revealing moderate congestive changes with moderate interstitial edema. -ProBNP 1270. Troponin negative. -Echocardiogram completed 03/14/19 showing an EF of 50-55% with no significant valvular abnormalities reported. We will repeat echocardiogram this admission. -Telemetry monitoring -Continuation of Lasix 40 mg every 12 hours. Bilateral lower extremity cellulitis with weeping wounds and sloughing skin -IV antibiotics vancomycin and Unasyn -Consult infectious disease -Consult wound care -Consult vascular -Symptomatic care and pain management. Encourage elevation of lower extremities. -Keep wounds clean and dry. -Wound culture Hypertension -Monitor vital signs and continue daily medication management Hyperlipidemia -Continue daily medication regimen with atorvastatin 40 mg nightly. -Heart healthy diet. Other chronic conditions include: COPD, obstructive sleep apnea, morbid obesity with BMI of 32.4 CODE STATUS: Full code DVT prophylaxis: Heparin Discussed with: Patient and RN Anticipated discharge date Clinical course to determine Anticipated discharge place: Home with homecare versus SNF A total of 45 minutes was spent on the care of this complex patient more than 50% of the time was spent in counseling and care coordination. Objective - Vital Signs Vital signs: Vital Signs Temp 98.2 F 12/16/20 08:00 Pulse 82 12/16/20 08:20 Resp 16 12/16/20 08:00 BP 96/59 12/16/20 08:00 Pulse Ox 94 L 12/16/20 08:00 Intake & Output 12/15/20 12/16/20 12/16/20 18:59 06:59 18:59 Output Total 1500 Balance -1500 Weight 114.305 kg 114.305 kg Output: Urine 1500 Other: Voiding Method Indwelling Catheter - Labs CBC & Chem 7: 12/16/20 06:05 12/16/20 06:05 Labs: Abnormal Lab Results - Last 24 Hours (Table) 12/15/20 12/15/20 12/16/20 Range/Units 16:57 16:57 06:05 WBC 12.1 H (3.8-10.6) k/uL RBC 3.17 L 2.93 L (4.30-5.90) m/uL Hgb 10.7 L 10.1 L (13.0-17.5) gm/dL Hct 31.6 L 29.7 L (39.0-53.0) % MCV 101.6 H (80.0-100.0) fL Neutrophils # 9.2 H (1.3-7.7) k/uL Sodium 135 L (137-145) mmol/L BUN 84 H (9-20) mg/dL Creatinine 3.03 H (0.66-1.25) mg/dL Glucose (74-99) mg/dL Calcium (8.4-10.2) mg/dL Magnesium 2.5 H (1.6-2.3) mg/dL Total Protein 5.4 L (6.3-8.2) g/dL Albumin 3.1 L (3.5-5.0) g/dL 12/16/20 Range/Units 06:05 WBC (3.8-10.6) k/uL RBC (4.30-5.90) m/uL Hgb (13.0-17.5) gm/dL Hct (39.0-53.0) % MCV (80.0-100.0) fL Neutrophils # (1.3-7.7) k/uL Sodium (137-145) mmol/L BUN 82 H (9-20) mg/dL Creatinine 2.53 H (0.66-1.25) mg/dL Glucose 102 H (74-99) mg/dL Calcium 8.2 L (8.4-10.2) mg/dL Magnesium (1.6-2.3) mg/dL Total Protein 4.7 L (6.3-8.2) g/dL Albumin 2.7 L (3.5-5.0) g/dL <Consuelo Kwon - Last Filed: 12/16/20 18:36> Subjective Patient seen and examined independently. Patient was also seen by Toney Linares NP and case was discussed. I am in agreement with subjective, physical exam, assessment and plan as written above and amended below. He reports that he has had chronic issues with wounds and wound drainage. He has had them debrided in the past and does not want this done again. He states that he injured his left toe and this with the changes are from. General: non toxic, no distress, appears at stated age Derm: warm, dry Head: atraumatic, normocephalic, symmetric Eyes: EOMI, no lid lag, anicteric sclera Mouth: no lip lesion, mucus membranes moist Cardiovascular: S1S2 reg, no murmur, positive posterior tibial pulse bilateral, Lungs: Rhonchi bilateral bases, no rhonchi, no rales , no accessory muscle use Ext: Bilateral lower extremities with a red melva, thickened skin orange peel appearance, right foot with 8 cm circular lesion with sloughing, erythematous bed. Left necrotic ulceration fifth toe, kissing ulcers between the right first and second toes Neuro: CN II-XI grossly intact, no focal neuro deficits Psych: Alert, oriented, appropriate affect Discussed with MANAGER [employer]ET[employer]. Agree with above. Added consult for vascular. Objective - Vital Signs Vital signs: Vital Signs Temp 97.9 F 12/16/20 14:00 Pulse 59 L 12/16/20 14:00 Resp 16 12/16/20 14:00 BP 92/55 12/16/20 14:00 Pulse Ox 93 L 12/16/20 14:00 Intake & Output 12/15/20 12/16/20 12/16/20 18:59 06:59 18:59 Output Total 1500 1250 Balance -1500 -1250 Weight 114.305 kg 114.305 kg Output: Urine 1500 1250 Other: Voiding Method Indwelling Catheter - Labs CBC & Chem 7: 12/16/20 06:05 12/16/20 06:05 Labs: Abnormal Lab Results - Last 24 Hours (Table) 12/16/20 12/16/20 12/16/20 Range/Units 06:05 06:05 17:48 RBC 2.93 L (4.30-5.90) m/uL Hgb 10.1 L (13.0-17.5) gm/dL Hct 29.7 L (39.0-53.0) % MCV 101.6 H (80.0-100.0) fL BUN 82 H (9-20) mg/dL Creatinine 2.53 H (0.66-1.25) mg/dL Glucose 102 H (74-99) mg/dL Calcium 8.2 L (8.4-10.2) mg/dL Total Protein 4.7 L (6.3-8.2) g/dL Albumin 2.7 L (3.5-5.0) g/dL Urine Blood Large H (Negative) Ur Leukocyte Esterase Large H (Negative) Urine RBC 121 H (0-5) /hpf Urine WBC 89 H (0-5) /hpf Urine Bacteria Rare H (None) /hpf Urine Yeast (Budding) Occasional H (None) /hpf Microbiology - Last 24 Hours (Table) 12/16/20 09:30 Wound Culture - Preliminary Foot - Right 12/16/20 09:55 Anaerobic Culture - Preliminary Foot - Right
--- NOTE | 2020-12-16 15:58 | US ---
EXAMINATION TYPE: US kidneys/renal and bladder DATE OF EXAM: 12/16/2020 COMPARISON: NONE CLINICAL HISTORY: Renal failure EXAM MEASUREMENTS: Right Kidney: 10.6 x 5.8 x 5.6 cm Left Kidney: 12.2 x 5.8 x 5.7 cm Post Void Residual Volume: Not calculated mL Right Kidney: No hydronephrosis or masses seen Left Kidney: No hydronephrosis or masses seen Bladder: empty, with schultz catheter in place Bilateral Jets seen: No Normal Post Void Residual: Not calculated on this inpatient with schultz catheter There is no evidence for hydronephrosis at this point in time. No nephrolithiasis is seen. No stella s are identified. There is bilateral cortical thinning IMPRESSION: Renal sizes as described. Renal cortex appears thinned bilaterally.
[2020-12-16] MEDS ORDERED: AMPICILLIN-SULBACTAM 3 GM in SODIUM CHLORIDE 0.9% 100 ML IVPB SCH (16:00)
[2020-12-16] MEDS: MIDODRINE 5 MG TAB PO SCH (17:19)
[2020-12-16 17:58] LABS: Appearance,Urine Clear (Clear); Bacteria,Urine Rare /hpf; Bilirubin,Urine Negative (Negative); Blood,Urine Large (Negative); Budding Yeast,Urine Occasional /hpf; Color,Urine Yellow; Glucose,Urine (UA) Negative (Negative); Ketones,Urine Negative (Negative); Leukocyte Esterase,Urine Large (Negative); Nitrite,Urine Negative (Negative); PH, Urine 6.5 (5.0-8.0); Protein,Urine Negative (Negative); RBC,Urine 121 /hpf (0-5); Specific Gravity,Urine 1.014 (1.001-1.035); Urobilinogen,Urine <2.0 mg/dL (<2.0); WBC,Urine 89 /hpf (0-5)
--- NOTE | 2020-12-16 18:02 | CONS ---
CONSULTATION REASON FOR CONSULT: Renal failure. HISTORY OF PRESENT ILLNESS: The patient is a 75-year-old male who was admitted to the hospital yesterday with increased lower extremity edema. He apparently fell at home and developed sloughing of his skin on the left forearm. He also has an ulcer on his right foot which has been draining and seems to be getting worse. Patient did state that he noticed his lower extremity swelling has gotten worse over the past few days. He denies any significant history of renal disease. Previous creatinine was 0.9 on 05/04/2020 and serum creatinine this admission was 3.0 on 12/15/2020, down to 2.53 now. Patient's blood pressure has been low with systolic 96 mmHg and initially 87/49 on initial admission. He is afebrile. He is currently maintained on IV antibiotics, including vancomycin. Patient did receive IV fluid bolus on initial admission. His chest x-ray from yesterday evening showed moderate congestive changes. Patient was evaluated by Urology as well. He has a history of BPH and has noticed difficulty in voiding. A Roque catheter was placed in the emergency room, and at this time it is unclear as to how much urine was obtained on initial catheter placement. Patient has been started on Flomax. He has not received any IV contrast and I do not see any nonsteroidal anti-inflammatory agents on his medication list. He was maintained on ALVARADO inhibitors at home. PAST MEDICAL HISTORY: Significant for COPD, hyperlipidemia, hypertension, history of NH, coronary artery disease, diastolic heart failure, coronary stent placement. PAST SURGICAL HISTORY: Appendectomy, cardiac catheterization, coronary stent, right hip arthroplasty. SOCIAL HISTORY: Negative for smoking, drug abuse or alcohol abuse. MEDICATIONS: Medications at home included Toprol, Lipitor, aspirin, multivitamins, Lasix, Zestril, Bumex, Proscar, Levaquin, Claritin, Lyrica, Flomax, hydrochlorothiazide. ALLERGIES: NONE. REVIEW OF SYSTEMS: As per HPI. Other systems negative. PHYSICAL EXAMINATION: Patient is comfortable, awake, not in any acute distress. He is lethargic. Blood pressure 96/59, heart rate 85 per minute. He is afebrile. EXAMINATION OF THE HEART: S1 and S2. EXAMINATION OF LUNGS: Bilateral breath sounds are heard. ABDOMEN: Soft, morbidly obese. Examination of lower extremities shows chronic edema, chronic skin changes. Erythema noted with ulcer noted on his right foot. There is sloughing of the skin noted on his left forearm as well. LENS GENERATING MACHINE TENDER exam is grossly intact. LABS: Sodium 138, potassium 4.3, chloride 103, BUN 82, creatinine 2.53, hemoglobin 10.1 g/dL. ASSESSMENT: 1. Acute kidney injury, mostly associated with hypotension hypoperfusion with systolic blood pressure in the 80s on initial admission with patient being on ALVARADO inhibitors prior to admission. Creatinine has improved. Patient did get IV fluid bolus. However, at this time I will maintain him off of IV fluids and continue to diurese him. His creatinine has improved to 2.5 from 3.0 initially. Previous creatinine was as low as 0.9 on 05/04/2020. 2. Urine retention. It is unclear as to how much urine was obtained on initial Roque catheter placement. However, he has been seen by Urology and started on Flomax and currently maintained with an indwelling Roque catheter. 3. Right foot ulcer. Infectious Disease has been on consult and IV antibiotics have been started. 4. Volume overload. I do not see an echocardiogram recently. Previous echocardiogram in February of 2019 showed ejection fraction 50% to 55%. PLAN: Continue to diurese patient. Hold off on IV fluids. Continue antibiotics. Avoid hypotension. Repeat labs in a.m. Check ultrasound of the kidneys. Continue with Roque catheter for now. Hold off on ALVARADO inhibitors. Check an urinalysis. Thank you for this consultation. Will continue to follow the patient with you during his hospitalization. MMODL / IJN: [id number] /
[2020-12-16] MEDS: FUROSEMIDE 10 MG/ML 4 ML VIAL IV SCH (19:23)
[2020-12-16] MEDS: ATORVASTATIN 40 MG TAB PO SCH (19:23)
[2020-12-16] MEDS: TAMSULOSIN 0.4 MG CAP.ER.24H PO SCH (19:24)
[2020-12-16] MEDS ORDERED: VANCOMYCIN 1,750 MG in SODIUM CHLORIDE 0.9% 500 ML 500 ML IVPB SCH (21:00)
[2020-12-17] MEDS: oxyCODONE-APAP 10-325MG 1 EACH TAB PO PRN ×5 (00:59→21:00)
[2020-12-17] MEDS: HEPARIN SODIUM,PORCINE/PF 5,000 UNIT/0.5 ML SYRINGE SQ SCH ×3 (01:00→15:33)
--- NOTE | 2020-12-17 07:16 | CONS ---
CONSULTATION DATE OF SERVICE: 12/16/2020 REASON FOR CONSULTATION: Bilateral lower extremity wounds and cellulitis. HISTORY OF PRESENT ILLNESS: The patient is a 75-year-old male with a past medical history significant for lower extremity venostasis ulcer and cellulitis with recent admission at [facility] for the same reason. Patient presented to [facility] ER yesterday afternoon for evaluation of increasing swelling and redness to the lower extremities, especially the right leg. Apparently, the patient has been getting weak and not feeling well for the last few days. The patient denies having any fever or any chills. Has been complaining of some pain to the lower extremity, more of a dull aching with intensity 3 to 4/10, no radiation. The patient did have a blister and ulceration on the dorsal aspect of the right foot and right lower leg with some slough tissue with swelling and redness in the legs, more on the right than left side. The patient denies having any chest pain, shortness of breath or cough. No nausea, vomiting or abdominal pain. No diarrhea. With these symptoms, the patient has been evaluated by the ER physician. On arrival to the ER, the patient has been afebrile. Patient did have a white count of 12.1. He did have a creatinine 3.03. The patient was started on vancomycin by the ER physician. Unasyn was subsequently added. Infectious Disease was consulted for further management of antibiotic therapy for this lower extremity wound and local wound care. REVIEW OF SYSTEMS: Positive points have been mentioned in HPI. Rest of systems are negative. PAST MEDICAL HISTORY: Significant for heart failure, COPD, hypertension, hyperlipidemia, CT, heart failure and lower extremity venous stasis ulcer, BPH. PAST SURGICAL HISTORY: Appendectomy, PTCA with stent, right hip replacement. SOCIAL HISTORY: Remote history of smoking. No drinking or drug use. FAMILY HISTORY: Father with history of CVA, TIA and lung cancer. Mother with history of skin cancer and heart disease. ALLERGIES: No known drug allergies. MEDICATIONS: The patient is currently on Unasyn, vancomycin, aspirin, Lipitor, Proscar, Lasix, Toprol-XL, Narcan, Zofran, Lyrica and Flomax. PHYSICAL EXAMINATION: VITAL SIGNS: Blood pressure 92/55 with a pulse of 57, temperature is 97.9, he is 93% on room air. GENERAL DESCRIPTION: Patient is an elderly male lying in bed in no distress. No tachypnea or accessory muscles of respiration use. HEENT: Examination shows pallor, no scleral icterus. Oral mucous membrane is dry. NECK: Trachea central, no thyromegaly. LUNGS: Unlabored breathing, decreased intensity of breath sounds, no wheeze. HEART: S1-S2, regular rate and rhythm. ABDOMEN: Soft, no tenderness. No guarding or rigidity. EXTREMITIES: Diffuse swelling to the legs, right leg with more redness. Did have superficial ulcerations with slough tissue with surrounding redness, no foul- smelling drainage. NEUROLOGICAL: Patient is awake, alert, oriented. Mood and affect normal. LABS: Hemoglobin is 10.3, white count of 9.4, admission was 12.1. Creatinine is down to 2.5, admission white creatinine 3.03. Electrolytes have been normal. DIAGNOSTIC IMPRESSION AND PLAN: 1. Patient with bilateral lower extremity venostasis ulcer with secondary cellulitis especially involving the right leg with evidence of some slough tissue with diffuse swelling with likely streptococcal disease. Clinically doubt MRSA or any gram- negative infection. 2. Patient who did have renal insufficiency and high risk of nephrotoxicity from the vancomycin. PLAN: 1. Discontinue vancomycin and Unasyn. 2. Start cefazolin 2 g q.8h. 3. Local wound care with Medihoney followed by moist dressing and Norman wraps. 4. We will follow on clinical condition and culture to further adjust medication if needed. Thank you for this consultation. Will follow this patient along with you. MMODL / IJN: [id number] / MTDD
[2020-12-17] MEDS: IPRATROPIUM 0.5 MG/2.5 ML NEBU INHALATION SCH ×4 (07:35→19:30)
[2020-12-17] MEDS: FLUTICASONE 110 MCG INHALER INHALATION SCH ×2 (07:35→19:29)
[2020-12-17] MEDS: FORMOTEROL FUMARATE 20 MCG/2 ML NEBU INHALATION SCH ×2 (07:36→19:30)
[2020-12-17] MEDS: MIDODRINE 5 MG TAB PO SCH ×2 (07:53→16:52)
[2020-12-17] MEDS: ASPIRIN 81 MG PO SCH (07:53)
[2020-12-17] MEDS: METOPROLOL SUCCINATE (ER) 25 MG TAB.ER.24H PO SCH (07:54)
[2020-12-17] MEDS: FUROSEMIDE 10 MG/ML 4 ML VIAL IV SCH ×2 (07:54→21:02)
[2020-12-17] MEDS: FINASTERIDE 5 MG TAB PO SCH (07:54)
[2020-12-17] MEDS: PREGABALIN 100 MG CAP PO SCH ×2 (07:54→21:02)
[2020-12-17 09:31] LABS: African American GFR (CKD) 34 (>60 ml/min/1.73 sqM); Anion Gap 6 mmol/L; Blood Urea Nitrogen 71 mg/dL (9-20); Calcium 8.1 mg/dL (8.4-10.2); Carbon Dioxide 28 mmol/L (22-30); Chloride 105 mmol/L (98-107); Glucose 131 mg/dL (74-99); Magnesium 2.4 mg/dL (1.6-2.3); Non-African American GFR(CKD) 30 (>60 ml/min/1.73 sqM); Potassium 4.1 mmol/L (3.5-5.1); Sodium 139 mmol/L (137-145)
--- NOTE | 2020-12-17 09:46 | ECHOF ---
Referral Reason:Diastolic CHF exacerbation MEASUREMENTS -------- HEIGHT: 188.0 cm WEIGHT: 114.3 kg BP: 110/70 RVIDd: 3.4 cm (< 3.3) IVSd: 1.6 cm (0.6 - 1.1) LVIDd: 3.9 cm (3.9 - 5.3) LVPWd: 1.6 cm (0.6 - 1.1) IVSs: 2.1 cm LVIDs: 2.8 cm LVPWs: 2.0 cm LA Diam: 3.2 cm (2.7 - 3.8) Ao Diam: 3.3 cm (2.0 - 3.7) AV Cusp: 2.3 cm (1.5 - 2.6) MV EXCURSION: 22.907 mm (> 18.000) MV EF SLOPE: 129 mm/s (70 - 150) EPSS: 0.6 cm MV E Dimitris: 0.86 m/s MV DecT: 215 ms MV A Dimitris: 0.80 m/s MV E/A Ratio: 1.07 RAP: 5.00 mmHg RVSP: 36.61 mmHg FINDINGS -------- This was a technically difficult study with suboptimal views. The left ventricular size is normal. There is moderate concentric left ventricular hypertrophy. O verall left ventricular systolic function is mildly impaired with, an EF between 45 - 50 %. The right ventricle is mildly enlarged. The left atrium is normal in size. The right atrium is normal in size. 5 ml of Lumason was utilized for enhancement of images. Interatrial and interventricular septum intact. Aortic valve is trileaflet and is mildly thickened. The mitral valve is normal. Mild tricuspid regurgitation present. Right ventricular systolic pressure is normal at < 35 mmHg. The pulmonic valve was not well visualized. The aortic root size is normal. Normal inferior vena cava with normal inspiratory collapse consistent with estimated right atrial pre ssure of 5 mmHg. There is no pericardial effusion. CONCLUSIONS -------- 1. The left ventricular size is normal. 2. There is moderate concentric left ventricular hypertrophy. 3. Overall left ventricular systolic function is mildly impaired with, an EF between 45 - 50 %. 4. The right ventricle is mildly enlarged. 5. 5 ml of Lumason was utilized for enhancement of images. 6. Aortic valve is trileaflet and is mildly thickened. 7. Mild tricuspid regurgitation present. 8. There is no pericardial effusion. MACHINIST: Clau Hendrickson RDCS
--- NOTE | 2020-12-17 11:36 | PN ---
PROGRESS NOTE Patient is seen for followup for acute kidney injury. He was admitted with increased lower extremity edema and drainage and bleeding from his right foot ulcer. The patient is currently being diuresed. Lasix is 40 mg IV q.12 hours. Renal function has been improving with creatinine down to 2.1 from 3.0. Previous creatinine was 0.9 on 05/04/2020. PHYSICAL EXAMINATION: On examination today, blood pressure 94/56, heart rate 84 per minute. He is afebrile. EXAMINATION OF THE HEART: S1, S2. EXAMINATION OF THE LUNGS: Bilateral breath sounds are heard. No crackles or wheezing is heard. Abdomen is soft. Morbidly obese. Umbilical hernia is noted. Lower extremities show significant edema about 3+ and there is ulcer on the right foot which is draining and there is some bleeding noted as well. LABS: Labs show sodium 139, potassium 4.1, chloride 105, BUN 71, creatinine 2.14. ASSESSMENT: 1. Acute kidney injury secondary to hypotension and hypoperfusion with improvement in renal function currently. Patient is now being diuresed. We will continue to diurese with current dose of Lasix. It appears that patient also had urine retention, although initial volume of urine obtained on Roque catheter placement is not documented. 2. Right foot ulcer being followed by Infectious Disease maintained on IV antibiotics. 3. Volume overload due to the patient is now being diuresed. 4. Chronic diastolic heart failure, ejection fraction 50% to 55% previously. Current echocardiogram done today shows ejection fraction 45% to 50%. PLAN: Continue to diurese patient. Repeat labs. Continue off of ALVARADO inhibitors for now. Ultrasound of the kidneys shows no evidence of obstruction. MMODL / IJN: [id number] /
--- NOTE | 2020-12-17 11:50 | P.PN ---
Subjective Progress Note Date: 12/17/20 Principal diagnosis: Nonhealing ulcers to bilateral lower extremities Patient is seen and examined sitting up at the bedside. He denies any significant pain to his lower extremities other than to the right dorsal aspect of his foot where he has a large ulcer. He states his ulcers began as blisters approximately one month ago. He has lower extremity swelling. Infectious dis ease and wound care management on consult. He denies any fever or chills, no acute changes through the night. Objective - Vital Signs Vital signs: Vital Signs Temp 97.8 F 12/17/20 08:00 Pulse 84 12/17/20 08:00 Resp 18 12/17/20 08:00 BP 94/56 12/17/20 08:00 Pulse Ox 92 L 12/17/20 08:00 Intake & Output 12/16/20 12/17/20 12/17/20 18:59 06:59 18:59 Output Total 1250 1900 Balance -1250 -1900 Output: Urine 1250 1900 Other: Voiding Method Indwelling Catheter - Exam General appearance: The patient is alert, oriented, in no acute distress. Ob sybil. HET: Head is normocephalic and atraumatic. Neck: Supple without lymphadenopathy. Trachea midline. Heart: S1 S2. Regular rate and rhythm. Lungs: Auscultation. Abdomen: Soft, nontender, nondistended. Extremities: +2 pitting edema bilateral lower extremities with redness up to his monson. He has multiple ulcers on bilateral lower extremities, right foot is currently wrapped. Dorsal aspect of right with large superficial ulcer with serosanguineous drainage, no odor noted. He has fluid-filled blisters on lower extremities. Bilateral palpable femoral and dorsalis pedis pulses, multiphasic popliteal and posterior tibialis no. Good capillary refill less than 3-5 seconds. Neurological: No focal deficits. Full range of motion of bilateral lower extremities including toes, good sensation. - Labs CBC & Chem 7: 12/16/20 06:05 12/17/20 08:42 Labs: Abnormal Lab Results - Last 24 Hours (Table) 12/16/20 Range/Units 17:48 Urine Blood Large H (Negative) Ur Leukocyte Esterase Large H (Negative) Urine RBC 121 H (0-5) /hpf Urine WBC 89 H (0-5) /hpf Urine Bacteria Rare H (None) /hpf Urine Yeast (Budding) Occasional H (None) /hpf Microbiology - Last 24 Hours (Table) 12/16/20 09:30 Gram Stain - Preliminary Foot - Right Wound Culture - Preliminary 12/15/20 16:57 Blood Culture - Preliminary Blood No Growth after 24 hours 12/16/20 09:55 Anaerobic Culture - Preliminary Foot - Right Assessment and Plan Assessment: 1. Venous stasis ulcers 2. Bilateral lower extremity edema 3. Morbid obesity 4. History of coronary artery disease 5. History of hyperlipidemia Plan: 1. Continue symptomatic and supportive care 2. Compression stockings to bilateral lower extremities 3. Continue local wound care per wound Center management 4. Weight loss 5. Lower extremity arterial study ordered 6. Continue IV antibiotics as ordered by infectious disease Thank you for this consultation, we will continue to follow The impression and plan of care has been dictated as directed. Dr. Roque I performed a history and examination of this patient, discussed the same with the dictator. I agree with the dictator's note ,documented as a scribe. Any additional findings or plans will be noted.
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
--- NOTE | 2020-12-17 14:45 | P.PN ---
<Toney Linares - Last Filed: 12/17/20 14:32> Subjective Progress Note Date: 12/17/20 Hospital course: Patient is a 75-year-old male with a past medical history including CAD with p revious [place] and stent placement, chronic diastolic heart failure, hypertension, hyperlipidemia, and COPD not home oxygen dependent. Patient presented to the hospital on 12/15/20 after being sent from his PCPs office for reports of hypoxemia. Patient had recent hospitalization at [facility] home for cellulitis and was not happy with hospital stay and was reportedly discharged per his request. He was seen and fully evaluated in the emergency department. Patient was found to have leukocytosis with a WBC count of 12.1 with a left shift, normocytic normochromic anemia with hemoglobin of 10.7, and acute kidney injury with BUN 84, creatinine 3.03, and GFR of 21 baseline creatinine is 0.9. He was also found to have significant urinary retention in ED and a Roque catheter was placed. Patient was then admitted under our services for acute on chronic diastolic heart failure, suspected bilateral lower extremity cellulitis, and acute kidney injury with obstructive uropathy. Consults placed to urology, nephrology, infectious disease, and vascular medicine. EKG completed showing sinus rhythm at 77 bpm with a first-degree AV block with MI interval of 212 ms. Echocardiogram completed showing a mildly impaired ejection fraction between 45 and 50%. Physical exam: Patient seen and fully evaluated at the bedside this morning. Bilateral lower extremities wrapped with dressings in place as directed by infectious disease physician and wound care. We are continuing with diuresis. Patient has had 3150 mL's output over past 24 hours. Patient still reports leg pains at rest and with movement. Patient denies chest pain, palpitations, shortness of breath, or experiencing any numbness/tingling/weakness. General: non toxic, no distress, appears at stated age Derm: warm, dry. Patient with significant bruising over his right forearm and hand, has moderate skin sloughing over left forearm and bilateral lower extremity erythema, edema, and open weeping wounds and blisters with sloughing skin to lower extremities. Patient with large open weeping wound to right foot dorsal surface. bilateral lower extremities have dressings in place at this time. Head: atraumatic, normocephalic, symmetric Eyes: EOMI, no lid lag, anicteric sclera Mouth: no lip lesion, mucus membranes moist Cardiovascular: S1S2 reg, no murmur, positive posterior tibial pulse bilateral, Lungs: CTA bilateral, no rhonchi, no rales , no accessory muscle use GI/: Obese abdomen soft, nontender to palpation. umbilical hernia Roque catheter in place. Ext: no gross muscle atrophy, no edema, no contractures Neuro: CN II-XI grossly intact, no focal neuro deficits Psych: Alert, oriented, appropriate affect Plan of care: Acute kidney injury with obstructive uropathy -Acute kidney injury with initial BUN 84, creatinine 3.03, and GFR of 21 baseline creatinine is 0.9. Renal function improving with BUN 71, creatinine 2.14 and GFR 30. -Continue Roque care with scheduled flushes every 8 hours -Abdominal/bladder/kidney ultrasound -Strict I's and O's. 3150 mL's output over past 24 hours. -Caution wit nephrotoxic medications -Continued close monitoring with repeat a.m. labs. -Continuation of Flomax and Proscar. -Consult to urology. -Consult to nephrology. Acute on chronic diastolic congestive heart failure with acute systolic congestive heart failure. -Chest x-ray revealing moderate congestive changes with moderate interstitial edema. -ProBNP 1270. Troponin negative. -EKG showing sinus rhythm at 77 bpm with first-degree AV block with MI interval of 212 ms. -Echocardiogram revealing a mildly impaired ejection fraction between 45-50%. -Continue Telemetry monitoring -Continuation of Lasix 40 mg every 12 hours. -Strict I's and O's with 3150 mL's output over past 24 hours. -Daily weights -Cardiology following, appreciate further recommendations. Bilateral lower extremity cellulitis with weeping wounds and sloughing skin -IV antibiotics: Cefazolin 2 g every 8 hours. -Infectious disease following -Wound care following -Vascular surgery following -Symptomatic care and pain management. Encourage elevation of lower extremities. -Keep wounds clean and dry. -Wound culture Hypertension -Monitor vital signs and continue daily medication management Hyperlipidemia -Continue daily medication regimen with atorvastatin 40 mg nightly. -Heart healthy diet. Other chronic conditions include: COPD, obstructive sleep apnea, morbid obesity with BMI of 32.4 CODE STATUS: Full code DVT prophylaxis: Heparin Discussed with: Patient and RN Anticipated discharge date Clinical course to determine Anticipated discharge place: Home with homecare versus SNF, patient currently declining placement in SNF A total of 45 minutes was spent on the care of this complex patient more than 50% of the time was spent in counseling and care coordination. Objective - Vital Signs Vital signs: Vital Signs Temp 97.8 F 12/17/20 08:00 Pulse 84 12/17/20 08:00 Resp 18 12/17/20 08:00 BP 94/56 12/17/20 08:00 Pulse Ox 92 L 12/17/20 08:00 Intake & Output 12/16/20 12/17/20 12/17/20 18:59 06:59 18:59 Output Total 1250 1900 Balance -1250 -1900 Output: Urine 1250 1900 Other: Voiding Method Indwelling Catheter Indwelling Catheter - Labs CBC & Chem 7: 12/16/20 06:05 12/17/20 08:42 Labs: Abnormal Lab Results - Last 24 Hours (Table) 12/16/20 12/17/20 Range/Units 17:48 08:42 BUN 71 H (9-20) mg/dL Creatinine 2.14 H (0.66-1.25) mg/dL Glucose 131 H (74-99) mg/dL Calcium 8.1 L (8.4-10.2) mg/dL Magnesium 2.4 H (1.6-2.3) mg/dL Urine Blood Large H (Negative) Ur Leukocyte Esterase Large H (Negative) Urine RBC 121 H (0-5) /hpf Urine WBC 89 H (0-5) /hpf Urine Bacteria Rare H (None) /hpf Urine Yeast (Budding) Occasional H (None) /hpf Microbiology - Last 24 Hours (Table) 12/16/20 09:30 Gram Stain - Preliminary Foot - Right Wound Culture - Preliminary 12/15/20 16:57 Blood Culture - Preliminary Blood No Growth after 24 hours 12/16/20 09:55 Anaerobic Culture - Preliminary Foot - Right <Sohail Barragan - Last Filed: 12/17/20 18:34> Objective - Vital Signs Vital signs: Vital Signs Temp 97.6 F 12/17/20 14:00 Pulse 80 12/17/20 15:46 Resp 18 12/17/20 14:00 BP 94/56 12/17/20 08:00 Pulse Ox 91 L 12/17/20 14:00 Intake & Output 12/16/20 12/17/20 12/17/20 18:59 06:59 18:59 Output Total 1250 1900 Balance -1250 -1900 Output: Urine 1250 1900 Other: Voiding Method Indwelling Catheter Indwelling Catheter - Labs CBC & Chem 7: 12/16/20 06:05 12/17/20 08:42 Labs: Abnormal Lab Results - Last 24 Hours (Table) 12/17/20 Range/Units 08:42 BUN 71 H (9-20) mg/dL Creatinine 2.14 H (0.66-1.25) mg/dL Glucose 131 H (74-99) mg/dL Calcium 8.1 L (8.4-10.2) mg/dL Magnesium 2.4 H (1.6-2.3) mg/dL Microbiology - Last 24 Hours (Table) 12/16/20 09:30 Gram Stain - Preliminary Foot - Right Wound Culture - Preliminary 12/15/20 16:57 Blood Culture - Preliminary Blood No Growth after 24 hours 12/16/20 09:55 Anaerobic Culture - Preliminary Foot - Right Assessment and Plan Assessment: I reviewed the documentation as provided by the ROLAND above, who is the original author of this note. I agree with the documented assessment and plan, with the following changes: None
--- NOTE | 2020-12-17 17:36 | PN ---
PROGRESS NOTE DATE OF SERVICE: 12/17/2020 REASON FOR FOLLOWUP: Bilateral lower extremity cellulitis. INTERVAL HISTORY: The patient is currently afebrile, has been breathing comfortably. Still complaining of pain is comfortably to especially the right foot. The dressing was removed this morning, subsequent bleeding. No chest pain, shortness of breath or cough. No abdominal pain. No diarrhea. PHYSICAL EXAMINATION: Blood pressure is 94/56, pulse of 73, temperature 97.6. He is 91% on room air. General description is an elderly male lying in bed in no distress. Respiratory system: Unlabored breathing, clear to auscultation anteriorly. Heart S1, S2. Regular rate and rhythm. Abdomen soft. Right foot wound currently covered with bandage surrounding it, redness slightly decreased, no drainage. LABS: BUN of 71, creatinine 2.14. DIAGNOSTIC IMPRESSION AND PLAN: Patient with right lower extremity wound with secondary cellulitis likely venous stasis ulcer. The patient to continue with cefazolin and local wound care with Medihoney followed by moist dressing and Norman wrap. Continue supportive care. MMODL / IJN: [id number] /
[2020-12-17] MEDS: traMADol 50 MG TAB PO PRN (18:25)
[2020-12-17] MEDS: TAMSULOSIN 0.4 MG CAP.ER.24H PO SCH (21:02)
[2020-12-17] MEDS: ATORVASTATIN 40 MG TAB PO SCH (21:02)
[2020-12-18] MEDS: HEPARIN SODIUM,PORCINE/PF 5,000 UNIT/0.5 ML SYRINGE SQ SCH ×4 (00:27→23:52)
[2020-12-18] MEDS: traMADol 50 MG TAB PO PRN ×3 (00:29→23:51)
[2020-12-18] MEDS: oxyCODONE-APAP 10-325MG 1 EACH TAB PO PRN ×4 (01:23→20:32)
[2020-12-18 07:12] LABS: African American GFR (CKD) 47 (>60 ml/min/1.73 sqM); Anion Gap 5 mmol/L; Blood Urea Nitrogen 71 mg/dL (9-20); Calcium 8.4 mg/dL (8.4-10.2); Carbon Dioxide 27 mmol/L (22-30); Chloride 106 mmol/L (98-107); Glucose 99 mg/dL (74-99); Magnesium 2.4 mg/dL (1.6-2.3); Non-African American GFR(CKD) 41 (>60 ml/min/1.73 sqM); Sodium 138 mmol/L (137-145)
[2020-12-18] MEDS: FORMOTEROL FUMARATE 20 MCG/2 ML NEBU INHALATION SCH ×2 (07:52→21:38)
[2020-12-18] MEDS: IPRATROPIUM 0.5 MG/2.5 ML NEBU INHALATION SCH ×4 (07:53→21:39)
[2020-12-18] MEDS: FLUTICASONE 110 MCG INHALER INHALATION SCH ×2 (07:53→21:38)
[2020-12-18] MEDS: PREGABALIN 100 MG CAP PO SCH ×2 (08:00→20:32)
[2020-12-18] MEDS: MIDODRINE 5 MG TAB PO SCH ×2 (08:00→17:56)
[2020-12-18] MEDS: METOPROLOL SUCCINATE (ER) 25 MG TAB.ER.24H PO SCH (08:00)
[2020-12-18] MEDS: FINASTERIDE 5 MG TAB PO SCH (08:00)
[2020-12-18] MEDS: FUROSEMIDE 10 MG/ML 4 ML VIAL IV SCH ×2 (08:01→20:33)
[2020-12-18] MEDS: ASPIRIN 81 MG PO SCH (08:01)
--- NOTE | 2020-12-18 08:40 | P.PN ---
<Toney Linares - Last Filed: 12/18/20 10:20> Subjective Progress Note Date: 12/18/20 Hospital course: Patient is a 75-year-old male with a past medical history including CAD with p revious DC and stent placement, chronic diastolic heart failure, hypertension, hyperlipidemia, and COPD not home oxygen dependent. Patient presented to the hospital on 12/15/20 after being sent from his PCPs office for reports of hypoxemia. Patient had recent hospitalization at [facility] home for cellulitis and was not happy with hospital stay and was reportedly discharged per his request. He was seen and fully evaluated in the emergency department. Patient was found to have leukocytosis with a WBC count of 12.1 with a left shift, normocytic normochromic anemia with hemoglobin of 10.7, and acute kidney injury with BUN 84, creatinine 3.03, and GFR of 21 baseline creatinine is 0.9. He was also found to have significant urinary retention in ED and a Roque catheter was placed. Patient was then admitted under our services for acute on chronic diastolic heart failure, suspected bilateral lower extremity cellulitis, and acute kidney injury with obstructive uropathy. Consults placed to urology, nephrology, infectious disease, and vascular medicine. EKG completed showing sinus rhythm at 77 bpm with a first-degree AV block with ME interval of 212 ms. Echocardiogram completed showing a mildly impaired ejection fraction between 45 and 50%. Physical exam: Patient seen and fully evaluated at the bedside this morning. He was sitting up in chair. Bilateral lower extremities remain wrapped with dressings in place as directed by infectious disease physician and wound care. We are continuing with diuresis. Patient has had 3150 mL's output over past 24 hours. His renal function is improving nicely, BUN 71, creatinine 1.65, and GFR of 41 this morning. Patient still reports leg pains at rest and with movement. He continues to deny having any chest pain, palpitations, shortness of breath, or experiencing any numbness/tingling/weakness. General: non toxic, no distress, appears at stated age Derm: warm, dry. Patient with significant bruising over his right forearm and hand, has moderate skin sloughing over left forearm and bilateral lower extremity erythema, edema, and open weeping wounds and blisters with sloughing skin to lower extremities. Patient with large open weeping wound to right foot dorsal surface. Dressings in place to left upper extremity and bilateral lower extremities have dressings in place at this time. Head: atraumatic, normocephalic, symmetric Eyes: EOMI, no lid lag, anicteric sclera Mouth: no lip lesion, mucus membranes moist Cardiovascular: S1S2 reg, no murmur, positive posterior tibial pulse bilateral, Lungs: CTA bilateral, no rhonchi, no rales , no accessory muscle use GI/: Obese abdomen soft, nontender to palpation. umbilical hernia Roque catheter in place. Ext: no gross muscle atrophy, no edema, no contractures Neuro: CN II-XI grossly intact, no focal neuro deficits Psych: Alert, oriented, appropriate affect Plan of care: Acute kidney injury with obstructive uropathy -Acute kidney injury with initial BUN 84, creatinine 3.03, and GFR of 21 baseline creatinine is 0.9. Renal function improving with BUN 71, creatinine 1.65, and GFR of 41 this morning. -Continue Roque care with scheduled flushes every 8 hours -Abdominal/bladder/kidney ultrasound revealed no evidence of obstruction. -Strict I's and O's. 2300 mL's output over past 24 hours. -Caution wit nephrotoxic medications -Continued close monitoring with repeat a.m. labs. -Continuation of Flomax and Proscar. -Urology following, recommending catheter to remain in place for several days and we will then remove and attempt a voiding trial. -Nephrology following recommended to continue diuresis of patient and hold off NORMAN inhibitor's. Acute on chronic diastolic congestive heart failure with acute systolic co ngestive heart failure. -Chest x-ray revealing moderate congestive changes with moderate interstitial edema. -ProBNP 1270. Troponin negative. -EKG showing sinus rhythm at 77 bpm with first-degree AV block with ME interval of 212 ms. -Echocardiogram revealing a mildly impaired ejection fraction between 45-50%. -Continue Telemetry monitoring -Continuation of Lasix 40 mg every 12 hours. -Strict I's and O's with 2300 mL's output over past 24 hours. -Daily weights -Cardiology following, appreciate further recommendations. Bilateral lower extremity cellulitis with weeping wounds and sloughing skin -IV antibiotics: Cefazolin 2 g every 8 hours. -Infectious disease following, Dr. Cummings recommending continuation of cefazolin along with wound care to right lower extremity with MediHoney followed by moist dressing and Norman wrap. -Wound care following -Vascular surgery following and recommending continued symptomatic and support justin care with compression stockings to bilateral lower extremities and ordered a bilateral lower extremity arterial Doppler study which is currently pending results. -Symptomatic care and pain management. Encourage elevation of lower extremities. -Keep wounds clean and dry. -Wound culture obtained and pending results, blood cultures showing no growth after 48 hours. Hypertension -Monitor vital signs and continue daily medication management Hyperlipidemia -Continue daily medication regimen with atorvastatin 40 mg nightly. -Heart healthy diet. Other chronic conditions include: COPD, obstructive sleep apnea, morbid obesity with BMI of 32.4, and anemia of chronic disease. CODE STATUS: Full code DVT prophylaxis: Heparin Discussed with: Patient and RN Anticipated discharge date Clinical course to determine Anticipated discharge place: Home with homecare versus SNF, patient currently declining placement in SNF A total of 45 minutes was spent on the care of this complex patient more than 50% of the time was spent in counseling and care coordination. Objective - Vital Signs Vital signs: Vital Signs Temp 97.7 F 12/18/20 08:00 Pulse 72 12/18/20 08:08 Resp 16 12/18/20 08:00 BP 103/64 12/18/20 08:00 Pulse Ox 93 L 12/18/20 08:00 Intake & Output 12/17/20 12/18/20 12/18/20 18:59 06:59 18:59 Intake Total 1080 Output Total 1700 600 Balance -620 -600 Weight 120 kg Intake: Oral 1080 Output: Urine 1700 600 Other: Voiding Method Indwelling Catheter Indwelling Catheter - Labs CBC & Chem 7: 12/18/20 06:36 12/18/20 06:36 Labs: Abnormal Lab Results - Last 24 Hours (Table) 12/17/20 12/18/20 Range/Units 08:42 06:36 BUN 71 H 71 H (9-20) mg/dL Creatinine 2.14 H 1.65 H (0.66-1.25) mg/dL Glucose 131 H (74-99) mg/dL Calcium 8.1 L (8.4-10.2) mg/dL Magnesium 2.4 H 2.4 H (1.6-2.3) mg/dL Microbiology - Last 24 Hours (Table) 12/15/20 16:57 Blood Culture - Preliminary Blood No Growth after 48 hours <Yung,Sivateja - Last Filed: 12/18/20 18:07> Objective - Vital Signs Vital signs: Vital Signs Temp 97.5 F L 12/18/20 14:15 Pulse 61 12/18/20 14:15 Resp 18 12/18/20 14:15 BP 90/60 12/18/20 14:15 Pulse Ox 95 12/18/20 14:15 Intake & Output 12/17/20 12/18/20 12/18/20 18:59 06:59 18:59 Intake Total 1080 Output Total 1700 600 Balance -620 -600 Weight 120 kg Intake: Oral 1080 Output: Urine 1700 600 Other: Voiding Method Indwelling Catheter Indwelling Catheter Indwelling Catheter - Labs CBC & Chem 7: 12/18/20 06:36 12/18/20 06:36 Labs: Abnormal Lab Results - Last 24 Hours (Table) 12/18/20 12/18/20 Range/Units 06:36 06:36 RBC 2.96 L (4.40-5.60) X 10*6/uL Hgb 9.6 L (13.0-17.0) g/dL Hct 31.1 L (39.6-50.0) % MCV 105.1 H (80.0-97.0) fL MCH 32.4 H (27.0-32.0) pg MCHC 30.9 L (32.0-37.0) g/dL RDW 16.2 H (11.5-14.5) % BUN 71 H (9-20) mg/dL Creatinine 1.65 H (0.66-1.25) mg/dL Magnesium 2.4 H (1.6-2.3) mg/dL Microbiology - Last 24 Hours (Table) 12/16/20 09:30 Gram Stain - Final Foot - Right Wound Culture - Final 12/16/20 09:55 Anaerobic Culture - Preliminary Foot - Right 12/15/20 16:57 Blood Culture - Preliminary Blood No Growth after 48 hours Assessment and Plan Assessment: I reviewed the documentation as provided by the ROLAND above, who is the original author of this note. I agree with the documented assessment and plan, with the following changes: None
[2020-12-18 09:41] LABS: HCT 31.1 % (39.6-50.0); HGB 9.6 g/dL (13.0-17.0); MCH 32.4 pg (27.0-32.0); MCHC 30.9 g/dL (32.0-37.0); MCV 105.1 fL (80.0-97.0); Platelet Count 172 X 10*3/uL (140-440); RBC 2.96 X 10*6/uL (4.40-5.60); RDW 16.2 % (11.5-14.5); WBC 8.26 X 10*3/uL (4.50-10.00)
--- NOTE | 2020-12-18 11:10 | P.PN ---
Subjective Progress Note Date: 12/18/20 Principal diagnosis: This is a 75-year-old male seen in consultation because of acute kidney injury and chronic kidney disease. He was admitted with shortness of breath and cellulitis of his leg as well as left arm. He has chronic edema. Currently he denies any fever chills cough shortness of breath nausea vomiting. He is grossly edematous though. He has weeping own. His left arm as well as legs supposedly. He has dressings on those limbs. He is known with COPD [place] diastolic heart failure. His history of stenting and BPH Vital signs are stable blood pressure is somewhat low, In the 90s to 110s. Afebrile 24 output is 1700 mL Objective - Vital Signs Vital signs: Vital Signs Temp 97.7 F 12/18/20 08:00 Pulse 72 12/18/20 08:08 Resp 16 12/18/20 08:00 BP 103/64 12/18/20 08:00 Pulse Ox 93 L 12/18/20 08:00 Intake & Output 12/17/20 12/18/20 12/18/20 18:59 06:59 18:59 Intake Total 1080 Output Total 1700 600 Balance -620 -600 Weight 120 kg Intake: Oral 1080 Output: Urine 1700 600 Other: Voiding Method Indwelling Catheter Indwelling Catheter Indwelling Catheter On examination his him obese, has a large protuberant abdomen has gross anasarca. HEENT exam no JVP neck is supple no facial asymmetry Lungs are clear to auscultation fair air entry bilaterally Heart sounds unremarkable for any murmur rub gallop gallop Abdomen is protuberant somewhat distended but patient feels best is normal Nontender Extremity exam was 2+ edema of all 4 extremities left arm is in bandages and both legs are in bandages Neurologically awake alert oriented, comfortable but has generalized weakness - Labs CBC & Chem 7: 12/18/20 06:36 12/18/20 06:36 Labs: Abnormal Lab Results - Last 24 Hours (Table) 12/18/20 12/18/20 Range/Units 06:36 06:36 RBC 2.96 L (4.40-5.60) X 10*6/uL Hgb 9.6 L (13.0-17.0) g/dL Hct 31.1 L (39.6-50.0) % MCV 105.1 H (80.0-97.0) fL MCH 32.4 H (27.0-32.0) pg MCHC 30.9 L (32.0-37.0) g/dL RDW 16.2 H (11.5-14.5) % BUN 71 H (9-20) mg/dL Creatinine 1.65 H (0.66-1.25) mg/dL Magnesium 2.4 H (1.6-2.3) mg/dL Microbiology - Last 24 Hours (Table) 12/15/20 16:57 Blood Culture - Preliminary Blood No Growth after 48 hours Assessment and Plan Assessment: Present 1. Acute kidney injury secondary to prerenal from cellulitis and gross edema. Creatinine is improved from peak of 3 on 12/15/2020, down to 2.53-2.14-1.65 this morning. Urine output is adequate 2. Creatinine is 0.9 as of 05/04/2020. 3. Anemia hemoglobin is 9.6 from chronic illness 4. Gross anasarca with weeping edema, secondary to CK D, heart failure, low albumin of 2.7. No proteinuria on urinalysis 5. Morbid obesity 6. Chronic diastolic heart failure ejection fraction 50%, but was down to 45% to 50%, history of coronary artery disease status post stent in the past 7. Hypertension not on any blood pressure medications Recommendation 1. Maintain IV Lasix 40 mg every 12 2. Watch hemoglobin. 3. Monitor labs I's and O's and bloodBlood pressure
--- NOTE | 2020-12-18 14:27 | P.PN ---
Subjective Progress Note Date: 12/18/20 This a pleasant 75-year-old with past medical history significant for hypertension, dyslipidemia, ischemic cardiomyopathy, CAD with prior stenting of the RCA, COPD. He previously followed in the office with Dr. Linder but has been seeing a fluid pump operator in [place]. We've been asked to see the patient in consultation for congestive heart failure. He was sent to the hospital with hypoxia from his PCPs office. He was recently hospitalized in the [facility] for cellulitis. Patient was found to have acute kidney injury. Repeat creatinine this morning is improved around 1.6. NT proBNP was borderline. He has significant edema. UA was positive for a UTI. Overall this morning he is feeling a bit better. His breathing is better he feels his edema is improving. Echocardiogram done yesterday revealed mild impaired LV systolic function with an ejection fraction of 45-50% with mildly enlarged RV and mild tricuspid regurgitation. He is currently on Lasix 40 mg IV push every 12 hours. Objective - Vital Signs Vital signs: Vital Signs Temp 97.7 F 12/18/20 08:00 Pulse 72 12/18/20 11:32 Resp 16 12/18/20 08:00 BP 103/64 12/18/20 08:00 Pulse Ox 93 L 12/18/20 08:00 Intake & Output 12/17/20 12/18/20 12/18/20 18:59 06:59 18:59 Intake Total 1080 Output Total 1700 600 Balance -620 -600 Weight 120 kg Intake: Oral 1080 Output: Urine 1700 600 Other: Voiding Method Indwelling Catheter Indwelling Catheter Indwelling Catheter - Exam PHYSICAL EXAMINATION: HEENT: [Head is atraumatic, normocephalic. Pupils equal, round. Neck is supple. There is no elevated jugular venous pressure.] HEART EXAMINATION: [Heart sounds regular, S1 and S2 normal. No murmur or gallop heard.] CHEST EXAMINATION:[ Lungs reveal coarse wheezing throughout with scattered rhonchi. No chest wall tenderness is noted on palpation or with deep breathing.] ABDOMEN: [ Soft, obese nontender. Bowel sounds are heard. No organomegaly noted]. EXTREMITIES:[ 1+ peripheral pulses with evidence of 2-3+ peripheral edema and no calf tenderness noted. Bilateral lower extremities with Norman wraps in place]. NEUROLOGIC [patient is awake, alert and oriented x3.] . - Labs CBC & Chem 7: 12/18/20 06:36 12/18/20 06:36 Labs: Abnormal Lab Results - Last 24 Hours (Table) 12/18/20 12/18/20 Range/Units 06:36 06:36 RBC 2.96 L (4.40-5.60) X 10*6/uL Hgb 9.6 L (13.0-17.0) g/dL Hct 31.1 L (39.6-50.0) % MCV 105.1 H (80.0-97.0) fL MCH 32.4 H (27.0-32.0) pg MCHC 30.9 L (32.0-37.0) g/dL RDW 16.2 H (11.5-14.5) % BUN 71 H (9-20) mg/dL Creatinine 1.65 H (0.66-1.25) mg/dL Magnesium 2.4 H (1.6-2.3) mg/dL Microbiology - Last 24 Hours (Table) 12/16/20 09:55 Anaerobic Culture - Preliminary Foot - Right 12/15/20 16:57 Blood Culture - Preliminary Blood No Growth after 48 hours Assessment and Plan Assessment: #1 hypoxemia, mild say factorial #2 acute kidney injury, improving #3 bilateral lower extremity edema #4 venous stasis ulcers with cellulitis #5 chronic diastolic congestive heart failure with mildly impaired LV systolic function, EF 45-50% #6 hypertension #7 hyperlipidemia #8 coronary artery disease status post PCI of RCA in 2009 #9 COPD Plan: From cardiology's perspective we will continue IV diuresis. Continue to follow renal function, electrolytes, daily weights as well as intake and output. Continue aspirin, statin and metoprolol. Continue to follow the patient with input from nephrology and infectious disease. Further recommendations to follow based on clinical course. The above dictated assessment and findings were discussed with signing physician. The impression and plan of care have been directed as dictated. Zofia Falcon, Nurse Practitioner, acting as scribe for signing physician.
[2020-12-18] MEDS: ATORVASTATIN 40 MG TAB PO SCH (20:32)
[2020-12-18] MEDS: TAMSULOSIN 0.4 MG CAP.ER.24H PO SCH (20:33)
[2020-12-18 21:41] LABS: Glucose,Whole Blood 114 mg/dL (75-99)
--- NOTE | 2020-12-19 00:05 | PN ---
PROGRESS NOTE DATE OF SERVICE: 12/18/2020 REASON FOR FOLLOWUP: Bilateral lower extremity venostasis ulcer and cellulitis. I also just made you in a conversation with a parishioner. The patient is afebrile. He is breathing slightly comfortably. Denies having any chest pain or cough. No abdominal symptoms. PHYSICAL EXAMINATION: Blood pressure 103/67, pulse of 80, temperature 98. He is 96% on room air. General description: The patient is an elderly male lying in bed in no distress. RESPIRATORY SYSTEM: Unlabored breathing. Decreased breath sounds. No wheeze. HEART: S1, S2. Regular. ABDOMEN: Soft. No tenderness. Legs are currently wrapped up no obvious drainage on the dressing. LABS: Hemoglobin 9.1, white count 8.26. BUN of 71, creatinine 1.65. Local culture has been negative. DIAGNOSTIC IMPRESSION AND PLAN: Patient with bilateral lower extremity venostasis ulcer with secondary cellulitis. Continue with cefazolin. Local care with Medihoney and Norman wrap and monitor clinical course closely. MMODL / IJN: [id number] /
[2020-12-19] MEDS: oxyCODONE-APAP 10-325MG 1 EACH TAB PO PRN ×5 (01:04→21:13)
[2020-12-19] MEDS: HEPARIN SODIUM,PORCINE/PF 5,000 UNIT/0.5 ML SYRINGE SQ SCH ×2 (07:19→15:50)
[2020-12-19] MEDS: ASPIRIN 81 MG PO SCH (07:19)
[2020-12-19] MEDS: METOPROLOL SUCCINATE (ER) 25 MG TAB.ER.24H PO SCH (07:19)
[2020-12-19] MEDS: PREGABALIN 100 MG CAP PO SCH ×2 (07:19→21:13)
[2020-12-19] MEDS: FINASTERIDE 5 MG TAB PO SCH (07:19)
[2020-12-19] MEDS: MIDODRINE 5 MG TAB PO SCH ×2 (07:19→17:04)
[2020-12-19] MEDS: FUROSEMIDE 10 MG/ML 4 ML VIAL IV SCH ×2 (07:19→21:14)
[2020-12-19] MEDS: FLUTICASONE 110 MCG INHALER INHALATION SCH ×2 (08:04→20:53)
[2020-12-19] MEDS: FORMOTEROL FUMARATE 20 MCG/2 ML NEBU INHALATION SCH ×2 (08:04→20:52)
[2020-12-19] MEDS: IPRATROPIUM 0.5 MG/2.5 ML NEBU INHALATION SCH ×4 (08:04→20:52)
--- NOTE | 2020-12-19 09:25 | P.PN ---
Subjective Progress Note Date: 12/19/20 Principal diagnosis: This is a 75-year-old male seen in consultation because of acute kidney injury and chronic kidney disease. He was admitted with shortness of breath and cellulitis of his leg as well as left arm. He has chronic edema. Currently he denies any fever chills cough shortness of breath nausea vomiting. He is grossly edematous though. He has weeping own. His left arm as well as legs supposedly. He has dressings on those limbs. He is known with COPD [place] diastolic heart failure. His history of stenting and BPH His blood pressure is somewhat low, In the 90s to 110s. He is on Midrin and metoprolol succinate 25 daily, he is Afebrile 24 output is 600 and Objective - Vital Signs Vital signs: Vital Signs Temp 98.4 F 12/19/20 07:37 Pulse 88 12/19/20 08:24 Resp 18 12/19/20 07:37 BP 100/56 12/19/20 07:37 Pulse Ox 92 L 12/19/20 07:37 Intake & Output 12/18/20 12/19/20 12/19/20 18:59 06:59 18:59 Output Total 600 Balance -600 Weight 121 kg Output: Urine 600 Other: Voiding Method Indwelling Catheter Indwelling Catheter Indwelling Catheter Examination is awake alert oriented HEENT exam no JVP neck is supple no facial asymmetry Lungs clear to auscultation good air entry bilaterally Heart sounds unremarkable for any murmur rub gallop. Abdomen soft nontender obese protuberant Extremity exam was significant edema of both lower extremities also as well as some in the hands especially the left more than the right with some oozing from left hand. There is a superficial skin breakdown on the left dorsum of his h and. He has chronic lymphedema Neurologically awake alert oriented but is weak - Labs CBC & Chem 7: 12/18/20 06:36 12/18/20 06:36 Labs: Abnormal Lab Results - Last 24 Hours (Table) 12/18/20 12/18/20 Range/Units 06:36 21:39 RBC 2.96 L (4.40-5.60) X 10*6/uL Hgb 9.6 L (13.0-17.0) g/dL Hct 31.1 L (39.6-50.0) % MCV 105.1 H (80.0-97.0) fL MCH 32.4 H (27.0-32.0) pg MCHC 30.9 L (32.0-37.0) g/dL RDW 16.2 H (11.5-14.5) % POC Glucose (mg/dL) 114 H (75-99) mg/dL Microbiology - Last 24 Hours (Table) 12/15/20 16:57 Blood Culture - Preliminary Blood No Growth after 72 hours 12/16/20 09:30 Gram Stain - Final Foot - Right Wound Culture - Final 12/16/20 09:55 Anaerobic Culture - Preliminary Foot - Right Assessment and Plan Assessment: Present 1. Acute kidney injury secondary to prerenal from cellulitis, and with gross edema. Creatinine is improved from peak of 3 on 12/15/2020, down to 2.53-2.14-1.65 yesterday Urine output is adequate 2. Creatinine is 0.9 as of 05/04/2020. 3. Anemia hemoglobin is 9.6 from chronic illness 4. Gross anasarca with weeping edema, secondary to CK D, heart failure, low albumin of 2.7. No proteinuria on urinalysis 5. Morbid obesity 6. Chronic diastolic heart failure ejection fraction 50%, but was down to 45% to 50%, history of coronary artery disease status post stent in the past 7. Hypotension not on any blood pressure medications Recommendation 1. Maintain IV Lasix 40 mg every 12 2. Watch hemoglobin. 3. Monitor labs I's and O's and Blood pressure. Because of his previous heart disease is on beta mikael small dose can maintain that
[2020-12-19] MEDS: traMADol 50 MG TAB PO PRN (10:30)
--- NOTE | 2020-12-19 10:43 | P.PN ---
<Toney Linares - Last Filed: 12/19/20 10:37> Subjective Progress Note Date: 12/19/20 Hospital course: Patient is a 75-year-old male with a past medical history including CAD with p revious ND and stent placement, chronic diastolic heart failure, hypertension, hyperlipidemia, and COPD not home oxygen dependent. Patient presented to the hospital on 12/15/20 after being sent from his PCPs office for reports of hypoxemia. Patient had recent hospitalization at [facility] home for cellulitis and was not happy with hospital stay and was reportedly discharged per his request. He was seen and fully evaluated in the emergency department. Patient was found to have leukocytosis with a WBC count of 12.1 with a left shift, normocytic normochromic anemia with hemoglobin of 10.7, and acute kidney injury with BUN 84, creatinine 3.03, and GFR of 21 baseline creatinine is 0.9. He was also found to have significant urinary retention in ED and a Roque catheter was placed. Patient was then admitted under our services for acute on chronic diastolic heart failure, suspected bilateral lower extremity cellulitis, and acute kidney injury with obstructive uropathy. Consults placed to urology, nephrology, infectious disease, and vascular medicine. EKG completed showing sinus rhythm at 77 bpm with a first-degree AV block with WA interval of 212 ms. Echocardiogram completed showing a mildly impaired ejection fraction between 45 and 50%. Physical exam: Patient seen and fully evaluated at the bedside this morning. He was sitting up in chair. Bilateral lower extremities remain wrapped with dressings in place as directed by infectious disease physician and wound care. We are continuing with diuresis. Patient has had 3150 mL's output over past 24 hours. His renal function is improving nicely, BUN 71, creatinine 1.65, and GFR of 41 this morning. Patient still reports leg pains at rest and with movement. He continues to deny having any chest pain, palpitations, shortness of breath, or experiencing any numbness/tingling/weakness. General: non toxic, no distress, appears at stated age Derm: warm, dry. Patient with significant bruising over his right forearm and hand, has moderate skin sloughing over left forearm and bilateral lower extremity erythema, edema, and open weeping wounds and blisters with sloughing skin to lower extremities. Patient with large open weeping wound to right foot dorsal surface. Dressings in place to left upper extremity and bilateral lower extremities have dressings in place at this time. Head: atraumatic, normocephalic, symmetric Eyes: EOMI, no lid lag, anicteric sclera Mouth: no lip lesion, mucus membranes moist Cardiovascular: S1S2 reg, no murmur, positive posterior tibial pulse bilateral, Lungs: CTA bilateral, no rhonchi, no rales , no accessory muscle use GI/: Obese abdomen soft, nontender to palpation. umbilical hernia Roque catheter in place. Ext: no gross muscle atrophy, no edema, no contractures Neuro: CN II-XI grossly intact, no focal neuro deficits Psych: Alert, oriented, appropriate affect Plan of care: Acute kidney injury with obstructive uropathy -Acute kidney injury with initial BUN 84, creatinine 3.03, and GFR of 21 baseline creatinine is 0.9. Renal function improving with BUN 71, creatinine 1.65, and GFR of 41 and awaiting repeat labs this morning. -Continue Roque care with scheduled flushes every 8 hours, likely remove Roque tomorrow a.m. and attempt voiding challenge. -Abdominal/bladder/kidney ultrasound revealed no evidence of obstruction. -Strict I's and O's. -Caution with nephrotoxic medications -Continued close monitoring with repeat a.m. labs. -Continuation of Flomax and Proscar. -Urology following, recommending catheter to remain in place for several days and we will then remove and attempt a voiding trial. -Nephrology following recommended to continue diuresis of patient and hold off NORMAN inhibitor's. 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 -Chest x-ray revealing moderate congestive changes with moderate interstitial edema. -ProBNP 1270. Troponin negative. -EKG showing sinus rhythm at 77 bpm with first-degree AV block with WA interval of 212 ms. -Echocardiogram revealing a mildly impaired ejection fraction between 45-50%. -Continue Telemetry monitoring -Continuation of Lasix 40 mg every 12 hours. -Strict I's and O's. -Daily weights. -Cardiology following, appreciate further recommendations. Bilateral lower extremity cellulitis with weeping wounds and sloughing skin -IV antibiotics: Cefazolin 2 g every 8 hours. -Infectious disease following, Dr. Cummings recommending continuation of cefazolin along with wound care to right lower extremity with MediHoney followed by moist dressing and Norman wrap. -Wound care following -Vascular surgery following and recommending continued symptomatic and supportive care with compression stockings to bilateral lower extremities and ordered a bilateral lower extremity arterial Doppler study which is currently pending results. -Symptomatic care and pain management. Encourage elevation of lower extremities. -Keep wounds clean and dry. -Wound culture showing no growth after 48 hours, blood cultures showing no growth after 72 hours. Hypertension -Monitor vital signs and continue daily medication management Hyperlipidemia -Continue daily medication regimen with atorvastatin 40 mg nightly. -Heart healthy diet. Other chronic conditions include: COPD, obstructive sleep apnea, morbid obesity with BMI of 32.4, and anemia of chronic disease. CODE STATUS: Full code DVT prophylaxis: Heparin Discussed with: Patient and RN Anticipated discharge date Clinical course to determine Anticipated discharge place: Home with homecare versus SNF, patient currently declining placement in SNF A total of 45 minutes was spent on the care of this complex patient more than 50% of the time was spent in counseling and care coordination. Objective - Vital Signs Vital signs: Vital Signs Temp 98.4 F 12/19/20 07:37 Pulse 88 12/19/20 08:24 Resp 18 12/19/20 07:37 BP 100/56 12/19/20 07:37 Pulse Ox 92 L 12/19/20 07:37 Intake & Output 12/18/20 12/19/20 12/19/20 18:59 06:59 18:59 Output Total 600 Balance -600 Weight 121 kg Output: Urine 600 Other: Voiding Method Indwelling Catheter Indwelling Catheter Indwelling Catheter - Labs CBC & Chem 7: 12/18/20 06:36 12/18/20 06:36 Labs: Abnormal Lab Results - Last 24 Hours (Table) 12/18/20 Range/Units 21:39 POC Glucose (mg/dL) 114 H (75-99) mg/dL Microbiology - Last 24 Hours (Table) 12/15/20 16:57 Blood Culture - Preliminary Blood No Growth after 72 hours 12/16/20 09:30 Gram Stain - Final Foot - Right Wound Culture - Final 12/16/20 09:55 Anaerobic Culture - Preliminary Foot - Right <Sohail Barragan - Last Filed: 12/19/20 12:11> Objective - Vital Signs Vital signs: Vital Signs Temp 98.4 F 12/19/20 07:37 Pulse 80 12/19/20 11:27 Resp 18 12/19/20 07:37 BP 100/56 12/19/20 07:37 Pulse Ox 92 L 12/19/20 07:37 Intake & Output 12/18/20 12/19/20 12/19/20 18:59 06:59 18:59 Output Total 600 1200 Balance -600 -1200 Weight 121 kg Output: Urine 600 1200 Other: Voiding Method Indwelling Catheter Indwelling Catheter Indwelling Catheter - Labs CBC & Chem 7: 12/19/20 10:46 12/19/20 10:46 Labs: Abnormal Lab Results - Last 24 Hours (Table) 12/18/20 12/19/20 12/19/20 Range/Units 21:39 10:46 10:46 WBC 13.4 H (3.8-10.6) k/uL RBC 3.39 L (4.30-5.90) m/uL Hgb 11.5 L (13.0-17.5) gm/dL Hct 34.2 L (39.0-53.0) % MCV 101.0 H (80.0-100.0) fL RDW 15.6 H (11.5-15.5) % BUN 51 H (9-20) mg/dL Creatinine 1.33 H (0.66-1.25) mg/dL POC Glucose (mg/dL) 114 H (75-99) mg/dL Microbiology - Last 24 Hours (Table) 12/15/20 16:57 Blood Culture - Preliminary Blood No Growth after 72 hours 12/16/20 09:30 Gram Stain - Final Foot - Right Wound Culture - Final 12/16/20 09:55 Anaerobic Culture - Preliminary Foot - Right Assessment and Plan Assessment: I reviewed the documentation as provided by the ROLAND above, who is the original author of this note. I agree with the documented assessment and plan, with the following changes: None
[2020-12-19 11:02] LABS: HCT 34.2 % (39.0-53.0); HGB 11.5 gm/dL (13.0-17.5); MCHC 33.7 g/dL (31.0-37.0); Macrocytosis Slight; Mean Platelet Volume 7.9; Platelet Count 199 k/uL (150-450); RBC 3.39 m/uL (4.30-5.90); RDW 15.6 % (11.5-15.5); WBC 13.4 k/uL (3.8-10.6)
[2020-12-19 11:24] LABS: African American GFR (CKD) 61 (>60 ml/min/1.73 sqM); Anion Gap 8 mmol/L; Blood Urea Nitrogen 51 mg/dL (9-20); Calcium 8.5 mg/dL (8.4-10.2); Carbon Dioxide 28 mmol/L (22-30); Chloride 105 mmol/L (98-107); Glucose 97 mg/dL (74-99); Magnesium 2.2 mg/dL (1.6-2.3); Non-African American GFR(CKD) 53 (>60 ml/min/1.73 sqM); Sodium 141 mmol/L (137-145)
--- NOTE | 2020-12-19 13:49 | CONS ---
WALESKA Jose is a 75-year-old gentleman with history of ischemic heart disease, chronic renal insufficiency and cardiomyopathy, who is admitted to hospital with acute exacerbation of chronic systolic heart failure. Also, has cellulitis over the left forearm and has bilateral lower extremity cellulitis. He is feeling better. Shortness of breath has improved. Leg edema has improved. PHYSICAL EXAMINATION: Heart rate is 80 beats per minute, blood pressure is 100/56, respiratory is 18. Chest exam reveals good air entry bilaterally. Heart exam reveals first and second heart sounds. No gallop. Abdomen is soft. There is cellulitis involving the left arm and the hand and also bilateral lower extremity cellulitis. Currently on aspirin, Lipitor, IV Lasix, Toprol, which we will continue. ASSESSMENT: 1. Acute exacerbation of chronic systolic heart failure. 2. Coronary artery disease status post angioplasty. PLAN: I will continue the IV Lasix. JACKELYN / AMEENAN: [id number] /
--- NOTE | 2020-12-19 17:09 | P.PN ---
Subjective Progress Note Date: 12/19/20 Damon is doing well overall. Feeling much better. Decreased pain in his lower extremities. Objective - Vital Signs Vital signs: Vital Signs Temp 98.1 F 12/19/20 13:45 Pulse 91 12/19/20 13:45 Resp 18 12/19/20 13:45 BP 92/57 12/19/20 13:45 Pulse Ox 93 L 12/19/20 13:45 Intake & Output 12/18/20 12/19/20 12/19/20 18:59 06:59 18:59 Intake Total 480 Output Total 600 1200 Balance -600 -720 Weight 121 kg Intake: Oral 480 Output: Urine 600 1200 Other: Voiding Method Indwelling Catheter Indwelling Catheter Indwelling Catheter - Exam Gen a pleasant cooperative male sitting at the bedside in no acute distress. HEENT is no cephalic. Heart is regular at this time. Lungs are clear bilaterally. Abdomen is soft obese nontender. Reducible umbilical hernia. Bilateral lower extremities with dressings in place. Clean and dry otherwise. - Labs CBC & Chem 7: 12/19/20 10:46 12/19/20 10:46 Labs: Abnormal Lab Results - Last 24 Hours (Table) 12/18/20 12/19/20 12/19/20 Range/Units 21:39 10:46 10:46 WBC 13.4 H (3.8-10.6) k/uL RBC 3.39 L (4.30-5.90) m/uL Hgb 11.5 L (13.0-17.5) gm/dL Hct 34.2 L (39.0-53.0) % MCV 101.0 H (80.0-100.0) fL RDW 15.6 H (11.5-15.5) % BUN 51 H (9-20) mg/dL Creatinine 1.33 H (0.66-1.25) mg/dL POC Glucose (mg/dL) 114 H (75-99) mg/dL Microbiology - Last 24 Hours (Table) 12/15/20 16:57 Blood Culture - Preliminary Blood No Growth after 72 hours 12/16/20 09:30 Gram Stain - Final Foot - Right Wound Culture - Final Assessment and Plan Assessment: Venous stasis ulcers Bilateral lower extremity edema Morbid obesity History of coronary artery disease History of hyperlipidemia Plan continue symptomatic care. The ABIs were reviewed. He does have appropriate appearing ankle brachial indices with 1.4 on the right side and 1.3 on the left with good multiphasic flow. He has decreased pulsatility of his digital imaging with a TBI bilaterally 0.3
[2020-12-19] MEDS: TAMSULOSIN 0.4 MG CAP.ER.24H PO SCH (21:14)
[2020-12-19] MEDS: ATORVASTATIN 40 MG TAB PO SCH (21:14)
[2020-12-20] MEDS: MELATONIN 5 MG TABLET PO SCH ×2 (00:31→20:16)
[2020-12-20] MEDS: HEPARIN SODIUM,PORCINE/PF 5,000 UNIT/0.5 ML SYRINGE SQ SCH ×3 (00:31→16:28)
[2020-12-20] MEDS: traMADol 50 MG TAB PO PRN (00:32)
[2020-12-20] MEDS: oxyCODONE-APAP 10-325MG 1 EACH TAB PO PRN ×3 (02:16→16:46)
--- NOTE | 2020-12-20 05:59 | PN ---
PROGRESS NOTE DATE OF SERVICE: 12/19/2020 REASON FOR FOLLOWUP: Bilateral lower extremity ulcers and cellulitis. INTERVAL HISTORY: The patient is currently afebrile. The patient is breathing comfortably. Denies having any chest pain, cough, no abdominal pain. Overall swelling and redness has decreased. PHYSICAL EXAMINATION: VITAL SIGNS: Blood pressure is 110/69, pulse of 89, temperature is 97.8, he is 91% on room. GENERAL DESCRIPTION: An elderly male lying in bed in no distress. RESPIRATORY SYSTEM: Unlabored breathing, clear to auscultation anteriorly. HEART: S1, S2. Regular rate and rhythm. ABDOMEN: Soft, no tenderness. LEGS: Redness has improved. Wound with no significant slough. DIAGNOSTIC IMPRESSION AND PLAN: Patient with right lower extremity ulcers and cellulitis, mostly involving his right foot dorsum with some slough tissue and local care adjusted to the [facility] with . Continue with cefazolin. White count slightly jumped and will monitor. Continue supportive care. MMODL / IJN: [id number] /
[2020-12-20] MEDS: METOPROLOL SUCCINATE (ER) 25 MG TAB.ER.24H PO SCH (08:27)
[2020-12-20] MEDS: FUROSEMIDE 10 MG/ML 4 ML VIAL IV SCH (08:36)
[2020-12-20] MEDS: FINASTERIDE 5 MG TAB PO SCH (08:36)
[2020-12-20] MEDS: PREGABALIN 100 MG CAP PO SCH ×2 (08:36→20:16)
[2020-12-20] MEDS: ASPIRIN 81 MG PO SCH (08:36)
[2020-12-20] MEDS: MIDODRINE 5 MG TAB PO SCH ×2 (08:36→16:29)
[2020-12-20] MEDS: FORMOTEROL FUMARATE 20 MCG/2 ML NEBU INHALATION SCH ×3 (09:07→19:56)
[2020-12-20] MEDS: IPRATROPIUM 0.5 MG/2.5 ML NEBU INHALATION SCH ×5 (09:07→19:56)
[2020-12-20] MEDS: FLUTICASONE 110 MCG INHALER INHALATION SCH ×3 (09:07→19:56)
--- NOTE | 2020-12-20 12:54 | P.PN ---
<Toney Linares - Last Filed: 12/20/20 12:44> Subjective Progress Note Date: 12/20/20 Hospital course: Patient is a 75-year-old male with a past medical history including CAD with p revious GA and stent placement, chronic diastolic heart failure, hypertension, hyperlipidemia, and COPD not home oxygen dependent. Patient presented to the hospital on 12/15/20 after being sent from his PCPs office for reports of hypoxemia. Patient had recent hospitalization at [facility] home for cellulitis and was not happy with hospital stay and was reportedly discharged per his request. He was seen and fully evaluated in the emergency department. Patient was found to have leukocytosis with a WBC count of 12.1 with a left shift, normocytic normochromic anemia with hemoglobin of 10.7, and acute kidney injury with BUN 84, creatinine 3.03, and GFR of 21 baseline creatinine is 0.9. He was also found to have significant urinary retention in ED and a Roque catheter was placed. Patient was then admitted under our services for acute on chronic diastolic heart failure, suspected bilateral lower extremity cellulitis, and acute kidney injury with obstructive uropathy. Consults placed to urology, nephrology, infectious disease, and vascular medicine. EKG completed showing sinus rhythm at 77 bpm with a first-degree AV block with PA interval of 212 ms. Echocardiogram completed showing a mildly impaired ejection fraction between 45 and 50%. Physical exam: 12/20/20: Patient seen and fully evaluated at the bedside this morning. His Roque catheter was removed last night, patient being placed on voiding trial. RN instructed need close monitoring of output as well as bladder scanning for postvoid residuals. Patient's renal function continues to improve, morning labs reveal BUN 51, creatinine 1.33, and GFR of 53. Patient continues to report mild pain in his lower extremities but states it is improving. He denies having any other complaints or concerns this morning including headache, lightheadedness, dizziness, chest pain or palpitations, shortness of breath, abdominal pain, nausea, vomiting, or experiencing any numbness/tingling/weakness. General: non toxic, no distress, appears at stated age Derm: warm, dry. Patient with significant bruising over his right forearm and hand, has moderate skin sloughing over left forearm and bilateral lower extremity erythema, edema, and open weeping wounds and blisters with sloughing skin to lower extremities. Patient with large open weeping wound to right foot dorsal surface. Dressings in place to left upper extremity and bilateral lower extremities have dressings in place at this time. Head: atraumatic, normocephalic, symmetric Eyes: EOMI, no lid lag, anicteric sclera Mouth: no lip lesion, mucus membranes moist Cardiovascular: S1S2 reg, no murmur, positive posterior tibial pulse bilateral, Lungs: CTA bilateral, no rhonchi, no rales , no accessory muscle use GI/: Obese abdomen soft, nontender to palpation. umbilical hernia Roque catheter in place. Ext: no gross muscle atrophy, no edema, no contractures Neuro: CN II-XI grossly intact, no focal neuro deficits Psych: Alert, oriented, appropriate affect Plan of care: Acute kidney injury with obstructive uropathy -Acute kidney injury with initial BUN 84, creatinine 3.03, and GFR of 21 baseline creatinine is 0.9. Renal function improving with BUN 51, creatinine 1.33, and GFR 53. -Roque catheter was removed and we have begun voiding trial. RN instructed to closely monitor urinary output and bladder scan for postvoid residual. -Abdominal/bladder/kidney ultrasound revealed no evidence of obstruction. -Continuation of Flomax and Proscar. -Urology following, appreciate further recommendations pending voiding trial. -Nephrology following recommended to continue diuresis of patient and hold off NORMAN inhibitor's. 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 -Chest x-ray revealing moderate congestive changes with moderate interstitial edema. -ProBNP 1270. Troponin negative. -EKG showing sinus rhythm at 77 bpm with first-degree AV block with PA interval of 212 ms. -Echocardiogram revealing a mildly impaired ejection fraction between 45-50%. -Continue Telemetry monitoring -Continuation of Lasix 40 mg every 12 hours. -Strict I's and O's. -Daily weights. -Cardiology following, appreciate further recommendations. Bilateral lower extremity cellulitis with weeping wounds and sloughing skin -IV antibiotics: Cefazolin 2 g every 8 hours. -Infectious disease following, Dr. Cummings recommending continuation of cefazolin along with wound care to right lower extremity with MediHoney followed by moist dressing and Norman wrap. -Wound care following -Vascular surgery following and recommending continued symptomatic and supportive care with compression stockings to bilateral lower extremities and ordered a bilateral lower extremity arterial Doppler study which is currently pending results. -Symptomatic care and pain management. Encourage elevation of lower extremities. -Keep wounds clean and dry. -Wound culture showing no growth after 48 hours, blood cultures showing no growth after 72 hours. Hypertension -Monitor vital signs and continue daily medication management Hyperlipidemia -Continue daily medication regimen with atorvastatin 40 mg nightly. -Heart healthy diet. Other chronic conditions include: COPD, obstructive sleep apnea, morbid obesity with BMI of 32.4, and anemia of chronic disease. CODE STATUS: Full code DVT prophylaxis: Heparin Discussed with: Patient and RN Anticipated discharge date Clinical course to determine, possibly 1-2 days pending voiding trial and further recommendations. Anticipated discharge place: Home with homecare versus SNF, patient currently declining placement in SNF A total of 45 minutes was spent on the care of this complex patient more than 50% of the time was spent in counseling and care coordination. Objective - Vital Signs Vital signs: Vital Signs Temp 97.9 F 12/20/20 07:29 Pulse 62 12/20/20 09:23 Resp 18 12/20/20 07:29 BP 114/64 12/20/20 07:29 Pulse Ox 96 12/20/20 07:29 Intake & Output 12/19/20 12/20/20 12/20/20 18:59 06:59 18:59 Intake Total 480 Output Total 1200 Balance -720 Weight 119.5 kg Intake: Oral 480 Output: Urine 1200 Other: Voiding Method Indwelling Catheter Urinal # Voids 3 - Labs CBC & Chem 7: 12/19/20 10:46 12/19/20 10:46 Labs: Abnormal Lab Results - Last 24 Hours (Table) 12/19/20 12/19/20 Range/Units 10:46 10:46 WBC 13.4 H (3.8-10.6) k/uL RBC 3.39 L (4.30-5.90) m/uL Hgb 11.5 L (13.0-17.5) gm/dL Hct 34.2 L (39.0-53.0) % MCV 101.0 H (80.0-100.0) fL RDW 15.6 H (11.5-15.5) % BUN 51 H (9-20) mg/dL Creatinine 1.33 H (0.66-1.25) mg/dL Microbiology - Last 24 Hours (Table) 12/15/20 16:57 Blood Culture - Preliminary Blood No Growth after 96 hours <Sohail Barragan - Last Filed: 12/20/20 17:26> Objective - Vital Signs Vital signs: Vital Signs Temp 98.5 F 12/20/20 13:43 Pulse 64 12/20/20 16:20 Resp 19 12/20/20 13:43 BP 98/55 12/20/20 13:43 Pulse Ox 98 12/20/20 13:43 Intake & Output 12/19/20 12/20/20 12/20/20 18:59 06:59 18:59 Intake Total 480 Output Total 1200 826 Balance -720 -826 Weight 119.5 kg Intake: Oral 480 Output: Urine 1200 400 Post Void Residual 426 Other: Voiding Method Indwelling Catheter Urinal # Voids 3 1 - Labs CBC & Chem 7: 12/19/20 10:46 12/19/20 10:46 Labs: Microbiology - Last 24 Hours (Table) 12/16/20 09:55 Anaerobic Culture - Final Foot - Right 12/15/20 16:57 Blood Culture - Preliminary Blood No Growth after 96 hours Assessment and Plan Assessment: I reviewed the documentation as provided by the ROLAND above, who is the original author of this note. I agree with the documented assessment and plan, with the following changes: None
--- NOTE | 2020-12-20 13:13 | P.PN ---
Subjective Patient is seen in follow-up for acute kidney injury. Renal function improving. Maintained on IV Lasix. Still quite edematous. Oral intake fair. No vomiting or diarrhea. Vital signs are stable. General: The patient appeared well nourished and normally developed. HEENT: Head exam is unremarkable. Neck is without jugular venous distension. LUNGS: Breath sounds decreased. HEART: Rate and Rhythm are regular. ABDOMEN: Soft, no distention. EXTREMITITES: 2+ edema. Lower extremity is wrapped. Objective - Vital Signs Vital signs: Vital Signs Temp 97.9 F 12/20/20 07:29 Pulse 62 12/20/20 09:23 Resp 18 12/20/20 07:29 BP 114/64 12/20/20 07:29 Pulse Ox 96 12/20/20 07:29 Intake & Output 12/19/20 12/20/20 12/20/20 18:59 06:59 18:59 Intake Total 480 Output Total 1200 Balance -720 Weight 119.5 kg Intake: Oral 480 Output: Urine 1200 Other: Voiding Method Indwelling Catheter Urinal # Voids 3 - Labs CBC & Chem 7: 12/19/20 10:46 12/19/20 10:46 Labs: Microbiology - Last 24 Hours (Table) 12/16/20 09:55 Anaerobic Culture - Final Foot - Right 12/15/20 16:57 Blood Culture - Preliminary Blood No Growth after 96 hours Assessment and Plan Plan: Assessment: 1. Acute kidney injury mostly prerenal secondary to cardiorenal syndrome. Renal function improving. Creatinine 1.33 today. No proteinuria on UA. No hydronephrosis noted on kidney ultrasound. 2. Acute on chronic systolic CHF with ejection fraction of 45-50%. 3. Volume overload. 4. Hypotension maintained on midodrine. 5. Lotrimin to cellulitis maintained on antibiotics. Plan: Increase Lasix to 60 mg IV twice daily. Low-salt diet and 1500 mL fluid restriction. Avoid nephrotoxins.
--- NOTE | 2020-12-20 13:45 | P.PN ---
Subjective This is a pleasant 75-year-old past medical history significant for hypertension, dyslipidemia, ischemic cardiomyopathy, coronary artery disease s/p PCI RCA 11/2009, COPD. He follows in the office with Dr. Boss. We have been asked to see in consultation for congestive heart failure. Patient was sent to the hospital from his PCP for hypoxemia. Recently hospitalized with cellulitis at [facility]. He had a recent fall due to tripping over a rug and resulted in sloughing his left forearm skin. In the emergency department he was found to have acute kidney injury, urinary retention, schultz catheter was placed. Patient denies chest pain, palpitations, shortness of breath, lightheadedness, dizziness, syncope. On admission, WBC 2.1, hemoglobin 10 point, platelets 180, sodium 135, serum creatinine 3.03 (0.9, 1.0 in 04/2020), troponoin negative x 1, pro-BNP borderline elevated at 1270, UA positive for UTI, covid-19 negative. EKG sinus rhythm with first degree AV block, PVCs. In 12/2018 patient underwent dobutamine nuclear cardiolite test and echocardiogram Stress test without any evidence of ischemia and echocardiogram showed evidence of apparently of a myocardial infarction with an ejection fraction of 40%. Repeat echocardiogram 02/2019, revealed EF 50-55%. DIAGNOSTICS Abdominal Ultrasound- No hydronephrosis, no masses Chest xray Moderate interstitial edema, heart is enlarged. Echocardiogram 12/17/20 revealed left ventricular systolic function is mildly impaired with an EF 45-50%, RV is mildly enlarged, mild tricuspid regurgitation 12/20/2020: Patient seen and examined at bedside, Ambulating in room. Making his bed in the room, no acute distress. He denies any chest pain, palpitations, shortness of breath, lightheadedness, dizziness. He does not think his lower extremity swelling has improved. He states when he is discharged he wants to go home, he has no plans of going to a rehab facility. Blood pressure 114/64, heart rate 60, afebrile, 96% on 2 L nasal cannula. Patient currently being maintained on aspirin 81 mg daily, atorvastatin 40 mg nightly, IV cefazolin, IV Lasix 60 mg twice a day, metoprolol succinate 25 mg daily, Midodrine 5 mg twice a day. Patient with 1.2 L urine output over the past 24 hours. Weight has decreased from the 121 kg to 119.5 kg PHYSICAL EXAMINATION Blood pressure 114/64 heart rate 80 afebrile and maintaining oxygen saturation 96% on 2L nasal cannula CONSTITUTIONAL: No apparent distress. HEENT: Head is normocephalic. No JVD. No carotid bruit. CHEST EXAMINATION: Lungs are diminished bilaterally auscultation. HEART EXAMINATION: Regular rate and rhythm. S1, S2 heard. No murmurs, gallops or rub. ABDOMEN: Soft, nontender. Positive bowel sounds. EXTREMITIES: 2+ peripheral pulses, +3 bilateral pedal edema, 2+ bilateral edema, Ulcers to bilateral lower extremities wrapped in ALVARADO bandages. Right top foot wound. NEUROLOGIC EXAMINATION: Patient is awake, alert and oriented x3. ASSESSMENT Hypoxemia, probably multifactorial Acute Kidney Injury - sCr improving. Nephrology following Bilateral lower extremity edema Venous stasis ulcers with cellulitis- Infectious disease following, patient switched to cefazolin Acute on Chronic systolic heart failure with EF 45-50% History of ischemic cardiomyopathy in 12/2018- echocardiogram showed evidence of apparently of a myocardial infarction with an ejection fraction of 40%. History of hypertension- hypotensive while inpatient Dyslipidemia Coronary artery disease s/p PCI RCA 11/2009 COPD Morbid Obestiy BMI 33.8 PLAN From cardiology's perspective we will continue IV diuresis. Nephrology following, managing patient's IV diuretics increased Lasix to 60mg BID today. Continue to follow renal function, electrolytes, daily weights as well as intake and output. Continue aspirin, statin and metoprolol. Infectious disease following No further recommendations from cardiology perspective. We will follow the patient as needed. Please reach out with any other questions or concerns Patient to follow up with Dr. Boss Nurse Practitioner note has been reviewed, I agree with a documented findings and plan of care. Patient was seen and examined. Objective - Vital Signs Vital signs: Vital Signs Temp 97.9 F 12/20/20 07:29 Pulse 62 12/20/20 09:23 Resp 18 12/20/20 07:29 BP 114/64 12/20/20 07:29 Pulse Ox 96 12/20/20 07:29 Intake & Output 12/19/20 12/20/20 12/20/20 18:59 06:59 18:59 Intake Total 480 Output Total 1200 Balance -720 Weight 119.5 kg Intake: Oral 480 Output: Urine 1200 Other: Voiding Method Indwelling Catheter Urinal # Voids 3 - Labs CBC & Chem 7: 12/19/20 10:46 12/19/20 10:46 Labs: Microbiology - Last 24 Hours (Table) 12/16/20 09:55 Anaerobic Culture - Final Foot - Right 12/15/20 16:57 Blood Culture - Preliminary Blood No Growth after 96 hours
--- NOTE | 2020-12-20 14:50 | PN ---
PROGRESS NOTE DATE OF SERVICE: 12/20/2020. REASON FOR FOLLOWUP: Bilateral lower extremity cellulitis. INTERVAL HISTORY: The patient is currently afebrile. The patient is breathing comfortably. Denies having any chest pain, shortness of breath or cough. No abdominal pain or any worsening pain to the lower extremities wound area. PHYSICAL EXAMINATION: Blood pressure 114/64, pulse of 80, temperature 97.9. He is 96% on 2 L nasal cannula. General description is an elderly male up in the chair in no distress. RESPIRATORY SYSTEM: Unlabored breathing, clear to auscultation anteriorly. HEART: S1, S2. Regular rate and rhythm. ABDOMEN: Soft, no tenderness. Legs currently wrapped up. No obvious drainage on the dressing. LABS: BUN of 51, creatinine 1.33, hemoglobin 11.5, white count 13.4. DIAGNOSTIC IMPRESSION AND PLAN: Patient with bilateral lower extremity ulceration more on the right than the left leg with secondary cellulitis. Did have overall improvement of the cellulitis on examination of the legs yesterday. White count slightly jumped up. Will monitor closely. Continue cefazolin and local care on the foot to the with Aquacel Silver dressing and will evaluate the patient tomorrow. MMODL / IJN: [id number] /
[2020-12-20] MEDS: ATORVASTATIN 40 MG TAB PO SCH (20:16)
[2020-12-20] MEDS: FUROSEMIDE 10 MG/ML 10 ML VIAL IV SCH (20:16)
[2020-12-20] MEDS: TAMSULOSIN 0.4 MG CAP.ER.24H PO SCH (20:16)
[2020-12-21] MEDS: HEPARIN SODIUM,PORCINE/PF 5,000 UNIT/0.5 ML SYRINGE SQ SCH ×2 (00:46→08:12)
[2020-12-21] MEDS: oxyCODONE-APAP 10-325MG 1 EACH TAB PO PRN (00:52)
[2020-12-21] MEDS: PREGABALIN 100 MG CAP PO SCH (08:11)
[2020-12-21] MEDS: METOPROLOL SUCCINATE (ER) 25 MG TAB.ER.24H PO SCH (08:11)
[2020-12-21] MEDS: MIDODRINE 5 MG TAB PO SCH (08:12)
[2020-12-21] MEDS: FUROSEMIDE 10 MG/ML 10 ML VIAL IV SCH (08:12)
[2020-12-21] MEDS: ASPIRIN 81 MG PO SCH (08:12)
[2020-12-21] MEDS: FINASTERIDE 5 MG TAB PO SCH (08:12)
[2020-12-21 08:33] VITALS: BP 116/55; TEMP 98.2
[2020-12-21 08:48] VITALS: RESP 15
[2020-12-21] MEDS: FORMOTEROL FUMARATE 20 MCG/2 ML NEBU INHALATION SCH (08:48)
[2020-12-21] MEDS: FLUTICASONE 110 MCG INHALER INHALATION SCH (08:49)
[2020-12-21] MEDS: IPRATROPIUM 0.5 MG/2.5 ML NEBU INHALATION SCH (08:49)
[2020-12-21 09:03] VITALS: PULSE 62
[2020-12-21 10:24] LABS: HCT 32.3 % (39.6-50.0); HGB 10.2 g/dL (13.0-17.0); MCH 33.3 pg (27.0-32.0); MCHC 31.6 g/dL (32.0-37.0); MCV 105.6 fL (80.0-97.0); Platelet Count 202 X 10*3/uL (140-440); RBC 3.06 X 10*6/uL (4.40-5.60); RDW 16.2 % (11.5-14.5); WBC 8.45 X 10*3/uL (4.50-10.00)
--- NOTE | 2020-12-21 12:27 | P.PN ---
Subjective Patient is seen in follow-up for acute kidney injury. Renal function improving. Creatinine 1.33 as of yesterday. Maintained on IV Lasix. Still quite edematous but improving. Oral intake fair. No vomiting or diarrhea. He is being discharged home today. Vital signs are stable. General: The patient appeared well nourished and normally developed. HEENT: Head exam is unremarkable. Neck is without jugular venous distension. LUNGS: Breath sounds decreased. HEART: Rate and Rhythm are regular. ABDOMEN: Soft, no distention. EXTREMITITES: 2+ edema. Lower extremity is wrapped. Objective - Vital Signs Vital signs: Vital Signs Temp 98.2 F 12/21/20 08:00 Pulse 62 12/21/20 09:02 Resp 15 12/21/20 08:00 BP 116/55 12/21/20 08:00 Pulse Ox 92 L 12/21/20 08:00 Intake & Output 12/20/20 12/21/20 12/21/20 18:59 06:59 18:59 Intake Total 480 Output Total 1196 975 100 Balance -1196 -975 380 Weight 120.6 kg Intake: Oral 480 Output: Urine 550 975 100 Post Void Residual 646 Other: Voiding Method Urinal Diaper Incontinent # Voids 1 - Labs CBC & Chem 7: 12/21/20 05:49 12/19/20 10:46 Labs: Abnormal Lab Results - Last 24 Hours (Table) 12/21/20 Range/Units 05:49 RBC 3.06 L (4.40-5.60) X 10*6/uL Hgb 10.2 L (13.0-17.0) g/dL Hct 32.3 L (39.6-50.0) % MCV 105.6 H (80.0-97.0) fL MCH 33.3 H (27.0-32.0) pg MCHC 31.6 L (32.0-37.0) g/dL RDW 16.2 H (11.5-14.5) % Microbiology - Last 24 Hours (Table) 12/15/20 16:57 Blood Culture - Preliminary Blood No Growth after 120 hours 12/16/20 09:55 Anaerobic Culture - Final Foot - Right Assessment and Plan Plan: Assessment: 1. Acute kidney injury mostly prerenal secondary to cardiorenal syndrome. Renal function improving. Creatinine 1.33 as of yesterday. No proteinuria on UA. No hydronephrosis noted on kidney ultrasound. 2. Acute on chronic systolic CHF with ejection fraction of 45-50%. 3. Volume overload. 4. Hypotension maintained on midodrine. 5. Lower extremity cellulitis maintained on antibiotics. Plan: Stop IV Lasix. Start oral Bumex 2 mg in the morning and 1 mg in the evening upon discharge. Maintain low salt diet and 1500 mL fluid restriction. Avoid nephrotoxins. I advised to monitor his weight closely at home and to call if gains more than 3 pounds in one week duration. Follow up outpatient in 1 week. Repeat BMP and magnesium level 2-3 days postdischarge.
--- NOTE | 2020-12-21 13:54 | P.DS ---
<Toney Linares - Last Filed: 12/21/20 13:40> Providers Expected date of discharge: 12/21/20 Hospital Course: Discharge Diagnosis: Acute kidney injury secondary to cardiorenal syndrome Acute on chronic combined diastolic and systolic congestive heart failure. Bilateral lower extremity cellulitis with weeping wounds and sloughing skin Peripheral vascular disease with venous stasis ulcers Hypertension Hyperlipidemia COPD Obstructive sleep apnea Morbid obesity with BMI of 32.4 Anemia of chronic disease. Hospital Course: Patient is a 75-year-old male with a past medical history including CAD with p revious SC and stent placement, chronic diastolic heart failure, hypertension, hyperlipidemia, and COPD not home oxygen dependent. Patient presented to the hospital on 12/15/20 after being sent from his PCPs office for reports of hypoxemia. Patient had recent hospitalization at [facility] home for cellulitis and was not happy with hospital stay and was reportedly discharged per his request. He was seen and fully evaluated in the emergency department. Patient was found to have leukocytosis with a WBC count of 12.1 with a left shift, normocytic normochromic anemia with hemoglobin of 10.7, and acute kidney injury with BUN 84, creatinine 3.03, and GFR of 21 baseline creatinine is 0.9. He was also found to have significant urinary retention in ED and a Schultz catheter was placed. Patient was then admitted under our services for acute on chronic diastolic heart failure, suspected bilateral lower extremity cellulitis along with venous stasis ulcers, and acute kidney injury with obstructive uropathy. EKG completed showing sinus rhythm at 77 bpm with a first-degree AV block with IL interval of 212 ms. Echocardiogram completed showing a mildly impaired ejection fraction between 45 and 50%. Consults placed to urology, cardiology, nephrology, infectious disease, vascular medicine, and wound care. Pt treated with diuresis and IV antibiotics. Renal function improved, schultz cather removed and pt tolerated voiding trial with no reports of urinary retention. SOPHIA secondary to cardiorenal syndrome and has resolved. Pt being discharged home with [facility] at this time. Pt to follow up outpatient with cardiology, ID, Vascular surgery, and infectious disease. Patient to continue Keflex 500 mg every 8 hours 10 days. Physical exam: Patient seen and fully evaluated at the bedside this morning. Patient tolerated voiding trial with no reports of urinary retention. SOPHIA has resolved. Patient has been ambulating up and down the halls with his walker with PT without any difficulties. Patient denies having any headache, lightheadedness, dizziness, chest pain, palpitations, or experiencing any shortness of breath, numbness, tingling, or weakness. General: non toxic, no distress, appears at stated age Derm: warm, dry. Dressings in place to left upper extremity and bilateral lower extremities. Dressings clean dry and intact. Head: atraumatic, normocephalic, symmetric Eyes: EOMI, no lid lag, anicteric sclera Mouth: no lip lesion, mucus membranes moist Cardiovascular: S1S2 reg, no murmur, positive posterior tibial pulse bilateral, Lungs: CTA bilateral, no rhonchi, no rales , no accessory muscle use GI/: Obese abdomen soft, nontender to palpation. umbilical hernia Schultz catheter in place. Ext: no gross muscle atrophy, no edema, no contractures Neuro: CN II-XI grossly intact, no focal neuro deficits Psych: Alert, oriented, appropriate affect A total of 45 minutes of time were spent preparing this complex discharge summary. Assessment: I reviewed the documentation as provided by the ROLAND above, who is the original author of this note. I agree with the documented assessment and plan, with the following changes: None Patient Condition at Discharge: Fair Plan - Discharge Summary Discharge Rx Participant: Yes New Discharge Prescriptions: New Midodrine [ProAmatine] 5 mg PO AC-BID 30 Days #60 tab Cephalexin [Keflex] 500 mg PO Q8HR 10 Days #30 cap Continue Metoprolol Succinate (ER) [Toprol XL] 25 mg PO DAILY Atorvastatin [Lipitor] 40 mg PO HS Aspirin EC [Ecotrin Low Dose] 81 mg PO DAILY Multivitamins, Thera [Multivitamin (formulary)] 1 tab PO DAILY Furosemide [Lasix] 100 mg PO BID lisinopriL [Zestril] 10 mg PO DAILY Glycopyrrolate/Formoterol Fum [Bevespi Aerosphere Inhaler] 2 puff INHALATION RT-BID Albuterol Inhaler [Ventolin Hfa Inhaler] 2 puff INHALATION RT-Q4H PRN PRN Reason: Shortness Of Breath oxyCODONE-APAP 10-325MG [Percocet 10-325 mg] 1 tab PO Q4HR PRN 3 Days #18 tab PRN Reason: Pain hydroCHLOROthiazide [Hydrodiuril] 25 mg PO DAILY Loratadine [Claritin] 10 mg PO DAILY PRN PRN Reason: Allergy Symptoms Pregabalin [Lyrica] 100 mg PO BID Tamsulosin [Flomax] 0.4 mg PO HS Bumetanide [BUMEX] 0.5 mg PO DAILY Albuterol Nebulized [Ventolin Nebulized] 2.5 mg INHALATION RT-Q4H PRN PRN Reason: Shortness Of Breath Fluticasone Propionate 220 Mcg [Flovent 220 Mcg Inhaler (Mhu)] 2 puff INHALATION RT-BID Finasteride [Proscar] 5 mg PO DAILY Discontinued Levofloxacin [Levaquin] 500 mg PO DAILY Discharge Medication List Atorvastatin [Lipitor] 40 mg PO HS 01/07/18 [History] Metoprolol Succinate (ER) [Toprol XL] 25 mg PO DAILY 01/07/18 [History] Aspirin EC [Ecotrin Low Dose] 81 mg PO DAILY 05/03/18 [History] Multivitamins, Thera [Multivitamin (formulary)] 1 tab PO DAILY 03/29/19 [History] Albuterol Inhaler [Ventolin Hfa Inhaler] 2 puff INHALATION RT-Q4H PRN 04/26/20 [History] Furosemide [Lasix] 100 mg PO BID 04/26/20 [History] Glycopyrrolate/Formoterol Fum [Bevespi Aerosphere Inhaler] 2 puff INHALATION RT- BID 04/26/20 [History] lisinopriL [Zestril] 10 mg PO DAILY 04/26/20 [History] oxyCODONE-APAP 10-325MG [Percocet 10-325 mg] 1 tab PO Q4HR PRN 3 Days #18 tab 05/05/20 [Rx] Albuterol Nebulized [Ventolin Nebulized] 2.5 mg INHALATION RT-Q4H PRN 12/15/20 [History] Bumetanide [BUMEX] 0.5 mg PO DAILY 12/15/20 [History] Finasteride [Proscar] 5 mg PO DAILY 12/15/20 [History] Fluticasone Propionate 220 Mcg [Flovent 220 Mcg Inhaler (Mhu)] 2 puff INHALATION RT-BID 12/15/20 [History] Loratadine [Claritin] 10 mg PO DAILY PRN 12/15/20 [History] Pregabalin [Lyrica] 100 mg PO BID 12/15/20 [History] Tamsulosin [Flomax] 0.4 mg PO HS 12/15/20 [History] hydroCHLOROthiazide [Hydrodiuril] 25 mg PO DAILY 12/15/20 [History] Cephalexin [Keflex] 500 mg PO Q8HR 10 Days #30 cap 12/21/20 [Rx] Midodrine [ProAmatine] 5 mg PO AC-BID 30 Days #60 tab 12/21/20 [Rx] Follow up Appointment(s)/Referral(s): Ever Marquis MD [Primary Care Provider] - 1-2 days Janell Schultz DO [STAFF PHYSICIAN] - 1 Week [facility], [NON-STAFF] - 1 Week Canelo Cummings MD [STAFF PHYSICIAN] - 1 Week Filiberto Boss MD [STAFF PHYSICIAN] - 2 Weeks Patient Instructions/Handouts: Cellulitis (DC) Activity/Diet/Wound Care/Special Instructions: Activity: As tolerated Diet: Heart healthy diet Wound Care: Wound care to be provided by home care nurse as directed by infectious dise ase/wound care Special Instructions: You're being discharged home on Keflex, it is important to take this medication as directed and complete full course of antibiotics. You will need to follow up in office with vascular surgery-Dr. Schultz. Dr. Cummings, Infectious Disease, [facility], Dr. Boss, and your primary care provider Dr. Shine. Discharge/Stand Alone Forms: Wound Discharge Instructions Discharge Disposition: HOME WITH HOME HEALTH SERVICES <Sohail Barragan - Last Filed: 12/21/20 18:54> Providers Date of admission: 12/15/20 18:58 Attending physician: Consuelo Kwon DO Consults: 12/15/20 18:23 Consult Physician Urgent Consulting Provider: Dheeraj Palomares Consult Reason/Comments: Acute renal failure Do you want consulting provider notified?: Yes 12/15/20 22:50 Consult Physician Routine Consulting Provider: Dov Wynne Consult Reason/Comments: outflow obstructive uropathy Do you want consulting provider notified?: Yes, Notify in am 12/16/20 12:14 Consult Physician Routine Consulting Provider: Canelo Cummings Consult Reason/Comments: cellulitis wounds with sloughing skin Do you want consulting provider notified?: Yes 12/16/20 15:33 Consult Physician Routine Consulting Provider: Anuj Morales Consult Reason/Comments: Diastolic CHF exacerbation Do you want consulting provider notified?: Yes Primary care physician: Ever Marquis
--- NOTE | 2020-12-21 14:26 | PN ---
PROGRESS NOTE DATE OF SERVICE: 12/21/2020 REASON FOR FOLLOWUP: Bilateral lower extremity wound and cellulitis. INTERVAL HISTORY: The patient is currently afebrile. The patient is breathing comfortably. Denies having any chest pain, cough. No abdominal pain or any worsening pain to the wound area. PHYSICAL EXAMINATION: Blood pressure is 116/55 with a pulse of 81, temperature 98.2. He 92% on room air. General description is an elderly male up in the chair in no distress. RESPIRATORY SYSTEM: Unlabored breathing, clear to auscultation anteriorly. HEART: S1, S2. Regular rate and rhythm. ABDOMEN: Soft. No tenderness. Legs are currently wrapped up. No obvious drainage on the dressing. DIAGNOSTIC IMPRESSION AND PLAN: Patient with bilateral lower extremity wound cellulitis, right greater than left. The patient's white count has normalized and improved on cefazolin antibiotic. Will be transitioned to Keflex. Prescription sent to the pharmacy. Local care to the right foot wound with Medihoney and left with Aquacel dressing and follow up in the office in 1 week. MMODL / IJN: [id number] /
[2020-12-21 15:32] LABS: African American GFR (CKD) 69.1 (60.0-200.0); Anion Gap 13.8 mmol/L (4.00-12.00); BUN/Creat Ratio 35.83 Ratio (12.00-20.00); Calcium 8.6 mg/dL (8.7-10.3); Carbon Dioxide 25.2 mmol/L (21.6-31.8); Magnesium 2.2 mg/dL (1.5-2.4); Non-African American GFR(CKD) 59.6 (60.0-200.0); Potassium 4.4 mmol/L (3.5-5.5)
[2020-12-22] MEDS ORDERED: BUMETANIDE 1 MG TAB PO SCH ×2 (09:00)
--- NOTE | 2020-12-22 10:04 | P.ARTDOP ---
Arterial Doppler LOWER EXTREMITY ARTERIAL DOPPLER: DATE OF SERVICE: 12/17/2020 Reason for study: Right foot ulcer. Doppler waveforms: Multiphasic bilaterally throughout. Pulse volume recording: []. Pressure gradients: Only at the foot level. Ankle-brachial indices: Greater than 1 bilaterally. Toe brachial indices: 0.33 on the right, 0.31 on the left Impression: Normal study proximally. Decreased toe waveform on the left and decreased toe pressures bilaterally, I suspect to be related to vasospastic phenomenon. Distal disease less likely. Clinical correlation recommended..
== END 2020-12-21 12:16 | disposition home health service (06) | DRG 291 ==
LOC: EC 15:47 → 4SSUR 18:58
PROVIDERS: ADMIT Internal Medicine; ATTEND Internal Medicine
DX: I13.0 Hypertensive heart and chronic kidney disease with heart failure and stage 1 through stage 4 chronic kidney disease, or unspecified chronic kidney disease (principal); I50.43 Acute on chronic combined systolic (congestive) and diastolic (congestive) heart failure; N18.4 Chronic kidney disease, stage 4 (severe); N17.9 Acute kidney failure, unspecified; L97.929 Non-pressure chronic ulcer of unspecified part of left lower leg with unspecified severity; L03.115 Cellulitis of right lower limb; L03.116 Cellulitis of left lower limb; N39.0 Urinary tract infection, site not specified; N13.8 Other obstructive and reflux uropathy; D63.1 Anemia in chronic kidney disease; E78.5 Hyperlipidemia, unspecified; E66.01 Morbid (severe) obesity due to excess calories; G47.33 Obstructive sleep apnea (adult) (pediatric); I25.10 Atherosclerotic heart disease of native coronary artery without angina pectoris; I25.2 Old myocardial infarction; I25.5 Ischemic cardiomyopathy; I44.0 Atrioventricular block, first degree; I77.1 Stricture of artery; I87.2 Venous insufficiency (chronic) (peripheral); J44.9 Chronic obstructive pulmonary disease, unspecified; Z20.822 Contact with and (suspected) exposure to COVID-19; L97.512 Non-pressure chronic ulcer of other part of right foot with fat layer exposed; L98.492 Non-pressure chronic ulcer of skin of other sites with fat layer exposed; R09.02 Hypoxemia; Y92.009 Unspecified place in unspecified non-institutional (private) residence as the place of occurrence of the external cause; R29.6 Repeated falls; N40.1 Benign prostatic hyperplasia with lower urinary tract symptoms; W19.XXXA Unspecified fall, initial encounter; I83.009 Varicose veins of unspecified lower extremity with ulcer of unspecified site; Z68.33 Body mass index [BMI] 33.0-33.9, adult; Z79.82 Long term (current) use of aspirin; Z80.1 Family history of malignant neoplasm of trachea, bronchus and lung; Z87.891 Personal history of nicotine dependence; Z82.5 Family history of asthma and other chronic lower respiratory diseases; Z95.5 Presence of coronary angioplasty implant and graft; Z96.641 Presence of right artificial hip joint; Z82.49 Family history of ischemic heart disease and other diseases of the circulatory system; I87.8 Other specified disorders of veins; I95.9 Hypotension, unspecified; D63.8 Anemia in other chronic diseases classified elsewhere; Z82.3 Family history of stroke; Z80.8 Family history of malignant neoplasm of other organs or systems; Z00.6 Encounter for examination for normal comparison and control in clinical research program; I08.1 Rheumatic disorders of both mitral and tricuspid valves; I73.89 Other specified peripheral vascular diseases; M54.9 Dorsalgia, unspecified
CPT/HCPCS: 36415; 71046; 76770; 80048; 80053; 81001; 83605; 83735; 83880; 84484; 85025; 85027; 87040; 87070; 87075; 87205; 87635; 93005; 93306; 93922; 94640; 99285

== ENCOUNTER 2021-01-01 18:23 | Emergency (ER) | payer MEDICARE, OTHER ==
[2021-01-01 18:40] VITALS: BP 143/98; PULSE 80; RESP 18; TEMP 99.1
[2021-01-01 20:09] LABS: Appearance,Urine Clear (Clear); Bilirubin,Urine Negative (Negative); Blood,Urine Negative (Negative); Color,Urine Yellow; Glucose,Urine (UA) Negative (Negative); Ketones,Urine Negative (Negative); Leukocyte Esterase,Urine Negative (Negative); Nitrite,Urine Negative (Negative); Protein,Urine Negative (Negative); Specific Gravity,Urine 1.012 (1.001-1.035); Urobilinogen,Urine <2.0 mg/dL (<2.0)
[2021-01-01 20:15] LABS: Anisocytosis Slight; Basophils % (A) 1 %; Eosinophils # (A) 0.1 k/uL (0-0.7); Eosinophils % (A) 2 %; HCT 33.7 % (39.0-53.0); HGB 10.6 gm/dL (13.0-17.5); Lymphocytes # (A) 1.8 k/uL (1.0-4.8); Lymphocytes % (A) 22 %; MCH 31.6 pg (25.0-35.0); MCHC 31.4 g/dL (31.0-37.0); MCV 100.5 fL (80.0-100.0); Macrocytosis Slight; Mean Platelet Volume 7.7; Monocytes # (A) 0.8 k/uL (0-1.0); Monocytes % (A) 10 %; Neutrophils # (A) 5.2 k/uL (1.3-7.7); Neutrophils % (A) 63 %; RBC 3.36 m/uL (4.30-5.90); RDW 16.2 % (11.5-15.5); WBC 8.2 k/uL (3.8-10.6)
[2021-01-01 20:16] LABS: Albumin 3.1 g/dL (3.5-5.0); Calcium 8.7 mg/dL (8.4-10.2); Potassium 3.8 mmol/L (3.5-5.1); Total Bilirubin 0.5 mg/dL (0.2-1.3); Total Protein 5.6 g/dL (6.3-8.2)
[2021-01-01 20:19] LABS: INR 1.1 (<1.2); Partial Thromboplastin Time 35.3 sec (22.0-30.0); Platelet Count 464 k/uL (150-450); Prothrombin Time 11.4 sec (9.0-12.0)
--- NOTE | 2021-01-01 20:41 | XR ---
EXAMINATION TYPE: XR chest 2V DATE OF EXAM: 01/01/2021 COMPARISON: 12/15/2020 HISTORY: Altered mental status TECHNIQUE: 2 views FINDINGS: There is large area of airspace consolidation in the lateral right posterior lung field. He art is enlarged. There is no heart failure. Left lung is clear. There are no hilar masses. Bony thora x appears intact. IMPRESSION: There is right side density consistent with a peripheral pneumonia or pleural thickening that is increased compared to recent exam.
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
[2021-01-01] MEDS ORDERED: AZITHROMYCIN 500 MG TAB PO STA (21:09)
[2021-01-01] MEDS ORDERED: AMOXIC-POT CLAV 875MG STARTER PACK 2 TAB BTL PO STA (21:09)
== END 2021-01-01 22:09 | disposition home or self-care (01) ==
LOC: EC 18:23
DX: J18.9 Pneumonia, unspecified organism (principal); R41.82 Altered mental status, unspecified; I11.0 Hypertensive heart disease with heart failure; I50.9 Heart failure, unspecified; J44.9 Chronic obstructive pulmonary disease, unspecified; E78.5 Hyperlipidemia, unspecified; I21.9 Acute myocardial infarction, unspecified; Z79.899 Other long term (current) drug therapy; Z87.891 Personal history of nicotine dependence
CPT/HCPCS: 36415; 71046; 80053; 81003; 84484; 85025; 85610; 85730; 93005; 99285

== ENCOUNTER 2021-01-15 | Inpatient (IN) | payer MEDICARE, OTHER | END 2021-01-18 15:05 | disposition home health service (06) | DRG 683 | PROVIDERS: ADMIT Internal Medicine | DX: N17.0 Acute kidney failure with tubular necrosis (principal); E87.1 Hypo-osmolality and hyponatremia; I13.0 Hypertensive heart and chronic kidney disease with heart failure and stage 1 through stage 4 chronic kidney disease, or unspecified chronic kidney disease; E27.40 Unspecified adrenocortical insufficiency; I50.42 Chronic combined systolic (congestive) and diastolic (congestive) heart failure; I87.313 Chronic venous hypertension (idiopathic) with ulcer of bilateral lower extremity; L03.115 Cellulitis of right lower limb; L03.116 Cellulitis of left lower limb; L97.912 Non-pressure chronic ulcer of unspecified part of right lower leg with fat layer exposed; L97.922 Non-pressure chronic ulcer of unspecified part of left lower leg with fat layer exposed; Z20.822 Contact with and (suspected) exposure to COVID-19; D63.8 Anemia in other chronic diseases classified elsewhere; B96.89 Other specified bacterial agents as the cause of diseases classified elsewhere; N18.9 Chronic kidney disease, unspecified; I25.10 Atherosclerotic heart disease of native coronary artery without angina pectoris; L98.492 Non-pressure chronic ulcer of skin of other sites with fat layer exposed; I87.2 Venous insufficiency (chronic) (peripheral); I44.0 Atrioventricular block, first degree; J44.9 Chronic obstructive pulmonary disease, unspecified; I95.9 Hypotension, unspecified; E78.5 Hyperlipidemia, unspecified; E86.0 Dehydration; N40.0 Benign prostatic hyperplasia without lower urinary tract symptoms; E66.01 Morbid (severe) obesity due to excess calories; I25.2 Old myocardial infarction; I87.8 Other specified disorders of veins; Z79.82 Long term (current) use of aspirin; Z68.34 Body mass index [BMI] 34.0-34.9, adult; Z79.899 Other long term (current) drug therapy; Z87.891 Personal history of nicotine dependence; Z95.5 Presence of coronary angioplasty implant and graft; Z96.641 Presence of right artificial hip joint | CPT/HCPCS: 36415; 71046; 80048; 80053; 81001; 82803; 83735; 83880; 84484; 85025; 85027; 85610; 85730; 87070; 87075; 87077; 87186; 87205; 87635; 93005; 94640; 99285 ==